=== PATIENT | male | born 1945 ===

== ENCOUNTER 2017-11-16 16:48 | Inpatient (IN) | payer OTHER, SELFPAY ==
[2017-11-16 16:49] VITALS: BMI 25.8
--- NOTE | 2017-11-16 18:16 | ED PDOC ---
HPI: General Adult Time Seen by Provider: 11/16/17 17:13 Chief Complaint (Nursing): Abnormal Labs Chief Complaint (Provider): abnormal labs History Per: Patient History/Exam Limitations: no limitations Onset/Duration Of Symptoms: Days Additional Complaint(s): René Jett is a 72 year old male, with a past medical history of diabetes and HTN, who was sent from podiatry clinic for elevated wbc of 15.1. Patient has been followed closely by podiatry clinic s/p right hallux osteo with debridement and bone biopsy one week ago. Pt. was discharged home from that procedure with PICC to [facility] and has been getting vanco infusion daily. Pt.'s most recent labs drawn 2d. ago, wbc 15.1, seen in clinic today, foot noted to be cellulitic and was sent to ED for repeat labs. Patient denies any fever, chills, cough, congestion or other medical complaints. PMD: Celia Chance Past Medical History Reviewed: Historical Data, Nursing Documentation, Vital Signs Vital Signs: Last Vital Signs Temp 99.2 F 11/16/17 23:43 Pulse 86 11/16/17 23:43 Resp 18 11/16/17 23:43 BP 144/79 11/16/17 23:43 Pulse Ox 96 11/17/17 00:23 - Medical History PMH: Diabetes, HTN Denies: Chronic Kidney Disease - Surgical History Surgical History: No Surg Hx - Family History Family History: States: Unknown Family Hx - Home Medications Home Medications: Ambulatory Orders Medication Instructions Recorded GlipiZIDE [Glucotrol] 10 mg PO DAILY 11/08/17 Lisinopril [Zestril] 40 mg PO DAILY 11/08/17 MetFORMIN [glucoPHAGE] 1,000 mg PO BID 11/08/17 Metoprolol Tartrate [Lopressor] 25 mg PO DAILY 11/08/17 Acetaminophen [Tylenol 325mg tab] 650 mg PO Q4 PRN tab 11/11/17 Ciprofloxacin HCl [Cipro] 500 mg PO BID #28 tablet 11/11/17 Mupirocin 2% Ointment [Bactroban 1 applic TOP BID #1 tube 11/11/17 Ointment] Vancomycin 1gm in NS 250ml 1 gm IVPB DAILY #14 bag 11/11/17 [Vancomycin 1gm] - Allergies Allergies/Adverse Reactions: Allergies Allergy/AdvReac Type Severity Reaction Status Date / Time No Known Allergies Allergy Verified 11/16/17 16:59 Review of Systems ROS Statement: Except As Marked, All Systems Reviewed And Found Negative Constitutional: Negative for: Fever, Chills ENT: Negative for: Nose Congestion Respiratory: Negative for: Cough Physical Exam - Reviewed Nursing Documentation Reviewed: Yes Vital Signs Reviewed: Yes - Physical Exam Appears: Positive for: No Acute Distress Head Exam: Positive for: ATRAUMATIC, NORMOCEPHALIC Skin: Positive for: Normal Color, Warm, Dry Eye Exam: Positive for: Normal appearance, EOMI, PERRL ENT: Positive for: Normal ENT Inspection, Pharynx Is (clear) Neck: Positive for: Painless ROM Respiratory: Negative for: Respiratory Distress Extremity: Positive for: Normal ROM (upper and lower extremities), Other (PICC line in place to right upper extremity. Right foot wrapped and dressing clean, dry, and intact) Neurologic/Psych: Positive for: Alert, Oriented - Laboratory Results Result Diagrams: 11/16/17 20:08 11/16/17 19:08 - ECG O2 Sat by Pulse Oximetry: 96 (RA) Pulse Ox Interpretation: Normal Medical Decision Making Medical Decision Making: Time: 17:13 Initial Impression: Abnormal labs Initial Plan: --CMP --CPK --CBC w/ differential --Erythrocyte sedimentation rate --Blood culture -Spoke with podiatry resident who has just seen patient in clinic. He was inspected and redressed by them with just some localized mild cellulitis but improvement on the overall picture. Scribe Attestation: Documented by Lucius Cartagena, acting as a scribe for Samai Low PA-C Provider Scribe Attestation: All medical record entries made by the Scribe were at my direction and personally dictated by me. I have reviewed the chart and agree that the record accurately reflects my personal performance of the history, physical exam, medical decision making, and the department course for this patient. I have also personally directed, reviewed, and agree with the discharge instructions and disposition. Disposition - Clinical Impression Clinical Impression: Cellulitis, Osteomyelitis of right foot - Patient ED Disposition Is Patient to be Admitted: Yes - Disposition Disposition Time: 23:50 Condition: FAIR
[2017-11-16 19:14] LABS: BASO # 0.1 K/uL (0.0-0.2); BASO % 0.4 % (0.0-2.0); EOS # 0.2 K/uL (0.0-0.7); EOS % 1.2 % (0.0-4.0); HEMOGLOBIN 12.4 g/dL (12.0-18.0); LYMPH # 1.5 K/uL (1.0-4.3); LYMPH % 9.6 % (20.0-40.0); MEAN CELL VOLUME 85.9 fl (80.0-94.0); MEAN CORPUSCULAR HGB CONC 33.7 g/dL (33.0-37.0); MEAN PLATELET VOLUME 7.4 fl (7.2-11.7); MONO # 1.1 K/uL (0.0-0.8); MONO % 7.5 % (0.0-10.0); NEUT # 12.3 K/uL (1.8-7.0); NEUT % 81.3 % (50.0-75.0); PLATELET COUNT 444 K/uL (130-400); RBC 4.28 Mil/uL (4.40-5.90); RED CELL DISTRIBUTION WIDTH 13.4 % (11.5-14.5); WHITE BLOOD COUNT 15.2 K/uL (4.8-10.8)
[2017-11-16 19:34] LABS: ALB/GLOB RATIO 0.9 (1.0-2.1); ALBUMIN 3.6 g/dL (3.5-5.0); CALCIUM 9.1 mg/dL (8.4-10.2)
[2017-11-16 21:20] LABS: ANISOCYTOSIS SLIGHT; BANDS 3 % (0-2); BASOPHIL 1 % (0-2); HYPOCHROMIC SLIGHT; LARGE PLATELETS PRESENT; LYMPHOCYTE 14 % (20-50); MICROCYTOSIS SLIGHT; MONOCYTE 10 % (0-10); NEUTROPHIL 72 % (42-75); PLATELET ESTIMATE NORMAL (NORMAL); TOTAL CELLS COUNTED 100
[2017-11-16 21:59] LABS: ERYTHROCYTE SEDIMENTATION RATE 75 mm/hr (0-20)
[2017-11-16] MEDS ORDERED: Glucagon Recombinant 1 mg Inj IM PRN (22:04)
[2017-11-16] MEDS ORDERED: Dextrose 50% SYRINGE Inj (50 ml) IV PRN (22:04)
--- NOTE | 2017-11-16 22:09 | CP.PCM.HP ---
History of Present Illness - History of Present Illness History of Present Illness: CC: sent from podiatry clinic due to abnormal labs HPI: 72 y/o man w/ pmh of HTN, DM2 presents to the ED sent from podiatry clinic due to abnormal labs. Patient undergoing outpatient treatment for osteomyelitis found 1 week ago via right hallux debridement/biopsy. Patient initially presented to the hospital 14 days ago for right foot/toe pain. Patient has right UE PICC and receiving daily infusion of vancomycin and taking PO ciprofloxacin. Patient had bloodwork done on 11/14/2017 which showed WBC of 15, which is an increase from discharge WC of 10.6. Patient denies fever, pain , nausea, vomiting, diarrhea. Patient also denies headaches, chest pain, SOB, dizziness. ED course: vitals: 99.4F, 96 beats/min, 136/80 mm Hg, resp 20, O2 96% room air CBC: 15.2>12.4/36.7<444 ESR: 75 CMP: 139/3.8, 105/24, 14/1.5, glucose 103, AST 42, ALT 51, alk phos 60 blood culture: pending PMD: Dr. Chyna Kim PMH: HTN, DM2 Meds: see medlist PSH: right hallux debridement/biopsy 11/09/2017 Fam: non-contributory SOC: quit smoking 20 years ago, denies alcohol and drugs ROS: 12 points assessed and negative unless otherwise reported in HPI Present on Admission - Present on Admission Any Indicators Present on Admission: Yes History of DVT/PE: No History of Uncontrolled Diabetes: Yes Urinary Catheter: No Decubitus Ulcer Present: No Review of Systems - Review of Systems All systems: reviewed and no additional remarkable complaints except - Constitutional Constitutional: absent: Chills, Fever, Headache - EENT Eyes: absent: Change in Vision - Cardiovascular Cardiovascular: absent: Chest Pain - Respiratory Respiratory: absent: Cough, Dyspnea - Gastrointestinal Gastrointestinal: absent: Abdominal Pain, Diarrhea, Nausea, Vomiting - Genitourinary Genitourinary: absent: Dysuria - Musculoskeletal Musculoskeletal: As Per HPI - Integumentary Integumentary: As Per HPI - Neurological Neurological: absent: Dizziness, Headaches Past Patient History - Infectious Disease Hx of Infectious Diseases: None - Past Medical History & Family History Past Medical History?: Yes - Past Social History Smoking Status: Never Smoked - CARDIAC Hx Hypertension: Yes - PULMONARY Hx Respiratory Disorders: No - NEUROLOGICAL Hx Neurological Disorder: No - HEENT Hx HEENT Problems: No - RENAL Hx Chronic Kidney Disease: No - ENDOCRINE/METABOLIC Hx Diabetes Mellitus Type 2: Yes - HEMATOLOGICAL/ONCOLOGICAL Hx Blood Disorders: No - INTEGUMENTARY Hx Dermatological Problems: No Hx Cellulitis: Yes - MUSCULOSKELETAL/RHEUMATOLOGICAL Hx Falls: Yes - GASTROINTESTINAL Hx Gastrointestinal Disorders: No - GENITOURINARY/GYNECOLOGICAL Hx Genitourinary Disorders: No - PSYCHIATRIC Hx Substance Use: No - SURGICAL HISTORY Hx Surgeries: No - ANESTHESIA Hx Anesthesia: No Meds Allergies/Adverse Reactions: Allergies Allergy/AdvReac Type Severity Reaction Status Date / Time No Known Allergies Allergy Verified 11/16/17 16:59 Physical Exam - Constitutional Appears: Non-toxic, No Acute Distress - Head Exam Head Exam: ATRAUMATIC, NORMAL INSPECTION, NORMOCEPHALIC - Eye Exam Eye Exam: Normal appearance - ENT Exam ENT Exam: Mucous Membranes Moist - Neck Exam Neck exam: Positive for: Full Rom. Negative for: Tenderness - Respiratory Exam Respiratory Exam: Clear to Auscultation Bilateral, NORMAL BREATHING PATTERN. absent: Accessory Muscle Use, Decreased Breath Sounds, Rales, Rhonchi, Wheezes, Respiratory Distress - Cardiovascular Exam Cardiovascular Exam: REGULAR RHYTHM, RRR, +S1, +S2. absent: Tachycardia - GI/Abdominal Exam GI & Abdominal Exam: Normal Bowel Sounds, Soft. absent: Distended, Tenderness - Extremities Exam Extremities exam: Negative for: calf tenderness, pedal edema, tenderness Additional comments: right foot in dressing (recently done in clinic), no signs of erythema or streaking along leg; left foot/leg non-tender, no erythema, no edema RUE PICC line - Neurological Exam Neurological exam: Alert, Oriented x3 - Skin Skin Exam: Dry, Normal Color, Warm Results - Vital Signs Recent Vital Signs: Last Vital Signs Temp 99.4 F 11/16/17 16:55 Pulse 96 H 11/16/17 16:55 Resp 20 11/16/17 16:55 BP 136/80 11/16/17 16:55 Pulse Ox 96 11/16/17 18:33 - Labs Result Diagrams: 11/16/17 20:08 11/16/17 19:08 Labs: Laboratory Results - last 24 hr 11/16/17 11/16/17 11/16/17 19:08 20:08 20:41 WBC 15.2 H RBC 4.28 L Hgb 12.4 Hct 36.7 MCV 85.9 MCH 29.0 MCHC 33.7 RDW 13.4 Plt Count 444 H MPV 7.4 Neut % (Auto) 81.3 H Lymph % (Auto) 9.6 L Crowley % (Auto) 7.5 Eos % (Auto) 1.2 Baso % (Auto) 0.4 Neut # (Auto) 12.3 H Lymph # (Auto) 1.5 Crowley # (Auto) 1.1 H Eos # (Auto) 0.2 Baso # (Auto) 0.1 Neutrophils % (Manual) 72 Band Neutrophils % 3 H Lymphocytes % (Manual) 14 L Monocytes % (Manual) 10 Basophils % (Manual) 1 Platelet Estimate Normal Large Platelets Present Hypochromasia (manual) Slight Anisocytosis (manual) Slight Microcytosis (manual) Slight ESR 75 H Sodium 139 Potassium 3.8 Chloride 105 Carbon Dioxide 24 Anion Gap 14 BUN 14 Creatinine 1.5 Est GFR ( Amer) 56 Est GFR (Non-Af Amer) 46 POC Glucose (mg/dL) 125 H Random Glucose 103 Calcium 9.1 Total Bilirubin 0.3 AST 42 ALT 51 Alkaline Phosphatase 60 Total Creatine Kinase 56 Total Protein 7.7 Albumin 3.6 Globulin 4.0 H Albumin/Globulin Ratio 0.9 L Assessment & Plan (1) Osteomyelitis of right foot Status: Acute (2) HTN (hypertension) Status: Chronic (3) DM2 (diabetes mellitus, type 2) Status: Chronic - Assessment and Plan (Free Text) Assessment: 72 y/o man w/ pmh of HTN, DM2 presents to the ED sent from podiatry clinic due to abnormal labs. Plan: Osteomyelitis - diagnosed via biopsy done 1 week ago - sent from podiatry clinic due to increase WBC on recent blood work - failed outpatient treatment of PO cipro and IV vanc via PICC line - vital signs stable, does not fulfill sepsis criteria - CBC: 15.2>12.4/36.7<444 - ESR: 75 - CMP: 139/3.8, 105/24, 14/1.5, glucose 103, AST 42, ALT 51, alk phos 60 - blood culture: pending - Vancomycin 1 gm IV Q12h - Zosyn 3.375 gm IV Q8h - Ciprofloxacin 400 mg IV Q12h - podiatry consult ordered - f/u CBC, CMP - monitor for acute changes - admit to MedSurg DM2 - last HbA1c 8.9% (11/09/2017) - c/w glipizide, hold metformin for now - insulin correction scale - hypoglycemic protocol HTN - stable BP - c/w lisinopril andmetoprolol Prophylactic measures - DVT: lovenox 40 mg SC daily
[2017-11-16] MEDS ORDERED: Ciprofloxacin 400mg/200ml D5W 400 MG/200 ML BAG IVPB SCH (22:15)
[2017-11-16] MEDS ORDERED: Piperacillin/Tazobact 3.375 gm Inj IVPB ONE (22:31)
[2017-11-17] MEDS: Piperacillin/Tazobact 3.375 GM in Sodium Chloride 0.9% 100 ML IVPB SCH ×3 (00:03→17:46)
[2017-11-17 05:50] LABS: BASO # 0.1 K/uL (0.0-0.2); BASO % 1.1 % (0.0-2.0); EOS # 0.2 K/uL (0.0-0.7); EOS % 2.2 % (0.0-4.0); HEMOGLOBIN 11.3 g/dL (12.0-18.0); LYMPH # 1.4 K/uL (1.0-4.3); LYMPH % 12.8 % (20.0-40.0); MEAN CELL VOLUME 85.2 fl (80.0-94.0); MEAN CORPUSCULAR HEMOGLOBIN 28.8 pg (27.0-31.0); MEAN CORPUSCULAR HGB CONC 33.8 g/dL (33.0-37.0); MEAN PLATELET VOLUME 7.3 fl (7.2-11.7); MONO # 0.9 K/uL (0.0-0.8); MONO % 8.3 % (0.0-10.0); NEUT # 8.1 K/uL (1.8-7.0); NEUT % 75.6 % (50.0-75.0); RBC 3.93 Mil/uL (4.40-5.90); WHITE BLOOD COUNT 10.8 K/uL (4.8-10.8)
[2017-11-17 06:12] LABS: ALB/GLOB RATIO 0.9 (1.0-2.1); ALBUMIN 3.3 g/dL (3.5-5.0); ALT/SGPT 36 U/L (21-72); AST/SGOT 29 U/L (17-59); BLOOD UREA NITROGEN 14 mg/dl (9-20); CALCIUM 8.7 mg/dL (8.4-10.2); GFR NON-AFRICAN AMERICAN 50
[2017-11-17] MEDS: Insulin Lispro (humaLOG) 100 Units/ml Inj SC SCH ×3 (06:30→17:43)
[2017-11-17] MEDS: Enoxaparin 40 mg Syringe SC SCH (09:04)
--- NOTE | 2017-11-17 09:48 | CP.PCM.PN ---
<Krysta Sharma - Last Filed: 11/17/17 12:16> Subjective - Date & Time of Evaluation Date of Evaluation: 11/17/17 Time of Evaluation: 09:48 - Subjective Subjective: Patient seen and examined at bedside with Dr. Spencer. He is sitting comfortably on his bed and is accompanied by his at bedside. He reports feeling well and states that he is not in any pain. Pt has no active complaints. He denies nausea , vomiting, chest pain, shortness of breath, calf tenderness, foot pain, leg pain, fevers, chills and diarrhea. Objective - Vital Signs/Intake and Output Vital Signs (last 24 hours): Temp Pulse Resp BP Pulse Ox 98.8 F 76 18 149/79 97 11/17/17 08:11 11/17/17 09:04 11/17/17 08:11 11/17/17 09:04 11/17/17 08:11 - Medications Medications: Current Medications Dextrose (Dextrose 50% Inj) 0 ml IV STAT PRN; Protocol PRN Reason: Hypoglycemia Protocol Dextrose (Glutose 15) 0 gm PO ONCE PRN; Protocol PRN Reason: Hypoglycemia Protocol Enoxaparin Sodium (Lovenox) 40 mg SC DAILY MARIVEL PRN Reason: Protocol Last Admin: 11/17/17 09:04 Dose: 40 mg Glipizide (Glucotrol) 10 mg PO DAILY COUNT INCLUDES THE [facility] Last Admin: 11/17/17 09:04 Dose: 10 mg Glucagon (Glucagen Diagnostic Kit) 0 mg IM STAT PRN; Protocol PRN Reason: Hypoglycemia Protocol Piperacillin Sod/Tazobactam (Sod 3.375 gm/ Sodium Chloride) 100 mls @ 100 mls/ hr IVPB Q8 MARIVEL PRN Reason: Protocol Last Admin: 11/17/17 09:05 Dose: 100 mls/hr Ciprofloxacin (Cipro 400mg/200ml Dsw) 400 mg in 200 mls @ 200 mls/hr IVPB Q12 MARIVEL PRN Reason: Protocol Vancomycin HCl 1 gm/ Sodium (Chloride) 250 mls @ 166.667 mls/hr IVPB Q12 MARIVEL PRN Reason: Protocol Last Admin: 11/17/17 09:06 Dose: 166.667 mls/hr Insulin Human Lispro (Humalog) 0 units SC ACHS MARIVEL PRN Reason: Protocol Last Admin: 11/17/17 06:30 Dose: 2 units Lisinopril (Zestril) 40 mg PO DAILY COUNT INCLUDES THE [facility] Last Admin: 11/17/17 09:04 Dose: 40 mg Metoprolol Tartrate (Lopressor) 25 mg PO DAILY COUNT INCLUDES THE [facility] Last Admin: 11/17/17 09:04 Dose: 25 mg Mupirocin (Bactroban Ointment) 1 applic TOP BID COUNT INCLUDES THE [facility] Last Admin: 11/17/17 09:07 Dose: 1 applic Saccharomyces Boulardii (Florastor) 250 mg PO BID COUNT INCLUDES THE [facility] - Labs Labs: 11/17/17 05:39 11/17/17 05:39 - Constitutional Appears: Well, Non-toxic, No Acute Distress - Head Exam Head Exam: NORMAL INSPECTION - ENT Exam ENT Exam: Mucous Membranes Moist - Respiratory Exam Respiratory Exam: Clear to Ausculation Bilateral, NORMAL BREATHING PATTERN. absent: Decreased Breath Sounds, Rales, Wheezes, Respiratory Distress, Stridor - Cardiovascular Exam Cardiovascular Exam: REGULAR RHYTHM, RRR, +S1, +S2. absent: Diastolic murmur, Gallop, JVD, Rubs, +S4, Murmur - GI/Abdominal Exam GI & Abdominal Exam: Soft, Normal Bowel Sounds. absent: Distended, Firm, Rigid , Tenderness, Mass, Pulsatile Mass, Rebound - Extremities Exam Extremities Exam: Normal Inspection. absent: Calf Tenderness, Joint Swelling, Pedal Edema, Tenderness Additional comments: Edema noted on the right lower leg (+1). +2 dorsalis pedis and +2 tibialis pulses noted with Doppler on both lower extremities. Multiple right foot toes erythematous. - Neurological Exam Neurological Exam: Alert, Awake - Psychiatric Exam Psychiatric exam: Normal Affect, Normal Mood - Skin Skin Exam: Dry, Intact, Normal Color, Warm Assessment and Plan - Assessment and Plan (Free Text) Assessment: 72 y/o man w/ pmh of HTN, DM2 presents to the ED sent from podiatry clinic due to abnormal labs. Patient WBC on admission was 15 but now reported to be 10.8. Patient noted to have multiple erythematous toes. Plan: 1. Osteomyelitis - diagnosed via biopsy done 1 week ago. Failed outpatient treatment of Cipro and Vancomycin via PICC line. - WBC trended down from 15 (11/16/17) to 10 (11/17/17). - Continue Vancomycin 1gm Q12h day 1 and Zosyn 3.375 Q8H day 1. Ciprofloxacin 400mg Q12H. - blood culture: pending. - podiatry consult appreciated. - monitor for acute changes. 2. DM2 - last HbA1c 8.9% (11/09/2017) - c/w glipizide, hold metformin for now - insulin correction scale - hypoglycemic protocol 3. HTN - stable BP - c/w lisinopril and metoprolol 4. Prophylactic measures - DVT: lovenox 40 mg SC daily <Chelle Spencer - Last Filed: 11/17/17 17:04> Objective - Vital Signs/Intake and Output Vital Signs (last 24 hours): Temp Pulse Resp BP Pulse Ox 98.9 F 96 H 20 151/78 H 100 11/17/17 15:45 11/17/17 15:45 11/17/17 15:45 11/17/17 15:45 11/17/17 15:45 - Medications Medications: Current Medications Dextrose (Dextrose 50% Inj) 0 ml IV STAT PRN; Protocol PRN Reason: Hypoglycemia Protocol Dextrose (Glutose 15) 0 gm PO ONCE PRN; Protocol PRN Reason: Hypoglycemia Protocol Enoxaparin Sodium (Lovenox) 40 mg SC DAILY MARIVEL PRN Reason: Protocol Last Admin: 11/17/17 09:04 Dose: 40 mg Glipizide (Glucotrol) 10 mg PO DAILY COUNT INCLUDES THE [facility] Last Admin: 11/17/17 09:04 Dose: 10 mg Glucagon (Glucagen Diagnostic Kit) 0 mg IM STAT PRN; Protocol PRN Reason: Hypoglycemia Protocol Piperacillin Sod/Tazobactam (Sod 3.375 gm/ Sodium Chloride) 100 mls @ 100 mls/ hr IVPB Q8 MARIVEL PRN Reason: Protocol Last Admin: 11/17/17 09:05 Dose: 100 mls/hr Ciprofloxacin (Cipro 400mg/200ml Dsw) 400 mg in 200 mls @ 200 mls/hr IVPB Q12 MARIVEL PRN Reason: Protocol Last Admin: 11/17/17 12:39 Dose: 200 mls/hr Vancomycin HCl 1 gm/ Sodium (Chloride) 250 mls @ 166.667 mls/hr IVPB Q12 MARIVEL PRN Reason: Protocol Last Admin: 11/17/17 09:06 Dose: 166.667 mls/hr Insulin Human Lispro (Humalog) 0 units SC ACHS COUNT INCLUDES THE [facility] PRN Reason: Protocol Last Admin: 11/17/17 12:41 Dose: 4 units Lisinopril (Zestril) 40 mg PO DAILY COUNT INCLUDES THE [facility] Last Admin: 11/17/17 09:04 Dose: 40 mg Metoprolol Tartrate (Lopressor) 25 mg PO DAILY COUNT INCLUDES THE [facility] Last Admin: 11/17/17 09:04 Dose: 25 mg Mupirocin (Bactroban Ointment) 1 applic TOP BID COUNT INCLUDES THE [facility] Last Admin: 11/17/17 09:07 Dose: 1 applic Saccharomyces Boulardii (Florastor) 250 mg PO BID COUNT INCLUDES THE [facility] Last Admin: 11/17/17 12:39 Dose: 250 mg - Labs Labs: 11/17/17 05:39 11/17/17 05:39 Attending/Attestation - Attestation I have personally seen and examined this patient.: Yes I have fully participated in the care of the patient.: Yes I have reviewed all pertinent clinical information, including history, physical exam and plan: Yes Notes (Text): Osteomyelitis, right hallux - plan for amputation as per Podiatry - cont Elisha Scott, Cipro - ID consulted
[2017-11-17] MEDS ORDERED: Povidone Iodine Topical 10% Sol ONE (12:23)
[2017-11-17] MEDS: Ciprofloxacin 400mg/200ml D5W 400 MG/200 ML BAG IVPB SCH ×2 (12:39→20:08)
[2017-11-17] MEDS: Saccharomyces Boulardi 250 mg Cap PO SCH ×2 (12:39→17:46)
--- NOTE | 2017-11-17 12:47 | CP.PCM.CON ---
History of Present Illness - History of Present Illness History of Present Illness: Podiatry consult note for attending Dr. Ang 72 y/o male with PMHx of HTN and Type II DM was seen and evaluated at bedside due to pain at the right hallux. Patient is currently undergoing outpatient treatment for osteomyelitis. Patient has a right hallux debridement and biopsy 1 weeks ago. Patient has right UE PICC and receiving daily infusion of vancomycin and taking PO ciprofloxacin. Patient had abnormal labs from 11/14/17 and was asked to return to the ED for admission. Patient denies fever, pain, nausea, vomiting, diarrhea. Patient also denies headaches, chest pain, SOB, dizziness. CBC: 15.2>12.4/36.7<444 ESR: 75 PMD: Dr. Chyna Kim PMH: HTN, DM2 Meds: see medlist PSH: right hallux debridement/biopsy 11/09/2017 Fam: non-contributory SOC: quit smoking 20 years ago, denies alcohol and drugs Review of Systems - Review of Systems All systems: reviewed and no additional remarkable complaints except Review of Systems: As per HPI Past Patient History - Infectious Disease Hx of Infectious Diseases: None - Past Medical History & Family History Past Medical History?: Yes - Past Social History Smoking Status: Former Smoker - CARDIAC Hx Hypertension: Yes - PULMONARY Hx Respiratory Disorders: No - NEUROLOGICAL Hx Neurological Disorder: No - HEENT Hx HEENT Problems: No - RENAL Hx Chronic Kidney Disease: No - ENDOCRINE/METABOLIC Hx Endocrine Disorders: Yes Hx Diabetes Mellitus Type 2: Yes - HEMATOLOGICAL/ONCOLOGICAL Hx Blood Disorders: No - INTEGUMENTARY Hx Dermatological Problems: No - MUSCULOSKELETAL/RHEUMATOLOGICAL Hx Musculoskeletal Disorders: No Hx Falls: No Hx Osteomyelitis: Yes (right foot) - GASTROINTESTINAL Hx Gastrointestinal Disorders: No - GENITOURINARY/GYNECOLOGICAL Hx Genitourinary Disorders: No - PSYCHIATRIC Hx Psychophysiologic Disorder: No Hx Substance Use: No - SURGICAL HISTORY Hx Surgeries: No - ANESTHESIA Hx Anesthesia: No Hx Anesthesia Reactions: No Hx Malignant Hyperthermia: No Has any member of the family had a problem w/ anesthesia?: No Meds Allergies/Adverse Reactions: Allergies Allergy/AdvReac Type Severity Reaction Status Date / Time No Known Allergies Allergy Verified 11/16/17 16:59 - Medications Medications: Current Medications Dextrose (Dextrose 50% Inj) 0 ml IV STAT PRN; Protocol PRN Reason: Hypoglycemia Protocol Dextrose (Glutose 15) 0 gm PO ONCE PRN; Protocol PRN Reason: Hypoglycemia Protocol Enoxaparin Sodium (Lovenox) 40 mg SC DAILY [facility] PRN Reason: Protocol Last Admin: 11/17/17 09:04 Dose: 40 mg Glipizide (Glucotrol) 10 mg PO DAILY [facility] Last Admin: 11/17/17 09:04 Dose: 10 mg Glucagon (Glucagen Diagnostic Kit) 0 mg IM STAT PRN; Protocol PRN Reason: Hypoglycemia Protocol Piperacillin Sod/Tazobactam (Sod 3.375 gm/ Sodium Chloride) 100 mls @ 100 mls/ hr IVPB Q8 [facility] PRN Reason: Protocol Last Admin: 11/17/17 09:05 Dose: 100 mls/hr Ciprofloxacin (Cipro 400mg/200ml Dsw) 400 mg in 200 mls @ 200 mls/hr IVPB Q12 [facility] PRN Reason: Protocol Last Admin: 11/17/17 12:39 Dose: 200 mls/hr Vancomycin HCl 1 gm/ Sodium (Chloride) 250 mls @ 166.667 mls/hr IVPB Q12 [facility] PRN Reason: Protocol Last Admin: 11/17/17 09:06 Dose: 166.667 mls/hr Insulin Human Lispro (Humalog) 0 units SC ACHS [facility] PRN Reason: Protocol Last Admin: 11/17/17 12:41 Dose: 4 units Lisinopril (Zestril) 40 mg PO DAILY [facility] Last Admin: 11/17/17 09:04 Dose: 40 mg Metoprolol Tartrate (Lopressor) 25 mg PO DAILY [facility] Last Admin: 11/17/17 09:04 Dose: 25 mg Mupirocin (Bactroban Ointment) 1 applic TOP BID [facility] Last Admin: 11/17/17 09:07 Dose: 1 applic Saccharomyces Boulardii (Florastor) 250 mg PO BID [facility] Last Admin: 11/17/17 12:39 Dose: 250 mg Physical Exam - Constitutional Appears: Well, Non-toxic, No Acute Distress - Head Exam Head Exam: ATRAUMATIC, NORMOCEPHALIC - Extremities Exam Additional comments: Right Lower Extremity Exam Vascular: DP/PT 2/4, CFT < 3 seconds to all digits, pedal hair absent, erythema and edema present about the hallux and extending to first MPJ and forefoot Ortho: mild pain on palpation of surgical debridement site, does not extend proximally up leg as seen prior to surgery Neuro: gross and protective sensation intact Derm: 4 cm X 3 cm circular wound at the plantar aspect of the right hallux, with 50% fibrotic base and 40% granular, positive malodor, brijesh-wound hyperkeratotic border with edema and erythema extending to the level of the metatarsal heads, positive probe to bone, no drainage, no tracking or tunneling noted, sutures noted within the wound - Neurological Exam Neurological exam: Alert, Oriented x3 - Psychiatric Exam Psychiatric exam: Normal Affect, Normal Mood Results - Vital Signs Recent Vital Signs: Last Vital Signs Temp 98.8 F 11/17/17 08:11 Pulse 76 11/17/17 09:04 Resp 18 11/17/17 08:11 BP 149/79 11/17/17 09:04 Pulse Ox 97 11/17/17 08:11 - Labs Result Diagrams: 11/17/17 05:39 11/17/17 05:39 Labs: Laboratory Results - last 24 hr 11/16/17 11/16/17 11/16/17 19:08 20:08 20:41 WBC 15.2 H RBC 4.28 L Hgb 12.4 Hct 36.7 MCV 85.9 MCH 29.0 MCHC 33.7 RDW 13.4 Plt Count 444 H MPV 7.4 Neut % (Auto) 81.3 H Lymph % (Auto) 9.6 L [place] % (Auto) 7.5 Eos % (Auto) 1.2 Baso % (Auto) 0.4 Neut # (Auto) 12.3 H Lymph # (Auto) 1.5 [place] # (Auto) 1.1 H Eos # (Auto) 0.2 Baso # (Auto) 0.1 Neutrophils % (Manual) 72 Band Neutrophils % 3 H Lymphocytes % (Manual) 14 L Monocytes % (Manual) 10 Basophils % (Manual) 1 Platelet Estimate Normal Large Platelets Present Hypochromasia (manual) Slight Anisocytosis (manual) Slight Microcytosis (manual) Slight ESR 75 H Sodium 139 Potassium 3.8 Chloride 105 Carbon Dioxide 24 Anion Gap 14 BUN 14 Creatinine 1.5 Est GFR ( Amer) 56 Est GFR (Non-Af Amer) 46 POC Glucose (mg/dL) 125 H Random Glucose 103 Calcium 9.1 Total Bilirubin 0.3 AST 42 ALT 51 Alkaline Phosphatase 60 Total Creatine Kinase 56 Total Protein 7.7 Albumin 3.6 Globulin 4.0 H Albumin/Globulin Ratio 0.9 L 11/17/17 11/17/17 11/17/17 04:40 05:39 05:39 WBC 10.8 RBC 3.93 L Hgb 11.3 L Hct 33.5 L MCV 85.2 MCH 28.8 MCHC 33.8 RDW 13.0 Plt Count 425 H MPV 7.3 Neut % (Auto) 75.6 H Lymph % (Auto) 12.8 L [place] % (Auto) 8.3 Eos % (Auto) 2.2 Baso % (Auto) 1.1 Neut # (Auto) 8.1 H Lymph # (Auto) 1.4 [place] # (Auto) 0.9 H Eos # (Auto) 0.2 Baso # (Auto) 0.1 Neutrophils % (Manual) Band Neutrophils % Lymphocytes % (Manual) Monocytes % (Manual) Basophils % (Manual) Platelet Estimate Large Platelets Hypochromasia (manual) Anisocytosis (manual) Microcytosis (manual) ESR Sodium 137 Potassium 3.8 Chloride 106 Carbon Dioxide 23 Anion Gap 12 BUN 14 Creatinine 1.4 Est GFR ( Amer) > 60 Est GFR (Non-Af Amer) 50 POC Glucose (mg/dL) 171 H Random Glucose 181 H Calcium 8.7 Total Bilirubin 0.3 AST 29 ALT 36 Alkaline Phosphatase 51 Total Creatine Kinase Total Protein 7.0 Albumin 3.3 L Globulin 3.7 Albumin/Globulin Ratio 0.9 L 11/17/17 11:07 WBC RBC Hgb Hct MCV MCH MCHC RDW Plt Count MPV Neut % (Auto) Lymph % (Auto) [place] % (Auto) Eos % (Auto) Baso % (Auto) Neut # (Auto) Lymph # (Auto) [place] # (Auto) Eos # (Auto) Baso # (Auto) Neutrophils % (Manual) Band Neutrophils % Lymphocytes % (Manual) Monocytes % (Manual) Basophils % (Manual) Platelet Estimate Large Platelets Hypochromasia (manual) Anisocytosis (manual) Microcytosis (manual) ESR Sodium Potassium Chloride Carbon Dioxide Anion Gap BUN Creatinine Est GFR ( Amer) Est GFR (Non-Af Amer) POC Glucose (mg/dL) 277 H Random Glucose Calcium Total Bilirubin AST ALT Alkaline Phosphatase Total Creatine Kinase Total Protein Albumin Globulin Albumin/Globulin Ratio Assessment & Plan - Assessment and Plan (Free Text) Assessment: 72 y/o male seen and evaluated at bedside for osteomyelitis to the right hallux , with possible further surgery Plan: Patient seen and evaluated at bedside Plan discussed with attending Dr. Ang Chart, labs and vitals reviewed- WBC 10.8 from 15.2 yesterday (11/16/17) Ordered MRI- to r/o osteomyelitis Infectious disease consulted- appreciate recommendations Patient wound dressed with betadine, and dry sterile dressing In length conversation with patient regarding surgical plan- patient likely to have amputation of the right hallux Patient agreeable to surgical treatment plan Podiatry will follow patient while in house - Date & Time Date: 11/17/17 Time: 12:57
[2017-11-18] MEDS: Piperacillin/Tazobact 3.375 GM in Sodium Chloride 0.9% 100 ML IVPB SCH ×3 (00:39→16:43)
[2017-11-18 05:46] LABS: HEMOGLOBIN 11.8 g/dL (12.0-18.0); MEAN CELL VOLUME 84.3 fl (80.0-94.0); MEAN CORPUSCULAR HEMOGLOBIN 28.6 pg (27.0-31.0); MEAN CORPUSCULAR HGB CONC 33.9 g/dL (33.0-37.0); RBC 4.13 Mil/uL (4.40-5.90); RED CELL DISTRIBUTION WIDTH 12.9 % (11.5-14.5)
[2017-11-18 06:01] LABS: CALCIUM 8.7 mg/dL (8.4-10.2)
--- NOTE | 2017-11-18 06:42 | CP.PCM.PN ---
Subjective - Date & Time of Evaluation Date of Evaluation: 11/18/17 Time of Evaluation: 06:40 - Subjective Subjective: Podiatry progress note for attending Dr. Ang, 72 y/o male was seen and evaluated at bedside with attending Dr. Ang due to pain and ulcer at the right hallux. Patient is currently undergoing outpatient treatment for osteomyelitis. Patient has a right hallux debridement and biopsy 1 weeks ago. Patient states he feels better after getting admitted. Patient denies any acute overnight events. Patient is AAox3 and in NAD. Patient denies f /n/v/sob/decrease in appetite Objective - Vital Signs/Intake and Output Vital Signs (last 24 hours): Temp Pulse Resp BP Pulse Ox 98.8 F 79 18 146/79 96 11/18/17 05:04 11/18/17 05:04 11/18/17 05:04 11/18/17 05:04 11/18/17 05:04 - Medications Medications: Current Medications Dextrose (Dextrose 50% Inj) 0 ml IV STAT PRN; Protocol PRN Reason: Hypoglycemia Protocol Dextrose (Glutose 15) 0 gm PO ONCE PRN; Protocol PRN Reason: Hypoglycemia Protocol Enoxaparin Sodium (Lovenox) 40 mg SC DAILY [facility] PRN Reason: Protocol Last Admin: 11/17/17 09:04 Dose: 40 mg Glipizide (Glucotrol) 10 mg PO DAILY [facility] Last Admin: 11/17/17 09:04 Dose: 10 mg Glucagon (Glucagen Diagnostic Kit) 0 mg IM STAT PRN; Protocol PRN Reason: Hypoglycemia Protocol Piperacillin Sod/Tazobactam (Sod 3.375 gm/ Sodium Chloride) 100 mls @ 100 mls/ hr IVPB Q8 [facility] PRN Reason: Protocol Last Admin: 11/18/17 00:39 Dose: 100 mls/hr Ciprofloxacin (Cipro 400mg/200ml Dsw) 400 mg in 200 mls @ 200 mls/hr IVPB Q12 [facility] PRN Reason: Protocol Last Admin: 11/17/17 20:08 Dose: 200 mls/hr Vancomycin HCl 1 gm/ Sodium (Chloride) 250 mls @ 166.667 mls/hr IVPB Q12 [facility] PRN Reason: Protocol Last Admin: 11/17/17 21:33 Dose: 166.667 mls/hr Insulin Human Lispro (Humalog) 0 units SC ACHS [facility] PRN Reason: Protocol Last Admin: 11/17/17 17:43 Dose: Not Given Lisinopril (Zestril) 40 mg PO DAILY [facility] Last Admin: 11/17/17 09:04 Dose: 40 mg Metoprolol Tartrate (Lopressor) 25 mg PO DAILY [facility] Last Admin: 11/17/17 09:04 Dose: 25 mg Mupirocin (Bactroban Ointment) 1 applic TOP BID [facility] Last Admin: 11/17/17 17:46 Dose: 1 applic Saccharomyces Boulardii (Florastor) 250 mg PO BID [facility] Last Admin: 11/17/17 17:46 Dose: 250 mg - Labs Labs: 11/18/17 04:20 11/18/17 04:20 - Constitutional Appears: Well, Non-toxic, No Acute Distress - Head Exam Head Exam: ATRAUMATIC, NORMOCEPHALIC - Extremities Exam Additional comments: Right Lower Extremity Exam Vascular: DP/PT 2/4, CFT < 3 seconds to all digits, pedal hair absent, erythema and edema present about the hallux and extending to first MPJ and forefoot Ortho: mild pain on palpation of surgical debridement site, does not extend proximally up leg as seen prior to surgery Neuro: gross and protective sensation intact Derm: 4 cm X 3 cm circular wound at the plantar aspect of the right hallux, with 50% fibrotic base and 40% granular, positive malodor, brijesh-wound hyperkeratotic border with edema and erythema extending to the level of the metatarsal heads, positive probe to bone, no drainage, no tracking or tunneling noted, sutures noted within the wound - Neurological Exam Neurological Exam: Alert, Awake, Oriented x3 - Psychiatric Exam Psychiatric exam: Normal Affect, Normal Mood - Skin Skin Exam: Normal Color Assessment and Plan - Assessment and Plan (Free Text) Assessment: 72 y/o male seen and evaluated at bedside for osteomyelitis to the right hallux , with possible further surgery Plan: Patient seen and evaluated at bedside with attending Dr. Ang Plan discussed with attending Dr. Ang Chart, labs and vitals reviewed- WBC 12.0 from 10.8 MRI read and reviewed: acute OM of the proximal phalanx of the hallux EMELYN/PVR- Ordered Vascular consult placed- appreciate recs Infectious disease consulted- appreciate recommendations Patient wound dressed with betadine, and dry sterile dressing In length discussion with patient regarding the surgical plan vs. outpatient Abx treatment- and risks and benefits of both discussed. Patient thoroughly explained what is the procedure will be and function of life after procedure All patient and family questions were answered to satisfaction Patient agreeable to amputation of the right hallux and surgery booked for Tuesday 7:45 AM Podiatry will follow patient while in house
[2017-11-18] MEDS: Saccharomyces Boulardi 250 mg Cap PO SCH ×2 (08:24→16:42)
[2017-11-18] MEDS: Insulin Lispro (humaLOG) 100 Units/ml Inj SC SCH ×4 (08:26→22:09)
[2017-11-18] MEDS: Ciprofloxacin 400mg/200ml D5W 400 MG/200 ML BAG IVPB SCH (08:31)
--- NOTE | 2017-11-18 09:48 | CP.PCM.PN ---
<Krysta Sharma - Last Filed: 11/18/17 09:48> Subjective - Date & Time of Evaluation Date of Evaluation: 11/18/17 Time of Evaluation: 09:48 - Subjective Subjective: Patient seen and examined at bedside with Dr. Spencer. He is stable and has been consistently afebrile. Pt accompanied by who is sitting in the room. He reports good appetite and states he has not had a bowel movement yet. He reports he wants to go through with the right big toe amputation. Denies chest pain, shortness of breath, abdominal diggs, nausea, vomiting, right leg pain and calf pain. Surrogate decision makr - spouse Kelle Objective - Vital Signs/Intake and Output Vital Signs (last 24 hours): Temp Pulse Resp BP Pulse Ox 98.5 F 78 20 139/77 97 11/18/17 08:23 11/18/17 08:24 11/18/17 08:23 11/18/17 08:24 11/18/17 08:23 - Medications Medications: Current Medications Dextrose (Dextrose 50% Inj) 0 ml IV STAT PRN; Protocol PRN Reason: Hypoglycemia Protocol Dextrose (Glutose 15) 0 gm PO ONCE PRN; Protocol PRN Reason: Hypoglycemia Protocol Enoxaparin Sodium (Lovenox) 40 mg SC DAILY [facility] PRN Reason: Protocol Last Admin: 11/17/17 09:04 Dose: 40 mg Glipizide (Glucotrol) 10 mg PO DAILY [facility] Last Admin: 11/18/17 08:25 Dose: 10 mg Glucagon (Glucagen Diagnostic Kit) 0 mg IM STAT PRN; Protocol PRN Reason: Hypoglycemia Protocol Piperacillin Sod/Tazobactam (Sod 3.375 gm/ Sodium Chloride) 100 mls @ 100 mls/ hr IVPB Q8 [facility] PRN Reason: Protocol Last Admin: 11/18/17 08:28 Dose: 100 mls/hr Ciprofloxacin (Cipro 400mg/200ml Dsw) 400 mg in 200 mls @ 200 mls/hr IVPB Q12 [facility] PRN Reason: Protocol Last Admin: 11/18/17 08:31 Dose: 200 mls/hr Vancomycin HCl 1 gm/ Sodium (Chloride) 250 mls @ 166.667 mls/hr IVPB Q12 [facility] PRN Reason: Protocol Last Admin: 11/18/17 08:30 Dose: 166.667 mls/hr Insulin Human Lispro (Humalog) 0 units SC ACHS [facility] PRN Reason: Protocol Last Admin: 11/18/17 08:26 Dose: 2 units Lisinopril (Zestril) 40 mg PO DAILY [facility] Last Admin: 11/18/17 08:24 Dose: 40 mg Metoprolol Tartrate (Lopressor) 25 mg PO DAILY [facility] Last Admin: 11/18/17 08:24 Dose: 25 mg Mupirocin (Bactroban Ointment) 1 applic TOP BID [facility] Last Admin: 11/18/17 08:23 Dose: 1 applic Saccharomyces Boulardii (Florastor) 250 mg PO BID [facility] Last Admin: 11/18/17 08:24 Dose: 250 mg - Labs Labs: 11/18/17 04:20 11/18/17 04:20 - Constitutional Appears: Well, Non-toxic, No Acute Distress - Eye Exam Eye Exam: Normal appearance - ENT Exam ENT Exam: Mucous Membranes Moist - Respiratory Exam Respiratory Exam: Clear to Ausculation Bilateral, NORMAL BREATHING PATTERN. absent: Chest Wall Tenderness, Decreased Breath Sounds, Rales, Rhonchi, Wheezes , Respiratory Distress - Cardiovascular Exam Cardiovascular Exam: REGULAR RHYTHM, RRR, +S1, +S2. absent: Diastolic murmur, Gallop, JVD, Rubs, +S4, Murmur - GI/Abdominal Exam GI & Abdominal Exam: Soft, Normal Bowel Sounds. absent: Distended, Firm, Guarding, Rigid, Tenderness, Organomegaly, Rebound - Extremities Exam Extremities Exam: Normal Inspection (Dressing on right big toe. Clean. Dry. ), Pedal Edema (Right lower leg pedal edema, +1. ). absent: Calf Tenderness, Joint Swelling, Tenderness - Neurological Exam Neurological Exam: Alert, Awake, Oriented x3 - Psychiatric Exam Psychiatric exam: Normal Affect - Skin Skin Exam: Dry, Intact, Normal Color, Warm Assessment and Plan - Assessment and Plan (Free Text) Assessment: 72 y/o man w/ pmh of HTN, DM2 presents to the ED sent from podiatry clinic due to abnormal labs. Patient WBC on admission was 15 but now reported to be 12. Patient has been consistently afebrile. Plan: 1. Osteomyelitis - diagnosed via biopsy done 1 week ago. Failed outpatient treatment of Cipro and Vancomycin via PICC line. - WBC trended down from 15 (9/19/18) to 12 (11/18/17). - Continue Vancomycin 1gm Q12h day 2 and Zosyn 3.375 Q8H day 2. Ciprofloxacin 400mg Q12H day 2. - blood culture: negative to date. - podiatry consult appreciated- Patient agreed to surgery, amputation of right hallux, Date of surgery to be determined. - F/U ECHOcardiogram. - F/U ID recommendations. 2. DM2 - last HbA1c 8.9% (11/09/2017) - c/w glipizide, hold metformin for now - insulin correction scale - hypoglycemic protocol 3. HTN - stable BP - c/w lisinopril and metoprolol 4. Prophylactic measures - DVT: lovenox 40 mg SC daily <Chelle Spencer - Last Filed: 11/18/17 16:40> Objective - Vital Signs/Intake and Output Vital Signs (last 24 hours): Temp Pulse Resp BP Pulse Ox 99.8 F H 76 18 149/78 96 11/18/17 16:23 11/18/17 16:23 11/18/17 16:23 11/18/17 16:23 11/18/17 16:23 - Medications Medications: Current Medications Dextrose (Dextrose 50% Inj) 0 ml IV STAT PRN; Protocol PRN Reason: Hypoglycemia Protocol Dextrose (Glutose 15) 0 gm PO ONCE PRN; Protocol PRN Reason: Hypoglycemia Protocol Enoxaparin Sodium (Lovenox) 40 mg SC DAILY [facility] PRN Reason: Protocol Last Admin: 11/17/17 09:04 Dose: 40 mg Glipizide (Glucotrol) 10 mg PO DAILY [facility] Last Admin: 11/18/17 08:25 Dose: 10 mg Glucagon (Glucagen Diagnostic Kit) 0 mg IM STAT PRN; Protocol PRN Reason: Hypoglycemia Protocol Piperacillin Sod/Tazobactam (Sod 3.375 gm/ Sodium Chloride) 100 mls @ 100 mls/ hr IVPB Q8 [facility] PRN Reason: Protocol Last Admin: 11/18/17 08:28 Dose: 100 mls/hr Ciprofloxacin (Cipro 400mg/200ml Dsw) 400 mg in 200 mls @ 200 mls/hr IVPB Q12 [facility] PRN Reason: Protocol Last Admin: 11/18/17 08:31 Dose: 200 mls/hr Vancomycin HCl 1 gm/ Sodium (Chloride) 250 mls @ 166.667 mls/hr IVPB Q12 [facility] PRN Reason: Protocol Last Admin: 11/18/17 08:30 Dose: 166.667 mls/hr Insulin Human Lispro (Humalog) 0 units SC ACHS [facility] PRN Reason: Protocol Last Admin: 11/18/17 11:41 Dose: 4 units Lisinopril (Zestril) 40 mg PO DAILY [facility] Last Admin: 11/18/17 08:24 Dose: 40 mg Metoprolol Tartrate (Lopressor) 25 mg PO DAILY [facility] Last Admin: 11/18/17 08:24 Dose: 25 mg Mupirocin (Bactroban Ointment) 1 applic TOP BID [facility] Last Admin: 11/18/17 08:23 Dose: 1 applic Saccharomyces Boulardii (Florastor) 250 mg PO BID [facility] Last Admin: 11/18/17 08:24 Dose: 250 mg - Labs Labs: 11/18/17 04:20 11/18/17 04:20 Attending/Attestation - Attestation I have personally seen and examined this patient.: Yes I have fully participated in the care of the patient.: Yes I have reviewed all pertinent clinical information, including history, physical exam and plan: Yes Notes (Text): Osteomyelitis of R Hallux - discussed case with Dr Ang ( Podiatry) - plan for surgery on Tuesday -ECHO for pre op eval - cont IV Zosyn and Vanco
--- NOTE | 2017-11-18 12:06 | MRI ---
MRI right forefoot HISTORY: Osteomyelitis. COMPARISON: None available. TECHNIQUE: Multi-echo multiplanar sequences were performed through left forefoot without the use of intravenous contrast. FINDINGS: Prominent soft tissue ulceration/defect seen at the level of the 1st distal phalanx. Prominent signal abnormality seen within the 1st distal and proximal phalanges with decreased T1 signal and increased STIR signal consistent with an acute osteomyelitis. Moderate hallux valgus deformity. Fraying with increased signal at the level of the Lisfranc ligament which may represent partial tearing and or low grade sprain. Signal abnormality with patchy decreased T1 signal and patchy increased STIR signal seen within the proximal portion of the lateral cuneiform bone as well as the lateral aspect of the cuboid bone which may represent some bone bruising and or osteochondral change versus sequelae of acute inflammatory and or infectious changes versus additional etiology. Clinical correlation. Reticulation and edema seen within the dorsal soft tissues. Degenerative changes noted at the dorsal aspect of the talonavicular joint space with some bony spurring. Thickening of the plantar fascia measuring up to 7 millimeters. Achilles tendon preserved. Sinus tarsi preserved. No significant ankle joint effusion. Fraying with increased signal at the level of the deltoid ligament suggestive for chronic partial tearing. Signal abnormality seen within the lateral aspect of the mid calcaneus as demonstrated on series 10, image 39 suggestive for mild bone bruising versus reactive edema versus sequelae of acute inflammatory and or infectious changes versus additional etiology. Clinical correlation. Impression: 1. Prominent soft tissue ulceration/defect seen at the level of the 1st distal phalanx. Prominent signal abnormality seen within the 1st distal and proximal phalanges with decreased T1 signal and increased STIR signal consistent with an acute osteomyelitis. 2. Moderate hallux valgus deformity. 3. Fraying with increased signal at the level of the Lisfranc ligament which may represent partial tearing and or low grade sprain. 4. Signal abnormality with patchy decreased T1 signal and patchy increased STIR signal seen within the proximal portion of the lateral cuneiform bone as well as the lateral aspect of the cuboid bone which may represent some bone bruising and or osteochondral change versus sequelae of acute inflammatory and or infectious changes versus additional etiology. Clinical correlation. 5. Reticulation and edema seen within the dorsal soft tissues. 6. Degenerative changes noted at the dorsal aspect of the talonavicular joint space with some bony spurring. 7. Thickening of the plantar fascia measuring up to 7 millimeters. 8. Fraying with increased signal at the level of the deltoid ligament suggestive for chronic partial tearing. 9. Signal abnormality seen within the lateral aspect of the mid calcaneus as demonstrated on series 10, image 39 suggestive for mild bone bruising versus reactive edema versus sequelae of acute inflammatory and or infectious changes versus additional etiology. Clinical correlation.
--- NOTE | 2017-11-18 12:56 | CP.PCM.CON ---
History of Present Illness - History of Present Illness History of Present Illness: Cardiology Consult note for Dr. Tabares 72 y/o male with a PMHx of HTN and NIDDM2 sent from podiatry clinic due to abnormal labs. Was undergoing outpatient treatment with Cipro/Vanc, but due to persistently elevated WBC/ESR values was sent to ER for evaluation. He reports pain has been improving and denies any fevers. No other complaints/concerns. IV Cardio consult was called for evaluation of peripheral circulation. ROS: 12 systems reviewed, found to be negative unless otherwise noted in HPI. PMD: Dr. Chyna Kim PMH: HTN, DM2 ALL: NKDA Meds: as per med rec PSH: right hallux debridement/biopsy 11/09/2017 SOC: quit smoking 20 years ago, denies alcohol and drugs Past Patient History - Infectious Disease Hx of Infectious Diseases: None - Past Medical History & Family History Past Medical History?: Yes - Past Social History Smoking Status: Former Smoker - CARDIAC Hx Hypertension: Yes - PULMONARY Hx Respiratory Disorders: No - NEUROLOGICAL Hx Neurological Disorder: No - HEENT Hx HEENT Problems: No - RENAL Hx Chronic Kidney Disease: No - ENDOCRINE/METABOLIC Hx Endocrine Disorders: Yes Hx Diabetes Mellitus Type 2: Yes - HEMATOLOGICAL/ONCOLOGICAL Hx Blood Disorders: No - INTEGUMENTARY Hx Dermatological Problems: No - MUSCULOSKELETAL/RHEUMATOLOGICAL Hx Musculoskeletal Disorders: No Hx Falls: No Hx Osteomyelitis: Yes (right foot) - GASTROINTESTINAL Hx Gastrointestinal Disorders: No - GENITOURINARY/GYNECOLOGICAL Hx Genitourinary Disorders: No - PSYCHIATRIC Hx Psychophysiologic Disorder: No Hx Substance Use: No - SURGICAL HISTORY Hx Surgeries: No - ANESTHESIA Hx Anesthesia: No Hx Anesthesia Reactions: No Hx Malignant Hyperthermia: No Has any member of the family had a problem w/ anesthesia?: No Meds Allergies/Adverse Reactions: Allergies Allergy/AdvReac Type Severity Reaction Status Date / Time No Known Allergies Allergy Verified 11/16/17 16:59 - Medications Medications: Current Medications Dextrose (Dextrose 50% Inj) 0 ml IV STAT PRN; Protocol PRN Reason: Hypoglycemia Protocol Dextrose (Glutose 15) 0 gm PO ONCE PRN; Protocol PRN Reason: Hypoglycemia Protocol Enoxaparin Sodium (Lovenox) 40 mg SC DAILY [facility] PRN Reason: Protocol Last Admin: 11/17/17 09:04 Dose: 40 mg Glipizide (Glucotrol) 10 mg PO DAILY [facility] Last Admin: 11/18/17 08:25 Dose: 10 mg Glucagon (Glucagen Diagnostic Kit) 0 mg IM STAT PRN; Protocol PRN Reason: Hypoglycemia Protocol Piperacillin Sod/Tazobactam (Sod 3.375 gm/ Sodium Chloride) 100 mls @ 100 mls/ hr IVPB Q8 [facility] PRN Reason: Protocol Last Admin: 11/18/17 08:28 Dose: 100 mls/hr Ciprofloxacin (Cipro 400mg/200ml Dsw) 400 mg in 200 mls @ 200 mls/hr IVPB Q12 [facility] PRN Reason: Protocol Last Admin: 11/18/17 08:31 Dose: 200 mls/hr Vancomycin HCl 1 gm/ Sodium (Chloride) 250 mls @ 166.667 mls/hr IVPB Q12 [facility] PRN Reason: Protocol Last Admin: 11/18/17 08:30 Dose: 166.667 mls/hr Insulin Human Lispro (Humalog) 0 units SC ACHS [facility] PRN Reason: Protocol Last Admin: 11/18/17 11:41 Dose: 4 units Lisinopril (Zestril) 40 mg PO DAILY [facility] Last Admin: 11/18/17 08:24 Dose: 40 mg Metoprolol Tartrate (Lopressor) 25 mg PO DAILY [facility] Last Admin: 11/18/17 08:24 Dose: 25 mg Mupirocin (Bactroban Ointment) 1 applic TOP BID [facility] Last Admin: 11/18/17 08:23 Dose: 1 applic Saccharomyces Boulardii (Florastor) 250 mg PO BID [facility] Last Admin: 11/18/17 08:24 Dose: 250 mg Physical Exam - Constitutional Appears: Well, Non-toxic, No Acute Distress - Head Exam Head Exam: ATRAUMATIC, NORMOCEPHALIC - Eye Exam Eye Exam: EOMI Pupil Exam: PERRL - ENT Exam ENT Exam: Mucous Membranes Moist - Respiratory Exam Respiratory Exam: Clear to Auscultation Bilateral, NORMAL BREATHING PATTERN. absent: Decreased Breath Sounds, Rales, Rhonchi, Wheezes - Cardiovascular Exam Cardiovascular Exam: REGULAR RHYTHM, RRR, +S1, +S2. absent: Tachycardia, JVD, Rubs, Systolic Murmur - GI/Abdominal Exam GI & Abdominal Exam: Normal Bowel Sounds, Soft. absent: Tenderness - Extremities Exam Extremities exam: Positive for: full ROM, pedal pulses present. Negative for: calf tenderness, pedal edema Additional comments: right foot bandaged. C/D/I. 2+ popliteal pulse, 2+ posterior tibial pulse. No signs of atrophy. Normal temperature to touch. - Expanded Lower Extremities Exam Right Neuro vacular tendon exam: absent: abnormal cap refill, extremity cold to touch , no vascular compromise, pulse deficit, sensory deficit - Neurological Exam Neurological exam: Alert, CN II-XII Intact, Oriented x3 Results - Vital Signs Recent Vital Signs: Last Vital Signs Temp 98.5 F 11/18/17 12:43 Pulse 69 11/18/17 12:43 Resp 20 11/18/17 12:43 BP 154/82 H 11/18/17 12:43 Pulse Ox 100 11/18/17 12:43 - Labs Result Diagrams: 11/18/17 04:20 11/18/17 04:20 Labs: Laboratory Results - last 24 hr 11/17/17 11/17/17 11/18/17 15:59 21:04 04:20 WBC 12.0 H RBC 4.13 L Hgb 11.8 L Hct 34.8 L MCV 84.3 MCH 28.6 MCHC 33.9 RDW 12.9 Plt Count 454 H Sodium Potassium Chloride Carbon Dioxide Anion Gap BUN Creatinine Est GFR ( Amer) Est GFR (Non-Af Amer) POC Glucose (mg/dL) 122 H 126 H Random Glucose Calcium 11/18/17 11/18/17 11/18/17 04:20 05:24 10:50 WBC RBC Hgb Hct MCV MCH MCHC RDW Plt Count Sodium 138 Potassium 3.8 Chloride 106 Carbon Dioxide 24 Anion Gap 12 BUN 12 Creatinine 1.5 Est GFR ( Amer) 56 Est GFR (Non-Af Amer) 46 POC Glucose (mg/dL) 157 H 252 H Random Glucose 161 H Calcium 8.7 Assessment & Plan (1) Osteomyelitis of right foot Status: Acute (2) DM2 (diabetes mellitus, type 2) Status: Chronic (3) HTN (hypertension) Status: Chronic
--- NOTE | 2017-11-18 17:45 | CP.PCM.PN ---
Subjective - Date & Time of Evaluation Date of Evaluation: 11/18/17 Time of Evaluation: 17:35 - Subjective Subjective: I D NOTE PATIENT KNOWN TO ME FROM PREVIOUS ADMISSION,WILL HAVE SURGERY (PODIATRY) NEXT WEEK CONTINUE SAME ANTIBIOTICS SOR PRESENT i Objective - Vital Signs/Intake and Output Vital Signs (last 24 hours): Temp Pulse Resp BP Pulse Ox 99.8 F H 76 18 149/78 96 11/18/17 16:23 11/18/17 16:23 11/18/17 16:23 11/18/17 16:23 11/18/17 16:23 - Medications Medications: Current Medications Dextrose (Dextrose 50% Inj) 0 ml IV STAT PRN; Protocol PRN Reason: Hypoglycemia Protocol Dextrose (Glutose 15) 0 gm PO ONCE PRN; Protocol PRN Reason: Hypoglycemia Protocol Enoxaparin Sodium (Lovenox) 40 mg SC DAILY [facility] PRN Reason: Protocol Last Admin: 11/17/17 09:04 Dose: 40 mg Glipizide (Glucotrol) 10 mg PO DAILY [facility] Last Admin: 11/18/17 08:25 Dose: 10 mg Glucagon (Glucagen Diagnostic Kit) 0 mg IM STAT PRN; Protocol PRN Reason: Hypoglycemia Protocol Piperacillin Sod/Tazobactam (Sod 3.375 gm/ Sodium Chloride) 100 mls @ 100 mls/ hr IVPB Q8 [facility] PRN Reason: Protocol Last Admin: 11/18/17 16:43 Dose: 100 mls/hr Vancomycin HCl 1 gm/ Sodium (Chloride) 250 mls @ 166.667 mls/hr IVPB Q12 [facility] PRN Reason: Protocol Last Admin: 11/18/17 08:30 Dose: 166.667 mls/hr Insulin Human Lispro (Humalog) 0 units SC ACHS [facility] PRN Reason: Protocol Last Admin: 11/18/17 16:43 Dose: Not Given Lisinopril (Zestril) 40 mg PO DAILY [facility] Last Admin: 11/18/17 08:24 Dose: 40 mg Metoprolol Tartrate (Lopressor) 25 mg PO DAILY [facility] Last Admin: 11/18/17 08:24 Dose: 25 mg Mupirocin (Bactroban Ointment) 1 applic TOP BID [facility] Last Admin: 11/18/17 16:42 Dose: 1 applic Saccharomyces Boulardii (Florastor) 250 mg PO BID [facility] Last Admin: 11/18/17 16:42 Dose: 250 mg - Labs Labs: 11/18/17 04:20 11/18/17 04:20
--- NOTE | 2017-11-18 18:11 | CARD ---
APPROVED REPORT Date of service: 11/18/2017 EXAM: Two-dimensional and M-mode echocardiogram with Doppler and color Doppler. Other Information Quality : GoodRhythm : NSR INDICATION Pre-Op 2D DIMENSIONS IVSd0.93 (0.7-1.1cm)LVDd5.12 (3.9-5.9cm) LVOT Diameter2.14 (1.8-2.4cm)PWd0.83 (0.7-1.1cm) IVSs1.09 (0.8-1.2cm)LVDs3.42 (2.5-4.0cm) FS (%) 33.2 %PWs1.20 (0.8-1.2cm) M-Mode DIMENSIONS Left Atrium (MM)3.76 (2.5-4.0cm)IVSd0.94 (0.7-1.1cm) Aortic Root4.03 (2.2-3.7cm)LVDd5.32 (4.0-5.6cm) Aortic Cusp Exc.2.00 (1.5-2.0cm)PWd0.97 (0.7-1.1cm) IVSs1.47 cmFS (%) 35 % LVDs3.44 (2.0-3.8cm)PWs1.41 cm Aortic Valve AoV Peak Rfplovir190.6cm/sAoV VTI23.8cmAO Peak GR.6mmHg LVOT Peak Yaqxjsht865.4cm/sLVOT VTI17.50cmAO Mean GR.4mmHg CESAR (VMAX)1.94au4CXY (VTI)1.33cm2 Mitral Valve MV E Zgwmtpjy65.2cm/sMV DECEL QOLO338arPG A Beihmdch81.9cm/s MV WUJ97miS/A ratio0.9MVA (PHT)3.90cm2 TDI Lateral E' Peak V6.68cm/sMedial E' Peak V7.17cm/sE/Lateral E'12.0 E/Medial E'11.2 Pulmonary Valve PV Peak Zmzcvzai76.7cm/s LEFT VENTRICLE The left ventricle is normal size. There is normal left ventricular wall thickness. The left ventricular systolic function is normal. The estimated ejection fraction is 55% No regional wall motion abnormalities noted.. The left ventricular diastolic function is normal. No left ventricle thrombus noted on this study. There is no ventricular septal defect visualized. There is no mass noted in the left ventricle. RIGHT VENTRICLE The right ventricle is normal size. There is normal right ventricular wall thickness. The right ventricular systolic function is normal. ATRIA The left atrium size is normal. The right atrium size is normal. The interatrial septum is intact with no evidence for an atrial septal defect. AORTIC VALVE The aortic valve is normal in structure. No aortic regurgitation is present. There is no aortic valvular stenosis. MITRAL VALVE The mitral valve is normal in structure. There is no mitral valve stenosis. There is mild mitral valve regurgitation noted. TRICUSPID VALVE The tricuspid valve is normal in structure. There is no tricuspid valve regurgitation noted. PULMONIC VALVE The pulmonary valve is normal in structure. There is no pulmonic valvular regurgitation. GREAT VESSELS The aortic root is mildly dilated The ascending aorta is normal in size. The pulmonary artery is normal. The IVC is normal in size and collapses >50% with inspiration. PERICARDIAL EFFUSION There is no pericardial effusion. <Conclusion> Dilated aortic root Mild mitral insufficiency Normal LV function The estimated ejection fraction is 55%
[2017-11-18] MEDS ORDERED: Iodixanol 320 MG/ML 100 ML BOTTLE IV ONE (20:58)
[2017-11-18] MEDS ORDERED: Sodium Chloride 0.9% 100 ML ONE (20:58)
[2017-11-19] MEDS: Piperacillin/Tazobact 3.375 GM in Sodium Chloride 0.9% 100 ML IVPB SCH ×3 (01:07→16:40)
[2017-11-19] MEDS: Insulin Lispro (humaLOG) 100 Units/ml Inj SC SCH ×4 (06:40→22:52)
[2017-11-19 06:57] LABS: HEMOGLOBIN 11.8 g/dL (12.0-18.0); MEAN CELL VOLUME 84.9 fl (80.0-94.0); MEAN CORPUSCULAR HGB CONC 32.9 g/dL (33.0-37.0); RBC 4.24 Mil/uL (4.40-5.90); RED CELL DISTRIBUTION WIDTH 13.1 % (11.5-14.5); WHITE BLOOD COUNT 11.1 K/uL (4.8-10.8)
[2017-11-19 07:09] LABS: CALCIUM 8.6 mg/dL (8.4-10.2)
--- NOTE | 2017-11-19 09:21 | CT ---
Date of service: 11/18/2017 PROCEDURE: CT Angiography Abdomen, Pelvis and Lower Extremity with Contrast HISTORY: gangrene COMPARISON: None. TECHNIQUE: Technique: CT angiography of the abdomen, pelvis and bilateral lower extremities performed in the arterial phase of enhancement. Coronal and sagittal reformats, and well as rotating MIP images of the vessels generated at the workstation. Intravenous contrast dose: Radiation dose: Total exam DLP = mGy-cm. This CT exam was performed using one or more of the following dose reduction techniques: Automated exposure control, adjustment of the mA and/or kV according to patient size, and/or use of iterative reconstruction technique. FINDINGS: CT ANGIOGRAPHY: Extensive atherosclerotic calcification of the arteries with moderate 60 percent stenosis in the distal right superficial femoral artery and moderate stenosis in the proximal right anterior tibial artery. Critical stenosis in the right anterior tibial artery in the midportion. Critical stenosis in the distal right anterior tibial artery. Right posterior tibial artery occlusion. The right peroneal artery to the ankle. Critical stenosis distal left superficial femoral artery. Decrease intraluminal enhancement of the left popliteal artery. Right lower calf, ankle and foot subcutaneous fat swelling and stranding consistent with cellulitis. Irregularity of the soft tissues of the right great toe compatible with soft tissue ulceration. Severe stenosis of the inferior mesenteric artery origin. NON-ANGIOGRAPHIC ASPECT OF THE EXAM: LOWER THORAX: Unremarkable. LIVER: Unremarkable. No gross lesion or ductal dilatation. GALLBLADDER AND BILE DUCTS: Unremarkable. PANCREAS: Unremarkable. No gross lesion or ductal dilatation. SPLEEN: Unremarkable. ADRENALS: Indeterminate nodules in the right adrenal gland. No mass. KIDNEYS AND URETERS: Probable right upper pole renal cyst measuring 3 x 2 centimeters. No hydronephrosis. No solid mass. STOMACH AND BOWEL: Unremarkable. No obstruction. No gross mural thickening. APPENDIX: Normal appendix. PERITONEUM: Unremarkable. No free fluid. No free air. LYMPH NODES: Unremarkable. No enlarged lymph nodes. BLADDER: Unremarkable. REPRODUCTIVE: Prostate enlargement BONES: No acute fracture. OTHER FINDINGS: None. IMPRESSION: Please see discussion above.
--- NOTE | 2017-11-19 09:36 | CP.PCM.PN ---
Subjective - Date & Time of Evaluation Date of Evaluation: 11/19/17 Time of Evaluation: 09:20 - Subjective Subjective: Patient seen at bedside in not acute distress and in good spirits this morning. Denies pain, changes in urination or stools, is tolerating PO. No acute events overnight. Aware of plan for toe amputation on Tuesday. Objective - Vital Signs/Intake and Output Vital Signs (last 24 hours): Temp Pulse Resp BP Pulse Ox 98.9 F 81 20 155/73 H 96 11/19/17 08:15 11/19/17 08:15 11/19/17 08:15 11/19/17 08:15 11/19/17 08:15 - Medications Medications: Current Medications Dextrose (Dextrose 50% Inj) 0 ml IV STAT PRN; Protocol PRN Reason: Hypoglycemia Protocol Dextrose (Glutose 15) 0 gm PO ONCE PRN; Protocol PRN Reason: Hypoglycemia Protocol Enoxaparin Sodium (Lovenox) 40 mg SC DAILY [facility] PRN Reason: Protocol Last Admin: 11/17/17 09:04 Dose: 40 mg Glipizide (Glucotrol) 10 mg PO DAILY [facility] Last Admin: 11/18/17 08:25 Dose: 10 mg Glucagon (Glucagen Diagnostic Kit) 0 mg IM STAT PRN; Protocol PRN Reason: Hypoglycemia Protocol Piperacillin Sod/Tazobactam (Sod 3.375 gm/ Sodium Chloride) 100 mls @ 100 mls/ hr IVPB Q8 [facility] PRN Reason: Protocol Last Admin: 11/19/17 01:07 Dose: 100 mls/hr Vancomycin HCl 1 gm/ Sodium (Chloride) 250 mls @ 166.667 mls/hr IVPB Q12 [facility] PRN Reason: Protocol Last Admin: 11/18/17 21:58 Dose: 166.667 mls/hr Insulin Human Lispro (Humalog) 0 units SC ACHS [facility] PRN Reason: Protocol Last Admin: 11/19/17 06:40 Dose: Not Given Lisinopril (Zestril) 40 mg PO DAILY [facility] Last Admin: 11/18/17 08:24 Dose: 40 mg Metoprolol Tartrate (Lopressor) 25 mg PO DAILY [facility] Last Admin: 11/18/17 08:24 Dose: 25 mg Mupirocin (Bactroban Ointment) 1 applic TOP BID [facility] Last Admin: 11/18/17 16:42 Dose: 1 applic Saccharomyces Boulardii (Florastor) 250 mg PO BID [facility] Last Admin: 11/18/17 16:42 Dose: 250 mg - Labs Labs: 11/19/17 05:20 11/19/17 05:20 - Constitutional Appears: Non-toxic, No Acute Distress - Eye Exam Eye Exam: PERRL - ENT Exam ENT Exam: Mucous Membranes Moist - Respiratory Exam Respiratory Exam: Clear to Ausculation Bilateral, NORMAL BREATHING PATTERN - Cardiovascular Exam Cardiovascular Exam: REGULAR RHYTHM, +S1, +S2 - GI/Abdominal Exam GI & Abdominal Exam: Soft, Normal Bowel Sounds. absent: Guarding, Tenderness, Rebound - Extremities Exam Extremities Exam: Normal Capillary Refill, Pedal Edema (r/foot). absent: Calf Tenderness, Tenderness - Neurological Exam Neurological Exam: Alert, Awake, Oriented x3 - Psychiatric Exam Psychiatric exam: Normal Affect, Normal Mood - Skin Skin Exam: Warm Assessment and Plan - Assessment and Plan (Free Text) Assessment: 72 y/o man w/ pmh of HTN, DM2 admitted for OM of right 1st toe Osteomyelitis - diagnosed via biopsy done 1 week ago. Failed outpatient treatment of Cipro and Vancomycin via PICC line. - WBC stable - Continue Vancomycin 1gm Q12h day 3 and Zosyn 3.375 Q8H day 3 - blood culture: negative to date. - podiatry consult appreciated- Patient agreed to surgery, amputation of right hallux, Date of surgery 11/21/17 - ECHO mild aortic root dilation EF 55% - F/U ID recommendations. CKD St3 Poss due to DM Stable Creat 1.5 today C/w holding Metformin for now Had Contrast Yesterday for angio Monitor DM2 - last HbA1c 8.9% (11/09/2017) - c/w glipizide, hold metformin for now - insulin correction scale - hypoglycemic protocol HTN - stable BP - c/w lisinopril and metoprolol Prophylactic measures - DVT: lovenox 40 mg SC daily
[2017-11-19] MEDS: Saccharomyces Boulardi 250 mg Cap PO SCH ×2 (09:56→17:30)
[2017-11-19 10:53] LABS: INR 1.3; PROTHROMBIN TIME 14.8 Seconds (9.8-13.1)
[2017-11-19 10:55] LABS: PARTIAL THROMBOPLASTIN TIME 29.7 Seconds (25.6-37.1)
--- NOTE | 2017-11-19 14:47 | CP.PCM.PN ---
Subjective - Date & Time of Evaluation Date of Evaluation: 11/19/17 Time of Evaluation: 11:00 - Subjective Subjective: Podiatry progress note for attending Dr. Ang, 72 y/o male was seen and evaluated at bedside right hallux ulceration with hallux ampuation scheduled Tuesday11/21/17. Patient is AAox3 and in NAD, seen resting comfortably in bed. Family member at bedside during visitation. Denies of pain at the time of visitation. Dressing clean, dry and intact. Patient is aware patient will be undergoing surgery Tuesday for right hallux amputation. Patient denies f/n/v/sob/cp/chills. Reports has been ambulating in surgical shoe without issues. Patient had no additional questions about treatment plans and surgery Tuesday. Objective - Vital Signs/Intake and Output Vital Signs (last 24 hours): Temp Pulse Resp BP Pulse Ox 98.9 F 81 20 155/73 H 96 11/19/17 08:15 11/19/17 09:57 11/19/17 08:15 11/19/17 09:57 11/19/17 08:15 - Medications Medications: Current Medications Amlodipine Besylate (Norvasc) 5 mg PO DAILY [facility] Dextrose (Dextrose 50% Inj) 0 ml IV STAT PRN; Protocol PRN Reason: Hypoglycemia Protocol Dextrose (Glutose 15) 0 gm PO ONCE PRN; Protocol PRN Reason: Hypoglycemia Protocol Enoxaparin Sodium (Lovenox) 40 mg SC DAILY [facility] PRN Reason: Protocol Last Admin: 11/17/17 09:04 Dose: 40 mg Glipizide (Glucotrol) 10 mg PO DAILY [facility] Last Admin: 11/19/17 09:56 Dose: 10 mg Glucagon (Glucagen Diagnostic Kit) 0 mg IM STAT PRN; Protocol PRN Reason: Hypoglycemia Protocol Piperacillin Sod/Tazobactam (Sod 3.375 gm/ Sodium Chloride) 100 mls @ 100 mls/ hr IVPB Q8 [facility] PRN Reason: Protocol Last Admin: 11/19/17 11:43 Dose: 100 mls/hr Vancomycin HCl 1 gm/ Sodium (Chloride) 250 mls @ 166.667 mls/hr IVPB Q12 [facility] PRN Reason: Protocol Last Admin: 11/19/17 09:57 Dose: 166.667 mls/hr Insulin Human Lispro (Humalog) 0 units SC ACHS [facility] PRN Reason: Protocol Last Admin: 11/19/17 11:50 Dose: 3 units Lisinopril (Zestril) 40 mg PO DAILY [facility] Last Admin: 11/19/17 09:57 Dose: 40 mg Metoprolol Tartrate (Lopressor) 25 mg PO DAILY [facility] Last Admin: 11/19/17 09:56 Dose: 25 mg Mupirocin (Bactroban Ointment) 1 applic TOP BID [facility] Last Admin: 11/19/17 09:56 Dose: 1 applic Saccharomyces Boulardii (Florastor) 250 mg PO BID [facility] Last Admin: 11/19/17 09:56 Dose: 250 mg - Labs Labs: 11/19/17 05:20 11/19/17 05:20 PT 14.8 Seconds (9.8-13.1) H 11/19/17 10:25 INR 1.3 11/19/17 10:25 APTT 29.7 Seconds (25.6-37.1) 11/19/17 10:25 - Constitutional Appears: Well, Non-toxic, No Acute Distress - Extremities Exam Extremities Exam: absent: Calf Tenderness Additional comments: Right Lower Extremity Exam Vascular: DP/PT 2/4, CFT < 3 seconds to all digits, pedal hair absent, erythema and edema present about the hallux and extending to first MPJ and forefoot Ortho: mild pain on palpation of surgical debridement site, does not extend proximally up leg as seen prior to surgery Neuro: gross and protective sensation intact Derm: 4 cm X 3 cm circular wound at the plantar aspect of the right hallux, with 50% fibrotic base and 40% granular, positive malodor, brijesh-wound hyperkeratotic border with edema and erythema extending to the level of the metatarsal heads, positive probe to bone, no drainage, no tracking or tunneling noted, sutures noted within the wound intact without unraveling - Neurological Exam Neurological Exam: Alert, Awake, Oriented x3 - Psychiatric Exam Psychiatric exam: Normal Affect, Normal Mood Assessment and Plan - Assessment and Plan (Free Text) Assessment: 72 y/o male seen and evaluated at bedside for osteomyelitis to the right hallux with scheduled surgery for Tuesday11/21/[address] Ang for right hallux amputation Plan: Patient seen and evaluated at bedside with attending Dr. Ang Plan discussed with attending Dr. Ang Chart, labs and vitals reviewed- WBC 11.1 Blood culture -preliminary negative MRI read and reviewed: acute OM of the distal and proximal phalanx of the hallux EMELYN/PVR- Ordered Vascular consult placed- appreciate recs CTA: Extensive artheroscleroric with moderate 60% stenosis in distal R SFA, R AT moderate stenosis, R PT occlusion Critical stenosis distal L SFA Infectious disease consulted- appreciated recommendations -C/w current IV abx per ID, Zosyn and Vanco Patient wound dressed with betadine, and dry sterile dressing In length discussion with patient regarding the surgical plan vs. outpatient Abx treatment- and risks and benefits of both discussed. Patient thoroughly explained what is the procedure will be and function of life after procedure All patient and family questions were answered to satisfaction Patient agreeable to amputation of the right hallux and surgery booked for Tuesday 7:45 AM Medical optimization requested- thank you Podiatry will follow patient while in house
[2017-11-20] MEDS: Piperacillin/Tazobact 3.375 GM in Sodium Chloride 0.9% 100 ML IVPB SCH ×3 (01:00→17:47)
--- NOTE | 2017-11-20 08:55 | CP.PCM.PN ---
Subjective - Date & Time of Evaluation Date of Evaluation: 11/20/17 Time of Evaluation: 08:55 - Subjective Subjective: Patient seen and examined at bedside, is in no acute distress and reports he is feeling well. Patient was accompanied by his who is sitting next to him. Reports good appetite. Denies chest pain, shortness of breath, changes in urination or stools, or toe pain. No acute events overnight. Patient is aware of plan for toe amputation on Tuesday, 11/21. Objective - Vital Signs/Intake and Output Vital Signs (last 24 hours): Temp Pulse Resp BP Pulse Ox 98.2 F 91 H 20 159/77 H 96 11/20/17 08:31 11/20/17 08:31 11/20/17 08:31 11/20/17 08:31 11/20/17 08:31 - Medications Medications: Current Medications Amlodipine Besylate (Norvasc) 10 mg PO DAILY [facility] Atorvastatin Calcium (Lipitor) 40 mg PO DAILY [facility] Dextrose (Dextrose 50% Inj) 0 ml IV STAT PRN; Protocol PRN Reason: Hypoglycemia Protocol Dextrose (Glutose 15) 0 gm PO ONCE PRN; Protocol PRN Reason: Hypoglycemia Protocol Enoxaparin Sodium (Lovenox) 40 mg SC DAILY [facility] PRN Reason: Protocol Last Admin: 11/17/17 09:04 Dose: 40 mg Glipizide (Glucotrol) 10 mg PO DAILY [facility] Last Admin: 11/19/17 09:56 Dose: 10 mg Glucagon (Glucagen Diagnostic Kit) 0 mg IM STAT PRN; Protocol PRN Reason: Hypoglycemia Protocol Piperacillin Sod/Tazobactam (Sod 3.375 gm/ Sodium Chloride) 100 mls @ 100 mls/ hr IVPB Q8 [facility] PRN Reason: Protocol Last Admin: 11/20/17 01:00 Dose: 100 mls/hr Vancomycin HCl 1 gm/ Sodium (Chloride) 250 mls @ 166.667 mls/hr IVPB Q12 [facility] PRN Reason: Protocol Last Admin: 11/19/17 20:33 Dose: 166.667 mls/hr Insulin Human Lispro (Humalog) 0 units SC ACHS [facility] PRN Reason: Protocol Last Admin: 11/19/17 22:52 Dose: Not Given Lisinopril (Zestril) 40 mg PO DAILY [facility] Last Admin: 11/19/17 09:57 Dose: 40 mg Metoprolol Tartrate (Lopressor) 25 mg PO DAILY [facility] Last Admin: 11/19/17 09:56 Dose: 25 mg Mupirocin (Bactroban Ointment) 1 applic TOP BID [facility] Last Admin: 11/19/17 16:49 Dose: Not Given Saccharomyces Boulardii (Florastor) 250 mg PO BID [facility] Last Admin: 11/19/17 09:56 Dose: 250 mg - Labs Labs: 11/19/17 05:20 11/19/17 05:20 PT 14.8 Seconds (9.8-13.1) H 11/19/17 10:25 INR 1.3 11/19/17 10:25 APTT 29.7 Seconds (25.6-37.1) 11/19/17 10:25 - Constitutional Appears: Well, Non-toxic, No Acute Distress - ENT Exam ENT Exam: Mucous Membranes Moist - Respiratory Exam Respiratory Exam: Clear to Ausculation Bilateral, NORMAL BREATHING PATTERN. absent: Decreased Breath Sounds, Rales, Rhonchi, Wheezes, Respiratory Distress, Stridor - Cardiovascular Exam Cardiovascular Exam: REGULAR RHYTHM, RRR, +S1, +S2. absent: Clicks, Diastolic murmur, Gallop, Rubs, +S4, Murmur - GI/Abdominal Exam GI & Abdominal Exam: Soft, Normal Bowel Sounds. absent: Distended, Firm, Guarding, Rigid, Tenderness, Hernia, Mass, Organomegaly, Rebound - Extremities Exam Extremities Exam: absent: Calf Tenderness, Joint Swelling, Tenderness Additional comments: Non-soaked bandage placed on right Foot. +1 edema on Right lower leg. Palpable +2 dorsalis pedis and Tibialis posterior bilaterally. - Neurological Exam Neurological Exam: Alert, Awake, Oriented x3 - Psychiatric Exam Psychiatric exam: Normal Affect - Skin Skin Exam: Dry, Intact, Normal Color, Warm Assessment and Plan - Assessment and Plan (Free Text) Assessment: 72 y/o man w/ pmh of HTN, DM2 admitted for OM of right 1st toe plan for right hallux amputation 11/21. Plan: 1. Osteomyelitis - diagnosed via biopsy done 1 week ago. Failed outpatient treatment of Cipro and Vancomycin via PICC line. - WBC stable - Continue Vancomycin 1gm Q12h day 3 and Zosyn 3.375 Q8H day 3 - blood culture: negative to date. - podiatry consult appreciated- Patient agreed to surgery, amputation of right hallux, Date of surgery 11/21/17- in the morning. - ECHO mild aortic root dilation EF 55% - F/U ID recommendations. -CTA: Extensive artheroscleroric with moderate 60% stenosis in distal R Superficial Femoral Artery, R Anterior Tibial artery moderate stenosis, R Posterior Tibial occlusion - Vascular recommendations appreciated. - Patient is at moderate to high risk for surgery, given he is stable he can proceed for surgery. No active cardiac issues at this time and patient denies chest pain, shortness of breath, and was able to ambulate prior to hospitalization. 2. CKD St3 Poss secondary due to DM Stable Creat 1.5 today C/w holding Metformin for now- had contrast 11/19 for angio. Restart metformin tomorrow, 11/21. Continue to Monitor 3. DM2 - last HbA1c 8.9% (11/09/2017) - c/w glipizide, hold metformin for now - insulin correction scale - hypoglycemic protocol - Atrovastatin 40mg po daily added to regimen 4. HTN - stable BP - c/w lisinopril and metoprolol - Increased Norvasc to 10mg daily. 5. Prophylactic measures - DVT: continue lovenox 40 mg SC daily
[2017-11-20] MEDS: Insulin Lispro (humaLOG) 100 Units/ml Inj SC SCH ×4 (09:36→22:00)
[2017-11-20] MEDS: Saccharomyces Boulardi 250 mg Cap PO SCH ×2 (09:38→17:47)
--- NOTE | 2017-11-20 14:51 | CP.PCM.PN ---
Subjective - Date & Time of Evaluation Date of Evaluation: 11/20/17 Time of Evaluation: 13:00 - Subjective Subjective: Podiatry progress note for attending Dr. Ang, 72 y/o male was seen and evaluated at bedside for right hallux ulceration with hallux ampuation scheduled Tuesday11/21/17. Patient is AAOx3 and in NAD, seen resting comfortably in bed. at bedside during visitation. Denies of pain at the time of visitation. Dressing clean, dry and intact. Patient is aware patient will be undergoing surgery Tuesday for right hallux amputation. Patient denies f/n/v/sob/cp/chills. Reports has been ambulating in surgical shoe without issues. Patient had no additional questions about treatment plans and surgery Tuesday. Objective - Vital Signs/Intake and Output Vital Signs (last 24 hours): Temp Pulse Resp BP Pulse Ox 98.2 F 91 H 20 159/77 H 96 11/20/17 08:31 11/20/17 09:42 11/20/17 08:31 11/20/17 09:42 11/20/17 08:31 - Medications Medications: Current Medications Amlodipine Besylate (Norvasc) 10 mg PO DAILY [facility] Last Admin: 11/20/17 09:42 Dose: 10 mg Atorvastatin Calcium (Lipitor) 40 mg PO DAILY [facility] Last Admin: 11/20/17 09:43 Dose: 40 mg Dextrose (Dextrose 50% Inj) 0 ml IV STAT PRN; Protocol PRN Reason: Hypoglycemia Protocol Dextrose (Glutose 15) 0 gm PO ONCE PRN; Protocol PRN Reason: Hypoglycemia Protocol Enoxaparin Sodium (Lovenox) 40 mg SC DAILY [facility] PRN Reason: Protocol Last Admin: 11/17/17 09:04 Dose: 40 mg Glipizide (Glucotrol) 10 mg PO DAILY [facility] Last Admin: 11/20/17 09:39 Dose: 10 mg Glucagon (Glucagen Diagnostic Kit) 0 mg IM STAT PRN; Protocol PRN Reason: Hypoglycemia Protocol Piperacillin Sod/Tazobactam (Sod 3.375 gm/ Sodium Chloride) 100 mls @ 100 mls/ hr IVPB Q8 [facility] PRN Reason: Protocol Last Admin: 11/20/17 09:36 Dose: 100 mls/hr Vancomycin HCl 1 gm/ Sodium (Chloride) 250 mls @ 166.667 mls/hr IVPB Q12 [facility] PRN Reason: Protocol Last Admin: 11/20/17 10:50 Dose: 166.667 mls/hr Insulin Human Lispro (Humalog) 0 units SC ACHS [facility] PRN Reason: Protocol Last Admin: 11/20/17 12:47 Dose: 3 units Lisinopril (Zestril) 40 mg PO DAILY [facility] Last Admin: 11/20/17 09:40 Dose: 40 mg Metoprolol Tartrate (Lopressor) 25 mg PO DAILY [facility] Last Admin: 11/20/17 09:39 Dose: 25 mg Mupirocin (Bactroban Ointment) 1 applic TOP BID [facility] Last Admin: 11/20/17 09:39 Dose: Not Given Saccharomyces Boulardii (Florastor) 250 mg PO BID [facility] Last Admin: 11/20/17 09:38 Dose: 250 mg - Labs Labs: 11/19/17 05:20 11/19/17 05:20 PT 14.8 Seconds (9.8-13.1) H 11/19/17 10:25 INR 1.3 11/19/17 10:25 APTT 29.7 Seconds (25.6-37.1) 11/19/17 10:25 - Constitutional Appears: Well, Non-toxic, No Acute Distress - Extremities Exam Extremities Exam: absent: Calf Tenderness Additional comments: Right Lower Extremity Exam Vascular: DP/PT 2/4, CFT < 3 seconds to all digits, pedal hair absent, erythema and edema present about the hallux and extending to first MPJ and forefoot Ortho: mild pain on palpation of surgical debridement site, does not extend proximally up leg as seen prior to surgery Neuro: gross and protective sensation intact Derm: 4 cm X 3 cm circular wound at the plantar aspect of the right hallux, with 50% fibrotic base and 40% granular, positive malodor, brijesh-wound hyperkeratotic border with edema and erythema extending to the level of the metatarsal heads, positive probe to bone, mild purulence drainage expressed approximately .5 cc from medial plantar aspect of hallux, no tracking or tunneling noted, sutures noted within the wound intact without unraveling - Neurological Exam Neurological Exam: Alert, Awake - Psychiatric Exam Psychiatric exam: Normal Affect, Normal Mood Assessment and Plan - Assessment and Plan (Free Text) Assessment: 72 y/o male seen and evaluated at bedside for osteomyelitis to the right hallux with scheduled surgery for Tuesday11/21/[address] Ang for right hallux amputation Plan: Patient seen and evaluated at bedside with attending Dr. Ang Plan discussed with attending Dr. Ang Chart, labs and vitals reviewed- WBC 11.1 Blood culture -preliminary negative MRI read and reviewed: acute OM of the distal and proximal phalanx of the hallux EMELYN/PVR- Ordered Vascular consult placed- appreciate recs CTA: Extensive artheroscleroric with moderate 60% stenosis in distal R SFA, R AT moderate stenosis, R PT occlusion Critical stenosis distal L SFA Infectious disease consulted- appreciated recommendations -C/w current IV abx per ID, Zosyn and Vanco Patient wound dressed with betadine, and dry sterile dressing In length discussion with patient regarding the surgical plan vs. outpatient Abx treatment- and risks and benefits of both discussed. Patient thoroughly explained what is the procedure will be and function of life after procedure All patient and family questions were answered to satisfaction Patient agreeable to amputation of the right hallux and surgery booked for Tuesday 7:45 AM Medical optimization requested- thank you NPO ordered Anticoagulation held Podiatry will follow patient while in house
[2017-11-21] MEDS: Piperacillin/Tazobact 3.375 GM in Sodium Chloride 0.9% 100 ML IVPB SCH ×3 (01:01→16:39)
[2017-11-21] MEDS ORDERED: Lidocaine 1% Inj (20ml) IJ ONE (06:17)
[2017-11-21] MEDS ORDERED: Bupivacaine 0.25% Inj(30mL) IJ ONE ×2 (06:17→08:05)
--- NOTE | 2017-11-21 06:21 | CP.PCM.PN ---
Subjective - Date & Time of Evaluation Date of Evaluation: 11/21/17 Time of Evaluation: 06:18 - Subjective Subjective: Podiatry progress note for Dr. Ang 72 y/o male seen and evaluated at bedside for right hallux osteomyelitis. Patient will be going to the OR today for right hallux amputation. NPO status was confirmed. Patient is medically cleared and note in chart. All allergies confirmed with patient Objective - Vital Signs/Intake and Output Vital Signs (last 24 hours): Temp Pulse Resp BP Pulse Ox 98.8 F 90 17 167/87 H 97 11/21/17 05:50 11/21/17 05:50 11/21/17 05:50 11/21/17 05:50 11/21/17 05:50 - Medications Medications: Current Medications Amlodipine Besylate (Norvasc) 10 mg PO DAILY [facility] Last Admin: 11/20/17 09:42 Dose: 10 mg Atorvastatin Calcium (Lipitor) 40 mg PO DAILY [facility] Last Admin: 11/20/17 09:43 Dose: 40 mg Dextrose (Dextrose 50% Inj) 0 ml IV STAT PRN; Protocol PRN Reason: Hypoglycemia Protocol Dextrose (Glutose 15) 0 gm PO ONCE PRN; Protocol PRN Reason: Hypoglycemia Protocol Enoxaparin Sodium (Lovenox) 40 mg SC DAILY [facility] PRN Reason: Protocol Last Admin: 11/17/17 09:04 Dose: 40 mg Glipizide (Glucotrol) 10 mg PO DAILY [facility] Last Admin: 11/20/17 09:39 Dose: 10 mg Glucagon (Glucagen Diagnostic Kit) 0 mg IM STAT PRN; Protocol PRN Reason: Hypoglycemia Protocol Piperacillin Sod/Tazobactam (Sod 3.375 gm/ Sodium Chloride) 100 mls @ 100 mls/ hr IVPB Q8 [facility] PRN Reason: Protocol Last Admin: 11/21/17 01:01 Dose: 100 mls/hr Vancomycin HCl 1 gm/ Sodium (Chloride) 250 mls @ 166.667 mls/hr IVPB Q12 [facility] PRN Reason: Protocol Last Admin: 11/20/17 20:21 Dose: 166.667 mls/hr Insulin Human Lispro (Humalog) 0 units SC ACHS [facility] PRN Reason: Protocol Last Admin: 11/20/17 22:00 Dose: Not Given Lisinopril (Zestril) 40 mg PO DAILY [facility] Last Admin: 11/20/17 09:40 Dose: 40 mg Metoprolol Tartrate (Lopressor) 25 mg PO DAILY [facility] Last Admin: 11/20/17 09:39 Dose: 25 mg Mupirocin (Bactroban Ointment) 1 applic TOP BID [facility] Last Admin: 11/20/17 16:52 Dose: Not Given Saccharomyces Boulardii (Florastor) 250 mg PO BID [facility] Last Admin: 11/20/17 17:47 Dose: 250 mg - Labs Labs: 11/19/17 05:20 11/19/17 05:20 PT 14.8 Seconds (9.8-13.1) H 11/19/17 10:25 INR 1.3 11/19/17 10:25 APTT 29.7 Seconds (25.6-37.1) 11/19/17 10:25 - Constitutional Appears: Well, Non-toxic, No Acute Distress - Head Exam Head Exam: ATRAUMATIC, NORMOCEPHALIC - Extremities Exam Additional comments: Dressing C/D/I - Neurological Exam Neurological Exam: Alert, Awake, Oriented x3 - Psychiatric Exam Psychiatric exam: Normal Affect, Normal Mood Assessment and Plan - Assessment and Plan (Free Text) Assessment: 72 y/o male seen and evaluated on floor prior to surgery to right foot Plan: Pt was seen and examined on floor Pt NPO status was confirmed All pre-op testing and clearance in chart Pt has exhausted all conservative treatment at this time and is opting for surgical intervention Pt was explained procedure and post-operative course All pt's questions were answered to satisfaction No guarantees were made Pt understands all risks, benefits and complications of procedure
[2017-11-21 06:22] LABS: HEMOGLOBIN 13.1 g/dL (12.0-18.0); MEAN CELL VOLUME 84.8 fl (80.0-94.0); MEAN CORPUSCULAR HEMOGLOBIN 29.4 pg (27.0-31.0); MEAN CORPUSCULAR HGB CONC 34.7 g/dL (33.0-37.0); RBC 4.44 Mil/uL (4.40-5.90); RED CELL DISTRIBUTION WIDTH 13.3 % (11.5-14.5); WHITE BLOOD COUNT 9.8 K/uL (4.8-10.8)
[2017-11-21] MEDS ORDERED: Sodium Chloride 0.9% 1,000 ML IV SCH (06:30)
[2017-11-21 06:34] LABS: CALCIUM 8.9 mg/dL (8.4-10.2)
[2017-11-21] MEDS ORDERED: Propofol 10 mg/ml Inj (20 ML) ONE (07:07)
[2017-11-21] MEDS ORDERED: Lidocaine 2% MPF (5 ml) Inj ONE (07:16)
[2017-11-21] MEDS ORDERED: Lactated Ringer's 1,000 ML IV ONE (07:50)
--- NOTE | 2017-11-21 07:59 | RAD ---
Date of service: 11/21/2017 HISTORY: pre OP COMPARISON: Chest radiographs 11/08/2017. FINDINGS: LUNGS: No active pulmonary disease. Improved inspiratory volume. PLEURA: No significant pleural effusion identified, no pneumothorax apparent. CARDIOVASCULAR: Stable cardiomediastinal silhouette including pulmonary vascular pattern. No pulmonary venous congestion appreciated. Right abstract PICC inserted terminating at the distal superior vena cava. OSSEOUS STRUCTURES: No significant abnormalities. VISUALIZED UPPER ABDOMEN: Normal. OTHER FINDINGS: None. IMPRESSION: Interval right PICC insertion as discussed above. No pneumothorax bilaterally. Examination otherwise remarkable for improved inspiratory volume.
[2017-11-21] MEDS ORDERED: Lidocaine 2% MPF (5 ml) Inj INJ ONE (08:05)
[2017-11-21] MEDS ORDERED: Bupivacaine HCl 0.25% PF (30 ml) Inj IJ ONE ×2 (08:48→09:05)
[2017-11-21] MEDS ORDERED: HYDROmorphone 0.5 mg/0.5 ml ISec IVP PRN (09:21)
[2017-11-21] MEDS ORDERED: Oxycodone/Acetaminophen 5/325 mg Tab PO PRN ×2 (09:26)
--- NOTE | 2017-11-21 09:32 | PCM.SURG1 ---
Surgeon's Initial Post Op Note - Surgeon's Notes Surgeon: Dr. Saenz DPM Calender Runner: Dr. Landry PGY 1 Type of Anesthesia: IV Sedation, Local Anesthesia Administered By: Jasmin Pre-Operative Diagnosis: Right hallux osteomyelitis and cellulitis Operative Findings: see dictation. M: 2-0 vicryl, 3-0 prolene. I: 10cc 0.25% marcaine plain intraop, 20cc 1:1 mix of 2% lidocaine plain and 0.25% marcaine plain preop Post-Operative Diagnosis: same Operation Performed: Right partial first ray amputation Specimen/Specimens Removed: right hallux, right tibial sesamoid, right fibular sesamoid, right clean margin, dirty wound culture, clean wound culture Estimated Blood Loss: EBL {In ML}: 20 Blood Products Given: N/A Drains Used: No Drains Post-Op Condition: Good Date of Surgery/Procedure: 11/21/17 Time of Surgery/Procedure: 09:32
[2017-11-21] MEDS: Saccharomyces Boulardi 250 mg Cap PO SCH ×2 (10:15→16:38)
[2017-11-21] MEDS: Insulin Lispro (humaLOG) 100 Units/ml Inj SC SCH ×4 (10:15→22:22)
--- NOTE | 2017-11-21 10:53 | RAD ---
Date of service: 11/21/2017 PROCEDURE: Right Foot Radiographs. HISTORY: s/p right partial first ray amputation COMPARISON: Right foot radiographs dated 11/08/2017 FINDINGS: BONES: Interval 1st digit transmetatarsal amputation at the level of the metatarsal head. JOINTS: Joint space narrowing SOFT TISSUES: Postsurgical changes OTHER FINDINGS: None. IMPRESSION: Interval 1st digit transmetatarsal amputation as described above with adjacent postsurgical changes.
[2017-11-21] MEDS ORDERED: Bupivacaine HCl 0.25% PF (30 ml) Inj ONE (11:16)
--- NOTE | 2017-11-21 12:27 | CP.PCM.PN ---
Subjective - Date & Time of Evaluation Date of Evaluation: 11/21/17 Time of Evaluation: 12:25 - Subjective Subjective: Patient was seen and examined at bedside after right Hallux amputation this morning, 11/21/17. He reports good appetite and feeling the need to have a BM. Denies any pain, chest pain, shortness of breath, right foot pain, abdominal pain, nausea and vomiting. Objective - Vital Signs/Intake and Output Vital Signs (last 24 hours): Temp Pulse Resp BP Pulse Ox 98.2 F 69 18 149/78 97 11/21/17 11:30 11/21/17 11:30 11/21/17 11:30 11/21/17 11:30 11/21/17 11:30 Intake and Output: 11/21/17 11/21/17 06:59 18:59 Intake Total 300 Balance 300 - Medications Medications: Current Medications Acetaminophen (Tylenol 325mg Tab) 650 mg PO Q4 PRN PRN Reason: Pain, Mild (1-3) Amlodipine Besylate (Norvasc) 10 mg PO DAILY [facility] Last Admin: 11/21/17 10:34 Dose: 10 mg Atorvastatin Calcium (Lipitor) 40 mg PO DAILY [facility] Last Admin: 11/21/17 10:34 Dose: 40 mg Dextrose (Dextrose 50% Inj) 0 ml IV STAT PRN; Protocol PRN Reason: Hypoglycemia Protocol Dextrose (Glutose 15) 0 gm PO ONCE PRN; Protocol PRN Reason: Hypoglycemia Protocol Enoxaparin Sodium (Lovenox) 40 mg SC DAILY [facility] PRN Reason: Protocol Last Admin: 11/17/17 09:04 Dose: 40 mg Glipizide (Glucotrol) 10 mg PO DAILY [facility] Last Admin: 11/21/17 10:33 Dose: 10 mg Glucagon (Glucagen Diagnostic Kit) 0 mg IM STAT PRN; Protocol PRN Reason: Hypoglycemia Protocol Piperacillin Sod/Tazobactam (Sod 3.375 gm/ Sodium Chloride) 100 mls @ 100 mls/ hr IVPB Q8 [facility] PRN Reason: Protocol Last Admin: 11/21/17 10:36 Dose: 100 mls/hr Vancomycin HCl 1 gm/ Sodium (Chloride) 250 mls @ 166.667 mls/hr IVPB Q12 [facility] PRN Reason: Protocol Last Admin: 11/21/17 10:35 Dose: 166.667 mls/hr Sodium Chloride (Sodium Chloride 0.9%) 1,000 mls @ 0 mls/hr IV .Q0M [facility] PRN Reason: As Directed Stop: 11/22/17 06:17 Insulin Human Lispro (Humalog) 0 units SC ACHS [facility] PRN Reason: Protocol Last Admin: 11/21/17 12:22 Dose: 4 units Lisinopril (Zestril) 40 mg PO DAILY [facility] Last Admin: 11/21/17 10:16 Dose: Not Given Metoprolol Tartrate (Lopressor) 25 mg PO DAILY [facility] Last Admin: 11/21/17 10:16 Dose: Not Given Mupirocin (Bactroban Ointment) 1 applic TOP BID [facility] Last Admin: 11/21/17 10:14 Dose: Not Given Oxycodone/Acetaminophen (Percocet 5/325 Mg Tab) 1 tab PO Q4 PRN PRN Reason: Pain, moderate (4-7) Stop: 11/24/17 09:27 Oxycodone/Acetaminophen (Percocet 5/325 Mg Tab) 2 tab PO Q4 PRN PRN Reason: Pain, severe (8-10) Stop: 11/24/17 09:27 Saccharomyces Boulardii (Florastor) 250 mg PO BID [facility] Last Admin: 11/21/17 10:15 Dose: Not Given - Labs Labs: 11/21/17 06:00 11/21/17 06:00 PT 14.8 Seconds (9.8-13.1) H 11/19/17 10:25 INR 1.3 11/19/17 10:25 APTT 29.7 Seconds (25.6-37.1) 11/19/17 10:25 - Constitutional Appears: Well, Non-toxic, No Acute Distress - ENT Exam ENT Exam: Mucous Membranes Moist - Respiratory Exam Respiratory Exam: Clear to Ausculation Bilateral, NORMAL BREATHING PATTERN. absent: Decreased Breath Sounds, Wheezes, Stridor - Cardiovascular Exam Cardiovascular Exam: REGULAR RHYTHM, RRR, +S1, +S2. absent: Diastolic murmur, Gallop, JVD, Rubs, +S4, Murmur - GI/Abdominal Exam GI & Abdominal Exam: Soft, Normal Bowel Sounds. absent: Distended, Firm, Guarding, Rigid, Tenderness, Organomegaly, Rebound - Extremities Exam Extremities Exam: absent: Calf Tenderness, Pedal Edema, Tenderness Additional comments: Right Great toe bandaged- clean. - Neurological Exam Neurological Exam: Alert, Awake, Oriented x3 - Psychiatric Exam Psychiatric exam: Normal Affect - Skin Skin Exam: Dry, Intact, Normal Color, Warm Assessment and Plan - Assessment and Plan (Free Text) Assessment: 72 y/o man w/ pmh of HTN, DM2 admitted for OM of right hallux is s/p right hallux amputation 11/21. Plan: 1. Osteomyelitis s/p Right hallux amputation 11/21 - feels well s/p procedure - diagnosed via biopsy done 1 week ago. Failed outpatient treatment of Cipro and Vancomycin via PICC line. - Continue Vancomycin 1gm Q12h day 5 and Zosyn 3.375 Q8H day 5 - Podiatry- Patient tolerated procedure. Patient needs vascular consult. - Vascular consult appreciated. - blood culture: negative to date. - ECHO mild aortic root dilation EF 55% 2. CKD St3 Poss secondary due to DM Stable Creat 1.5 today Restarted on Metformin 1000 BID (home medication) Continue to Monitor 3. DM2 - last HbA1c 8.9% (11/09/2017) - c/w glipizide, metformin - insulin correction scale - hypoglycemic protocol - Continute Atrovastatin 40mg po daily 4. HTN - stable BP - c/w lisinopril and metoprolol - Continue Norvasc to 10mg daily. 5. Prophylactic measures - DVT: continue lovenox 40 mg SC daily
--- NOTE | 2017-11-21 17:26 | CP.PCM.PN ---
Subjective - Date & Time of Evaluation Date of Evaluation: 11/21/17 Time of Evaluation: 17:25 - Subjective Subjective: s/p amputation in dsg severe bilateral PVOD on CT angio Objective - Vital Signs/Intake and Output Vital Signs (last 24 hours): Temp Pulse Resp BP Pulse Ox 98 F 86 18 121/68 98 11/21/17 16:01 11/21/17 16:01 11/21/17 16:01 11/21/17 16:01 11/21/17 16:01 Intake and Output: 11/21/17 11/21/17 06:59 18:59 Intake Total 300 Balance 300 - Medications Medications: Current Medications Acetaminophen (Tylenol 325mg Tab) 650 mg PO Q4 PRN PRN Reason: Pain, Mild (1-3) Amlodipine Besylate (Norvasc) 10 mg PO DAILY [facility] Last Admin: 11/21/17 10:34 Dose: 10 mg Atorvastatin Calcium (Lipitor) 40 mg PO DAILY [facility] Last Admin: 11/21/17 10:34 Dose: 40 mg Dextrose (Dextrose 50% Inj) 0 ml IV STAT PRN; Protocol PRN Reason: Hypoglycemia Protocol Dextrose (Glutose 15) 0 gm PO ONCE PRN; Protocol PRN Reason: Hypoglycemia Protocol Enoxaparin Sodium (Lovenox) 40 mg SC DAILY [facility] PRN Reason: Protocol Last Admin: 11/17/17 09:04 Dose: 40 mg Glipizide (Glucotrol) 10 mg PO DAILY [facility] Last Admin: 11/21/17 10:33 Dose: 10 mg Glucagon (Glucagen Diagnostic Kit) 0 mg IM STAT PRN; Protocol PRN Reason: Hypoglycemia Protocol Piperacillin Sod/Tazobactam (Sod 3.375 gm/ Sodium Chloride) 100 mls @ 100 mls/ hr IVPB Q8 [facility] PRN Reason: Protocol Last Admin: 11/21/17 16:39 Dose: 100 mls/hr Vancomycin HCl 1 gm/ Sodium (Chloride) 250 mls @ 166.667 mls/hr IVPB Q12 [facility] PRN Reason: Protocol Last Admin: 11/21/17 10:35 Dose: 166.667 mls/hr Sodium Chloride (Sodium Chloride 0.9%) 1,000 mls @ 0 mls/hr IV .Q0M [facility] PRN Reason: As Directed Stop: 11/22/17 06:17 Insulin Human Lispro (Humalog) 0 units SC ACHS [facility] PRN Reason: Protocol Last Admin: 11/21/17 16:39 Dose: Not Given Lisinopril (Zestril) 40 mg PO DAILY [facility] Last Admin: 11/21/17 10:16 Dose: Not Given Metformin HCl (Glucophage) 1,000 mg PO BID [facility] Last Admin: 11/21/17 16:38 Dose: 1,000 mg Metoprolol Tartrate (Lopressor) 25 mg PO DAILY [facility] Last Admin: 11/21/17 10:16 Dose: Not Given Mupirocin (Bactroban Ointment) 1 applic TOP BID [facility] Last Admin: 11/21/17 16:37 Dose: Not Given Oxycodone/Acetaminophen (Percocet 5/325 Mg Tab) 1 tab PO Q4 PRN PRN Reason: Pain, moderate (4-7) Stop: 11/24/17 09:27 Oxycodone/Acetaminophen (Percocet 5/325 Mg Tab) 2 tab PO Q4 PRN PRN Reason: Pain, severe (8-10) Stop: 11/24/17 09:27 Saccharomyces Boulardii (Florastor) 250 mg PO BID [facility] Last Admin: 11/21/17 16:38 Dose: 250 mg - Labs Labs: 11/21/17 06:00 11/21/17 06:00 PT 14.8 Seconds (9.8-13.1) H 11/19/17 10:25 INR 1.3 11/19/17 10:25 APTT 29.7 Seconds (25.6-37.1) 11/19/17 10:25 - Constitutional Appears: Well - Head Exam Head Exam: ATRAUMATIC, NORMAL INSPECTION, NORMOCEPHALIC - Eye Exam Eye Exam: EOMI, Normal appearance, PERRL Pupil Exam: NORMAL ACCOMODATION, PERRL - ENT Exam ENT Exam: Mucous Membranes Moist, Normal Exam - Neck Exam Neck Exam: Full ROM, Normal Inspection. absent: Lymphadenopathy - Respiratory Exam Respiratory Exam: Clear to Ausculation Bilateral, NORMAL BREATHING PATTERN - Cardiovascular Exam Cardiovascular Exam: REGULAR RHYTHM, +S1, +S2. absent: Murmur - GI/Abdominal Exam GI & Abdominal Exam: Soft, Normal Bowel Sounds. absent: Tenderness - Extremities Exam Extremities Exam: Full ROM, Normal Capillary Refill, Normal Inspection. absent : Joint Swelling, Pedal Edema - Back Exam Back Exam: NORMAL INSPECTION - Neurological Exam Neurological Exam: Alert, Awake, CN II-XII Intact, Normal Gait, Oriented x3 - Psychiatric Exam Psychiatric exam: Normal Affect, Normal Mood - Skin Skin Exam: Dry, Intact, Normal Color, Warm Assessment and Plan (1) PVD (peripheral vascular disease) Status: Acute (2) Osteomyelitis of right foot Status: Acute (3) DM2 (diabetes mellitus, type 2) Status: Chronic (4) HTN (hypertension) Status: Chronic
[2017-11-22] MEDS: Piperacillin/Tazobact 3.375 GM in Sodium Chloride 0.9% 100 ML IVPB SCH ×3 (01:26→17:14)
[2017-11-22 06:30] LABS: HEMOGLOBIN 11.9 g/dL (12.0-18.0); MEAN CELL VOLUME 84.4 fl (80.0-94.0); MEAN CORPUSCULAR HEMOGLOBIN 29.1 pg (27.0-31.0); MEAN CORPUSCULAR HGB CONC 34.4 g/dL (33.0-37.0); RBC 4.08 Mil/uL (4.40-5.90); RED CELL DISTRIBUTION WIDTH 13.1 % (11.5-14.5); WHITE BLOOD COUNT 10.4 K/uL (4.8-10.8)
[2017-11-22 06:33] LABS: CALCIUM 8.2 mg/dL (8.4-10.2)
[2017-11-22] MEDS: Insulin Lispro (humaLOG) 100 Units/ml Inj SC SCH ×4 (06:50→23:00)
[2017-11-22] MEDS ORDERED: Povidone Iodine Topical 10% Sol ONE (07:51)
--- NOTE | 2017-11-22 09:03 | CP.PCM.PN ---
Subjective - Date & Time of Evaluation Date of Evaluation: 11/22/17 Time of Evaluation: 08:59 - Subjective Subjective: Podiatry progress note for Dr. Ang 72 y/o male seen and evaluated at bedside 1 day s/p right hallux amputation. Patient resting comfortably in bed with at bedside. Patient states he is feeling much better today and denies any other pedal complaints. Patient denies any F/N/V/SOB/CP. Patient states he is aware he will need further vascular surgery. Objective - Vital Signs/Intake and Output Vital Signs (last 24 hours): Temp Pulse Resp BP Pulse Ox 98.5 F 92 H 19 144/83 97 11/22/17 08:43 11/22/17 08:43 11/22/17 08:43 11/22/17 08:43 11/22/17 08:43 - Medications Medications: Current Medications Acetaminophen (Tylenol 325mg Tab) 650 mg PO Q4 PRN PRN Reason: Pain, Mild (1-3) Amlodipine Besylate (Norvasc) 10 mg PO DAILY [facility] Last Admin: 11/21/17 10:34 Dose: 10 mg Atorvastatin Calcium (Lipitor) 40 mg PO DAILY [facility] Last Admin: 11/21/17 10:34 Dose: 40 mg Dextrose (Dextrose 50% Inj) 0 ml IV STAT PRN; Protocol PRN Reason: Hypoglycemia Protocol Dextrose (Glutose 15) 0 gm PO ONCE PRN; Protocol PRN Reason: Hypoglycemia Protocol Enoxaparin Sodium (Lovenox) 40 mg SC DAILY [facility]; Protocol Last Admin: 11/17/17 09:04 Dose: 40 mg Glipizide (Glucotrol) 10 mg PO DAILY [facility] Last Admin: 11/21/17 10:33 Dose: 10 mg Glucagon (Glucagen Diagnostic Kit) 0 mg IM STAT PRN; Protocol PRN Reason: Hypoglycemia Protocol Piperacillin Sod/Tazobactam (Sod 3.375 gm/ Sodium Chloride) 100 mls @ 100 m ls/hr IVPB Q8 [facility]; Protocol Last Admin: 11/22/17 01:26 Dose: 100 mls/hr Vancomycin HCl 1 gm/ Sodium (Chloride) 250 mls @ 166.667 mls/hr IVPB Q12 [facility]; Protocol Last Admin: 11/21/17 22:23 Dose: 166.667 mls/hr Insulin Human Lispro (Humalog) 0 units SC ACHS [facility]; Protocol Last Admin: 11/22/17 06:50 Dose: Not Given Lisinopril (Zestril) 40 mg PO DAILY [facility] Last Admin: 11/21/17 10:16 Dose: Not Given Metformin HCl (Glucophage) 1,000 mg PO BID [facility] Last Admin: 11/21/17 16:38 Dose: 1,000 mg Metoprolol Tartrate (Lopressor) 25 mg PO DAILY [facility] Last Admin: 11/21/17 10:16 Dose: Not Given Mupirocin (Bactroban Ointment) 1 applic TOP BID [facility] Last Admin: 11/21/17 16:37 Dose: Not Given Oxycodone/Acetaminophen (Percocet 5/325 Mg Tab) 1 tab PO Q4 PRN PRN Reason: Pain, moderate (4-7) Stop: 11/24/17 09:27 Oxycodone/Acetaminophen (Percocet 5/325 Mg Tab) 2 tab PO Q4 PRN PRN Reason: Pain, severe (8-10) Stop: 11/24/17 09:27 Saccharomyces Boulardii (Florastor) 250 mg PO BID [facility] Last Admin: 11/21/17 16:38 Dose: 250 mg - Labs Labs: 11/22/17 04:30 11/22/17 04:30 PT 14.8 Seconds (9.8-13.1) H 11/19/17 10:25 INR 1.3 11/19/17 10:25 APTT 29.7 Seconds (25.6-37.1) 11/19/17 10:25 - Constitutional Appears: Well, Non-toxic, No Acute Distress - Head Exam Head Exam: ATRAUMATIC, NORMOCEPHALIC - Extremities Exam Additional comments: Right lower extremity exam VASC: DP and PT 1/4, CFT less than 3 seconds X 10, TG warm to warm, minimal edema noted surrounding the incision site NEURO: diminished sensation DERM: incision noted to the right foot, sutures intact, no dehiscence noted, minimal sanguineous drainage, minimal erythema brijesh-incision ORTHO: minimal pain on palpation surrounding the incision - Neurological Exam Neurological Exam: Alert, Awake, Oriented x3 - Psychiatric Exam Psychiatric exam: Normal Affect, Normal Mood Assessment and Plan - Assessment and Plan (Free Text) Assessment: 72 y/o male seen and evaluated at bedside s/p 1 day right hallux amputation Plan: Patient seen and evaluated at bedside Plan discussed with attending Dr. Ang Chart, labs and vitals reviewed- afebrile, absent leukocytosis CTA: Extensive artheroscleroric with moderate 60% stenosis in distal R SFA, R AT moderate stenosis, R PT occlusion, Critical stenosis distal L SFA OR Wound Culture and Pathology- Pending Continue IV antibiotics as per ID recommendation Patient surgical site cleased with saline and dressed with a betadine soaked adaptic, ABD, DSD and CHERI Patient tolerated the dressing change well As per Dr. Tabares, patient will require vascular intervention due to severe PVD- patient will get revascularization tomorrow 11/23/17 Podiatry will continue to follow patient while in house
--- NOTE | 2017-11-22 09:16 | CP.PCM.DIS ---
Provider - Provider Date of Admission: 11/16/17 21:39 Attending physician: Kayleen Hernandez MD Hospital Course - Lab Results Lab Results: Micro Results 11/16/17 18:40 Blood Blood Culture - Final NO GROWTH AFTER 5 DAYS 11/16/17 18:40 Blood Gram Stain - Final TEST NOT PERFORMED 11/19/17 08:00 Foot - Right Gram Stain - Final 11/19/17 08:00 Foot - Right Wound Culture - Preliminary NO GROWTH AFTER 24 HOURS Most Recent Lab Values WBC 10.4 K/uL (4.8-10.8) 11/22/17 04:30 RBC 4.08 Mil/uL (4.40-5.90) L 11/22/17 04:30 Hgb 11.9 g/dL (12.0-18.0) L 11/22/17 04:30 Hct 34.5 % (35.0-51.0) L 11/22/17 04:30 MCV 84.4 fl (80.0-94.0) 11/22/17 04:30 MCH 29.1 pg (27.0-31.0) 11/22/17 04:30 MCHC 34.4 g/dL (33.0-37.0) 11/22/17 04:30 RDW 13.1 % (11.5-14.5) 11/22/17 04:30 Plt Count 455 K/uL (130-400) H 11/22/17 04:30 MPV 7.3 fl (7.2-11.7) 11/17/17 05:39 Neut % (Auto) 75.6 % (50.0-75.0) H 11/17/17 05:39 Lymph % (Auto) 12.8 % (20.0-40.0) L 11/17/17 05:39 [place] % (Auto) 8.3 % (0.0-10.0) 11/17/17 05:39 Eos % (Auto) 2.2 % (0.0-4.0) 11/17/17 05:39 Baso % (Auto) 1.1 % (0.0-2.0) 11/17/17 05:39 Neut # (Auto) 8.1 K/uL (1.8-7.0) H 11/17/17 05:39 Lymph # (Auto) 1.4 K/uL (1.0-4.3) 11/17/17 05:39 [place] # (Auto) 0.9 K/uL (0.0-0.8) H 11/17/17 05:39 Eos # (Auto) 0.2 K/uL (0.0-0.7) 11/17/17 05:39 Baso # (Auto) 0.1 K/uL (0.0-0.2) 11/17/17 05:39 Neutrophils % (Manual) 72 % (42-75) 11/16/17 20:08 Band Neutrophils % 3 % (0-2) H 11/16/17 20:08 Lymphocytes % (Manual) 14 % (20-50) L 11/16/17 20:08 Monocytes % (Manual) 10 % (0-10) 11/16/17 20:08 Basophils % (Manual) 1 % (0-2) 11/16/17 20:08 Platelet Estimate Normal (NORMAL) 11/16/17 20:08 Large Platelets Present 11/16/17 20:08 Hypochromasia (manual) Slight 11/16/17 20:08 Anisocytosis (manual) Slight 11/16/17 20:08 Microcytosis (manual) Slight 11/16/17 20:08 ESR 75 mm/hr (0-20) H 11/16/17 20:08 PT 14.8 Seconds (9.8-13.1) H 11/19/17 10:25 INR 1.3 11/19/17 10:25 APTT 29.7 Seconds (25.6-37.1) 11/19/17 10:25 Sodium 139 mmol/l (132-148) 11/22/17 04:30 Potassium 3.6 MMOL/L (3.6-5.0) 11/22/17 04:30 Chloride 107 mmol/L (98-107) 11/22/17 04:30 Carbon Dioxide 27 mmol/L (22-30) 11/22/17 04:30 Anion Gap 9 (10-20) L 11/22/17 04:30 BUN 8 mg/dl (9-20) L 11/22/17 04:30 Creatinine 1.5 mg/dl (0.8-1.5) 11/22/17 04:30 Est GFR ( Amer) 56 11/22/17 04:30 Est GFR (Non-Af Amer) 46 11/22/17 04:30 POC Glucose (mg/dL) 130 mg/dL (65-110) H 11/22/17 05:29 Random Glucose 146 mg/dL (75-110) H 11/22/17 04:30 Calcium 8.2 mg/dL (8.4-10.2) L 11/22/17 04:30 Total Bilirubin 0.3 mg/dl (0.2-1.3) 11/17/17 05:39 AST 29 U/L (17-59) 11/17/17 05:39 ALT 36 U/L (21-72) 11/17/17 05:39 Alkaline Phosphatase 51 U/L (38-126) 11/17/17 05:39 Total Creatine Kinase 56 U/L (55-170) 11/16/17 19:08 Total Protein 7.0 G/DL (6.3-8.2) 11/17/17 05:39 Albumin 3.3 g/dL (3.5-5.0) L 11/17/17 05:39 Globulin 3.7 gm/dL (2.2-3.9) 11/17/17 05:39 Albumin/Globulin Ratio 0.9 (1.0-2.1) L 11/17/17 05:39 Discharge Exam - Head Exam Head Exam: ATRAUMATIC, NORMOCEPHALIC Discharge Plan - Follow Up Plan Condition: FAIR Disposition: HOME/ ROUTINE
--- NOTE | 2017-11-22 09:25 | CP.PCM.PN ---
<Krysta Sharma - Last Filed: 11/22/17 09:27> Subjective - Date & Time of Evaluation Date of Evaluation: 11/22/17 Time of Evaluation: 09:23 - Subjective Subjective: Patient seen and examined at bedside with Dr. Spencer. He reports feeling well and denies chest pain, shortness of breath, surgical site pain, nausea, vomiting, a nd abdominal pain. Patient has good appetite and reports he had a bowel movement this morning. Objective - Vital Signs/Intake and Output Vital Signs (last 24 hours): Temp Pulse Resp BP Pulse Ox 98.5 F 92 H 19 144/83 97 11/22/17 08:43 11/22/17 08:43 11/22/17 08:43 11/22/17 08:43 11/22/17 08:43 - Medications Medications: Current Medications Acetaminophen (Tylenol 325mg Tab) 650 mg PO Q4 PRN PRN Reason: Pain, Mild (1-3) Amlodipine Besylate (Norvasc) 10 mg PO DAILY [facility] Last Admin: 11/21/17 10:34 Dose: 10 mg Atorvastatin Calcium (Lipitor) 40 mg PO DAILY [facility] Last Admin: 11/21/17 10:34 Dose: 40 mg Dextrose (Dextrose 50% Inj) 0 ml IV STAT PRN; Protocol PRN Reason: Hypoglycemia Protocol Dextrose (Glutose 15) 0 gm PO ONCE PRN; Protocol PRN Reason: Hypoglycemia Protocol Enoxaparin Sodium (Lovenox) 40 mg SC DAILY [facility]; Protocol Last Admin: 11/17/17 09:04 Dose: 40 mg Glipizide (Glucotrol) 10 mg PO DAILY [facility] Last Admin: 11/21/17 10:33 Dose: 10 mg Glucagon (Glucagen Diagnostic Kit) 0 mg IM STAT PRN; Protocol PRN Reason: Hypoglycemia Protocol Piperacillin Sod/Tazobactam (Sod 3.375 gm/ Sodium Chloride) 100 mls @ 100 mls/hr IVPB Q8 [facility]; Protocol Last Admin: 11/22/17 01:26 Dose: 100 mls/hr Vancomycin HCl 1 gm/ Sodium (Chloride) 250 mls @ 166.667 mls/hr IVPB Q12 [facility]; Protocol Last Admin: 11/21/17 22:23 Dose: 166.667 mls/hr Insulin Human Lispro (Humalog) 0 units SC ACHS [facility]; Protocol Last Admin: 11/22/17 06:50 Dose: Not Given Lisinopril (Zestril) 40 mg PO DAILY [facility] Last Admin: 11/21/17 10:16 Dose: Not Given Metformin HCl (Glucophage) 1,000 mg PO BID [facility] Last Admin: 11/21/17 16:38 Dose: 1,000 mg Metoprolol Tartrate (Lopressor) 25 mg PO DAILY [facility] Last Admin: 11/21/17 10:16 Dose: Not Given Mupirocin (Bactroban Ointment) 1 applic TOP BID [facility] Last Admin: 11/21/17 16:37 Dose: Not Given Oxycodone/Acetaminophen (Percocet 5/325 Mg Tab) 1 tab PO Q4 PRN PRN Reason: Pain, moderate (4-7) Stop: 11/24/17 09:27 Oxycodone/Acetaminophen (Percocet 5/325 Mg Tab) 2 tab PO Q4 PRN PRN Reason: Pain, severe (8-10) Stop: 11/24/17 09:27 Saccharomyces Boulardii (Florastor) 250 mg PO BID [facility] Last Admin: 11/21/17 16:38 Dose: 250 mg - Labs Labs: 11/22/17 04:30 11/22/17 04:30 PT 14.8 Seconds (9.8-13.1) H 11/19/17 10:25 INR 1.3 11/19/17 10:25 APTT 29.7 Seconds (25.6-37.1) 11/19/17 10:25 - Constitutional Appears: Well, Non-toxic, No Acute Distress - Eye Exam Eye Exam: Normal appearance - ENT Exam ENT Exam: Mucous Membranes Moist - Respiratory Exam Respiratory Exam: Clear to Ausculation Bilateral, NORMAL BREATHING PATTERN. abs ent: Chest Wall Tenderness, Rales, Rhonchi, Wheezes, Respiratory Distress, Stridor - GI/Abdominal Exam GI & Abdominal Exam: Soft, Normal Bowel Sounds. absent: Distended, Firm, Guarding, Rigid, Tenderness, Mass, Organomegaly, Rebound - Extremities Exam Extremities Exam: Normal Inspection. absent: Calf Tenderness, Pedal Edema, Tenderness Additional comments: Right foot bandaged. Clean and bandage is not soaked through. +2 dorsalis pedis pulses. - Neurological Exam Neurological Exam: Alert, Awake, Oriented x3 - Psychiatric Exam Psychiatric exam: Normal Affect - Skin Skin Exam: Dry, Intact, Normal Color, Warm Assessment and Plan - Assessment and Plan (Free Text) Assessment: 72 y/o man w/ pmh of HTN, DM2 admitted for OM of right hallux is s/p right hallux amputation 11/21. Plan: 1. Osteomyelitis s/p Right hallux amputation 11/21 - feels well s/p procedure - diagnosed via biopsy done 1 week ago. Failed outpatient treatment of Cipro and Vancomycin via PICC line. - Continue Vancomycin 1gm Q12h day 5 and Zosyn 3.375 Q8H day 5 - Podiatry- Patient tolerated procedure. Patient needs vascular consult. - Vascular consult appreciated- possible revascularization tomorrow, 11/22 - blood culture: negative to date. - ECHO mild aortic root dilation EF 55% 2. CKD St3 Poss secondary due to DM Stable Restarted on Metformin 1000 BID (home medication) Continue to Monitor 3. DM2 - last HbA1c 8.9% (11/09/2017) - c/w glipizide, metformin - insulin correction scale - hypoglycemic protocol - Continute Atorvastatin 40mg po daily 4. HTN - stable BP - c/w lisinopril and metoprolol - Continue Norvasc to 10mg daily. 5. Prophylactic measures - DVT: continue lovenox 40 mg SC daily <Chelle Spencer - Last Filed: 11/22/17 16:20> Objective - Vital Signs/Intake and Output Vital Signs (last 24 hours): Temp Pulse Resp BP Pulse Ox 98.5 F 92 H 19 144/83 97 11/22/17 08:43 11/22/17 08:43 11/22/17 08:43 11/22/17 08:43 11/22/17 08:43 - Medications Medications: Current Medications Acetaminophen (Tylenol 325mg Tab) 650 mg PO Q4 PRN PRN Reason: Pain, Mild (1-3) Amlodipine Besylate (Norvasc) 10 mg PO DAILY [facility] Last Admin: 11/22/17 09:57 Dose: 10 mg Atorvastatin Calcium (Lipitor) 40 mg PO DAILY [facility] Last Admin: 11/22/17 09:57 Dose: 40 mg Dextrose (Dextrose 50% Inj) 0 ml IV STAT PRN; Protocol PRN Reason: Hypoglycemia Protocol Dextrose (Glutose 15) 0 gm PO ONCE PRN; Protocol PRN Reason: Hypoglycemia Protocol Enoxaparin Sodium (Lovenox) 40 mg SC DAILY [facility]; Protocol Last Admin: 11/22/17 09:59 Dose: 40 mg Glipizide (Glucotrol) 10 mg PO DAILY [facility] Last Admin: 11/22/17 09:57 Dose: 10 mg Glucagon (Glucagen Diagnostic Kit) 0 mg IM STAT PRN; Protocol PRN Reason: Hypoglycemia Protocol Piperacillin Sod/Tazobactam (Sod 3.375 gm/ Sodium Chloride) 100 mls @ 100 mls/hr IVPB Q8 [facility]; Protocol Last Admin: 11/22/17 09:57 Dose: 100 mls/hr Vancomycin HCl 1 gm/ Sodium (Chloride) 250 mls @ 166.667 mls/hr IVPB Q12 [facility]; Protocol Last Admin: 11/22/17 09:58 Dose: 166.667 mls/hr Insulin Human Lispro (Humalog) 0 units SC ACHS [facility]; Protocol Last Admin: 11/22/17 06:50 Dose: Not Given Lisinopril (Zestril) 40 mg PO DAILY [facility] Last Admin: 11/22/17 09:57 Dose: 40 mg Metoprolol Tartrate (Lopressor) 25 mg PO DAILY [facility] Last Admin: 11/22/17 09:57 Dose: 25 mg Mupirocin (Bactroban Ointment) 1 applic TOP BID [facility] Last Admin: 11/21/17 16:37 Dose: Not Given Oxycodone/Acetaminophen (Percocet 5/325 Mg Tab) 1 tab PO Q4 PRN PRN Reason: Pain, moderate (4-7) Stop: 11/24/17 09:27 Oxycodone/Acetaminophen (Percocet 5/325 Mg Tab) 2 tab PO Q4 PRN PRN Reason: Pain, severe (8-10) Stop: 11/24/17 09:27 Saccharomyces Boulardii (Florastor) 250 mg PO BID [facility] Last Admin: 11/22/17 09:57 Dose: 250 mg - Labs Labs: 11/22/17 04:30 11/22/17 04:30 PT 14.8 Seconds (9.8-13.1) H 11/19/17 10:25 INR 1.3 11/19/17 10:25 APTT 29.7 Seconds (25.6-37.1) 11/19/17 10:25 Attending/Attestation - Attestation I have personally seen and examined this patient.: Yes I have fully participated in the care of the patient.: Yes I have reviewed all pertinent clinical information, including history, physical exam and plan: Yes Notes (Text): Additional Note : 1. PVD CT Angio -Extensive atherosclerotic calcification of the arteries with moderate 60 percent stenosis in the distal right superficial femoral artery and moderate stenosis in the proximal right anterior tibial artery. Critical stenosis in the right anterior tibial artery in the midportion. Critical stenosis in the distal right anterior tibial artery. Right posterior tibial artery occlusion. The right peroneal artery to the ankle. Critical stenosis distal left superficial femoral artery. Decrease intraluminal enhancement of the left popliteal artery. Right lower calf, ankle and foot subcutaneous fat swelling and stranding consistent with cellulitis. Irregularity of the soft tissues of the right great toe compatible with soft tissue ulceration. - plan for Angiogram with poss stenting by Dr Tabares in am at [facility] from [place] - Hold Metformin as pt is going for Angio in am
[2017-11-22] MEDS: Saccharomyces Boulardi 250 mg Cap PO SCH ×2 (09:57→17:15)
[2017-11-22] MEDS: Enoxaparin 40 mg Syringe SC SCH (09:59)
[2017-11-23] MEDS: Piperacillin/Tazobact 3.375 GM in Sodium Chloride 0.9% 100 ML IVPB SCH ×4 (00:10→18:38)
[2017-11-23 06:27] LABS: HEMOGLOBIN 12.7 g/dL (12.0-18.0); MEAN CELL VOLUME 84.9 fl (80.0-94.0); MEAN CORPUSCULAR HEMOGLOBIN 29.3 pg (27.0-31.0); MEAN CORPUSCULAR HGB CONC 34.5 g/dL (33.0-37.0); RBC 4.35 Mil/uL (4.40-5.90); RED CELL DISTRIBUTION WIDTH 13.2 % (11.5-14.5); WHITE BLOOD COUNT 10.8 K/uL (4.8-10.8)
--- NOTE | 2017-11-23 07:01 | CP.PCM.PN ---
Subjective - Date & Time of Evaluation Date of Evaluation: 11/23/17 Time of Evaluation: 06:59 - Subjective Subjective: Podiatry progress note for Dr. Ang 72 y/o male seen and evaluated at bedside 2 day s/p right hallux amputation. Patient resting comfortably in bed with at bedside. Patient states he is feeling much better today and denies any other pedal complaints. Patient denies any F/N/V/SOB/CP. Patient states he has been NPO since midnight, and will be going to [facility] for revascularization today. Objective - Vital Signs/Intake and Output Vital Signs (last 24 hours): Temp Pulse Resp BP Pulse Ox 97.7 F 92 H 19 129/73 99 11/23/17 00:00 11/23/17 00:00 11/23/17 00:00 11/23/17 00:00 11/23/17 00:00 - Medications Medications: Current Medications Acetaminophen (Tylenol 325mg Tab) 650 mg PO Q4 PRN PRN Reason: Pain, Mild (1-3) Amlodipine Besylate (Norvasc) 10 mg PO DAILY [facility] Last Admin: 11/22/17 09:57 Dose: 10 mg Atorvastatin Calcium (Lipitor) 40 mg PO DAILY [facility] Last Admin: 11/22/17 09:57 Dose: 40 mg Dextrose (Dextrose 50% Inj) 0 ml IV STAT PRN; Protocol PRN Reason: Hypoglycemia Protocol Dextrose (Glutose 15) 0 gm PO ONCE PRN; Protocol PRN Reason: Hypoglycemia Protocol Enoxaparin Sodium (Lovenox) 40 mg SC DAILY [facility]; Protocol Last Admin: 11/22/17 09:59 Dose: 40 mg Glipizide (Glucotrol) 10 mg PO DAILY [facility] Last Admin: 11/22/17 09:57 Dose: 10 mg Glucagon (Glucagen Diagnostic Kit) 0 mg IM STAT PRN; Protocol PRN Reason: Hypoglycemia Protocol Piperacillin Sod/Tazobactam (Sod 3.375 gm/ Sodium Chloride) 100 mls @ 100 mls/hr IVPB Q8 [facility]; Protocol Last Admin: 11/23/17 00:10 Dose: 100 mls/hr Vancomycin HCl 1 gm/ Sodium (Chloride) 250 mls @ 166.667 mls/hr IVPB Q12 [facility]; Protocol Last Admin: 11/22/17 21:36 Dose: 166.667 mls/hr Insulin Human Lispro (Humalog) 0 units SC ACHS [facility]; Protocol Last Admin: 11/22/17 23:00 Dose: Not Given Lisinopril (Zestril) 40 mg PO DAILY [facility] Last Admin: 11/22/17 09:57 Dose: 40 mg Metoprolol Tartrate (Lopressor) 25 mg PO DAILY [facility] Last Admin: 11/22/17 09:57 Dose: 25 mg Mupirocin (Bactroban Ointment) 1 applic TOP BID [facility] Last Admin: 11/22/17 16:23 Dose: 1 applic Oxycodone/Acetaminophen (Percocet 5/325 Mg Tab) 1 tab PO Q4 PRN PRN Reason: Pain, moderate (4-7) Stop: 11/24/17 09:27 Oxycodone/Acetaminophen (Percocet 5/325 Mg Tab) 2 tab PO Q4 PRN PRN Reason: Pain, severe (8-10) Stop: 11/24/17 09:27 Saccharomyces Boulardii (Florastor) 250 mg PO BID [facility] Last Admin: 11/22/17 17:15 Dose: 250 mg - Labs Labs: 11/23/17 06:00 11/22/17 04:30 PT 14.8 Seconds (9.8-13.1) H 11/19/17 10:25 INR 1.3 11/19/17 10:25 APTT 29.7 Seconds (25.6-37.1) 11/19/17 10:25 - Constitutional Appears: Well, Non-toxic, No Acute Distress - Head Exam Head Exam: ATRAUMATIC, NORMOCEPHALIC - Extremities Exam Additional comments: Right lower extremity exam VASC: DP and PT 1/4, CFT less than 3 seconds X 10, TG warm to warm, minimal edema noted surrounding the incision site. NEURO: diminished sensation DERM: incision noted to the right foot hallux amputation site, sutures intact, n o dehiscence noted, minimal sanguineous drainage, minimal erythema brijesh- incision, no clinical signs of infection, no malodor ORTHO: minimal pain on palpation surrounding the incision - Neurological Exam Neurological Exam: Alert, Awake, Oriented x3 - Psychiatric Exam Psychiatric exam: Normal Affect, Normal Mood - Skin Skin Exam: Normal Color Assessment and Plan - Assessment and Plan (Free Text) Assessment: 72 y/o male seen and evaluated at bedside s/p 2 day right hallux amputation Plan: Patient seen and evaluated at bedside Plan discussed with attending Dr. Ang Chart, labs and vitals reviewed- afebrile, absent leukocytosis CTA: Extensive artheroscleroric with moderate 60% stenosis in distal R SFA, R AT moderate stenosis, R PT occlusion, Critical stenosis distal L SFA OR Wound Culture- Pending Bone Pathology- Pending Continue IV antibiotics as per ID recommendation Patient surgical site cleansed with saline and dressed with a betadine soaked a daptic, ABD, DSD and CHERI Patient tolerated the dressing change well Patient to go to [facility] today for a revascularization Podiatry will continue to follow patient while in house
[2017-11-23 07:05] LABS: CALCIUM 8.7 mg/dL (8.4-10.2)
--- NOTE | 2017-11-23 08:25 | OP ---
PROCEDURE DATE: 11/21/2017 SURGEON: Dr. Saenz. SIFTER AND MILLER: Dr. Shailesh Landry, PGY-1. SUPERVISOR POLISHING: Suleman Castellanos MD TYPE OF ANESTHESIA: IV sedation with local. PREOPERATIVE DIAGNOSIS: Right hallux osteomyelitis and cellulitis. POSTOPERATIVE DIAGNOSIS: Right hallux osteomyelitis and cellulitis. PROCEDURE: Right partial first ray amputation. INDICATIONS: The patient is a 72-year-old male with the above diagnosis. The patient has exhausted all conservative treatment at this time and now requires surgical intervention. The patient signed consent after careful explanation of risks, benefits, complications, and alternatives for surgical procedure. No guarantees were given nor implied. PREPARATION: The patient was brought into the operating room and placed on the operating room table in a supine position. Time-out was performed for identification of the correct patient and procedure. After induction of IV sedation, the patient received a total of 20 mL of a 1:1 mixture of 2% lidocaine plain and 0.25% Marcaine plain in a Steele block fashion. Once local anesthesia was achieved, the right foot was then prepped and draped in normal sterile manner and the procedure began. Betadine prep was used in this procedure. DESCRIPTION OF PROCEDURE: Attention was then directed to the right first metatarsal where a racquet-type incision was made circumferentially at the level of the first metatarsophalangeal joint using a #15 blade. The incision was then extended down to the subcutaneous layers down to the level of bone. Using a bone clamp to stabilize the toe, the first digit was then dissected and disarticulated from the level of the first metatarsophalangeal joint. This specimen was then passed from the operative field and sent to Pathology. A 10 mL of 0.25% Marcaine plain was then injected intraoperatively. Using a fresh 15 blade, all necrotic and nonviable tissue was then excisionally debrided from the surgical site. Next, utilizing a #15 blade, all periosteal tissue was carefully resected off the metatarsal. Using a sagittal saw, the first metatarsal head was then resected and passed from the operative field. All rough edges were then smoothened using a rasp and sagittal saw. The sesamoid bones were then removed using sharp dissection. The sesamoid bone of the metatarsal head were sent for Pathology. Dirty and clean wound cultures were also taken from the site prior to amputation and post-amputation respectively. The surgical site was then irrigated with copious amount of normal sterile saline using a pulse lavage. The subcutaneous tissue was reapproximated with 2-0 Vicryl and skin layers were then reapproximated using 3-0 Prolene in a combination of simple and horizontal mattress suture technique. The right foot was then dressed with Betadine-soaked Adaptic, 4 x 4 gauze, Kateryna, and Chris. POSTOPERATIVE CONDITION: The patient tolerated the anesthesia and procedure well and was escorted to the floor with vital signs stable and neurovascular status intact to the right foot. The patient is to nonweightbear to the right lower extremity and Podiatry will continue to follow while in-house, and the patient will follow up with Dr. Ang upon discharge. Shailesh Hymowitz Art Myers DPM JANN
[2017-11-23] MEDS ORDERED: Potassium Chloride 20 mEq ER Tab PO ONE (08:52)
[2017-11-23] MEDS: Saccharomyces Boulardi 250 mg Cap PO SCH ×3 (08:59→18:38)
--- NOTE | 2017-11-23 09:33 | CP.PCM.PN ---
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 He reports that he feels well and has no complaints. He is in no acute distress. Patient reports soft and formed bowel movement this morning. Denies chest pain, calf pain, shortness of breath, abdominal pain, nausea and vomiting. Objective - Vital Signs/Intake and Output Vital Signs (last 24 hours): Temp Pulse Resp BP Pulse Ox 98.4 F 91 H 19 157/75 H 96 11/23/17 08:32 11/23/17 08:32 11/23/17 08:32 11/23/17 08:32 11/23/17 08:32 - Medications Medications: Current Medications Acetaminophen (Tylenol 325mg Tab) 650 mg PO Q4 PRN PRN Reason: Pain, Mild (1-3) Amlodipine Besylate (Norvasc) 10 mg PO DAILY [facility] Last Admin: 11/23/17 09:00 Dose: 10 mg Atorvastatin Calcium (Lipitor) 40 mg PO DAILY [facility] Last Admin: 11/23/17 09:02 Dose: 40 mg Dextrose (Dextrose 50% Inj) 0 ml IV STAT PRN; Protocol PRN Reason: Hypoglycemia Protocol Dextrose (Glutose 15) 0 gm PO ONCE PRN; Protocol PRN Reason: Hypoglycemia Protocol Enoxaparin Sodium (Lovenox) 40 mg SC DAILY [facility]; Protocol Last Admin: 11/22/17 09:59 Dose: 40 mg Glipizide (Glucotrol) 10 mg PO DAILY [facility] Last Admin: 11/22/17 09:57 Dose: 10 mg Glucagon (Glucagen Diagnostic Kit) 0 mg IM STAT PRN; Protocol PRN Reason: Hypoglycemia Protocol Piperacillin Sod/Tazobactam (Sod 3.375 gm/ Sodium Chloride) 100 mls @ 100 mls/hr IVPB Q8 [facility]; Protocol Last Admin: 11/23/17 09:02 Dose: 100 mls/hr Vancomycin HCl 1 gm/ Sodium (Chloride) 250 mls @ 166.667 mls/hr IVPB Q12 [facility]; Protocol Last Admin: 11/23/17 08:58 Dose: 166.667 mls/hr Insulin Human Lispro (Humalog) 0 units SC ACHS [facility]; Protocol Last Admin: 11/22/17 23:00 Dose: Not Given Lisinopril (Zestril) 40 mg PO DAILY [facility] Last Admin: 11/23/17 08:59 Dose: 40 mg Metoprolol Tartrate (Lopressor) 25 mg PO DAILY [facility] Last Admin: 11/23/17 09:03 Dose: 25 mg Mupirocin (Bactroban Ointment) 1 applic TOP BID [facility] Last Admin: 11/23/17 08:58 Dose: 1 applic Oxycodone/Acetaminophen (Percocet 5/325 Mg Tab) 1 tab PO Q4 PRN PRN Reason: Pain, moderate (4-7) Stop: 11/24/17 09:27 Oxycodone/Acetaminophen (Percocet 5/325 Mg Tab) 2 tab PO Q4 PRN PRN Reason: Pain, severe (8-10) Stop: 11/24/17 09:27 Saccharomyces Boulardii (Florastor) 250 mg PO BID [facility] Last Admin: 11/23/17 08:59 Dose: 250 mg - Labs Labs: 11/23/17 06:00 11/23/17 06:00 PT 14.8 Seconds (9.8-13.1) H 11/19/17 10:25 INR 1.3 11/19/17 10:25 APTT 29.7 Seconds (25.6-37.1) 11/19/17 10:25 - Constitutional Appears: Well, Non-toxic, No Acute Distress - ENT Exam ENT Exam: Mucous Membranes Moist, Normal Oropharynx - Respiratory Exam Respiratory Exam: Clear to Ausculation Bilateral, NORMAL BREATHING PATTERN. absent: Decreased Breath Sounds, Rales, Rhonchi, Wheezes, Stridor - Cardiovascular Exam Cardiovascular Exam: Tachycardia, REGULAR RHYTHM, +S1, +S2. absent: Diastolic murmur, Gallop, Rubs, +S4, Murmur - GI/Abdominal Exam GI & Abdominal Exam: Soft, Normal Bowel Sounds. absent: Firm, Guarding, Rigid, Tenderness, Organomegaly - Extremities Exam Extremities Exam: Normal Inspection. absent: Calf Tenderness, Tenderness Additional comments: +2 Dorsalis pedis and tibialis bilaterally. Right foot dressed. Dressing clean and non-soaked. - Neurological Exam Neurological Exam: Alert, Awake, Oriented x3 - Psychiatric Exam Psychiatric exam: Normal Affect - Skin Skin Exam: Dry, Intact, Normal Color, Warm Assessment and Plan - Assessment and Plan (Free Text) Assessment: 72 y/o man w/ pmh of HTN, DM2 admitted for OM of right hallux is s/p right hallux amputation 11/21 found to have Plan: 1. Osteomyelitis s/p Right hallux amputation 11/21 - feels well s/p procedure - Continue Vancomycin 1gm Q12h day 6 and Zosyn 3.375 Q8H day 6 - blood culture: negative to date. - OR wound culture- pending - Bone pathology- pending - ECHO mild aortic root dilation EF 55% 2. Severe bilateral arterial and venous occlusion seen on CT angio - Vascular consult appreciated, Dr. Tabares - patient for revascularization today at [facility]. 3. CKD St3 Poss secondary due to DM Stable Continue Metformin 1000 BID (home medication) Continue to Monitor 4. DM2 - last HbA1c 8.9% (11/09/2017) - c/w glipizide, metformin - insulin correction scale - hypoglycemic protocol - Continue Atorvastatin 40mg po daily 5. HTN - stable BP - c/w lisinopril, metoprolol, Norvasc to 10mg daily. 6. DVT Prophylaxis - DVT: continue lovenox 40 mg SC daily <Chelle Spencer - Last Filed: 11/23/17 18:53> Objective - Vital Signs/Intake and Output Vital Signs (last 24 hours): Temp Pulse Resp BP Pulse Ox 99.3 F 94 H 18 178/84 H 96 11/23/17 18:05 11/23/17 18:05 11/23/17 18:05 11/23/17 18:05 11/23/17 18:05 - Medications Medications: Current Medications Acetaminophen (Tylenol 325mg Tab) 650 mg PO Q4 PRN PRN Reason: Pain, Mild (1-3) Amlodipine Besylate (Norvasc) 10 mg PO DAILY [facility] Last Admin: 11/23/17 09:00 Dose: 10 mg Atorvastatin Calcium (Lipitor) 40 mg PO DAILY [facility] Last Admin: 11/23/17 09:02 Dose: 40 mg Dextrose (Dextrose 50% Inj) 0 ml IV STAT PRN; Protocol PRN Reason: Hypoglycemia Protocol Dextrose (Glutose 15) 0 gm PO ONCE PRN; Protocol PRN Reason: Hypoglycemia Protocol Enoxaparin Sodium (Lovenox) 40 mg SC DAILY [facility]; Protocol Last Admin: 11/22/17 09:59 Dose: 40 mg Glipizide (Glucotrol) 10 mg PO DAILY [facility] Last Admin: 11/23/17 09:00 Dose: Not Given Glucagon (Glucagen Diagnostic Kit) 0 mg IM STAT PRN; Protocol PRN Reason: Hypoglycemia Protocol Piperacillin Sod/Tazobactam (Sod 3.375 gm/ Sodium Chloride) 100 mls @ 100 mls/hr IVPB Q8 [facility]; Protocol Last Admin: 11/23/17 17:22 Dose: Not Given Vancomycin HCl 1 gm/ Sodium (Chloride) 250 mls @ 166.667 mls/hr IVPB Q12 [facility]; Protocol Last Admin: 11/23/17 08:58 Dose: 166.667 mls/hr Insulin Human Lispro (Humalog) 0 units SC ACHS [facility]; Protocol Last Admin: 11/23/17 17:22 Dose: Not Given Lisinopril (Zestril) 40 mg PO DAILY [facility] Last Admin: 11/23/17 08:59 Dose: 40 mg Metoprolol Tartrate (Lopressor) 25 mg PO BID [facility] Mupirocin (Bactroban Ointment) 1 applic TOP BID [facility] Last Admin: 11/23/17 17:21 Dose: Not Given Oxycodone/Acetaminophen (Percocet 5/325 Mg Tab) 1 tab PO Q4 PRN PRN Reason: Pain, moderate (4-7) Stop: 11/24/17 09:27 Oxycodone/Acetaminophen (Percocet 5/325 Mg Tab) 2 tab PO Q4 PRN PRN Reason: Pain, severe (8-10) Stop: 11/24/17 09:27 Saccharomyces Boulardii (Florastor) 250 mg PO BID [facility] Last Admin: 11/23/17 17:22 Dose: Not Given - Labs Labs: 11/23/17 06:00 11/23/17 06:00 PT 14.8 Seconds (9.8-13.1) H 11/19/17 10:25 INR 1.3 09/22/18 10:25 APTT 29.7 Seconds (25.6-37.1) 11/19/17 10:25 Attending/Attestation - Attestation I have personally seen and examined this patient.: Yes I have fully participated in the care of the patient.: Yes I have reviewed all pertinent clinical information, including history, physical exam and plan: Yes Notes (Text): PVD: Patient went for Angiogram at [facility] - Metformin held - will discuss result with Dr Tabares Right Hallux Osteomyelitis s/p Amputation - pt doing well post op - discussed case with Dr Hernandez- rec to d/c pt home on PO Augmentin x 1 wk - will d/c PICCline prior to discharge
[2017-11-23] MEDS: Insulin Lispro (humaLOG) 100 Units/ml Inj SC SCH ×3 (09:36→17:22)
--- NOTE | 2017-11-23 16:30 | CP.PCM.PN ---
Subjective - Date & Time of Evaluation Date of Evaluation: 11/22/17 Time of Evaluation: 16:12 - Subjective Subjective: i d note had surgical excision of toes having vascular procedure done discussed c Objective - Vital Signs/Intake and Output Vital Signs (last 24 hours): Temp Pulse Resp BP Pulse Ox 98.4 F 91 H 19 157/75 H 96 11/23/17 08:32 11/23/17 08:32 11/23/17 08:32 11/23/17 08:32 11/23/17 08:32 - Medications Medications: Current Medications Acetaminophen (Tylenol 325mg Tab) 650 mg PO Q4 PRN PRN Reason: Pain, Mild (1-3) Amlodipine Besylate (Norvasc) 10 mg PO DAILY [facility] Last Admin: 11/23/17 09:00 Dose: 10 mg Atorvastatin Calcium (Lipitor) 40 mg PO DAILY [facility] Last Admin: 11/23/17 09:02 Dose: 40 mg Dextrose (Dextrose 50% Inj) 0 ml IV STAT PRN; Protocol PRN Reason: Hypoglycemia Protocol Dextrose (Glutose 15) 0 gm PO ONCE PRN; Protocol PRN Reason: Hypoglycemia Protocol Enoxaparin Sodium (Lovenox) 40 mg SC DAILY [facility]; Protocol Last Admin: 11/22/17 09:59 Dose: 40 mg Glipizide (Glucotrol) 10 mg PO DAILY [facility] Last Admin: 11/23/17 09:00 Dose: Not Given Glucagon (Glucagen Diagnostic Kit) 0 mg IM STAT PRN; Protocol PRN Reason: Hypoglycemia Protocol Piperacillin Sod/Tazobactam (Sod 3.375 gm/ Sodium Chloride) 100 mls @ 100 mls/hr IVPB Q8 [facility]; Protocol Last Admin: 11/23/17 09:02 Dose: 100 mls/hr Vancomycin HCl 1 gm/ Sodium (Chloride) 250 mls @ 166.667 mls/hr IVPB Q12 [facility]; Protocol Last Admin: 11/23/17 08:58 Dose: 166.667 mls/hr Insulin Human Lispro (Humalog) 0 units SC ACHS [facility]; Protocol Last Admin: 11/23/17 11:37 Dose: Not Given Lisinopril (Zestril) 40 mg PO DAILY [facility] Last Admin: 11/23/17 08:59 Dose: 40 mg Metoprolol Tartrate (Lopressor) 25 mg PO DAILY [facility] Last Admin: 11/23/17 09:03 Dose: 25 mg Mupirocin (Bactroban Ointment) 1 applic TOP BID [facility] Last Admin: 11/23/17 08:58 Dose: 1 applic Oxycodone/Acetaminophen (Percocet 5/325 Mg Tab) 1 tab PO Q4 PRN PRN Reason: Pain, moderate (4-7) Stop: 11/24/17 09:27 Oxycodone/Acetaminophen (Percocet 5/325 Mg Tab) 2 tab PO Q4 PRN PRN Reason: Pain, severe (8-10) Stop: 11/24/17 09:27 Saccharomyces Boulardii (Florastor) 250 mg PO BID [facility] Last Admin: 11/23/17 08:59 Dose: 250 mg - Labs Labs: 11/23/17 06:00 11/23/17 06:00 PT 14.8 Seconds (9.8-13.1) H 11/19/17 10:25 INR 1.3 11/19/17 10:25 APTT 29.7 Seconds (25.6-37.1) 11/19/17 10:25
[2017-11-24] MEDS: Piperacillin/Tazobact 3.375 GM in Sodium Chloride 0.9% 100 ML IVPB SCH ×2 (00:18→08:50)
[2017-11-24 07:09] LABS: HEMOGLOBIN 11.1 g/dL (12.0-18.0); MEAN CORPUSCULAR HGB CONC 34.5 g/dL (33.0-37.0); RBC 3.85 Mil/uL (4.40-5.90); WHITE BLOOD COUNT 9.1 K/uL (4.8-10.8)
[2017-11-24 07:21] LABS: CALCIUM 8.2 mg/dL (8.4-10.2)
[2017-11-24] MEDS: Saccharomyces Boulardi 250 mg Cap PO SCH (08:48)
--- NOTE | 2017-11-24 08:48 | CP.PCM.PN ---
Subjective - Date & Time of Evaluation Date of Evaluation: 11/24/17 Time of Evaluation: 08:46 - Subjective Subjective: Podiatry progress note for Dr. Ang 72 y/o male seen and evaluated at bedside 3 days s/p right hallux amputation. Patient resting comfortably in bed with at bedside. Patient states he is feeling much better today and denies any other pedal complaints. Patient and report the revascularization procedure at [facility] went very well. Patient denies any F/N/V/SOB/CP. Objective - Vital Signs/Intake and Output Vital Signs (last 24 hours): Temp Pulse Resp BP Pulse Ox 99.5 F 92 H 20 156/76 H 96 11/24/17 00:00 11/24/17 00:00 11/24/17 00:00 11/24/17 00:00 11/24/17 00:00 - Medications Medications: Current Medications Acetaminophen (Tylenol 325mg Tab) 650 mg PO Q4 PRN PRN Reason: Pain, Mild (1-3) Amlodipine Besylate (Norvasc) 10 mg PO DAILY [facility] Last Admin: 11/23/17 09:00 Dose: 10 mg Aspirin (Ecotrin) 81 mg PO DAILY [facility] Atorvastatin Calcium (Lipitor) 40 mg PO DAILY [facility] Last Admin: 11/23/17 09:02 Dose: 40 mg Clopidogrel Bisulfate (Plavix) 75 mg PO DAILY [facility] Dextrose (Dextrose 50% Inj) 0 ml IV STAT PRN; Protocol PRN Reason: Hypoglycemia Protocol Dextrose (Glutose 15) 0 gm PO ONCE PRN; Protocol PRN Reason: Hypoglycemia Protocol Enoxaparin Sodium (Lovenox) 40 mg SC DAILY [facility]; Protocol Last Admin: 11/22/17 09:59 Dose: 40 mg Glipizide (Glucotrol) 10 mg PO DAILY [facility] Last Admin: 11/23/17 09:00 Dose: Not Given Glucagon (Glucagen Diagnostic Kit) 0 mg IM STAT PRN; Protocol PRN Reason: Hypoglycemia Protocol Piperacillin Sod/Tazobactam (Sod 3.375 gm/ Sodium Chloride) 100 mls @ 100 mls/hr IVPB Q8 [facility]; Protocol Last Admin: 11/24/17 00:18 Dose: 100 mls/hr Vancomycin HCl 1 gm/ Sodium (Chloride) 250 mls @ 166.667 mls/hr IVPB Q12 [facility]; Protocol Last Admin: 11/23/17 20:16 Dose: 166.667 mls/hr Insulin Human Lispro (Humalog) 0 units SC ACHS [facility]; Protocol Last Admin: 11/23/17 17:22 Dose: Not Given Lisinopril (Zestril) 40 mg PO DAILY [facility] Last Admin: 11/23/17 08:59 Dose: 40 mg Metoprolol Tartrate (Lopressor) 25 mg PO BID [facility] Last Admin: 11/23/17 18:45 Dose: 25 mg Mupirocin (Bactroban Ointment) 1 applic TOP BID [facility] Last Admin: 11/23/17 17:21 Dose: Not Given Oxycodone/Acetaminophen (Percocet 5/325 Mg Tab) 1 tab PO Q4 PRN PRN Reason: Pain, moderate (4-7) Stop: 11/24/17 09:27 Oxycodone/Acetaminophen (Percocet 5/325 Mg Tab) 2 tab PO Q4 PRN PRN Reason: Pain, severe (8-10) Stop: 11/24/17 09:27 Saccharomyces Boulardii (Florastor) 250 mg PO BID [facility] Last Admin: 11/23/17 18:38 Dose: 250 mg - Labs Labs: 11/24/17 06:51 11/24/17 06:51 PT 14.8 Seconds (9.8-13.1) H 11/19/17 10:25 INR 1.3 11/19/17 10:25 APTT 29.7 Seconds (25.6-37.1) 11/19/17 10:25 - Constitutional Appears: Well, Non-toxic, No Acute Distress - Head Exam Head Exam: ATRAUMATIC, NORMOCEPHALIC - Extremities Exam Additional comments: Minimal sanguineous drainage noted to the previous dressing Right lower extremity exam VASC: DP and PT 2/4, CFT less than 3 seconds X 10, TG warm to warm, minimal edema noted surrounding the incision site. NEURO: diminished sensation DERM: incision noted to the right foot hallux amputation site, sutures intact, no dehiscence noted, minimal sanguineous drainage, minimal erythema brijesh- incision, no clinical signs of infection, no malodor ORTHO: minimal pain on palpation surrounding the incision - Neurological Exam Neurological Exam: Alert, Awake, Oriented x3 - Psychiatric Exam Psychiatric exam: Normal Affect, Normal Mood Assessment and Plan - Assessment and Plan (Free Text) Assessment: 72 y/o male seen and evaluated at bedside s/p 3 days right hallux amputation Plan: Patient seen and evaluated at bedside Plan discussed with attending Dr. Ang Chart, labs and vitals reviewed- afebrile, absent leukocytosis CTA: Extensive artheroscleroric with moderate 60% stenosis in distal R SFA, R AT moderate stenosis, R PT occlusion, Critical stenosis distal L SFA OR Wound Culture- no growth after 24 hours Bone Pathology- Pending Continue IV antibiotics as per ID recommendation Patient surgical site cleansed with saline and dressed with a betadine soaked adaptic, ABD, DSD and CHERI Patient tolerated the dressing change well Patient went to [facility] for a revascularization procedure- and had a drug Eluting Stent Placed Podiatry will continue to follow patient while in house
[2017-11-24] MEDS: Insulin Lispro (humaLOG) 100 Units/ml Inj SC SCH ×2 (08:51→12:43)
[2017-11-24] MEDS: Enoxaparin 40 mg Syringe SC SCH (08:51)
[2017-11-24 08:58] VITALS: BP 148/71; PULSE 95; RESP 18; TEMP 99.3; O2SAT 95
--- NOTE | 2017-11-24 10:31 | CP.PCM.DIS ---
<Krysta Sharma - Last Filed: 11/24/17 11:14> Provider - Provider Date of Admission: 11/16/17 21:39 Attending physician: Kayleen Hernandez MD Time Spent in preparation of Discharge (in minutes): 30 Diagnosis - Discharge Diagnosis (1) Osteomyelitis of right foot Status: Acute (2) PVD (peripheral vascular disease) Status: Acute (3) DM2 (diabetes mellitus, type 2) Status: Chronic (4) HTN (hypertension) Status: Chronic Hospital Course - Lab Results Lab Results: Micro Results 11/22/17 Unknown Blood Blood Culture - Preliminary NO GROWTH AFTER 24 HOURS 11/22/17 Unknown Blood Blood Culture - Preliminary NO GROWTH AFTER 24 HOURS 11/19/17 08:00 Foot - Right Gram Stain - Final 11/19/17 08:00 Foot - Right Wound Culture - Final Mony Parapsilosis 11/21/17 22:12 Other: Please Indicate Gram Stain - Final 11/21/17 22:12 Other: Please Indicate Wound Culture - Preliminary NO GROWTH AFTER 24 HOURS 11/21/17 22:12 Other: Please Indicate Gram Stain - Final 11/21/17 22:12 Other: Please Indicate Wound Culture - Preliminary NO GROWTH AFTER 24 HOURS 11/16/17 18:40 Blood Blood Culture - Final NO GROWTH AFTER 5 DAYS 11/16/17 18:40 Blood Gram Stain - Final TEST NOT PERFORMED Most Recent Lab Values WBC 9.1 K/uL (4.8-10.8) 11/24/17 06:51 RBC 3.85 Mil/uL (4.40-5.90) L 11/24/17 06:51 Hgb 11.1 g/dL (12.0-18.0) L 11/24/17 06:51 Hct 32.3 % (35.0-51.0) L 11/24/17 06:51 MCV 84.0 fl (80.0-94.0) 11/24/17 06:51 MCH 29.0 pg (27.0-31.0) 11/24/17 06:51 MCHC 34.5 g/dL (33.0-37.0) 11/24/17 06:51 RDW 13.0 % (11.5-14.5) 11/24/17 06:51 Plt Count 413 K/uL (130-400) H 11/24/17 06:51 MPV 7.3 fl (7.2-11.7) 11/17/17 05:39 Neut % (Auto) 75.6 % (50.0-75.0) H 11/17/17 05:39 Lymph % (Auto) 12.8 % (20.0-40.0) L 11/17/17 05:39 [place] % (Auto) 8.3 % (0.0-10.0) 11/17/17 05:39 Eos % (Auto) 2.2 % (0.0-4.0) 11/17/17 05:39 Baso % (Auto) 1.1 % (0.0-2.0) 11/17/17 05:39 Neut # (Auto) 8.1 K/uL (1.8-7.0) H 11/17/17 05:39 Lymph # (Auto) 1.4 K/uL (1.0-4.3) 11/17/17 05:39 [place] # (Auto) 0.9 K/uL (0.0-0.8) H 11/17/17 05:39 Eos # (Auto) 0.2 K/uL (0.0-0.7) 11/17/17 05:39 Baso # (Auto) 0.1 K/uL (0.0-0.2) 11/17/17 05:39 Neutrophils % (Manual) 72 % (42-75) 11/16/17 20:08 Band Neutrophils % 3 % (0-2) H 11/16/17 20:08 Lymphocytes % (Manual) 14 % (20-50) L 11/16/17 20:08 Monocytes % (Manual) 10 % (0-10) 11/16/17 20:08 Basophils % (Manual) 1 % (0-2) 11/16/17 20:08 Platelet Estimate Normal (NORMAL) 11/16/17 20:08 Large Platelets Present 11/16/17 20:08 Hypochromasia (manual) Slight 11/16/17 20:08 Anisocytosis (manual) Slight 11/16/17 20:08 Microcytosis (manual) Slight 11/16/17 20:08 ESR 75 mm/hr (0-20) H 11/16/17 20:08 PT 14.8 Seconds (9.8-13.1) H 11/19/17 10:25 INR 1.3 11/19/17 10:25 APTT 29.7 Seconds (25.6-37.1) 11/19/17 10:25 Sodium 139 mmol/l (132-148) 11/24/17 06:51 Potassium 3.5 MMOL/L (3.6-5.0) L 11/24/17 06:51 Chloride 105 mmol/L (98-107) 11/24/17 06:51 Carbon Dioxide 24 mmol/L (22-30) 11/24/17 06:51 Anion Gap 14 (10-20) 11/24/17 06:51 BUN 9 mg/dl (9-20) 11/24/17 06:51 Creatinine 1.5 mg/dl (0.8-1.5) 11/24/17 06:51 Est GFR ( Amer) 56 11/24/17 06:51 Est GFR (Non-Af Amer) 46 11/24/17 06:51 POC Glucose (mg/dL) 149 mg/dL (65-110) H 11/24/17 05:51 Random Glucose 146 mg/dL (75-110) H 11/24/17 06:51 Calcium 8.2 mg/dL (8.4-10.2) L 11/24/17 06:51 Total Bilirubin 0.3 mg/dl (0.2-1.3) 11/17/17 05:39 AST 29 U/L (17-59) 11/17/17 05:39 ALT 36 U/L (21-72) 11/17/17 05:39 Alkaline Phosphatase 51 U/L (38-126) 11/17/17 05:39 Total Creatine Kinase 56 U/L (55-170) 11/16/17 19:08 Total Protein 7.0 G/DL (6.3-8.2) 11/17/17 05:39 Albumin 3.3 g/dL (3.5-5.0) L 11/17/17 05:39 Globulin 3.7 gm/dL (2.2-3.9) 11/17/17 05:39 Albumin/Globulin Ratio 0.9 (1.0-2.1) L 11/17/17 05:39 - Hospital Course Hospital Course: 72 y/o man w/ pmh of HTN, DM2 presents to the ED sent from podiatry clinic due to abnormal labs. Patient undergoing outpatient treatment for osteomyelitis found 1 week ago via right hallux debridement/biopsy. Patient initially presented to the hospital 14 days ago for right foot/toe pain. Patient has right UE PICC and receiving daily infusion of vancomycin and taking PO ciprofloxacin. Patient had bloodwork done on 11/14/2017 which showed WBC of 15, which is an increase from discharge WC of 10.6. Patient denies fever, pain, nausea, vomiting, diarrhea. Patient also denies headaches, chest pain, SOB, dizziness. ED course: V/S: 99.4F, 96 beats/min, 136/80 mm Hg, resp 20, O2 96% room air CBC: 15.2>12.4/36.7<444 ; ESR: 75 CMP: 139/3.8, 105/24, 14/1.5, glucose 103, AST 42, ALT 51, alk phos 60 PMD: Dr. Chyna Kim PMH: HTN, DM2 Floor course: Patient was transferred to Med/ Surg. Patient had Right hallux amputation 11/21 and tolerated the procedure well. He was on Vancomycin 1g Q12H for a total of 6 days and Zosyn 3.375 Q8H for 6 days. Patient was found to have severe bilateral arterial and venous occlusion seen on CT angio and so he underwent revascularization at [facility] 11/[address] Tabares. 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 Patient to continue Aspirin and plavix. PICC line removed prior to discharge. Patient will be discharged with PO Augmentin 875mg BID x 1week. Discharge Exam - Head Exam Head Exam: ATRAUMATIC, NORMOCEPHALIC - ENT Exam ENT Exam: Mucous Membranes Moist - Respiratory Exam Respiratory Exam: Clear to PA & Lateral, NORMAL BREATHING PATTERN. absent: Chest Wall Tenderness, Decreased Breath Sounds, Rales, Wheezes, Stridor - Cardiovascular Exam Cardiovascular Exam: REGULAR RHYTHM, +S1, +S2. absent: Diastolic murmur, RRR, Rubs, +S4 - GI/Abdominal Exam GI & Abdominal Exam: Normal Bowel Sounds, Soft, Unremarkable. absent: Distended, Firm, Rigid, Tenderness - Extremities Exam Extremities exam: pedal pulses present Additional comments: +2 dorsalis pedis pulses bilaterally. Right foot wrapped with clean dressing. Left groin dressing clean. - Neurological Exam Neurological exam: Alert, Oriented x3 - Psychiatric Exam Psychiatric exam: Normal Affect, Normal Mood - Skin Skin Exam: Dry, Intact, Normal Color, Warm Discharge Plan - Discharge Medications Prescriptions: amLODIPine [Norvasc] 10 mg PO DAILY #30 tab Amoxicillin/Clavulanate [Augmentin 875 MG-125 MG] 1 tab PO BID 7 Days #14 tab Aspirin [Ecotrin] 81 mg PO DAILY #30 tabec Atorvastatin [Lipitor] 40 mg PO DAILY #30 tab Clopidogrel [Plavix] 75 mg PO DAILY #30 tab GlipiZIDE [Glucotrol] 10 mg PO DAILY #30 tab Lisinopril [Zestril] 40 mg PO DAILY #30 tab Metoprolol Tartrate [Lopressor] 25 mg PO DAILY #30 tab Mupirocin 2% Ointment [Bactroban Ointment] 1 applic TOP BID #1 tube - Follow Up Plan Condition: FAIR Disposition: HOME/ ROUTINE Instructions: Osteomyelitis, Type 2 Diabetes, Cellulitis (DC) Additional Instructions: Follow up with Dr. Ang- Procurement Accountant within 1 week. Follow up with PMD in 1-2 weeks Follow up with Dr. Tabares within 1 week. Prescriptions sent to pharmacy. Important to take medications consistently. Referrals: Podiatry Clinic [Outside] Rai Tabares MD [Staff Provider] - Hillary Ang DPM [Medical Doctor] - <Chelle Spencer - Last Filed: 11/24/17 13:40> Provider - Provider Date of Admission: 11/16/17 21:39 Attending physician: Kayleen Hernandez MD Hospital Course - Lab Results Lab Results: Micro Results 11/21/17 22:12 Other: Please Indicate Gram Stain - Final 11/21/17 22:12 Other: Please Indicate Wound Culture - Preliminary No growth. 11/21/17 22:12 Other: Please Indicate Gram Stain - Final 11/21/17 22:12 Other: Please Indicate Wound Culture - Preliminary No growth. 11/22/17 Unknown Blood Blood Culture - Preliminary NO GROWTH AFTER 24 HOURS 11/22/17 Unknown Blood Blood Culture - Preliminary NO GROWTH AFTER 24 HOURS 11/19/17 08:00 Foot - Right Gram Stain - Final 11/19/17 08:00 Foot - Right Wound Culture - Final Mony Parapsilosis 11/16/17 18:40 Blood Blood Culture - Final NO GROWTH AFTER 5 DAYS 11/16/17 18:40 Blood Gram Stain - Final TEST NOT PERFORMED Most Recent Lab Values WBC 9.1 K/uL (4.8-10.8) 11/24/17 06:51 RBC 3.85 Mil/uL (4.40-5.90) L 11/24/17 06:51 Hgb 11.1 g/dL (12.0-18.0) L 11/24/17 06:51 Hct 32.3 % (35.0-51.0) L 11/24/17 06:51 MCV 84.0 fl (80.0-94.0) 11/24/17 06:51 MCH 29.0 pg (27.0-31.0) 11/24/17 06:51 MCHC 34.5 g/dL (33.0-37.0) 11/24/17 06:51 RDW 13.0 % (11.5-14.5) 11/24/17 06:51 Plt Count 413 K/uL (130-400) H 11/24/17 06:51 MPV 7.3 fl (7.2-11.7) 11/17/17 05:39 Neut % (Auto) 75.6 % (50.0-75.0) H 11/17/17 05:39 Lymph % (Auto) 12.8 % (20.0-40.0) L 11/17/17 05:39 [place] % (Auto) 8.3 % (0.0-10.0) 11/17/17 05:39 Eos % (Auto) 2.2 % (0.0-4.0) 11/17/17 05:39 Baso % (Auto) 1.1 % (0.0-2.0) 11/17/17 05:39 Neut # (Auto) 8.1 K/uL (1.8-7.0) H 11/17/17 05:39 Lymph # (Auto) 1.4 K/uL (1.0-4.3) 11/17/17 05:39 [place] # (Auto) 0.9 K/uL (0.0-0.8) H 11/17/17 05:39 Eos # (Auto) 0.2 K/uL (0.0-0.7) 11/17/17 05:39 Baso # (Auto) 0.1 K/uL (0.0-0.2) 11/17/17 05:39 Neutrophils % (Manual) 72 % (42-75) 11/16/17 20:08 Band Neutrophils % 3 % (0-2) H 11/16/17 20:08 Lymphocytes % (Manual) 14 % (20-50) L 11/16/17 20:08 Monocytes % (Manual) 10 % (0-10) 11/16/17 20:08 Basophils % (Manual) 1 % (0-2) 11/16/17 20:08 Platelet Estimate Normal (NORMAL) 11/16/17 20:08 Large Platelets Present 11/16/17 20:08 Hypochromasia (manual) Slight 11/16/17 20:08 Anisocytosis (manual) Slight 11/16/17 20:08 Microcytosis (manual) Slight 11/16/17 20:08 ESR 75 mm/hr (0-20) H 11/16/17 20:08 PT 14.8 Seconds (9.8-13.1) H 11/19/17 10:25 INR 1.3 11/19/17 10:25 APTT 29.7 Seconds (25.6-37.1) 11/19/17 10:25 Sodium 139 mmol/l (132-148) 11/24/17 06:51 Potassium 3.5 MMOL/L (3.6-5.0) L 11/24/17 06:51 Chloride 105 mmol/L (98-107) 11/24/17 06:51 Carbon Dioxide 24 mmol/L (22-30) 11/24/17 06:51 Anion Gap 14 (10-20) 11/24/17 06:51 BUN 9 mg/dl (9-20) 11/24/17 06:51 Creatinine 1.5 mg/dl (0.8-1.5) 11/24/17 06:51 Est GFR ( Amer) 56 11/24/17 06:51 Est GFR (Non-Af Amer) 46 11/24/17 06:51 POC Glucose (mg/dL) 247 mg/dL (65-110) H 11/24/17 11:12 Random Glucose 146 mg/dL (75-110) H 11/24/17 06:51 Calcium 8.2 mg/dL (8.4-10.2) L 11/24/17 06:51 Total Bilirubin 0.3 mg/dl (0.2-1.3) 11/17/17 05:39 AST 29 U/L (17-59) 11/17/17 05:39 ALT 36 U/L (21-72) 11/17/17 05:39 Alkaline Phosphatase 51 U/L (38-126) 11/17/17 05:39 Total Creatine Kinase 56 U/L (55-170) 11/16/17 19:08 Total Protein 7.0 G/DL (6.3-8.2) 11/17/17 05:39 Albumin 3.3 g/dL (3.5-5.0) L 11/17/17 05:39 Globulin 3.7 gm/dL (2.2-3.9) 11/17/17 05:39 Albumin/Globulin Ratio 0.9 (1.0-2.1) L 11/17/17 05:39 Attending/Attestation - Attestation I have personally seen and examined this patient.: Yes I have fully participated in the care of the patient.: Yes I have reviewed all pertinent clinical information, including history, physical exam and plan: Yes Notes (Text): Drug Eluting stent placed - pt needs to be on Plavix x 1 year
[2017-11-24] MEDS ORDERED: Influenza Vaccine (5 YR UP)/PF 60 MCG/0.5 ML SYR IM ONE (12:18)
--- NOTE | 2017-11-24 21:17 | CARD ---
APPROVED REPORT Date of service: 11/23/2017 EKG Measurement Heart [id number] <Conclusion> Normal sinus rhythm Possible septal infarct, age undetermined Abnormal ECG
== END 2017-11-24 13:09 | disposition home or self-care (01) ==
LOC: H.ER 16:48 → H.ERHOLD 21:39 → H.TEL 22:41 → H.MEDSURG1 11-18 21:31
PROVIDERS: ADMIT Internal Medicine; ATTEND Internal Medicine
PROC: 0Y6P0Z0 Detachment at Right 1st Toe, Complete, Open Approach (ICD-10-PCS; principal; 2017-11-21 07:45)
PROC: 047K34Z Dilation of Right Femoral Artery with Drug-eluting Intraluminal Device, Percutaneous Approach (ICD-10-PCS; 2017-11-23)
PROC: B40DYZZ Plain Radiography of Aorta and Bilateral Lower Extremity Arteries using Other Contrast (ICD-10-PCS; 2017-11-23)
DX: E11.69 Type 2 diabetes mellitus with other specified complication (principal); M86.171 Other acute osteomyelitis, right ankle and foot; L03.115 Cellulitis of right lower limb; E11.51 Type 2 diabetes mellitus with diabetic peripheral angiopathy without gangrene; N18.3 Chronic kidney disease, stage 3 (moderate); E11.22 Type 2 diabetes mellitus with diabetic chronic kidney disease; I70.291 Other atherosclerosis of native arteries of extremities, right leg; I12.9 Hypertensive chronic kidney disease with stage 1 through stage 4 chronic kidney disease, or unspecified chronic kidney disease; Z87.891 Personal history of nicotine dependence; Z79.84 Long term (current) use of oral hypoglycemic drugs

== ENCOUNTER 2018-03-14 17:01 | Emergency (ER) | payer SELFPAY ==
[2018-03-14 17:34] VITALS: O2SAT 99
--- NOTE | 2018-03-14 18:15 | ED PDOC ---
Lower Extremity Pain/Injury Time Seen by Provider: 03/14/18 18:01 Chief Complaint (Nursing): Lower Extremity Problem/Injury Chief Complaint (Provider): Toe swelling History Per: Patient History/Exam Limitations: no limitations Onset/Duration Of Symptoms: Days (today) Additional Complaint(s): Pt. with swelling of distal part of 2nd toe on right foot. Denies any injury, weakness, numbness, tingles, nausea, vomit, pain. Past Medical History Reviewed: Nursing Documentation, Vital Signs Vital Signs: Last Vital Signs Temp 98.7 F 03/14/18 17:30 Pulse 77 03/14/18 17:30 Resp 16 03/14/18 17:30 BP 180/82 H 03/14/18 17:30 Pulse Ox 99 03/14/18 17:30 - Medical History PMH: Diabetes, HTN Denies: Chronic Kidney Disease - Surgical History Other surgeries: big toe amputation - Family History Family History: States: Unknown Family Hx - Home Medications Home Medications: Ambulatory Orders Medication Instructions Recorded MetFORMIN [glucoPHAGE] 1,000 mg PO BID 11/08/17 Acetaminophen [Tylenol 325mg tab] 650 mg PO Q4 PRN tab 11/11/17 Acetaminophen [Tylenol 325mg tab] 650 mg PO Q4 PRN tab 11/24/17 Amoxicillin/Clavulanate [Augmentin 1 tab PO BID 7 Days #14 tab 11/24/17 875 MG-125 MG] Aspirin [Ecotrin] 81 mg PO DAILY #30 tabec 11/24/17 Atorvastatin [Lipitor] 40 mg PO DAILY #30 tab 11/24/17 Clopidogrel [Plavix] 75 mg PO DAILY #30 tab 11/24/17 GlipiZIDE [Glucotrol] 10 mg PO DAILY #30 tab 11/24/17 Lisinopril [Zestril] 40 mg PO DAILY #30 tab 11/24/17 Metoprolol Tartrate [Lopressor] 25 mg PO DAILY #30 tab 11/24/17 Mupirocin 2% Ointment [Bactroban 1 applic TOP BID #1 tube 11/24/17 Ointment] amLODIPine [Norvasc] 10 mg PO DAILY #30 tab 11/24/17 - Allergies Allergies/Adverse Reactions: Allergies Allergy/AdvReac Type Severity Reaction Status Date / Time No Known Allergies Allergy Verified 01/15/19 17:30 Review of Systems ROS Statement: Except As Marked, All Systems Reviewed And Found Negative Musculoskeletal: Positive for: Other (toe swelling) Physical Exam - Reviewed Nursing Documentation Reviewed: Yes Vital Signs Reviewed: Yes - Physical Exam Appears: Positive for: Non-toxic, No Acute Distress Head Exam: Positive for: ATRAUMATIC, NORMAL INSPECTION, NORMOCEPHALIC Skin: Positive for: Normal Color, Warm, DRY Eye Exam: Positive for: EOMI, Normal appearance, PERRL ENT: Positive for: Normal ENT Inspection Neck: Positive for: Normal, Painless ROM Cardiovascular/Chest: Positive for: Regular Rate, Rhythm Respiratory: Positive for: CNT, Normal Breath Sounds Pulses-Dorsalis Pedis (R): 2+ Gastrointestinal/Abdominal: Positive for: Normal Exam, Soft. Negative for: Tenderness Back: Positive for: Normal Inspection. Negative for: L CVA Tenderness, R CVA Tenderness Extremity: Positive for: Normal ROM, Other (R big toe amputation; R 2nd toe distal half with hematoma and swelling nontender). Negative for: Tenderness Neurologic/Psych: Positive for: Alert, Oriented - ECG O2 Sat by Pulse Oximetry: 99 - Progress ED Course And Treament: 1817: Spoke with for podiatry. Will see pt. in the ER. 1830: Dr. Ca to fu with podiatry, labs, imaging. Disposition - Clinical Impression Clinical Impression: Toe hematoma - Patient ED Disposition Is Patient to be Admitted: Transfer of Care - Disposition Disposition Time: 18:31 Condition: STABLE Patient Signed Over To: Ericka Ca
--- NOTE | 2018-03-14 18:36 | CP.PCM.CON ---
History of Present Illness - History of Present Illness History of Present Illness: Podiatry consult note for attending Dr. Ang 72 y/o male with PMHx of HTN and Type II DM was seen and evaluated at bedside due to blister formation to the right 2nd digit. Patient's present at bedside and states she noticed it developing yesterday. Patient denies any pain. Patient also denies any trauma or hitting anything. Patient denies new shoe- gear. Patient denies fever, pain, nausea, vomiting, diarrhea. Patient also de nies headaches, chest pain, SOB, dizziness. PMD: Dr. Chyna Kim PMH: HTN, DM2 Meds: see medlist PSH: right hallux amputation (october 2017)- patient doing very well Fam: non-contributory SOC: quit smoking 20 years ago, denies alcohol and drugs Review of Systems - Review of Systems All systems: reviewed and no additional remarkable complaints except Review of Systems: As per HPI Past Patient History - Infectious Disease Hx of Infectious Diseases: None - Past Medical History & Family History Past Medical History?: Yes - Past Social History Smoking Status: Former Smoker - CARDIAC Hx Hypertension: Yes - PULMONARY Hx Respiratory Disorders: No - NEUROLOGICAL Hx Neurological Disorder: No - HEENT Hx HEENT Problems: No - RENAL Hx Chronic Kidney Disease: No - ENDOCRINE/METABOLIC Hx Endocrine Disorders: Yes Hx Diabetes Mellitus Type 2: Yes - HEMATOLOGICAL/ONCOLOGICAL Hx Blood Disorders: No - INTEGUMENTARY Hx Dermatological Problems: No - MUSCULOSKELETAL/RHEUMATOLOGICAL Hx Musculoskeletal Disorders: No Hx Falls: No Hx Osteomyelitis: Yes (right foot) - GASTROINTESTINAL Hx Gastrointestinal Disorders: No - GENITOURINARY/GYNECOLOGICAL Hx Genitourinary Disorders: No - PSYCHIATRIC Hx Psychophysiologic Disorder: No Hx Substance Use: No - SURGICAL HISTORY Hx Surgeries: No - ANESTHESIA Hx Anesthesia: No Hx Anesthesia Reactions: No Hx Malignant Hyperthermia: No Meds Allergies/Adverse Reactions: Allergies Allergy/AdvReac Type Severity Reaction Status Date / Time No Known Allergies Allergy Verified 03/14/18 17:30 Physical Exam - Constitutional Appears: Well, Non-toxic, No Acute Distress - Head Exam Head Exam: ATRAUMATIC, NORMOCEPHALIC - Extremities Exam Additional comments: Right Lower Extremity Exam VASC: DP and PT 2/4, CFT less than 3 seconds X 10, TG within normal limits NEURO: diminished sensation DERM: blister formation due to friction noted medially to the tip of the right 2nd digit, no open wounds, no erythema, no ecchymosis noted, no clinical signs of infection post-debridement: drained 2-3 cc of serous fluid, no probe to bone, raw skin noted under ORTHO: no pain on palpation, MSK 5/5 - Neurological Exam Neurological exam: Alert, Oriented x3 - Psychiatric Exam Psychiatric exam: Normal Affect, Normal Mood Results - Vital Signs Recent Vital Signs: Last Vital Signs Temp 98.7 F 03/14/18 17:30 Pulse 77 03/14/18 17:30 Resp 16 03/14/18 17:30 BP 180/82 H 03/14/18 17:30 Pulse Ox 99 03/14/18 18:32 - Labs Result Diagrams: 03/14/18 19:09 03/14/18 19:09 Labs: Laboratory Results - last 24 hr 03/14/18 17:35 POC Glucose (mg/dL) 85 Assessment & Plan - Assessment and Plan (Free Text) Assessment: 72 y/o male patient was seen and evaluated in the ED for friction blister to the right 2nd digit Plan: Patient seen and evaluated for Dr. Ang Plan discussed Ordered right foot x-ray: no fracture, no dislocation, no soft tissue emphysema noted CBC/BMP- WBC 10.6, patient stable for discharge Blister debrided with a sterile #11 blade Post-debridement: drained 2-3 cc of serous fluid, no probe to bone, raw skin noted under Blister site cleansed with saline, dressed with betadine and dry sterile dressing, provided with surgical shoe Patient educated on all clinical signs of infection and to return to ED if present Patient and demonstrated verbal understanding Rx Augmentin 875 mg BID for 7 days Patient already scheduled for Podiatry appointment for Tuesday03/16/18. Thank you for the podiatry consult - Date & Time Date: 03/14/18 Time: 19:45
--- NOTE | 2018-03-14 19:21 | ED PDOC ---
- Laboratory Results Result Diagrams: 03/14/18 19:09 03/14/18 19:09 - ECG O2 Sat by Pulse Oximetry: 99 Medical Decision Making Medical Decision Making: Time: 1899 Patient was endorsed to provider from Joshua Cameron MD. Pending podiatry and workup. Time: 2099 pt was cleared by podiatry for dc home. Reviewing labs and pt has acute renal failure. Potassium and creatinine elevated. Informed patient, however, he wants to go home. He states he will followup with his PMD tomorrow. Time: 2104 According to podiatry patient can go home but must followup by Tuesday. Scribe Attestation: Documented by Johnie Pizarro, acting as a scribe for provider Ericka Ca MD. All medical record entries made by the Scribe were at my direction and pe rsonally dictated by me. I have reviewed the chart and agree that the record accurately reflects my personal performance of the history, physical exam, medical decision making, and the department course for this patient. I have also personally directed, reviewed, and agree with the discharge instructions and disposition. Disposition Counseled Patient/Family Regarding: Studies Performed, Diagnosis, Need For Followup - Clinical Impression Clinical Impression: Toe hematoma, Acute renal insufficiency, Left against medical advice - POA Present On Arrival: None - Disposition Disposition: AGAINST MEDICAL ADVICE Disposition Time: 21:05 Condition: STABLE Additional Instructions: Garfield un seguimiento con mcleod mdico de cabecera lo antes posible. ya que est firmando contra consejos mdicos. Tambin seguimiento con moises de podologa en [facility]. volver al servicio de urgencias con cualquier empeoramiento o sntomas relacionados de inmediato Prescriptions: Amoxicillin/Clavulanate [Augmentin 875 MG-125 MG] 1 tab PO BID #14 tab Instructions: Kidney Failure (DC), Toe Injury (DC) Forms: YEVVO (Malian) Print Language: MAURITANIAN Against Medical Advice - AMA Patient Left Against Medical Advice: The patient declines admission to the hospital and wishes to leave the Emergency Department. This action is against my medical advice. This decision was made with informed refusal. The patient was told that admission to the hospital is necessary. Explanation of the reasons why were discussed. The risks of leaving were explained to the patient and include, but are not limited to, worsening of known or currently unknown conditions, permanent disability and from undiagnosed or untreated conditions. The patient has the capacity to make this informed decision and understands my e xplanation of the current medical problem and risks of leaving. The patient voluntarily accepts these risks and signed an AMA form documenting our conversation. The patient was given the opportunity to ask questions and reconsider. The patient was encouraged to return to the Emergency Department at any time for further care.
[2018-03-14 19:22] LABS: HEMOGLOBIN 11.5 g/dL (12.0-18.0); MEAN CELL VOLUME 87.1 fl (80.0-94.0); MEAN CORPUSCULAR HEMOGLOBIN 30.1 pg (27.0-31.0); MEAN CORPUSCULAR HGB CONC 34.5 g/dL (33.0-37.0); MEAN PLATELET VOLUME 7.2 fl (7.2-11.7); RBC 3.83 Mil/uL (4.40-5.90); RED CELL DISTRIBUTION WIDTH 15.7 % (11.5-14.5); WHITE BLOOD COUNT 10.6 K/uL (4.8-10.8)
[2018-03-14 19:31] LABS: CALCIUM 9.2 mg/dL (8.4-10.2)
[2018-03-14 21:28] VITALS: BP 161/93; PULSE 73; RESP 18; TEMP 98.1
--- NOTE | 2018-03-15 12:42 | RAD ---
Date of service: 03/14/2018 PROCEDURE: Right Foot Radiographs. HISTORY: right foot cellulitis COMPARISON: 11/21/2017 FINDINGS: BONES: Stable findings related to 1st ray. Plantar and Achilles Tendon insertion calcaneal spurs. No fractures identified. JOINTS: No significant interval change compared to the prior examination(s). SOFT TISSUES: Air within soft tissues at the site of the 1st metatarsal remnant. This likely represents either iatrogenic findings perhaps related to debridement or air from gas-forming organism. OTHER FINDINGS: None. IMPRESSION: Soft tissue swelling at the operative site medial aspect of the right foot. Air within the soft tissues identified either representing findings related to instrumentation or gas-forming organism.
== END 2018-03-14 21:33 | disposition left against medical advice (07) ==
LOC: H.ER 17:01
DX: S90.121A Contusion of right lesser toe(s) without damage to nail, initial encounter (principal); Y92.89 Other specified places as the place of occurrence of the external cause; L03.115 Cellulitis of right lower limb; N17.9 Acute kidney failure, unspecified; E11.9 Type 2 diabetes mellitus without complications; I10 Essential (primary) hypertension

== ENCOUNTER 2018-05-13 11:12 | Inpatient (IN) | payer SELFPAY ==
[2018-05-13] MEDS ORDERED: Piperacillin/Tazobact 3.375 GM in Sodium Chloride 0.9% 100 ML IVPB STA (11:55)
--- NOTE | 2018-05-13 11:59 | ED PDOC ---
Lower Extremity Pain/Injury Time Seen by Provider: 05/13/18 11:40 Chief Complaint (Nursing): Lower Extremity Problem/Injury History Per: Patient Onset/Duration Of Symptoms: Days (2) Current Symptoms Are (Timing): Still Present Severity: Moderate Additional Complaint(s): Erythema, swelling, discharge and pain 2nd toe right foot x 2 days. Denies fever.. s/p amputation great toe right foot for diabetic complications. Past Medical History Vital Signs: Last Vital Signs Temp 97.3 F L 05/13/18 11:37 Pulse 87 05/13/18 11:37 Resp 18 05/13/18 11:37 BP 206/90 H 05/13/18 11:37 Pulse Ox 99 05/13/18 11:37 - Medical History PMH: Diabetes, HTN Denies: Chronic Kidney Disease - Family History Family History: States: Unknown Family Hx - Home Medications Home Medications: Ambulatory Orders Medication Instructions Recorded MetFORMIN [glucoPHAGE] 1,000 mg PO BID 11/08/17 Acetaminophen [Tylenol 325mg tab] 650 mg PO Q4 PRN tab 11/11/17 Acetaminophen [Tylenol 325mg tab] 650 mg PO Q4 PRN tab 11/24/17 Amoxicillin/Clavulanate [Augmentin 1 tab PO BID 7 Days #14 tab 11/24/17 875 MG-125 MG] Aspirin [Ecotrin] 81 mg PO DAILY #30 tabec 11/24/17 Atorvastatin [Lipitor] 40 mg PO DAILY #30 tab 11/24/17 Clopidogrel [Plavix] 75 mg PO DAILY #30 tab 11/24/17 GlipiZIDE [Glucotrol] 10 mg PO DAILY #30 tab 11/24/17 Lisinopril [Zestril] 40 mg PO DAILY #30 tab 11/24/17 Metoprolol Tartrate [Lopressor] 25 mg PO DAILY #30 tab 11/24/17 Mupirocin 2% Ointment [Bactroban 1 applic TOP BID #1 tube 11/24/17 Ointment] amLODIPine [Norvasc] 10 mg PO DAILY #30 tab 11/24/17 Amoxicillin/Clavulanate [Augmentin 1 tab PO BID #14 tab 03/14/18 875 MG-125 MG] - Allergies Allergies/Adverse Reactions: Allergies Allergy/AdvReac Type Severity Reaction Status Date / Time No Known Allergies Allergy Verified 03/14/18 17:30 Review of Systems ROS Statement: Except As Marked, All Systems Reviewed And Found Negative Musculoskeletal: Positive for: Foot Pain Physical Exam - Reviewed Nursing Documentation Reviewed: Yes Vital Signs Reviewed: Yes - Physical Exam Appears: Positive for: Non-toxic, No Acute Distress Head Exam: Positive for: ATRAUMATIC, NORMAL INSPECTION, NORMOCEPHALIC Skin: Positive for: Normal Color, Warm, DRY Eye Exam: Positive for: EOMI, Normal appearance, PERRL ENT: Positive for: Normal ENT Inspection Neck: Positive for: Normal, Painless ROM Cardiovascular/Chest: Positive for: Regular Rate, Rhythm Respiratory: Positive for: CNT, Normal Breath Sounds Gastrointestinal/Abdominal: Positive for: Normal Exam, Soft Back: Positive for: Normal Inspection Extremity: Positive for: Other (Right foot 2 nd toe necrotic with surrounding erythema and drainage. Erythema and tenderness extend to ball of foot.) Neurological/Psych: Positive for: Awake, Alert, Normal Tone - ECG O2 Sat by Pulse Oximetry: 99 Disposition - Clinical Impression Clinical Impression: Cellulitis, DM2 (diabetes mellitus, type 2) - Patient ED Disposition Is Patient to be Admitted: Yes - Disposition Disposition Time: 12:02 Condition: FAIR - Pt Status Changed To: Hospital Disposition Of: Inpatient - Admit Certification Admit to Inpatient:: After my assessment, the patient will require hospitalization for at least two midnights. This is because of the severity of symptoms shown, intensity of services needed, and/or the medical risk in this patient being treated as an outpatient. - POA Present On Arrival: None
--- NOTE | 2018-05-13 12:00 | CP.PCM.CON ---
History of Present Illness - History of Present Illness History of Present Illness: Podiatry consult note for attending Dr. Ang 72 y/o male with PMHx of HTN and Type II DM was seen and evaluated at bedside in the Emergency Department for right 2nd digit necrosis. Patient's is present at bedside, who states the digit started becoming necrotic over the course of the last week, and they decided to come to the ED today. Patient's states she has been dressing the wound with betadine/DSD daily. Patient denies any purulent drainage, fever, chills, nausea, vomiting prior to ED arrival. Patient also denies headaches, chest pain, SOB, dizziness. PMD: Dr. Chyna Kim PMH: HTN, DM2 Meds: see medlist PSH: right hallux amputation Fam: non-contributory SOC: quit smoking 20 years ago, denies alcohol and drugs Review of Systems - Review of Systems All systems: reviewed and no additional remarkable complaints except Review of Systems: As per HPI Past Patient History - Infectious Disease Hx of Infectious Diseases: None - Past Medical History & Family History Past Medical History?: Yes - Past Social History Smoking Status: Former Smoker - CARDIAC Hx Hypertension: Yes - PULMONARY Hx Respiratory Disorders: No - NEUROLOGICAL Hx Neurological Disorder: No - HEENT Hx HEENT Problems: No - RENAL Hx Chronic Kidney Disease: No - ENDOCRINE/METABOLIC Hx Endocrine Disorders: Yes Hx Diabetes Mellitus Type 2: Yes - HEMATOLOGICAL/ONCOLOGICAL Hx Blood Disorders: No - INTEGUMENTARY Hx Dermatological Problems: No - MUSCULOSKELETAL/RHEUMATOLOGICAL Hx Musculoskeletal Disorders: No Hx Falls: No Hx Osteomyelitis: Yes (right foot) - GASTROINTESTINAL Hx Gastrointestinal Disorders: No - GENITOURINARY/GYNECOLOGICAL Hx Genitourinary Disorders: No - PSYCHIATRIC Hx Psychophysiologic Disorder: No Hx Substance Use: No - SURGICAL HISTORY Hx Surgeries: No - ANESTHESIA Hx Anesthesia: No Hx Anesthesia Reactions: No Hx Malignant Hyperthermia: No Meds Allergies/Adverse Reactions: Allergies Allergy/AdvReac Type Severity Reaction Status Date / Time No Known Allergies Allergy Verified 03/14/18 17:30 - Medications Medications: Current Medications Vancomycin HCl 1 gm/ Sodium (Chloride) 250 mls @ 166.667 mls/hr IVPB STAT STA; Protocol Stop: 05/13/18 13:24 Piperacillin Sod/Tazobactam (Sod 3.375 gm/ Sodium Chloride) 100 mls @ 100 mls/hr IVPB STAT STA; Protocol Stop: 05/13/18 12:54 Ketorolac Tromethamine (Toradol) 30 mg IVP ONCE ONE Stop: 05/13/18 11:56 Physical Exam - Constitutional Appears: Well, Non-toxic, No Acute Distress - Head Exam Head Exam: ATRAUMATIC, NORMOCEPHALIC - Extremities Exam Extremities exam: Positive for: pedal edema. Negative for: pedal pulses present Additional comments: Right Lower Extremity Exam VASC: DP and PT 1/4 faintly palpable, CFT less than 3 seconds X 3, CFT absent at the tip of the right 2nd digit, significant edema noted at the right 2nd digit, and the distal aspect of the foot, increased warmth to the dorsum of the foot and the 2nd digit DERM: 2nd digit gangrenous changes noted at the distal tip extending proximally to the level of the PIPJ, with brijesh-wound erythema, and edema, fluctuance noted to the plantar-medial aspect of the 2nd MPJ, negative probe to bone, no active drainage, no malodor, no tunneling or tracking NEURO: diminished sensation ORTHO: right hallux amputation, no pain noted, ankle joint range of motion within normal limits - Neurological Exam Neurological exam: Alert, Oriented x3 - Psychiatric Exam Psychiatric exam: Normal Affect, Normal Mood Results - Vital Signs Recent Vital Signs: Last Vital Signs Temp 97.3 F L 05/13/18 11:37 Pulse 87 05/13/18 11:37 Resp 18 05/13/18 11:37 BP 206/90 H 05/13/18 11:37 Pulse Ox 99 05/13/18 11:59 - Labs Result Diagrams: 05/13/18 12:30 05/13/18 12:30 Assessment & Plan - Assessment and Plan (Free Text) Assessment: 72 y/o male patient seen and evaluated for right 2nd digit wound with necrotic changes Plan: Patient seen and evaluated at bedside Plan discussed with Dr. Ang Chart, labs and vitals reviewed- afebrile at this time, WBC 17.3 ESR- 94, CRP pending Right Foot X-ray- diffuse increased soft tissue swelling when compared to prior, infectious or other inflammatory process, soft tissue emphysema not appreciated Patient and spouse explained that bedside Incision and drainage to be performed to release any underlying purulence Patient and spouse agreeable to bedside procedure Aseptic #15 blade utilized to make a plantar medial incision, 5 cc of purulence drained Wound copiously flushed with betadine and saline Wound dressed with betadine soaked DSD Deeper Wound Culture was obtained during incision and drainage procedure Ordered vascular consult- recommendations appreciated Ordered infectious disease consult- recommendations appreciated Plan for Surgical intervention pending at this time Podiatry will continue to follow patient while in house
[2018-05-13] MEDS ORDERED: Piperacillin/Tazobact 3.375 gm Inj IVPB ONE (12:06)
[2018-05-13 12:36] LABS: VENOUS BLOOD GAS BASE EXCESS -5.2 mmol/L (0.0-2.0); VENOUS BLOOD GAS PCO2 53 mmHg (40-60); VENOUS BLOOD GAS PO2 12 mm/Hg (30-55); VENOUS BLOOD PH 7.24 (7.32-7.43)
[2018-05-13 12:39] LABS: BASO # 0.1 K/uL (0.0-0.2); BASO % 0.3 % (0.0-2.0); EOS # 0.1 K/uL (0.0-0.7); EOS % 0.4 % (0.0-4.0); HEMOGLOBIN 12.1 g/dL (12.0-18.0); LYMPH # 0.8 K/uL (1.0-4.3); LYMPH % 4.7 % (20.0-40.0); MEAN CELL VOLUME 86.1 fl (80.0-94.0); MEAN CORPUSCULAR HEMOGLOBIN 28.9 pg (27.0-31.0); MEAN CORPUSCULAR HGB CONC 33.5 g/dL (33.0-37.0); MONO # 1.1 K/uL (0.0-0.8); MONO % 6.6 % (0.0-10.0); NEUT # 15.2 K/uL (1.8-7.0); NRBC % 0.2 % (0.0-0.0); PLATELET COUNT 390 K/uL (130-400); RED CELL DISTRIBUTION WIDTH 13.1 % (11.5-14.5); WHITE BLOOD COUNT 17.3 K/uL (4.8-10.8)
--- NOTE | 2018-05-13 12:49 | RAD ---
Date of service: 05/13/2018 PROCEDURE: Right Foot Radiographs. HISTORY: cellulitis, r/o osteomyelitis COMPARISON: None. FINDINGS: BONES: Three views of the right foot were performed for foot pain and swelling and osteomyelitis and compared to prior study dated 03/14/2018. There is evidence of prior distal right 1st metatarsal resection. There is mild diffuse soft tissue swelling, increased from the prior study. No new areas seen in the soft tissues. No new bone destruction or periosteal reaction is seen. JOINTS: Stable SOFT TISSUES: Increased soft tissue swelling OTHER FINDINGS: None. IMPRESSION: Diffuse increased soft tissue swelling when compared to the prior study. This may be related to an infectious or other inflammatory process. No interval change in the appearance of the bony structures.
--- NOTE | 2018-05-13 12:50 | RAD ---
Date of service: 05/13/2018 PROCEDURE: CHEST RADIOGRAPH, 1 VIEW HISTORY: cellulitis COMPARISON: None available. FINDINGS: LUNGS: There appears to be the possible suggestion of some mild increased bibasilar volume loss and/or subsegmental atelectasis although this is slightly greater on the right. A portion of this may be related to obliquity of the patient. A small underlying infiltrate in the right lower lobe is not excluded but felt to be less likely. Right PICC line is been removed since prior study. PLEURA: No pneumothorax or pleural fluid seen. CARDIOVASCULAR: Stable aortic atherosclerotic calcification present. Normal. OSSEOUS STRUCTURES: No significant abnormalities. VISUALIZED UPPER ABDOMEN: Normal. OTHER FINDINGS: None. IMPRESSION: Mild increase in bibasilar volume loss. Exam is limited by obliquity. Small subtle right lower lobe infiltrate is not excluded.
[2018-05-13 13:02] LABS: ALB/GLOB RATIO 0.9 (1.0-2.1); ALBUMIN 4.1 g/dL (3.5-5.0); CALCIUM 9.3 mg/dL (8.4-10.2)
[2018-05-13] MEDS ORDERED: Insulin Regular 100 units/ml SC STA (13:09)
[2018-05-13] MEDS ORDERED: Sodium Chloride 0.9% 1,000 ML IV STA (13:10)
[2018-05-13] MEDS ORDERED: Vancomycin 1 g Inj ONE (14:05)
[2018-05-13 14:36] LABS: BASOPHIL 1 % (0-2); EOSINOPHIL 1 % (0-7); GIANT PLATELETS PRESENT; LYMPHOCYTE 6 % (20-50); MONOCYTE 1 % (0-10); NEUTROPHIL 91 % (42-75); PLATELET ESTIMATE NORMAL (NORMAL); TOTAL CELLS COUNTED 100
[2018-05-13] MEDS ORDERED: Povidone Iodine Topical 10% Sol TOP ONE (15:36)
[2018-05-13 17:40] VITALS: BMI 34.2
[2018-05-13] MEDS: Insulin Lispro (humaLOG) 100 Units/ml Inj SC SCH (22:00)
--- NOTE | 2018-05-14 08:44 | CP.PCM.PN ---
Subjective - Date & Time of Evaluation Date of Evaluation: 05/14/18 Time of Evaluation: 08:41 - Subjective Subjective: Podiatry progress note for attending Dr. Ang 72 y/o male with PMHx of HTN and Type II DM was seen and evaluated at bedside for right 2nd digit necrosis. Patient's is present at bedside. Patient denies any overnight events. Patient states he feels much better today. Patient denies any complaints of fever, nausea, vomiting, shortness of breath, chest pain at this time. Objective - Vital Signs/Intake and Output Vital Signs (last 24 hours): Temp Pulse Resp BP Pulse Ox 99.0 F 86 18 116/67 97 05/14/18 07:50 05/14/18 07:50 05/14/18 07:50 05/14/18 07:50 05/14/18 07:50 - Medications Medications: Current Medications Acetaminophen (Tylenol 325mg Tab) 650 mg PO PRN PRN PRN Reason: Fever >100.4 F Last Admin: 05/13/18 19:34 Dose: 650 mg Aspirin (Ecotrin) 81 mg PO DAILY [facility] Enoxaparin Sodium (Lovenox) 30 mg SC DAILY [facility]; Protocol Glipizide (Glucotrol) 10 mg PO BIDAC [facility] Vancomycin HCl 1 gm/ Sodium (Chloride) 250 mls @ 166.667 mls/hr IVPB DAILY [facility]; Protocol Piperacillin Sod/Tazobactam (Sod 2.25 gm/ Sodium Chloride) 100 mls @ 100 mls/hr IVPB Q6 [facility]; Protocol Last Admin: 05/14/18 03:03 Dose: 100 mls/hr Insulin Human Lispro (Humalog) 0 units SC ACCU-CHECK [facility]; Protocol Last Admin: 05/13/18 22:00 Dose: Not Given Lisinopril (Zestril) 40 mg PO DAILY [facility] Metoprolol Tartrate (Lopressor) 25 mg PO DAILY [facility] Last Admin: 05/13/18 17:40 Dose: 25 mg - Labs Labs: 05/13/18 12:30 05/13/18 12:30 - Constitutional Appears: Well, Non-toxic, No Acute Distress - Head Exam Head Exam: ATRAUMATIC, NORMOCEPHALIC - Extremities Exam Additional comments: Right Lower Extremity Exam VASC: DP and PT 1/4 faintly palpable, CFT less than 3 seconds X 3, CFT absent at the tip of the right 2nd digit, significant edema noted at the right 2nd digit, and the distal aspect of the foot, increased warmth to the dorsum of the foot and the 2nd digit DERM: 2nd digit gangrenous changes noted at the distal tip now extending proximally to the level of the MPJ, with brijesh-wound erythema and edema, no fluctuance noted at this time, negative probe to bone, no active drainage, no malodor, no tunneling or tracking, blueish discoloration noted to the third digit dorsally. NEURO: diminished sensation ORTHO: right hallux amputation, no pain noted, ankle joint range of motion within normal limits - Neurological Exam Neurological Exam: Alert, Awake, Oriented x3 - Psychiatric Exam Psychiatric exam: Normal Affect, Normal Mood Assessment and Plan - Assessment and Plan (Free Text) Assessment: 72 y/o male patient seen and evaluated for right 2nd digit wound with necrotic changes Plan: Patient seen and evaluated at bedside Plan discussed with Dr. Ang Chart, labs and vitals reviewed- afebrile at this time ESR- 94, CRP pending 219.10 Right Foot X-ray- diffuse increased soft tissue swelling when compared to prior, infectious or other inflammatory process, soft tissue emphysema not appreciated Wound Cultures- pending NEW X-RAYS ORDERED Wound copiously flushed with betadine and saline Wound dressed with betadine soaked DSD Ordered vascular consult- recommendations appreciated Ordered infectious disease consult- recommendations appreciated Plan for TMA pending vascular recommendations Podiatry will continue to follow patient while in house
[2018-05-14] MEDS: Insulin Lispro (humaLOG) 100 Units/ml Inj SC SCH ×4 (09:01→23:13)
[2018-05-14] MEDS: Enoxaparin 30 mg Syringe SC SCH (09:01)
--- NOTE | 2018-05-14 09:50 | CP.PCM.CON ---
History of Present Illness - History of Present Illness History of Present Illness: Infectious disease consultation note Asked to see this patient at the request of Dr. pettit for right second digit necrosis. HPI Patient is a 72-year-old male with past medical history of diabetes type 2, hypertension, who came to the hospital to be evaluated for right second toe necrosis. Patient explains that the toe has become black and necrotic looking only in the past 2 weeks. He denies any injury to the area. He also says that he had his right great toe amputation 10/2017 for osteomyelitis . and was on IV antibiotics for a long time. as per the chart notes pt. had revascularization of LE done by in 10/2017. As per chart notes patient had come into the hospital in February for blister on the same toe which was debrided by podiatry and only some serous fluid was discharged and hence he was discharged home on oral Augmentin. Patient denies any fever or chills and denies any discharge from the right second toe necrotic region. As per the who is at bedside she has been cleaning the wound with Betadine at home but the wound did not improve. Patient was seen by podiatry already and as per the they did bedside debridement of the region. Patient denies any cough or shortness of breath, denies any chest pain, denies any nausea vomiting, denies any abdominal pain, denies any dysuria, denies any d iarrhea. I am asked to see the patient to help with antibiotic management. Allergy- NKDA PMD: Dr. Chyna Kim PMH: HTN, DM2 Meds: see medlist PSH: right hallux amputation Fam: non-contributory SOC: quit smoking 20 years ago, denies alcohol and drugs Review of Systems - Review of Systems Review of Systems: Review of systems Patient denies any headaches, denies any cough, denies any shortness of breath, denies any chest pain, denies any nausea vomiting, denies any abdominal pain, denies any diarrhea, denies any dysuria c/o right second toe region necrosis for past 2 weeks,, denies any fever or chills. Denies any recent travel Denies any sick contacts Denies any animal contact Past Patient History - Infectious Disease Hx of Infectious Diseases: None - Past Medical History & Family History Past Medical History?: Yes - Past Social History Smoking Status: Former Smoker Home Situation {Lives}: With Family - CARDIAC Hx Hypertension: Yes - PULMONARY Hx Respiratory Disorders: No - NEUROLOGICAL Hx Neurological Disorder: No - HEENT Hx HEENT Problems: No - RENAL Hx Chronic Kidney Disease: No - ENDOCRINE/METABOLIC Hx Endocrine Disorders: Yes Hx Diabetes Mellitus Type 2: Yes - HEMATOLOGICAL/ONCOLOGICAL Hx Blood Disorders: No - INTEGUMENTARY Hx Dermatological Problems: No - MUSCULOSKELETAL/RHEUMATOLOGICAL Hx Musculoskeletal Disorders: No Hx Falls: No Hx Osteomyelitis: Yes (right foot) - GASTROINTESTINAL Hx Gastrointestinal Disorders: No - GENITOURINARY/GYNECOLOGICAL Hx Genitourinary Disorders: No - PSYCHIATRIC Hx Psychophysiologic Disorder: No Hx Substance Use: No - SURGICAL HISTORY Hx Surgeries: No - ANESTHESIA Hx Anesthesia: No Hx Anesthesia Reactions: No Hx Malignant Hyperthermia: No Meds Allergies/Adverse Reactions: Allergies Allergy/AdvReac Type Severity Reaction Status Date / Time No Known Allergies Allergy Verified 03/14/18 17:30 - Medications Medications: Current Medications Acetaminophen (Tylenol 325mg Tab) 650 mg PO PRN PRN PRN Reason: Fever >100.4 F Last Admin: 05/13/18 19:34 Dose: 650 mg Aspirin (Ecotrin) 81 mg PO DAILY [facility] Last Admin: 05/14/18 09:05 Dose: 81 mg Enoxaparin Sodium (Lovenox) 30 mg SC DAILY [facility]; Protocol Last Admin: 05/14/18 09:01 Dose: 30 mg Glipizide (Glucotrol) 10 mg PO BIDAC [facility] Last Admin: 05/14/18 09:01 Dose: 10 mg Vancomycin HCl 1 gm/ Sodium (Chloride) 250 mls @ 166.667 mls/hr IVPB DAILY [facility]; Protocol Last Admin: 05/14/18 09:06 Dose: 166.667 mls/hr Piperacillin Sod/Tazobactam (Sod 2.25 gm/ Sodium Chloride) 100 mls @ 100 mls/hr IVPB Q6 [facility]; Protocol Last Admin: 05/14/18 03:03 Dose: 100 mls/hr Insulin Human Lispro (Humalog) 0 units SC ACCU-CHECK [facility]; Protocol Last Admin: 05/14/18 09:01 Dose: 2 units Lisinopril (Zestril) 40 mg PO DAILY [facility] Last Admin: 05/14/18 09:09 Dose: 40 mg Metoprolol Tartrate (Lopressor) 25 mg PO DAILY [facility] Last Admin: 05/14/18 09:03 Dose: 25 mg Physical Exam - Constitutional Appears: No Acute Distress - Head Exam Head Exam: ATRAUMATIC - Eye Exam Eye Exam: EOMI, PERRL - Neck Exam Neck exam: Positive for: Full Rom - Respiratory Exam Respiratory Exam: Clear to Auscultation Bilateral, NORMAL BREATHING PATTERN - Cardiovascular Exam Cardiovascular Exam: RRR, +S1, +S2 - GI/Abdominal Exam GI & Abdominal Exam: Normal Bowel Sounds, Soft Additional comments: NT, ND - Extremities Exam Additional comments: right second halux distal tip with necrosis and on the medial side small opening , no dishcarge, right gret toe s/p amputation . surrounding region of the second toe with edema and erythema no malodor - Neurological Exam Neurological exam: Alert, Oriented x3 Results - Vital Signs Recent Vital Signs: Last Vital Signs Temp 99.0 F 05/14/18 07:50 Pulse 86 05/14/18 09:09 Resp 18 05/14/18 07:50 BP 116/67 05/14/18 09:09 Pulse Ox 97 05/14/18 07:50 - Labs Result Diagrams: 05/13/18 12:30 05/13/18 12:30 Labs: Laboratory Results - last 24 hr 05/13/18 05/13/18 05/13/18 11:53 12:30 12:30 WBC 17.3 H D RBC 4.20 L Hgb 12.1 Hct 36.1 MCV 86.1 MCH 28.9 MCHC 33.5 RDW 13.1 Plt Count 390 MPV 8.0 Neut % (Auto) 88.0 H Lymph % (Auto) 4.7 L [place] % (Auto) 6.6 Eos % (Auto) 0.4 Baso % (Auto) 0.3 Neut # (Auto) 15.2 H Lymph # (Auto) 0.8 L [place] # (Auto) 1.1 H Eos # (Auto) 0.1 Baso # (Auto) 0.1 Neutrophils % (Manual) 91 H Lymphocytes % (Manual) 6 L Monocytes % (Manual) 1 Eosinophils % (Manual) 1 Basophils % (Manual) 1 Platelet Estimate Normal Giant Platelets Present RBC Morphology Normal ESR pO2 12 L VBG pH 7.24 L VBG pCO2 53 VBG HCO3 18.6 VBG Total CO2 24.3 VBG O2 Sat (Calc) 15.4 L VBG Base Excess -5.2 L VBG Potassium 4.7 Sodium 131.0 L 136 Chloride 102.0 98 Glucose 352 H Lactate 2.0 FiO2 21.0 Potassium 4.9 Carbon Dioxide 19 L Anion Gap 24 H BUN 46 H Creatinine 2.8 H Est GFR ( Amer) 27 Est GFR (Non-Af Amer) 22 POC Glucose (mg/dL) Random Glucose 503 H* D Calcium 9.3 Total Bilirubin 0.6 AST 26 ALT 19 L D Alkaline Phosphatase 93 C-Reactive Protein Total Protein 8.6 H Albumin 4.1 Globulin 4.5 H Albumin/Globulin Ratio 0.9 L Venous Blood Potassium 4.7 05/13/18 05/13/18 05/13/18 14:27 14:30 14:30 WBC RBC Hgb Hct MCV MCH MCHC RDW Plt Count MPV Neut % (Auto) Lymph % (Auto) [place] % (Auto) Eos % (Auto) Baso % (Auto) Neut # (Auto) Lymph # (Auto) [place] # (Auto) Eos # (Auto) Baso # (Auto) Neutrophils % (Manual) Lymphocytes % (Manual) Monocytes % (Manual) Eosinophils % (Manual) Basophils % (Manual) Platelet Estimate Giant Platelets RBC Morphology ESR 94 H pO2 VBG pH VBG pCO2 VBG HCO3 VBG Total CO2 VBG O2 Sat (Calc) VBG Base Excess VBG Potassium Sodium Chloride Glucose Lactate FiO2 Potassium Carbon Dioxide Anion Gap BUN Creatinine Est GFR ( Amer) Est GFR (Non-Af Amer) POC Glucose (mg/dL) 430 H* Random Glucose Calcium Total Bilirubin AST ALT Alkaline Phosphatase C-Reactive Protein 219.10 H Total Protein Albumin Globulin Albumin/Globulin Ratio Venous Blood Potassium 05/13/18 05/13/18 05/14/18 17:30 21:18 05:14 WBC RBC Hgb Hct MCV MCH MCHC RDW Plt Count MPV Neut % (Auto) Lymph % (Auto) [place] % (Auto) Eos % (Auto) Baso % (Auto) Neut # (Auto) Lymph # (Auto) [place] # (Auto) Eos # (Auto) Baso # (Auto) Neutrophils % (Manual) Lymphocytes % (Manual) Monocytes % (Manual) Eosinophils % (Manual) Basophils % (Manual) Platelet Estimate Giant Platelets RBC Morphology ESR pO2 VBG pH VBG pCO2 VBG HCO3 VBG Total CO2 VBG O2 Sat (Calc) VBG Base Excess VBG Potassium Sodium Chloride Glucose Lactate FiO2 Potassium Carbon Dioxide Anion Gap BUN Creatinine Est GFR ( Amer) Est GFR (Non-Af Amer) POC Glucose (mg/dL) 209 H 172 H 171 H Random Glucose Calcium Total Bilirubin AST ALT Alkaline Phosphatase C-Reactive Protein Total Protein Albumin Globulin Albumin/Globulin Ratio Venous Blood Potassium Laboratory Results - last 72 hr 05/13/18 05/13/18 05/13/18 11:53 12:30 12:30 WBC 17.3 H D RBC 4.20 L Hgb 12.1 Hct 36.1 MCV 86.1 MCH 28.9 MCHC 33.5 RDW 13.1 Plt Count 390 MPV 8.0 Neut % (Auto) 88.0 H Lymph % (Auto) 4.7 L [place] % (Auto) 6.6 Eos % (Auto) 0.4 Baso % (Auto) 0.3 Neut # (Auto) 15.2 H Lymph # (Auto) 0.8 L [place] # (Auto) 1.1 H Eos # (Auto) 0.1 Baso # (Auto) 0.1 Neutrophils % (Manual) 91 H Lymphocytes % (Manual) 6 L Monocytes % (Manual) 1 Eosinophils % (Manual) 1 Basophils % (Manual) 1 Platelet Estimate Normal Giant Platelets Present RBC Morphology Normal ESR pO2 12 L VBG pH 7.24 L VBG pCO2 53 VBG HCO3 18.6 VBG Total CO2 24.3 VBG O2 Sat (Calc) 15.4 L VBG Base Excess -5.2 L VBG Potassium 4.7 Sodium 131.0 L 136 Chloride 102.0 98 Glucose 352 H Lactate 2.0 FiO2 21.0 Potassium 4.9 Carbon Dioxide 19 L Anion Gap 24 H BUN 46 H Creatinine 2.8 H Est GFR ( Amer) 27 Est GFR (Non-Af Amer) 22 POC Glucose (mg/dL) Random Glucose 503 H* D Calcium 9.3 Total Bilirubin 0.6 AST 26 ALT 19 L D Alkaline Phosphatase 93 C-Reactive Protein Total Protein 8.6 H Albumin 4.1 Globulin 4.5 H Albumin/Globulin Ratio 0.9 L Venous Blood Potassium 4.7 05/13/18 05/13/18 05/13/18 14:27 14:30 14:30 WBC RBC Hgb Hct MCV MCH MCHC RDW Plt Count MPV Neut % (Auto) Lymph % (Auto) [place] % (Auto) Eos % (Auto) Baso % (Auto) Neut # (Auto) Lymph # (Auto) [place] # (Auto) Eos # (Auto) Baso # (Auto) Neutrophils % (Manual) Lymphocytes % (Manual) Monocytes % (Manual) Eosinophils % (Manual) Basophils % (Manual) Platelet Estimate Giant Platelets RBC Morphology ESR 94 H pO2 VBG pH VBG pCO2 VBG HCO3 VBG Total CO2 VBG O2 Sat (Calc) VBG Base Excess VBG Potassium Sodium Chloride Glucose Lactate FiO2 Potassium Carbon Dioxide Anion Gap BUN Creatinine Est GFR ( Amer) Est GFR (Non-Af Amer) POC Glucose (mg/dL) 430 H* Random Glucose Calcium Total Bilirubin AST ALT Alkaline Phosphatase C-Reactive Protein 219.10 H Total Protein Albumin Globulin Albumin/Globulin Ratio Venous Blood Potassium 05/13/18 05/13/18 05/14/18 17:30 21:18 05:14 WBC RBC Hgb Hct MCV MCH MCHC RDW Plt Count MPV Neut % (Auto) Lymph % (Auto) [place] % (Auto) Eos % (Auto) Baso % (Auto) Neut # (Auto) Lymph # (Auto) [place] # (Auto) Eos # (Auto) Baso # (Auto) Neutrophils % (Manual) Lymphocytes % (Manual) Monocytes % (Manual) Eosinophils % (Manual) Basophils % (Manual) Platelet Estimate Giant Platelets RBC Morphology ESR pO2 VBG pH VBG pCO2 VBG HCO3 VBG Total CO2 VBG O2 Sat (Calc) VBG Base Excess VBG Potassium Sodium Chloride Glucose Lactate FiO2 Potassium Carbon Dioxide Anion Gap BUN Creatinine Est GFR ( Amer) Est GFR (Non-Af Amer) POC Glucose (mg/dL) 209 H 172 H 171 H Random Glucose Calcium Total Bilirubin AST ALT Alkaline Phosphatase C-Reactive Protein Total Protein Albumin Globulin Albumin/Globulin Ratio Venous Blood Potassium 05/14/18 10:34 WBC RBC Hgb Hct MCV MCH MCHC RDW Plt Count MPV Neut % (Auto) Lymph % (Auto) [place] % (Auto) Eos % (Auto) Baso % (Auto) Neut # (Auto) Lymph # (Auto) [place] # (Auto) Eos # (Auto) Baso # (Auto) Neutrophils % (Manual) Lymphocytes % (Manual) Monocytes % (Manual) Eosinophils % (Manual) Basophils % (Manual) Platelet Estimate Giant Platelets RBC Morphology ESR pO2 VBG pH VBG pCO2 VBG HCO3 VBG Total CO2 VBG O2 Sat (Calc) VBG Base Excess VBG Potassium Sodium Chloride Glucose Lactate FiO2 Potassium Carbon Dioxide Anion Gap BUN Creatinine Est GFR ( Amer) Est GFR (Non-Af Amer) POC Glucose (mg/dL) 305 H Random Glucose Calcium Total Bilirubin AST ALT Alkaline Phosphatase C-Reactive Protein Total Protein Albumin Globulin Albumin/Globulin Ratio Venous Blood Potassium Microbiology 05/13/18 12:30 Blood-Venous Blood Culture - Preliminary NO GROWTH AFTER 24 HOURS 05/13/18 17:00 Foot - Right Gram Stain - Final 05/13/18 17:00 Foot - Right Wound Culture - Preliminary Gram Negative Emigdio Gram Positive Cocci 05/13/18 15:00 Foot - Right Gram Stain - Final 05/13/18 15:00 Foot - Right Wound Culture - Preliminary Gram Positive Cocci Accession No. : [id number] Patient Name / ID : ION RIVERA / [id number] Exam Date : 05/14/2018 09:22:52 ( Approved ) Study Comment : Sex / Age : M / 72Y Creator : summer cast Dictator : Jonnathan Laura MD Bioinformatics Scientist : Garnett Mechanic : Jonnathan Laura MD Approver2 : Report Date : 05/14/2018 09:31:02 My Comment : Date of service: 05/14/2018 PROCEDURE: Right Foot Radiographs. HISTORY: Rule our soft tissue emphysema COMPARISON: None. FINDINGS: BONES: Three views of the right foot were performed for right foot swelling, infection, and possible emphysema in the soft tissues and compared to the prior examination performed yesterday. No new air within the soft tissues is noted to suggest soft tissue emphysema. There may be some decrease soft tissue swelling overlyin g the entire right foot region. Bony structures are unchanged. There is a bandage overlying the foot limiting evaluation. JOINTS: Stable. SOFT TISSUES: See above. OTHER FINDINGS: None. IMPRESSION: Mild decrease in soft tissue swelling. No new soft tissue emphysema identified. Assessment & Plan (1) DM2 (diabetes mellitus, type 2) Status: Chronic (2) Cellulitis Status: Acute (3) Acute renal insufficiency Status: Acute (4) PVD (peripheral vascular disease) Status: Acute (5) Osteomyelitis of right foot Status: Acute (6) Necrosis of toe Status: Acute - Assessment and Plan (Free Text) Assessment: Assessment and plan Patient is a 72-year-old male with multiple medical conditions including diabetes type 2, hypertension, peripheral vascular disease status post rev ascularization, osteomyelitis of the right hallux status post amputation October 2017, who now presents with necrosis of the right distal toe. Afebrile Minimal leukocytosis High ESR Wound culture preliminarygram-positive cocci and gram-negative rods Plan Await ID and sensitivity of the wound culture results. Advised to continue with IV vancomycin and Zosyn pending ID and sensitivity of the wound culture results. (Dose based on renal function) Keep Vanco trough less than 15. Patient would most likely need to have the necrotic bone excised by podiatry. All labs and imaging and pertinent chart notes were reviewed. All above was discussed with patient and his and they verbalized full understanding of all above and agree with plan of care. Thank you for allowing me to take part in the care of this patient.
--- NOTE | 2018-05-14 09:59 | RAD ---
Date of service: 05/14/2018 PROCEDURE: Right Foot Radiographs. HISTORY: Rule our soft tissue emphysema COMPARISON: None. FINDINGS: BONES: Three views of the right foot were performed for right foot swelling, infection, and possible emphysema in the soft tissues and compared to the prior examination performed yesterday. No new air within the soft tissues is noted to suggest soft tissue emphysema. There may be some decrease soft tissue swelling overlying the entire right foot region. Bony structures are unchanged. There is a bandage overlying the foot limiting evaluation. JOINTS: Stable. SOFT TISSUES: See above. OTHER FINDINGS: None. IMPRESSION: Mild decrease in soft tissue swelling. No new soft tissue emphysema identified.
--- NOTE | 2018-05-14 16:16 | HP ---
CHIEF COMPLAINT: Discoloration of foot. HISTORY OF PRESENT ILLNESS: This is a 72-year-old male, known case of diabetes, hypertension, peripheral vascular disease, status post excision of left great toe who was found to have increasing discoloration of left foot by , so the patient was brought to the emergency room and was admitted for further management. REVIEW OF SYSTEMS: Positive for discoloration of toe. Review of systems was otherwise is negative for headache, dizziness, syncope, loss of consciousness, chest pain, shortness of breath, nausea, vomiting, diarrhea, constipation and any joint or extremity pain. Review of systems of all other organ systems is unremarkable. PAST MEDICAL HISTORY: Significant for hypertension, diabetes, peripheral vascular disease. PAST SURGICAL HISTORY: Remarkable for amputation. PERSONAL HISTORY: The patient is currently a nonsmoker, nondrinker, no substance abuse. MEDICATIONS: The patient is on multiple medications which is as per reconciliation sheet which were reviewed in order. ALLERGIES: THE PATIENT IS NOT ALLERGIC TO ANY MEDICATIONS. FAMILY HISTORY: Noncontributory. PHYSICAL EXAMINATION: GENERAL: A well-built, well-nourished, overweight male, in no acute distress. VITAL SIGNS: Temperature afebrile, pulse 56, respirations 16, blood pressure 136/86. HEENT: Pupils reactive to light. Head shows normocephalic, atraumatic skull. NECK: No JVD. No thyromegaly. No lymphadenopathy. HEART: S1 and S2 normal. No significant murmur, gallop, or rub. LUNGS: Shows good bilateral air extension. No rales or rhonchi. ABDOMEN: Soft, nontender. No organomegaly. No fluid. Bowel sounds are grossly normal. EXTREMITIES: The patient has gangrene of right toe and edema, dependent source of venous. No calf swelling, no tenderness, no acute ischemia. CENTRAL NERVOUS EXAMINATION: The patient is alert, wake, and oriented x3. There is no sign of any acute gross focal motor or sensory neurological deficits. DIAGNOSTIC DATA: Available diagnostic data reviewed. Telemetry monitoring does not show any significant arrhythmia. ADMITTING IMPRESSION: Gangrene of toe, type 2 diabetes, hyperglycemia, hypertension. PLAN: As ordered. Case and plan discussed with the patient and the patient's at bedside at length. Silverio Calabrese MD [facility] # [id number]
--- NOTE | 2018-05-14 18:44 | CARD ---
APPROVED REPORT Date of service: 05/13/2018 EKG Measurement Heart [id number] <Conclusion> Normal sinus rhythm Normal ECG
[2018-05-15 06:29] LABS: BASO # 0.1 K/uL (0.0-0.2); BASO % 0.3 % (0.0-2.0); EOS # 0.5 K/uL (0.0-0.7); EOS % 2.7 % (0.0-4.0); HEMOGLOBIN 10.2 g/dL (12.0-18.0); LYMPH # 0.7 K/uL (1.0-4.3); LYMPH % 3.8 % (20.0-40.0); MEAN CELL VOLUME 85.5 fl (80.0-94.0); MEAN CORPUSCULAR HEMOGLOBIN 28.8 pg (27.0-31.0); MEAN CORPUSCULAR HGB CONC 33.7 g/dL (33.0-37.0); MEAN PLATELET VOLUME 7.5 fl (7.2-11.7); MONO # 1.2 K/uL (0.0-0.8); MONO % 6.4 % (0.0-10.0); NEUT # 15.8 K/uL (1.8-7.0); NEUT % 86.8 % (50.0-75.0); RBC 3.53 Mil/uL (4.40-5.90); RED CELL DISTRIBUTION WIDTH 13.2 % (11.5-14.5); WHITE BLOOD COUNT 18.2 K/uL (4.8-10.8)
[2018-05-15] MEDS: Insulin Lispro (humaLOG) 100 Units/ml Inj SC SCH ×4 (06:39→22:35)
[2018-05-15 06:44] LABS: ALB/GLOB RATIO 0.8 (1.0-2.1); CALCIUM 8.4 mg/dL (8.4-10.2)
--- NOTE | 2018-05-15 07:03 | CP.PCM.PN ---
Subjective - Date & Time of Evaluation Date of Evaluation: 05/15/18 Time of Evaluation: 07:02 - Subjective Subjective: Podiatry Progress Note: Dr. Ang Patient seen and evaluated this AM, with attending, Dr. Ang for R 2nd digit necrosis. Patient resting comfortably and in NAD. He denies any pain to his right foot this morning. Patients present at bedside. Denies nausea/vomiting/shortness of breath/chest pain. Objective - Vital Signs/Intake and Output Vital Signs (last 24 hours): Temp Pulse Resp BP Pulse Ox 98 F 99 H 18 144/68 98 05/15/18 05:39 05/15/18 05:39 05/15/18 05:39 05/15/18 05:39 05/15/18 05:39 - Medications Medications: Current Medications Acetaminophen (Tylenol 325mg Tab) 650 mg PO PRN PRN PRN Reason: Fever >100.4 F Last Admin: 05/14/18 20:14 Dose: 650 mg Aspirin (Ecotrin) 81 mg PO DAILY [facility] Last Admin: 05/14/18 09:05 Dose: 81 mg Enoxaparin Sodium (Lovenox) 30 mg SC DAILY [facility]; Protocol Last Admin: 05/14/18 09:01 Dose: 30 mg Glipizide (Glucotrol) 10 mg PO BIDAC [facility] Last Admin: 05/14/18 17:35 Dose: 10 mg Vancomycin HCl 1 gm/ Sodium (Chloride) 250 mls @ 166.667 mls/hr IVPB DAILY [facility]; Protocol Last Admin: 05/14/18 09:06 Dose: 166.667 mls/hr Piperacillin Sod/Tazobactam (Sod 2.25 gm/ Sodium Chloride) 100 mls @ 100 mls/hr IVPB Q6 [facility]; Protocol Last Admin: 05/15/18 03:08 Dose: 100 mls/hr Insulin Human Lispro (Humalog) 0 units SC ACCU-CHECK [facility]; Protocol Last Admin: 05/15/18 06:39 Dose: Not Given Lisinopril (Zestril) 40 mg PO DAILY [facility] Last Admin: 05/14/18 09:09 Dose: 40 mg Metoprolol Tartrate (Lopressor) 25 mg PO DAILY [facility] Last Admin: 05/14/18 09:03 Dose: 25 mg - Labs Labs: 05/15/18 05:20 05/15/18 05:20 - Constitutional Appears: Non-toxic, No Acute Distress - Head Exam Head Exam: ATRAUMATIC, NORMOCEPHALIC - Extremities Exam Additional comments: RLE Exam: Vasc: DP and PT 1/4 faintly palpable, CFT less than 3 seconds X 3, CFT absent at the tip of the right 2nd digit, significant edema noted at the right 2nd digit, and the distal aspect of the foot, increased warmth to the dorsum of the foot and the 2nd digit Ortho: right hallux amputation, no pain appreciated at this time, ankle joint range of motion within normal limits Neuro: Gross and protective sensation diminished Derm: 2nd digit gangrenous changes noted at the distal tip now extending proximally to the level of the MPJ, with brijesh-wound erythema and edema, no fluctuance noted at this time, negative probe to bone, no active drainage, no malodor, no tunneling or tracking, blueish discoloration noted to the third digit dorsally. - Neurological Exam Neurological Exam: Alert, Awake, Oriented x3 - Psychiatric Exam Psychiatric exam: Normal Affect, Normal Mood Assessment and Plan - Assessment and Plan (Free Text) Assessment: 72M patient with dry gangrene to R 2nd digit with increasing color changes extending to 3-5th digits Plan: Patient seen and evaluated at bedside with Dr. Ang Afebrile, WBC 18.2, ESR 94, CRP 219.10 Right Foot X-ray- diffuse increased soft tissue swelling when compared to prior, infectious or other inflammatory process, soft tissue emphysema not appreciated New R foot x-ray (05/14): mild decrease in soft tissue swelling. No new soft tissue emphysema identified Wound Cultures- Gram - cristino, beta hemolytic strep B Wound dressed with betadine soaked DSD Ordered vascular consult- recommendations appreciated Ordered infectious disease consult- recommendations appreciated Plan for TMA pending vascular recommendations Podiatry will continue to follow patient while in house
--- NOTE | 2018-05-15 09:12 | PN ---
DATE: 05/15/2018 SUBJECTIVE: The patient is seen and examined. Interim events noted. Consults noted and appreciated. Infectious disease followup and intervention noted and appreciated. The patient remains in progressive care unit, on telemetry monitoring. The patient feels okay. Denies any specific complaint of chest pain or shortness of breath. PHYSICAL EXAMINATION: GENERAL: The patient is in no acute distress. VITAL SIGNS: Stable. HEART: S1, S2, normal and regular. LUNGS: Good bilateral air exchange. ABDOMEN: Soft, nontender. EXTREMITIES: No edema. No calf swelling. No tenderness. The patient has chronic peripheral vascular disease. Podiatry followup and intervention noted and appreciated. CENTRAL NERVOUS SYSTEM: Exam is essentially unchanged. DIAGNOSTIC DATA: Available diagnostic data reviewed. Telemetry monitoring does not show significant arrhythmias. ASSESSMENT AND PLAN: Overall, the patient's general medical condition is stable. Plan as ordered. Silverio Calabrese MD
--- NOTE | 2018-05-15 10:04 | CP.PCM.PN ---
Subjective - Date & Time of Evaluation Date of Evaluation: 05/15/18 Time of Evaluation: 10:03 Objective - Vital Signs/Intake and Output Vital Signs (last 24 hours): Temp Pulse Resp BP Pulse Ox 98 F 99 H 18 144/68 98 05/15/18 05:39 05/15/18 09:59 05/15/18 05:39 05/15/18 09:59 05/15/18 05:39 - Medications Medications: Current Medications Acetaminophen (Tylenol 325mg Tab) 650 mg PO PRN PRN PRN Reason: Fever >100.4 F Last Admin: 05/14/18 20:14 Dose: 650 mg Aspirin (Ecotrin) 81 mg PO DAILY [facility] Last Admin: 05/15/18 09:58 Dose: Not Given Enoxaparin Sodium (Lovenox) 30 mg SC DAILY [facility]; Protocol Last Admin: 05/14/18 09:01 Dose: 30 mg Glipizide (Glucotrol) 5 mg PO BIDAC [facility] Last Admin: 05/15/18 10:00 Dose: 5 mg Piperacillin Sod/Tazobactam (Sod 2.25 gm/ Sodium Chloride) 100 mls @ 100 mls/hr IVPB Q6 [facility]; Protocol Last Admin: 05/15/18 03:08 Dose: 100 mls/hr Insulin Human Lispro (Humalog) 0 units SC ACCU-CHECK [facility]; Protocol Last Admin: 05/15/18 06:39 Dose: Not Given Lisinopril (Zestril) 40 mg PO DAILY [facility] Last Admin: 05/15/18 09:59 Dose: Not Given Metoprolol Tartrate (Lopressor) 25 mg PO DAILY [facility] Last Admin: 05/15/18 09:55 Dose: 25 mg - Labs Labs: 05/15/18 05:20 05/15/18 05:20 Assessment and Plan (1) DM2 (diabetes mellitus, type 2) Status: Chronic (2) Cellulitis Status: Acute (3) Acute renal insufficiency Status: Acute (4) PVD (peripheral vascular disease) Status: Acute (5) Osteomyelitis of right foot Status: Acute (6) Necrosis of toe Status: Acute
[2018-05-15] MEDS: Cefepime 1 GM in Sodium Chloride 0.9% 100 ML IVPB SCH ×3 (11:27→20:41)
--- NOTE | 2018-05-15 12:33 | CP.PCM.CON ---
History of Present Illness - History of Present Illness History of Present Illness: 72 y/o male with Hx/o HTN,DM & PVD was admitted on 05/13 18 for cellulitis of Rt leg & necrotic Rt second toe. Had Rt big toe amputation & revascularization procedure for Rt leg last yr. Pts creat was normal last yr but in December 2017 had increased to 2.2. Pt denies any Hx/o kidney stones or prostate problem. there is no family Hx/o kidney dis. He reports passing tea colored urine. Review of Systems - Review of Systems Review of Systems: Appears comfortable in bed Past Patient History - Infectious Disease Hx of Infectious Diseases: None - Past Medical History & Family History Past Medical History?: Yes - Past Social History Smoking Status: Former Smoker Home Situation {Lives}: With Family - CARDIAC Hx Hypertension: Yes - PULMONARY Hx Respiratory Disorders: No - NEUROLOGICAL Hx Neurological Disorder: No - HEENT Hx HEENT Problems: No - RENAL Hx Chronic Kidney Disease: No - ENDOCRINE/METABOLIC Hx Endocrine Disorders: Yes Hx Diabetes Mellitus Type 2: Yes - HEMATOLOGICAL/ONCOLOGICAL Hx AIDS: No Hx Human Immunodeficiency Virus (HIV): No - INTEGUMENTARY Hx Dermatological Problems: No - MUSCULOSKELETAL/RHEUMATOLOGICAL Hx Musculoskeletal Disorders: No Hx Falls: No Hx Osteomyelitis: Yes (right foot) - GASTROINTESTINAL Hx Gastrointestinal Disorders: No - GENITOURINARY/GYNECOLOGICAL Hx Genitourinary Disorders: No - PSYCHIATRIC Hx Psychophysiologic Disorder: No Hx Substance Use: No - SURGICAL HISTORY Hx Surgeries: No - ANESTHESIA Hx Anesthesia: No Hx Anesthesia Reactions: No Hx Malignant Hyperthermia: No Meds Allergies/Adverse Reactions: Allergies Allergy/AdvReac Type Severity Reaction Status Date / Time No Known Allergies Allergy Verified 03/14/18 17:30 - Medications Medications: Current Medications Acetaminophen (Tylenol 325mg Tab) 650 mg PO PRN PRN PRN Reason: Fever >100.4 F Last Admin: 05/14/18 20:14 Dose: 650 mg Aspirin (Ecotrin) 81 mg PO DAILY [facility] Last Admin: 05/15/18 09:58 Dose: Not Given Clopidogrel Bisulfate (Plavix) 75 mg PO DAILY [facility] Enoxaparin Sodium (Lovenox) 30 mg SC DAILY [facility]; Protocol Last Admin: 05/14/18 09:01 Dose: 30 mg Glipizide (Glucotrol) 5 mg PO BIDAC [facility] Last Admin: 05/15/18 10:00 Dose: 5 mg Cefepime HCl 1 gm/ Sodium (Chloride) 100 mls @ 100 mls/hr IVPB Q12 [facility]; Protocol Last Admin: 05/15/18 11:27 Dose: 100 mls/hr Insulin Human Lispro (Humalog) 0 units SC ACCU-CHECK [facility]; Protocol Last Admin: 05/15/18 06:39 Dose: Not Given Lisinopril (Zestril) 40 mg PO DAILY [facility] Last Admin: 05/15/18 09:59 Dose: Not Given Metoprolol Tartrate (Lopressor) 25 mg PO DAILY [facility] Last Admin: 05/15/18 09:55 Dose: 25 mg Physical Exam - Constitutional Appears: No Acute Distress - Head Exam Head Exam: ATRAUMATIC, NORMOCEPHALIC - Eye Exam Additional comments: Conjunctiva pink sclera anicteric - ENT Exam ENT Exam: Mucous Membranes Moist - Neck Exam Additional comments: No tenderness over c spine. JVD negative - Respiratory Exam Respiratory Exam: NORMAL BREATHING PATTERN Additional comments: Lungs clear. No wheezes - Cardiovascular Exam Cardiovascular Exam: REGULAR RHYTHM Additional comments: No gallop or rub - GI/Abdominal Exam Additional comments: Softly distended No tenderness. No CVA tenderness. - Extremities Exam Additional comments: No edema. Rt foot is dressed. Pedal pulses not palp. Lt foot is warn No cyanosis. Results - Vital Signs Recent Vital Signs: Last Vital Signs Temp 98.7 F 05/15/18 12:10 Pulse 86 05/15/18 12:10 Resp 18 05/15/18 12:10 BP 158/78 H 05/15/18 12:10 Pulse Ox 96 05/15/18 12:10 - Labs Result Diagrams: 05/15/18 05:20 05/15/18 05:20 Labs: Laboratory Results - last 24 hr 05/14/18 05/14/18 05/15/18 16:26 22:10 05:20 WBC 18.2 H RBC 3.53 L Hgb 10.2 L Hct 30.2 L MCV 85.5 MCH 28.8 MCHC 33.7 RDW 13.2 Plt Count 380 MPV 7.5 Neut % (Auto) 86.8 H Lymph % (Auto) 3.8 L [place] % (Auto) 6.4 Eos % (Auto) 2.7 Baso % (Auto) 0.3 Neut # (Auto) 15.8 H Lymph # (Auto) 0.7 L [place] # (Auto) 1.2 H Eos # (Auto) 0.5 Baso # (Auto) 0.1 Sodium Potassium Chloride Carbon Dioxide Anion Gap BUN Creatinine Est GFR ( Amer) Est GFR (Non-Af Amer) POC Glucose (mg/dL) 257 H 208 H Random Glucose Calcium Total Bilirubin AST ALT Alkaline Phosphatase Total Protein Albumin Globulin Albumin/Globulin Ratio Vancomycin Trough 05/15/18 05/15/18 05/15/18 05:20 05:45 08:15 WBC RBC Hgb Hct MCV MCH MCHC RDW Plt Count MPV Neut % (Auto) Lymph % (Auto) [place] % (Auto) Eos % (Auto) Baso % (Auto) Neut # (Auto) Lymph # (Auto) [place] # (Auto) Eos # (Auto) Baso # (Auto) Sodium 137 Potassium 4.8 Chloride 102 Carbon Dioxide 20 L Anion Gap 20 BUN 58 H Creatinine 6.0 H Est GFR ( Amer) 11 Est GFR (Non-Af Amer) 9 POC Glucose (mg/dL) 171 H Random Glucose 180 H Calcium 8.4 Total Bilirubin 0.4 AST 36 ALT 38 Alkaline Phosphatase 95 Total Protein 6.8 Albumin 3.0 L D Globulin 3.7 Albumin/Globulin Ratio 0.8 L Vancomycin Trough 15.3 H 05/15/18 11:49 WBC RBC Hgb Hct MCV MCH MCHC RDW Plt Count MPV Neut % (Auto) Lymph % (Auto) [place] % (Auto) Eos % (Auto) Baso % (Auto) Neut # (Auto) Lymph # (Auto) [place] # (Auto) Eos # (Auto) Baso # (Auto) Sodium Potassium Chloride Carbon Dioxide Anion Gap BUN Creatinine Est GFR ( Amer) Est GFR (Non-Af Amer) POC Glucose (mg/dL) 277 H Random Glucose Calcium Total Bilirubin AST ALT Alkaline Phosphatase Total Protein Albumin Globulin Albumin/Globulin Ratio Vancomycin Trough Assessment & Plan - Assessment and Plan (Free Text) Assessment: Acute on chronic renal failure. Creat has rapidly progressed to 6.0 from 2.3. Etiology is multifactorial. May be toxic since Vanco trough level is high Wound cultures are growing beta hemolytic Strep & E.coli Glomerulonephritis is another possibility Infected Rt 2 toe, PVD DM Plan: Urinalysis Urine spot lytes Complement levels ASLO titer, Anti DNAse antibody Renal US
--- NOTE | 2018-05-15 14:35 | CP.PCM.PN ---
Subjective - Date & Time of Evaluation Date of Evaluation: 05/15/18 Time of Evaluation: 14:35 - Subjective Subjective: ID Note- Pt. seen and examined today. pt. states he feels more pain and swelling in his foot. he had fever of 102 today. Objective - Vital Signs/Intake and Output Vital Signs (last 24 hours): Temp Pulse Resp BP Pulse Ox 98.7 F 86 18 158/78 H 96 05/15/18 12:10 05/15/18 12:10 05/15/18 12:10 05/15/18 12:10 05/15/18 12:10 - Medications Medications: Current Medications Acetaminophen (Tylenol 325mg Tab) 650 mg PO PRN PRN PRN Reason: Fever >100.4 F Last Admin: 05/14/18 20:14 Dose: 650 mg Aspirin (Ecotrin) 81 mg PO DAILY [facility] Last Admin: 05/15/18 09:58 Dose: Not Given Clopidogrel Bisulfate (Plavix) 75 mg PO DAILY [facility] Last Admin: 05/15/18 12:44 Dose: 75 mg Enoxaparin Sodium (Lovenox) 30 mg SC DAILY [facility]; Protocol Last Admin: 05/14/18 09:01 Dose: 30 mg Glipizide (Glucotrol) 5 mg PO BIDAC [facility] Last Admin: 05/15/18 10:00 Dose: 5 mg Cefepime HCl 1 gm/ Sodium (Chloride) 100 mls @ 100 mls/hr IVPB Q12 [facility]; Protocol Last Admin: 05/15/18 11:27 Dose: 100 mls/hr Insulin Human Lispro (Humalog) 0 units SC ACCU-CHECK [facility]; Protocol Last Admin: 05/15/18 12:43 Dose: 4 units Lisinopril (Zestril) 40 mg PO DAILY [facility] Last Admin: 05/15/18 09:59 Dose: Not Given Metoprolol Tartrate (Lopressor) 25 mg PO DAILY [facility] Last Admin: 05/15/18 09:55 Dose: 25 mg - Labs Labs: - Additional Findings Additional findings: - Constitutional Appears: No Acute Distress - Head Exam Head Exam: ATRAUMATIC - Eye Exam Eye Exam: EOMI, PERRL - Neck Exam Neck exam: Positive for: Full Rom - Respiratory Exam Respiratory Exam: Clear to Auscultation Bilateral, NORMAL BREATHING PATTERN - Cardiovascular Exam Cardiovascular Exam: RRR, +S1, +S2 - GI/Abdominal Exam GI & Abdominal Exam: Normal Bowel Sounds, Soft Additional comments: NT, ND - Extremities Exam Additional comments: right second halux entire toe in now necrotic and also has new necrotic region on the right plantar foot region and surrounding region edema and erythema has increased. no malodor - Neurological Exam Neurological exam: Alert, Oriented x 3 Laboratory Results - last 72 hr 05/13/18 05/13/18 05/13/18 11:53 12:30 12:30 WBC 17.3 H D RBC 4.20 L Hgb 12.1 Hct 36.1 MCV 86.1 MCH 28.9 MCHC 33.5 RDW 13.1 Plt Count 390 MPV 8.0 Neut % (Auto) 88.0 H Lymph % (Auto) 4.7 L [place] % (Auto) 6.6 Eos % (Auto) 0.4 Baso % (Auto) 0.3 Neut # (Auto) 15.2 H Lymph # (Auto) 0.8 L [place] # (Auto) 1.1 H Eos # (Auto) 0.1 Baso # (Auto) 0.1 Neutrophils % (Manual) 91 H Lymphocytes % (Manual) 6 L Monocytes % (Manual) 1 Eosinophils % (Manual) 1 Basophils % (Manual) 1 Platelet Estimate Normal Giant Platelets Present RBC Morphology Normal ESR pO2 12 L VBG pH 7.24 L VBG pCO2 53 VBG HCO3 18.6 VBG Total CO2 24.3 VBG O2 Sat (Calc) 15.4 L VBG Base Excess -5.2 L VBG Potassium 4.7 Sodium 131.0 L 136 Chloride 102.0 98 Glucose 352 H Lactate 2.0 FiO2 21.0 Potassium 4.9 Carbon Dioxide 19 L Anion Gap 24 H BUN 46 H Creatinine 2.8 H Est GFR ( Amer) 27 Est GFR (Non-Af Amer) 22 POC Glucose (mg/dL) Random Glucose 503 H* D Hemoglobin A1c Calcium 9.3 Total Bilirubin 0.6 AST 26 ALT 19 L D Alkaline Phosphatase 93 C-Reactive Protein Total Protein 8.6 H Albumin 4.1 Globulin 4.5 H Albumin/Globulin Ratio 0.9 L Venous Blood Potassium 4.7 Vancomycin Trough 05/13/18 05/13/18 05/13/18 14:27 14:30 14:30 WBC RBC Hgb Hct MCV MCH MCHC RDW Plt Count MPV Neut % (Auto) Lymph % (Auto) [place] % (Auto) Eos % (Auto) Baso % (Auto) Neut # (Auto) Lymph # (Auto) [place] # (Auto) Eos # (Auto) Baso # (Auto) Neutrophils % (Manual) Lymphocytes % (Manual) Monocytes % (Manual) Eosinophils % (Manual) Basophils % (Manual) Platelet Estimate Giant Platelets RBC Morphology ESR 94 H pO2 VBG pH VBG pCO2 VBG HCO3 VBG Total CO2 VBG O2 Sat (Calc) VBG Base Excess VBG Potassium Sodium Chloride Glucose Lactate FiO2 Potassium Carbon Dioxide Anion Gap BUN Creatinine Est GFR ( Amer) Est GFR (Non-Af Amer) POC Glucose (mg/dL) 430 H* Random Glucose Hemoglobin A1c Calcium Total Bilirubin AST ALT Alkaline Phosphatase C-Reactive Protein 219.10 H Total Protein Albumin Globulin Albumin/Globulin Ratio Venous Blood Potassium Vancomycin Trough 05/13/18 05/13/18 05/13/18 16:44 17:30 21:18 WBC RBC Hgb Hct MCV MCH MCHC RDW Plt Count MPV Neut % (Auto) Lymph % (Auto) [place] % (Auto) Eos % (Auto) Baso % (Auto) Neut # (Auto) Lymph # (Auto) [place] # (Auto) Eos # (Auto) Baso # (Auto) Neutrophils % (Manual) Lymphocytes % (Manual) Monocytes % (Manual) Eosinophils % (Manual) Basophils % (Manual) Platelet Estimate Giant Platelets RBC Morphology ESR pO2 VBG pH VBG pCO2 VBG HCO3 VBG Total CO2 VBG O2 Sat (Calc) VBG Base Excess VBG Potassium Sodium Chloride Glucose Lactate FiO2 Potassium Carbon Dioxide Anion Gap BUN Creatinine Est GFR ( Amer) Est GFR (Non-Af Amer) POC Glucose (mg/dL) 209 H 172 H Random Glucose Hemoglobin A1c 8.4 H Calcium Total Bilirubin AST ALT Alkaline Phosphatase C-Reactive Protein Total Protein Albumin Globulin Albumin/Globulin Ratio Venous Blood Potassium Vancomycin Trough 05/14/18 05/14/18 05/14/18 05:14 10:34 16:26 WBC RBC Hgb Hct MCV MCH MCHC RDW Plt Count MPV Neut % (Auto) Lymph % (Auto) [place] % (Auto) Eos % (Auto) Baso % (Auto) Neut # (Auto) Lymph # (Auto) [place] # (Auto) Eos # (Auto) Baso # (Auto) Neutrophils % (Manual) Lymphocytes % (Manual) Monocytes % (Manual) Eosinophils % (Manual) Basophils % (Manual) Platelet Estimate Giant Platelets RBC Morphology ESR pO2 VBG pH VBG pCO2 VBG HCO3 VBG Total CO2 VBG O2 Sat (Calc) VBG Base Excess VBG Potassium Sodium Chloride Glucose Lactate FiO2 Potassium Carbon Dioxide Anion Gap BUN Creatinine Est GFR ( Amer) Est GFR (Non-Af Amer) POC Glucose (mg/dL) 171 H 305 H 257 H Random Glucose Hemoglobin A1c Calcium Total Bilirubin AST ALT Alkaline Phosphatase C-Reactive Protein Total Protein Albumin Globulin Albumin/Globulin Ratio Venous Blood Potassium Vancomycin Trough 05/14/18 05/15/18 05/15/18 22:10 05:20 05:20 WBC 18.2 H RBC 3.53 L Hgb 10.2 L Hct 30.2 L MCV 85.5 MCH 28.8 MCHC 33.7 RDW 13.2 Plt Count 380 MPV 7.5 Neut % (Auto) 86.8 H Lymph % (Auto) 3.8 L [place] % (Auto) 6.4 Eos % (Auto) 2.7 Baso % (Auto) 0.3 Neut # (Auto) 15.8 H Lymph # (Auto) 0.7 L [place] # (Auto) 1.2 H Eos # (Auto) 0.5 Baso # (Auto) 0.1 Neutrophils % (Manual) Lymphocytes % (Manual) Monocytes % (Manual) Eosinophils % (Manual) Basophils % (Manual) Platelet Estimate Giant Platelets RBC Morphology ESR pO2 VBG pH VBG pCO2 VBG HCO3 VBG Total CO2 VBG O2 Sat (Calc) VBG Base Excess VBG Potassium Sodium 137 Chloride 102 Glucose Lactate FiO2 Potassium 4.8 Carbon Dioxide 20 L Anion Gap 20 BUN 58 H Creatinine 6.0 H Est GFR ( Amer) 11 Est GFR (Non-Af Amer) 9 POC Glucose (mg/dL) 208 H Random Glucose 180 H Hemoglobin A1c Calcium 8.4 Total Bilirubin 0.4 AST 36 ALT 38 Alkaline Phosphatase 95 C-Reactive Protein Total Protein 6.8 Albumin 3.0 L D Globulin 3.7 Albumin/Globulin Ratio 0.8 L Venous Blood Potassium Vancomycin Trough 05/15/18 05/15/18 05/15/18 05:45 08:15 11:49 WBC RBC Hgb Hct MCV MCH MCHC RDW Plt Count MPV Neut % (Auto) Lymph % (Auto) [place] % (Auto) Eos % (Auto) Baso % (Auto) Neut # (Auto) Lymph # (Auto) [place] # (Auto) Eos # (Auto) Baso # (Auto) Neutrophils % (Manual) Lymphocytes % (Manual) Monocytes % (Manual) Eosinophils % (Manual) Basophils % (Manual) Platelet Estimate Giant Platelets RBC Morphology ESR pO2 VBG pH VBG pCO2 VBG HCO3 VBG Total CO2 VBG O2 Sat (Calc) VBG Base Excess VBG Potassium Sodium Chloride Glucose Lactate FiO2 Potassium Carbon Dioxide Anion Gap BUN Creatinine Est GFR ( Amer) Est GFR (Non-Af Amer) POC Glucose (mg/dL) 171 H 277 H Random Glucose Hemoglobin A1c Calcium Total Bilirubin AST ALT Alkaline Phosphatase C-Reactive Protein Total Protein Albumin Globulin Albumin/Globulin Ratio Venous Blood Potassium Vancomycin Trough 15.3 H Microbiology 05/13/18 15:00 Foot - Right Gram Stain - Final 05/13/18 15:00 Foot - Right Wound Culture - Final Escherichia Coli Beta Hemolytic Strep Group B 05/13/18 12:30 Blood-Venous Blood Culture - Preliminary NO GROWTH AFTER 48 HOURS 05/13/18 17:00 Foot - Right Gram Stain - Final 05/13/18 17:00 Foot - Right Wound Culture - Final Escherichia Coli Beta Hemolytic Strep Group B Accession No. : [id number] Patient Name / ID : ION RIVERA / [id number] Exam Date : 05/15/2018 13:21:49 ( Approved ) Study Comment : Sex / Age : M / [id number] Creator : Maxi Ford MD Dictator : Maxi Ford MD Heel Washer Stringing Machine Operator : Financial Reserve Clerk : Maxi Ford MD Approver2 : Report Date : 05/15/2018 16:01:06 My Comment : Date of service: 05/15/2018 PROCEDURE: Ultrasound of the Kidneys HISTORY: arf COMPARISON: None available. TECHNIQUE: Sonogram of the kidneys. FINDINGS: RIGHT KIDNEY: Measures: 5.8 x 11.7 cm. Normal in size, contour and echogenicity. No stone, solid mass lesion or hydronephrosis visualized. Several at least 3 simple cysts upper pole the confluence measures 3.8 x 2.6 x 3.3 cm. LEFT KIDNEY: Measures: 5.7 x 12.0 cm. Normal in size, contour and echogenicity. No stone, solid mass lesion or hydronephrosis visualized. OTHER FINDINGS: None. IMPRESSION: No significant or acute findings to account for/ related to the clinical presentation. Additional benign and/or incidental findings described above. Assessment and Plan (1) DM2 (diabetes mellitus, type 2) Status: Chronic (2) Cellulitis Status: Acute (3) Acute renal insufficiency Status: Acute (4) PVD (peripheral vascular disease) Status: Acute (5) Osteomyelitis of right foot Status: Acute (6) Necrosis of toe Status: Acute - Assessment and Plan (Free Text) Assessment: Assessment and plan Patient is a 72-year-old male with multiple medical conditions including diabetes type 2, hypertension, peripheral vascular disease status post revascularization, osteomyelitis of the right hallux status post amputation October 2017, who now presents with necrosis of the right distal toe. high fever today rise in leukocytosis right second halux now entirely necrotic and right heel has necrotic region and increase in edema and erythema in the region. High ESR Wound culture preliminaryE.coli and Beta hemolytic group strep B x 2 blood cx- neg x 1 acute renal insufficinecy today creatinine of 6 Plan d/c vanco and zosyn. start pt. on cefepime today. will start daptomycin as well. Pt. need I and D of the right foot as I suspect he has underlying abscess and he also need amputation of the entire right second toe . pt. seen with podiatry resident today and as per podiatry they are planning on TMA of the right foot. check 2 more blood cx. All above was discussed with patient and his and they verbalized full understanding of all above and agree with plan of care.
--- NOTE | 2018-05-15 16:06 | US ---
Date of service: 05/15/2018 PROCEDURE: Ultrasound of the Kidneys HISTORY: arf COMPARISON: None available. TECHNIQUE: Sonogram of the kidneys. FINDINGS: RIGHT KIDNEY: Measures: 5.8 x 11.7 cm. Normal in size, contour and echogenicity. No stone, solid mass lesion or hydronephrosis visualized. Several at least 3 simple cysts upper pole the confluence measures 3.8 x 2.6 x 3.3 cm. LEFT KIDNEY: Measures: 5.7 x 12.0 cm. Normal in size, contour and echogenicity. No stone, solid mass lesion or hydronephrosis visualized. OTHER FINDINGS: None. IMPRESSION: No significant or acute findings to account for/ related to the clinical presentation. Additional benign and/or incidental findings described above.
[2018-05-15] MEDS ORDERED: Enoxaparin 100 mg Syringe IV SCH (17:00)
[2018-05-15 17:03] LABS: SQUAMOUS EPITHIAL 2 /hpf (0-5); URINE BACTERIA RARE (<OCC); URINE BILIRUBIN NEGATIVE (NEGATIVE); URINE BLOOD SMALL (NEGATIVE); URINE CLARITY SLIGHTY-CLOUDY (Clear); URINE COLOR YELLOW (YELLOW); URINE GLUCOSE (UA) 50 mg/dL (NEGATIVE); URINE LEUKOCYTE ESTERASE MOD Leu/uL (Negative); URINE PROTEIN 100 mg/dL (NEGATIVE); URINE UROBILINOGEN 0.2-1.0 mg/dL (0.2-1.0)
--- NOTE | 2018-05-15 18:19 | CP.PCM.CON ---
History of Present Illness - History of Present Illness History of Present Illness: Yuniel Fuentes, PGY-1, Cardiology Consult Note for Dr. Tabares 72 year old male with past medical history of hypertension and diabetes mellitus type II presents with 1 to 1.5 weeks of worsening of discoloration of 2nd toe on right foot. Patient had angioplasty of anterior tibial artery with stents in 2018 but due to ischemic of right 1st toe, had that toe amputated. Patient recently started to have darkening of the 2nd toe on the right foot which has progressively worsened over the past 1 to 1.5 weeks. Patient also complains of right foot pain but denies numbness. Patient has no other complaints including chest pain, shortness of breath, nausea, vomiting, diaphoresis, dizziness, left arm pain, jaw pain. PMH: as stated above PSH: amputation of right 1st toe Stress test: denies Prior cardiac catheterization: denies Allergies: NKDA SHx: denies alcohol, tobacco, and recreational drug use PMD: Dr. Hyman Review of Systems - Review of Systems Review of Systems: except as mentioned in HPI Past Patient History - Infectious Disease Hx of Infectious Diseases: None - Past Medical History & Family History Past Medical History?: Yes - Past Social History Smoking Status: Former Smoker Home Situation {Lives}: With Family - CARDIAC Hx Hypertension: Yes - PULMONARY Hx Respiratory Disorders: No - NEUROLOGICAL Hx Neurological Disorder: No - HEENT Hx HEENT Problems: No - RENAL Hx Chronic Kidney Disease: No - ENDOCRINE/METABOLIC Hx Endocrine Disorders: Yes Hx Diabetes Mellitus Type 2: Yes - HEMATOLOGICAL/ONCOLOGICAL Hx AIDS: No Hx Human Immunodeficiency Virus (HIV): No - INTEGUMENTARY Hx Dermatological Problems: No - MUSCULOSKELETAL/RHEUMATOLOGICAL Hx Musculoskeletal Disorders: No Hx Falls: No Hx Osteomyelitis: Yes (right foot) - GASTROINTESTINAL Hx Gastrointestinal Disorders: No - GENITOURINARY/GYNECOLOGICAL Hx Genitourinary Disorders: No - PSYCHIATRIC Hx Psychophysiologic Disorder: No Hx Substance Use: No - SURGICAL HISTORY Hx Surgeries: No - ANESTHESIA Hx Anesthesia: No Hx Anesthesia Reactions: No Hx Malignant Hyperthermia: No Meds Allergies/Adverse Reactions: Allergies Allergy/AdvReac Type Severity Reaction Status Date / Time No Known Allergies Allergy Verified 03/14/18 17:30 - Medications Medications: Current Medications Acetaminophen (Tylenol 325mg Tab) 650 mg PO PRN PRN PRN Reason: Fever >100.4 F Last Admin: 05/14/18 20:14 Dose: 650 mg Aspirin (Ecotrin) 81 mg PO DAILY [facility] Last Admin: 05/15/18 09:58 Dose: Not Given Clopidogrel Bisulfate (Plavix) 75 mg PO DAILY [facility] Last Admin: 05/15/18 12:44 Dose: 75 mg Enoxaparin Sodium (Lovenox) 30 mg SC DAILY [facility]; Protocol Last Admin: 05/14/18 09:01 Dose: 30 mg Glipizide (Glucotrol) 5 mg PO BIDAC [facility] Last Admin: 05/15/18 16:09 Dose: 5 mg Cefepime HCl 1 gm/ Sodium (Chloride) 100 mls @ 100 mls/hr IVPB Q12 [facility]; Protocol Last Admin: 05/15/18 11:27 Dose: 100 mls/hr Daptomycin 350 mg/ Sodium (Chloride) 100 mls @ 100 mls/hr IV Q48H [facility]; Protocol Stop: 05/20/18 18:01 Insulin Human Lispro (Humalog) 0 units SC ACCU-CHECK [facility]; Protocol Last Admin: 05/15/18 16:09 Dose: 3 units Lisinopril (Zestril) 40 mg PO DAILY [facility] Last Admin: 05/15/18 09:59 Dose: Not Given Metoprolol Tartrate (Lopressor) 25 mg PO DAILY [facility] Last Admin: 05/15/18 09:55 Dose: 25 mg Physical Exam - Constitutional Appears: Well, Non-toxic, No Acute Distress - Head Exam Head Exam: ATRAUMATIC, NORMAL INSPECTION, NORMOCEPHALIC - Eye Exam Eye Exam: EOMI, PERRL - ENT Exam ENT Exam: Mucous Membranes Moist - Neck Exam Neck exam: Positive for: Full Rom - Respiratory Exam Respiratory Exam: Clear to Auscultation Bilateral, NORMAL BREATHING PATTERN - Cardiovascular Exam Cardiovascular Exam: REGULAR RHYTHM, RRR, +S1, +S2 - GI/Abdominal Exam GI & Abdominal Exam: Normal Bowel Sounds, Soft. absent: Tenderness - Extremities Exam Extremities exam: Positive for: full ROM Additional comments: amputated right 1st toe, darkening of right 2nd toe - Neurological Exam Neurological exam: Alert, CN II-XII Intact, Oriented x3 - Skin Skin Exam: Dry, Intact Results - Vital Signs Recent Vital Signs: Last Vital Signs Temp 99.4 F 05/15/18 16:41 Pulse 98 H 05/15/18 16:41 Resp 18 05/15/18 16:41 BP 164/76 H 05/15/18 16:41 Pulse Ox 97 05/15/18 16:41 - Labs Result Diagrams: 05/15/18 05:20 05/15/18 05:20 Labs: Laboratory Results - last 24 hr 05/13/18 05/14/18 05/15/18 16:44 22:10 05:20 WBC 18.2 H RBC 3.53 L Hgb 10.2 L Hct 30.2 L MCV 85.5 MCH 28.8 MCHC 33.7 RDW 13.2 Plt Count 380 MPV 7.5 Neut % (Auto) 86.8 H Lymph % (Auto) 3.8 L [place] % (Auto) 6.4 Eos % (Auto) 2.7 Baso % (Auto) 0.3 Neut # (Auto) 15.8 H Lymph # (Auto) 0.7 L [place] # (Auto) 1.2 H Eos # (Auto) 0.5 Baso # (Auto) 0.1 Sodium Potassium Chloride Carbon Dioxide Anion Gap BUN Creatinine Est GFR ( Amer) Est GFR (Non-Af Amer) POC Glucose (mg/dL) 208 H Random Glucose Hemoglobin A1c 8.4 H Calcium Total Bilirubin AST ALT Alkaline Phosphatase Total Protein Albumin Globulin Albumin/Globulin Ratio Urine Color Urine Clarity Urine pH Ur Specific [place] Urine Protein Urine Glucose (UA) Urine Ketones Urine Blood Urine Nitrate Urine Bilirubin Urine Urobilinogen Ur Leukocyte Esterase Urine RBC (Auto) Urine Microscopic WBC Ur Squamous Epith Cells Urine Bacteria U Random Total Protein Ur Random Sodium Ur Random Potassium Vancomycin Trough 05/15/18 05/15/18 05/15/18 05:20 05:45 08:15 WBC RBC Hgb Hct MCV MCH MCHC RDW Plt Count MPV Neut % (Auto) Lymph % (Auto) [place] % (Auto) Eos % (Auto) Baso % (Auto) Neut # (Auto) Lymph # (Auto) [place] # (Auto) Eos # (Auto) Baso # (Auto) Sodium 137 Potassium 4.8 Chloride 102 Carbon Dioxide 20 L Anion Gap 20 BUN 58 H Creatinine 6.0 H Est GFR ( Amer) 11 Est GFR (Non-Af Amer) 9 POC Glucose (mg/dL) 171 H Random Glucose 180 H Hemoglobin A1c Calcium 8.4 Total Bilirubin 0.4 AST 36 ALT 38 Alkaline Phosphatase 95 Total Protein 6.8 Albumin 3.0 L D Globulin 3.7 Albumin/Globulin Ratio 0.8 L Urine Color Urine Clarity Urine pH Ur Specific [place] Urine Protein Urine Glucose (UA) Urine Ketones Urine Blood Urine Nitrate Urine Bilirubin Urine Urobilinogen Ur Leukocyte Esterase Urine RBC (Auto) Urine Microscopic WBC Ur Squamous Epith Cells Urine Bacteria U Random Total Protein Ur Random Sodium Ur Random Potassium Vancomycin Trough 15.3 H 05/15/18 05/15/18 05/15/18 11:49 16:37 16:37 WBC RBC Hgb Hct MCV MCH MCHC RDW Plt Count MPV Neut % (Auto) Lymph % (Auto) [place] % (Auto) Eos % (Auto) Baso % (Auto) Neut # (Auto) Lymph # (Auto) [place] # (Auto) Eos # (Auto) Baso # (Auto) Sodium Potassium Chloride Carbon Dioxide Anion Gap BUN Creatinine Est GFR ( Amer) Est GFR (Non-Af Amer) POC Glucose (mg/dL) 277 H Random Glucose Hemoglobin A1c Calcium Total Bilirubin AST ALT Alkaline Phosphatase Total Protein Albumin Globulin Albumin/Globulin Ratio Urine Color Urine Clarity Urine pH Ur Specific [place] Urine Protein Urine Glucose (UA) Urine Ketones Urine Blood Urine Nitrate Urine Bilirubin Urine Urobilinogen Ur Leukocyte Esterase Urine RBC (Auto) Urine Microscopic WBC Ur Squamous Epith Cells Urine Bacteria U Random Total Protein 85 Ur Random Sodium 80 Ur Random Potassium 27.9 Vancomycin Trough 05/15/18 16:37 WBC RBC Hgb Hct MCV MCH MCHC RDW Plt Count MPV Neut % (Auto) Lymph % (Auto) [place] % (Auto) Eos % (Auto) Baso % (Auto) Neut # (Auto) Lymph # (Auto) [place] # (Auto) Eos # (Auto) Baso # (Auto) Sodium Potassium Chloride Carbon Dioxide Anion Gap BUN Creatinine Est GFR ( Amer) Est GFR (Non-Af Amer) POC Glucose (mg/dL) Random Glucose Hemoglobin A1c Calcium Total Bilirubin AST ALT Alkaline Phosphatase Total Protein Albumin Globulin Albumin/Globulin Ratio Urine Color Yellow Urine Clarity Slighty-cloudy Urine pH 6.0 Ur Specific [place] 1.012 Urine Protein 100 Urine Glucose (UA) 50 Urine Ketones Negative Urine Blood Small Urine Nitrate Negative Urine Bilirubin Negative Urine Urobilinogen 0.2-1.0 Ur Leukocyte Esterase Mod Urine RBC (Auto) 6 H Urine Microscopic WBC 21 H Ur Squamous Epith Cells 2 Urine Bacteria Rare U Random Total Protein Ur Random Sodium Ur Random Potassium Vancomycin Trough Assessment & Plan - Assessment and Plan (Free Text) Assessment: Peripheral vascular disease likely causing ischemia of right 2nd toe Hypertension Diabetes Mellitus type II Plan: Peripheral vascular disease likely causing ischemia of right 2nd toe Hypertension Diabetes Mellitus type II EKG: NS with HR: 80 BUN/Cr: 58/6 (baseline creatinine is 1.5) HgbA1c: 8.4 Will likely need CTA of bilateral lower extremities after CHARIS improves. Will add plavix and nephrology consult at this time. Medications: aspirin 81 mg daily held plavix 75 mg daily daptomycin 350 mg Q48 cefepime 1 gm Q12 glipizide 5 mg BIDAC zestril 40 mg daily held due to renal function lopressor 25 mg daily - Date & Time Date: 05/15/18 Time: 18:20
[2018-05-16 05:57] LABS: HEMOGLOBIN 10.7 g/dL (12.0-18.0); MEAN CELL VOLUME 85.3 fl (80.0-94.0); MEAN CORPUSCULAR HEMOGLOBIN 28.4 pg (27.0-31.0); MEAN CORPUSCULAR HGB CONC 33.4 g/dL (33.0-37.0); RBC 3.75 Mil/uL (4.40-5.90); RED CELL DISTRIBUTION WIDTH 13.3 % (11.5-14.5); WHITE BLOOD COUNT 18.9 K/uL (4.8-10.8)
[2018-05-16 06:50] LABS: ALB/GLOB RATIO 0.7 (1.0-2.1); ALBUMIN 2.9 g/dL (3.5-5.0); CALCIUM 8.7 mg/dL (8.4-10.2)
[2018-05-16] MEDS: Insulin Lispro (humaLOG) 100 Units/ml Inj SC SCH ×4 (08:21→23:00)
[2018-05-16] MEDS: Enoxaparin 30 mg Syringe SC SCH (08:22)
--- NOTE | 2018-05-16 08:22 | RAD ---
Date of service: 05/15/2018 PROCEDURE: Right Foot Radiographs. HISTORY: r/o gas COMPARISON: None. FINDINGS: BONES: There is persistent edema at the forefoot particularly the prior amputation site status post prior great toe amputation as well IS osteotomy of the distal segment 1st metatarsal bone. Emphysematous soft tissue changes persist here. No definite interval acute fracture, dislocation or subluxation appreciable. Degenerative changes seen throughout the interphalangeal joints as well as midfoot and hindfoot joints mildly as well. JOINTS: As above. SOFT TISSUES: As above. OTHER FINDINGS: None. IMPRESSION: Emphysematous changes are again noted at the medial forefoot soft tissues with local soft tissue edema present. No acute fracture, subluxation or dislocation.
[2018-05-16] MEDS: Cefepime 1 GM in Sodium Chloride 0.9% 100 ML IVPB SCH (08:23)
[2018-05-16] MEDS ORDERED: SODIUM CHLORIDE 0.9% IVPB SCH (08:30)
[2018-05-16] MEDS ORDERED: CEFEPIME IVPB SCH (08:30)
--- NOTE | 2018-05-16 08:52 | CP.PCM.PN ---
<Chito,Kp - Last Filed: 05/16/18 10:21> Subjective - Date & Time of Evaluation Date of Evaluation: 05/16/18 Time of Evaluation: 07:00 - Subjective Subjective: Overnight, pt spiked fever of 102.1F. Pt seen and examined with Dr. Calabrese this am at the bedside. Reports persistent R. foot pain. Labs significant for worsening Crea, 7.1 and leukocytosis. Discussed with audience coordinator, Dr. Monroe. Will continue patient on fluids and assess renal function tomorrow, considering urgent HD if fails to improve. Discussed with podiatry team, suspicion for necrotizing facsciitis so they would like to take pt to OR for possible amputation pending medical clearance. Currently waiting for risk stratification from Cardiac. Objective - Vital Signs/Intake and Output Vital Signs (last 24 hours): Temp Pulse Resp BP Pulse Ox 99.0 F 97 H 18 165/79 H 93 L 05/16/18 08:00 05/16/18 08:21 05/16/18 08:00 05/16/18 08:21 05/16/18 08:00 - Medications Medications: Current Medications Acetaminophen (Tylenol 325mg Tab) 650 mg PO PRN PRN PRN Reason: Fever >100.4 F Last Admin: 05/15/18 20:41 Dose: 650 mg Aspirin (Ecotrin) 81 mg PO DAILY [facility] Last Admin: 05/15/18 09:58 Dose: Not Given Clopidogrel Bisulfate (Plavix) 75 mg PO DAILY [facility] Last Admin: 05/16/18 08:17 Dose: 75 mg Glipizide (Glucotrol) 5 mg PO BIDAC [facility] Last Admin: 05/16/18 08:17 Dose: 5 mg Heparin Sodium (Porcine) (Heparin) 5,000 units SC Q12 [facility]; Protocol Daptomycin 350 mg/ Sodium (Chloride) 100 mls @ 100 mls/hr IV Q48H [facility]; Protocol Stop: 05/20/18 18:01 Last Admin: 05/15/18 18:58 Dose: 100 mls/hr Cefepime HCl 250 gm/ Sodium (Chloride) 100 mls @ 100 mls/hr IVPB Q12 [facility]; Protocol Sodium Chloride (Sodium Chloride 0.45%) 1,000 mls @ 60 mls/hr IV .[id number] [facility] Stop: 03/20/19 08:36 Insulin Human Lispro (Humalog) 0 units SC ACCU-CHECK [facility]; Protocol Last Admin: 05/16/18 08:21 Dose: Not Given Metoprolol Tartrate (Lopressor) 25 mg PO DAILY [facility] Last Admin: 05/16/18 08:21 Dose: 25 mg - Labs Labs: 05/16/18 04:50 05/16/18 04:50 - Constitutional Appears: Non-toxic - Head Exam Head Exam: ATRAUMATIC - Eye Exam Eye Exam: Normal appearance - ENT Exam ENT Exam: Mucous Membranes Moist - Respiratory Exam Respiratory Exam: Clear to Ausculation Bilateral. absent: Rales, Wheezes - Cardiovascular Exam Cardiovascular Exam: REGULAR RHYTHM, +S1, +S2 - GI/Abdominal Exam GI & Abdominal Exam: Soft. absent: Tenderness - Extremities Exam Additional comments: Right foot- amputated first digit, second digit necrosis, surrounding erythema, warmth and edema appears to be worse than yesterday. Poor pulses, DP +1 , d iminished sensation, no active drainage Assessment and Plan - Assessment and Plan (Free Text) Assessment: 72 y/o male with PMHx of HTN and Type II DM was seen and evaluated at bedside for right 2nd digit necrosis and acute renal failure that developed during admission. #Sepsis #2nd Digit Necrosis of R. Foot #Acute Renal Failure #PAD Consultations on board: Nephrology, Podiatry, Vascular, ID - Podiatry team raising suspicion for Nec Fasc; Plan for OR today for possible Amputation pending cardiac risk stratification - Wcx E.Coli and GBS, pansensitive. Bcx no growth in 48 (prelim) - S/P Vanco and Zosyn. Discontinued and started on Daptomycin and Cefepime - Acute renal failure, unclear etiology, possible 2/2 to Sepsis, Renal US negative for post renal obstruction. Workup sent by nephrology. Possible HD if no improvement tomorrow as per Nephro - C/W Maintenance fluids NS at 60cc/hr - Monitor I/O, electrolytes, acid-base, and fluid status daily - Management of chronic medical conditions as ordered - Heparin for DVT ppx - F/u Echo, CBC, BMP, Bcx Discussed case with Dr. Guanakito Dale, PGY2 <Silverio Calabrese - Last Filed: 05/26/18 23:35> Objective - Vital Signs/Intake and Output Vital Signs (last 24 hours): Temp Pulse Resp BP Pulse Ox 98.3 F 81 18 163/75 H 99 05/26/18 20:05 05/26/18 20:05 05/26/18 20:05 05/26/18 20:05 05/26/18 20:05 Intake and Output: 05/26/18 05/26/18 11:59 23:59 Intake Total 980 Balance 980 - Medications Medications: Current Medications Acetaminophen (Tylenol 325mg Tab) 650 mg PO PRN PRN PRN Reason: Fever >100.4 F Last Admin: 05/15/18 20:41 Dose: 650 mg Acetaminophen (Tylenol 325mg Tab) 650 mg PO Q4 PRN PRN Reason: Pain, Mild (1-3) Last Admin: 05/23/18 04:12 Dose: 650 mg Aspirin (Ecotrin) 81 mg PO DAILY [facility] Last Admin: 05/26/18 08:31 Dose: 81 mg Clopidogrel Bisulfate (Plavix) 75 mg PO DAILY [facility] Last Admin: 05/26/18 08:31 Dose: 75 mg Glipizide (Glucotrol) 5 mg PO BIDAC [facility] Last Admin: 05/26/18 15:47 Dose: 5 mg Heparin Sodium (Porcine) (Heparin) 5,000 units SC Q12 [facility]; Protocol Last Admin: 05/26/18 22:16 Dose: 5,000 units Ceftriaxone Sodium 2 gm/ (Sodium Chloride) 100 mls @ 100 mls/hr IVPB DAILY [facility]; Protocol Last Admin: 05/26/18 14:47 Dose: 100 mls/hr Insulin Human Lispro (Humalog) 0 units SC ACCU-CHECK [facility]; Protocol Last Admin: 05/26/18 22:18 Dose: Not Given Metoprolol Tartrate (Lopressor) 25 mg PO DAILY [facility] Last Admin: 05/26/18 08:31 Dose: 25 mg Sevelamer Carbonate (Renvela) 800 mg PO TIDWM [facility] Last Admin: 05/26/18 16:27 Dose: 800 mg - Labs Labs: 05/26/18 05:33 05/26/18 05:33 PT 13.5 Seconds (9.8-13.1) H 05/17/18 05:05 INR 1.2 05/17/18 05:05 APTT 30.8 Seconds (25.6-37.1) 05/17/18 05:05 Assessment and Plan - Assessment and Plan (Free Text) Assessment: Patient was personally seen and examined by me in rounds with residents. Available labs and diagnostic data reviewed. Case, Patient's condition and management plan discussed with residents in rounds. Agree with resident's progress note. Plan: As ordered.
[2018-05-16 09:20] LABS: URIC ACID 7.6 mg/Dl (3.5-8.5)
--- NOTE | 2018-05-16 11:06 | CP.PCM.PN ---
Subjective - Date & Time of Evaluation Date of Evaluation: 05/16/18 Time of Evaluation: 10:59 - Subjective Subjective: Podiatry Progress Note: Dr. Ang Patient seen and evaluated this AM for R 2nd digit necrosis. Patient resting comfortably and in NAD. Patient denies any pain to his right foot at this time. Patient aware for plan for surgical intervention at this time. Denies nausea/vomiting/fever/shortness of breath. Objective - Vital Signs/Intake and Output Vital Signs (last 24 hours): Temp Pulse Resp BP Pulse Ox 99.0 F 97 H 18 165/79 H 93 L 05/16/18 08:00 05/16/18 08:21 05/16/18 08:00 05/16/18 08:21 05/16/18 08:00 - Medications Medications: Current Medications Acetaminophen (Tylenol 325mg Tab) 650 mg PO PRN PRN PRN Reason: Fever >100.4 F Last Admin: 05/15/18 20:41 Dose: 650 mg Aspirin (Ecotrin) 81 mg PO DAILY [facility] Last Admin: 05/15/18 09:58 Dose: Not Given Clopidogrel Bisulfate (Plavix) 75 mg PO DAILY [facility] Last Admin: 05/16/18 08:17 Dose: 75 mg Glipizide (Glucotrol) 5 mg PO BIDAC [facility] Last Admin: 05/16/18 08:17 Dose: 5 mg Heparin Sodium (Porcine) (Heparin) 5,000 units SC Q12 [facility]; Protocol Daptomycin 350 mg/ Sodium (Chloride) 100 mls @ 100 mls/hr IV Q48H [facility]; Protocol Stop: 05/20/18 18:01 Last Admin: 05/15/18 18:58 Dose: 100 mls/hr Sodium Chloride (Sodium Chloride 0.45%) 1,000 mls @ 60 mls/hr IV .[id number] [facility] Stop: 05/17/18 08:36 Cefepime HCl 0.25 gm/ Sodium (Chloride) 50 mls @ 50 mls/hr IVPB Q12 [facility]; Protocol Clindamycin Phosphate (Cleocin 600mg/50ml D5w) 600 mg in 50 mls @ 50 mls/hr IVPB Q12 [facility]; Protocol Insulin Human Lispro (Humalog) 0 units SC ACCU-CHECK [facility]; Protocol Last Admin: 05/16/18 08:21 Dose: Not Given Metoprolol Tartrate (Lopressor) 25 mg PO DAILY [facility] Last Admin: 05/16/18 08:21 Dose: 25 mg - Labs Labs: 05/16/18 04:50 05/16/18 04:50 - Constitutional Appears: Non-toxic, No Acute Distress - Head Exam Head Exam: ATRAUMATIC, NORMOCEPHALIC - Extremities Exam Additional comments: RLE Exam: Vasc: DP and PT 1/4 faintly palpable, CFT less than 3 seconds X 3, CFT absent at the tip of the right 2nd digit, significant edema noted at the right 2nd digit, and the distal aspect of the foot, increased warmth to the dorsum of the foot and the 2nd digit Ortho: right hallux amputation, no pain appreciated at this time, ankle joint range of motion within normal limits Neuro: Gross and protective sensation diminished Derm: 2nd digit gangrenous changes noted at the distal tip now extending proximally to the level of the MPJ, with brijesh-wound erythema and edema, no fluctuance noted at this time, negative probe to bone, no active drainage, no malodor, blueish discoloration noted to the third digit dorsally. Bullae formation plantar 3rd interspace as well as plantar midfoot - Neurological Exam Neurological Exam: Alert, Awake - Psychiatric Exam Psychiatric exam: Normal Affect, Normal Mood - Skin Skin Exam: Warm Assessment and Plan - Assessment and Plan (Free Text) Assessment: 72M patient with dry gangrene to R 2nd digit with increasing color changes extending to 3-5th digits Plan: Patient seen and evaluated at bedside Discussed with Dr. Ang Afebrile, WBC 18.9, ESR 94, CRP 219.10 Right Foot X-ray- diffuse increased soft tissue swelling when compared to prior, infectious or other inflammatory process, soft tissue emphysema not appreciated New R foot x-ray (05/14): mild decrease in soft tissue swelling. No new soft tissue emphysema identified Wound Cultures- Ecoli, beta hemolytic strep B Wound dressed with betadine soaked DSD Ordered vascular consult- recommendations appreciated Ordered infectious disease consult- recommendations appreciated Plan for TMA pending vascular recommendations Plan for OR today pending cardiac risk assessment for debridement Podiatry will continue to follow patient while in house
[2018-05-16] MEDS: Cefepime 0.25 GM in Sodium Chloride 0.9% 50 ML IVPB SCH ×2 (11:27→20:32)
[2018-05-16] MEDS: Sodium Chloride 0.45% 1,000 ML IV SCH (11:30)
[2018-05-16 12:32] LABS: COMPLEMENT C4 28.5 mg/dL (14.0-44.0)
--- NOTE | 2018-05-16 12:36 | CP.PCM.CON ---
History of Present Illness - History of Present Illness History of Present Illness: Pt states thar he feels OK. Denied nausea or vomiting. Eating OK per . Past Patient History - Infectious Disease Hx of Infectious Diseases: None - Past Medical History & Family History Past Medical History?: Yes - Past Social History Smoking Status: Former Smoker Home Situation {Lives}: With Family - CARDIAC Hx Hypertension: Yes - PULMONARY Hx Respiratory Disorders: No - NEUROLOGICAL Hx Neurological Disorder: No - HEENT Hx HEENT Problems: No - RENAL Hx Chronic Kidney Disease: No - ENDOCRINE/METABOLIC Hx Endocrine Disorders: Yes Hx Diabetes Mellitus Type 2: Yes - HEMATOLOGICAL/ONCOLOGICAL Hx AIDS: No Hx Human Immunodeficiency Virus (HIV): No - INTEGUMENTARY Hx Dermatological Problems: No - MUSCULOSKELETAL/RHEUMATOLOGICAL Hx Musculoskeletal Disorders: No Hx Falls: No Hx Osteomyelitis: Yes (right foot) - GASTROINTESTINAL Hx Gastrointestinal Disorders: No - GENITOURINARY/GYNECOLOGICAL Hx Genitourinary Disorders: No - PSYCHIATRIC Hx Psychophysiologic Disorder: No Hx Substance Use: No - SURGICAL HISTORY Hx Surgeries: No - ANESTHESIA Hx Anesthesia: No Hx Anesthesia Reactions: No Hx Malignant Hyperthermia: No Meds Allergies/Adverse Reactions: Allergies Allergy/AdvReac Type Severity Reaction Status Date / Time No Known Allergies Allergy Verified 03/14/18 17:30 - Medications Medications: Current Medications Acetaminophen (Tylenol 325mg Tab) 650 mg PO PRN PRN PRN Reason: Fever >100.4 F Last Admin: 05/15/18 20:41 Dose: 650 mg Aspirin (Ecotrin) 81 mg PO DAILY [facility] Last Admin: 05/15/18 09:58 Dose: Not Given Clopidogrel Bisulfate (Plavix) 75 mg PO DAILY [facility] Last Admin: 05/16/18 08:17 Dose: 75 mg Glipizide (Glucotrol) 5 mg PO BIDAC [facility] Last Admin: 05/16/18 08:17 Dose: 5 mg Heparin Sodium (Porcine) (Heparin) 5,000 units SC Q12 [facility]; Protocol Last Admin: 05/16/18 11:28 Dose: Not Given Daptomycin 350 mg/ Sodium (Chloride) 100 mls @ 100 mls/hr IV Q48H [facility]; Protocol Stop: 05/20/18 18:01 Last Admin: 05/15/18 18:58 Dose: 100 mls/hr Sodium Chloride (Sodium Chloride 0.45%) 1,000 mls @ 60 mls/hr IV .[id number] [facility] Stop: 05/17/18 08:36 Last Admin: 05/16/18 11:30 Dose: 60 mls/hr Cefepime HCl 0.25 gm/ Sodium (Chloride) 50 mls @ 50 mls/hr IVPB Q12 [facility]; Protocol Last Admin: 05/16/18 11:27 Dose: Not Given Clindamycin Phosphate (Cleocin 600mg/50ml D5w) 600 mg in 50 mls @ 50 mls/hr IVPB Q12 [facility]; Protocol Insulin Human Lispro (Humalog) 0 units SC ACCU-CHECK [facility]; Protocol Last Admin: 05/16/18 08:21 Dose: Not Given Metoprolol Tartrate (Lopressor) 25 mg PO DAILY [facility] Last Admin: 05/16/18 08:21 Dose: 25 mg Physical Exam - Constitutional Appears: Non-toxic - Head Exam Head Exam: ATRAUMATIC, NORMOCEPHALIC - Eye Exam Additional comments: No icterus - ENT Exam ENT Exam: Mucous Membranes Moist - Neck Exam Additional comments: No jugular venous distension while supine - Respiratory Exam Respiratory Exam: NORMAL BREATHING PATTERN Additional comments: Lungs are clear. Good air entry B/L - Cardiovascular Exam Cardiovascular Exam: REGULAR RHYTHM Additional comments: Comfortable supine No S3 . No rub - GI/Abdominal Exam Additional comments: Softly distended. Nonteder - Extremities Exam Additional comments: No edema. Rt foot dressed Results - Vital Signs Recent Vital Signs: Last Vital Signs Temp 99.4 F 05/16/18 12:00 Pulse 84 05/16/18 12:00 Resp 18 05/16/18 12:00 BP 166/94 H 05/16/18 12:00 Pulse Ox 94 L 05/16/18 12:00 - Labs Result Diagrams: 05/16/18 04:50 05/16/18 04:50 Labs: Laboratory Results - last 24 hr 05/13/18 05/15/18 05/15/18 16:44 15:09 16:08 WBC RBC Hgb Hct MCV MCH MCHC RDW Plt Count Sodium Potassium Chloride Carbon Dioxide Anion Gap BUN Creatinine Est GFR ( Amer) Est GFR (Non-Af Amer) POC Glucose (mg/dL) 249 H Random Glucose Hemoglobin A1c 8.4 H Lactic Acid Uric Acid Calcium Phosphorus Magnesium Total Bilirubin AST ALT Alkaline Phosphatase Lactate Dehydrogenase Total Creatine Kinase Total Protein Albumin Globulin Albumin/Globulin Ratio Urine Color Urine Clarity Urine pH Ur Specific [place] Urine Protein Urine Glucose (UA) Urine Ketones Urine Blood Urine Nitrate Urine Bilirubin Urine Urobilinogen Ur Leukocyte Esterase Urine RBC (Auto) Urine Microscopic WBC Ur Squamous Epith Cells Urine Bacteria Urine Eosinophils U Random Total Protein Ur Random Sodium Ur Random Potassium Urine Chloride Complement C3 108.0 Complement C4 28.5 05/15/18 05/15/18 05/15/18 16:37 16:37 16:37 WBC RBC Hgb Hct MCV MCH MCHC RDW Plt Count Sodium Potassium Chloride Carbon Dioxide Anion Gap BUN Creatinine Est GFR ( Amer) Est GFR (Non-Af Amer) POC Glucose (mg/dL) Random Glucose Hemoglobin A1c Lactic Acid Uric Acid Calcium Phosphorus Magnesium Total Bilirubin AST ALT Alkaline Phosphatase Lactate Dehydrogenase Total Creatine Kinase Total Protein Albumin Globulin Albumin/Globulin Ratio Urine Color Yellow Urine Clarity Slighty-cloudy Urine pH 6.0 Ur Specific [place] 1.012 Urine Protein 100 Urine Glucose (UA) 50 Urine Ketones Negative Urine Blood Small Urine Nitrate Negative Urine Bilirubin Negative Urine Urobilinogen 0.2-1.0 Ur Leukocyte Esterase Mod Urine RBC (Auto) 6 H Urine Microscopic WBC 21 H Ur Squamous Epith Cells 2 Urine Bacteria Rare Urine Eosinophils U Random Total Protein 85 Ur Random Sodium 80 Ur Random Potassium 27.9 Urine Chloride Complement C3 Complement C4 05/15/18 05/15/18 05/15/18 16:37 17:58 21:10 WBC RBC Hgb Hct MCV MCH MCHC RDW Plt Count Sodium Potassium Chloride Carbon Dioxide Anion Gap BUN Creatinine Est GFR ( Amer) Est GFR (Non-Af Amer) POC Glucose (mg/dL) 156 H Random Glucose Hemoglobin A1c Lactic Acid Uric Acid Calcium Phosphorus Magnesium Total Bilirubin AST ALT Alkaline Phosphatase Lactate Dehydrogenase Total Creatine Kinase Total Protein Albumin Globulin Albumin/Globulin Ratio Urine Color Urine Clarity Urine pH Ur Specific [place] Urine Protein Urine Glucose (UA) Urine Ketones Urine Blood Urine Nitrate Urine Bilirubin Urine Urobilinogen Ur Leukocyte Esterase Urine RBC (Auto) Urine Microscopic WBC Ur Squamous Epith Cells Urine Bacteria Urine Eosinophils Negative U Random Total Protein Ur Random Sodium Ur Random Potassium Urine Chloride 80 Complement C3 Complement C4 05/16/18 05/16/18 05/16/18 04:50 04:50 05:23 WBC 18.9 H RBC 3.75 L Hgb 10.7 L Hct 32.0 L MCV 85.3 MCH 28.4 MCHC 33.4 RDW 13.3 Plt Count 400 Sodium 140 Potassium 4.8 Chloride 109 H Carbon Dioxide 18 L Anion Gap 18 BUN 64 H Creatinine 7.1 H Est GFR ( Amer) 9 Est GFR (Non-Af Amer) 8 POC Glucose (mg/dL) 132 H Random Glucose 129 H Hemoglobin A1c Lactic Acid Uric Acid Calcium 8.7 Phosphorus 4.5 Magnesium 1.8 Total Bilirubin 0.4 AST 33 ALT 25 Alkaline Phosphatase 107 Lactate Dehydrogenase Total Creatine Kinase Total Protein 6.9 Albumin 2.9 L Globulin 4.0 H Albumin/Globulin Ratio 0.7 L Urine Color Urine Clarity Urine pH Ur Specific [place] Urine Protein Urine Glucose (UA) Urine Ketones Urine Blood Urine Nitrate Urine Bilirubin Urine Urobilinogen Ur Leukocyte Esterase Urine RBC (Auto) Urine Microscopic WBC Ur Squamous Epith Cells Urine Bacteria Urine Eosinophils U Random Total Protein Ur Random Sodium Ur Random Potassium Urine Chloride Complement C3 Complement C4 05/16/18 05/16/18 05/16/18 08:50 08:50 10:41 WBC RBC Hgb Hct MCV MCH MCHC RDW Plt Count Sodium Potassium Chloride Carbon Dioxide Anion Gap BUN Creatinine Est GFR ( Amer) Est GFR (Non-Af Amer) POC Glucose (mg/dL) 221 H Random Glucose Hemoglobin A1c Lactic Acid 0.7 Uric Acid 7.6 Calcium Phosphorus Magnesium Total Bilirubin AST ALT Alkaline Phosphatase Lactate Dehydrogenase 365 Total Creatine Kinase 26 L Total Protein Albumin Globulin Albumin/Globulin Ratio Urine Color Urine Clarity Urine pH Ur Specific [place] Urine Protein Urine Glucose (UA) Urine Ketones Urine Blood Urine Nitrate Urine Bilirubin Urine Urobilinogen Ur Leukocyte Esterase Urine RBC (Auto) Urine Microscopic WBC Ur Squamous Epith Cells Urine Bacteria Urine Eosinophils U Random Total Protein Ur Random Sodium Ur Random Potassium Urine Chloride Complement C3 Complement C4 Assessment & Plan - Assessment and Plan (Free Text) Assessment: CHARIS Most likely toxic /or multifactorial There is further rise in serum creatinine. At this point Pt does not appear toxic K= is normal Infected Rt second toe with gangrene. From renal point of view Pt is not stable for OR. However in an emergency situation such as this Pt can be taken for wound debridement. Will monitor Pt closely Pt also has UTI on Abx. Blood cultyre one set is negative so far, Plan: Repeat BMP in PM Repeat Vanco trough level Daily I & Os Avoid ACEI or ARBS If kidney function worsens will arrange for dialysis.
[2018-05-16] MEDS ORDERED: Oxycodone/Acetaminophen 5/325 mg Tab PO ONE (13:40)
[2018-05-16] MEDS: Clindamycin 600mg/50ml D5W 600 MG/50 ML VIAL IVPB SCH ×2 (14:31→20:23)
[2018-05-16 14:37] LABS: CALCIUM 8.4 mg/dL (8.4-10.2)
[2018-05-16] MEDS ORDERED: Lidocaine 2% Inj (20ml) IJ ONE (17:11)
--- NOTE | 2018-05-16 17:13 | CP.PCM.PN ---
Subjective - Date & Time of Evaluation Date of Evaluation: 05/16/18 Time of Evaluation: 17:10 - Subjective Subjective: Yuniel Fuentes, PGY-1, Cardiology Progress Note for Dr. Tabares Patient was seen and evaluated at bedside. Patient had no acute overnight events. Patient continues to have right 2nd toe darkening and pain. Sensation is intact throughout leg except for right 2nd toe. Objective - Vital Signs/Intake and Output Vital Signs (last 24 hours): Temp Pulse Resp BP Pulse Ox 99.5 F 94 H 16 164/79 H 95 05/16/18 16:17 05/16/18 16:17 05/16/18 16:17 05/16/18 16:17 05/16/18 16:17 - Medications Medications: Current Medications Acetaminophen (Tylenol 325mg Tab) 650 mg PO PRN PRN PRN Reason: Fever >100.4 F Last Admin: 05/15/18 20:41 Dose: 650 mg Aspirin (Ecotrin) 81 mg PO DAILY [facility] Last Admin: 05/15/18 09:58 Dose: Not Given Clopidogrel Bisulfate (Plavix) 75 mg PO DAILY [facility] Last Admin: 05/16/18 08:17 Dose: 75 mg Glipizide (Glucotrol) 5 mg PO BIDAC [facility] Last Admin: 05/16/18 08:17 Dose: 5 mg Heparin Sodium (Porcine) (Heparin) 5,000 units SC Q12 [facility]; Protocol Last Admin: 05/16/18 11:28 Dose: Not Given Daptomycin 350 mg/ Sodium (Chloride) 100 mls @ 100 mls/hr IV Q48H [facility]; Protocol Stop: 05/20/18 18:01 Last Admin: 05/15/18 18:58 Dose: 100 mls/hr Sodium Chloride (Sodium Chloride 0.45%) 1,000 mls @ 60 mls/hr IV .[id number] [facility] Stop: 05/17/18 08:36 Last Admin: 05/16/18 11:30 Dose: 60 mls/hr Cefepime HCl 0.25 gm/ Sodium (Chloride) 50 mls @ 50 mls/hr IVPB Q12 [facility]; Protocol Last Admin: 05/16/18 11:27 Dose: Not Given Clindamycin Phosphate (Cleocin 600mg/50ml D5w) 600 mg in 50 mls @ 50 mls/hr IVPB Q12 [facility]; Protocol Last Admin: 05/16/18 14:31 Dose: 50 mls/hr Insulin Human Lispro (Humalog) 0 units SC ACCU-CHECK [facility]; Protocol Last Admin: 05/16/18 12:25 Dose: 3 units Metoprolol Tartrate (Lopressor) 25 mg PO DAILY [facility] Last Admin: 05/16/18 08:21 Dose: 25 mg - Labs Labs: 05/16/18 04:50 05/16/18 14:00 - Constitutional Appears: Well, Non-toxic, No Acute Distress - Head Exam Head Exam: ATRAUMATIC, NORMAL INSPECTION, NORMOCEPHALIC - Eye Exam Eye Exam: EOMI, PERRL - ENT Exam ENT Exam: Mucous Membranes Moist - Neck Exam Neck Exam: Full ROM - Respiratory Exam Respiratory Exam: Clear to Ausculation Bilateral, NORMAL BREATHING PATTERN - Cardiovascular Exam Cardiovascular Exam: REGULAR RHYTHM, RRR, +S1, +S2 - GI/Abdominal Exam GI & Abdominal Exam: Soft, Normal Bowel Sounds. absent: Tenderness - Extremities Exam Extremities Exam: Full ROM, Normal Capillary Refill - Neurological Exam Neurological Exam: Alert, Awake, CN II-XII Intact, Oriented x3 Additional comments: numbness of right 2nd toe - Psychiatric Exam Psychiatric exam: Normal Affect, Normal Mood - Skin Skin Exam: Dry, Intact Additional comments: darkening of right 2nd toe Assessment and Plan - Assessment and Plan (Free Text) Assessment: Peripheral vascular disease likely causing ischemia of right 2nd toe Hypertension Diabetes Mellitus type II Plan: Peripheral vascular disease likely causing ischemia of right 2nd toe Hypertension Diabetes Mellitus type II EKG: NS with HR: 80 BUN/Cr: worsened to 67/7.3 today from creatinine of 6 yesterday. HgbA1c: 8.4 Will follow up echocardiogram Due to patient's renal function, CTA of bilateral lower extremities is unable to be performed and patient cannot be cleared from a cardiac standpoint for surgical debridement at this time. Medications: aspirin 81 mg daily held plavix 75 mg daily daptomycin 350 mg Q48 cefepime 1 gm Q12 gl[facility] 5 mg BIDAC held due to renal function lopressor 25 mg daily
[2018-05-16] MEDS ORDERED: Oxycodone/Acetaminophen 5/325 mg Tab PO PRN (18:40)
--- NOTE | 2018-05-16 20:38 | CARD ---
APPROVED REPORT Date of service: 05/16/2018 EXAM: Two-dimensional and M-mode echocardiogram with Doppler and color Doppler. Other Information Quality : GoodRhythm : NSR INDICATION Infection: Fever 2D DIMENSIONS IVSd1.18 (0.7-1.1cm)LVDd4.88 (3.9-5.9cm) LVOT Diameter2.13 (1.8-2.4cm)PWd1.12 (0.7-1.1cm) IVSs1.06 (0.8-1.2cm)LVDs4.09 (2.5-4.0cm) FS (%) 16.1 %PWs1.13 (0.8-1.2cm) M-Mode DIMENSIONS Left Atrium (MM)4.00 (2.5-4.0cm)IVSd0.71 (0.7-1.1cm) Aortic Root3.74 (2.2-3.7cm)LVDd5.97 (4.0-5.6cm) Aortic Cusp Exc.2.44 (1.5-2.0cm)PWd0.97 (0.7-1.1cm) IVSs1.21 cmFS (%) 33 % LVDs3.97 (2.0-3.8cm)PWs1.68 cm Aortic Valve AoV Peak Jxasqldl170.9cm/sAoV VTI25.8cmAO Peak GR.7mmHg LVOT Peak Zvovawqk00.2cm/sLVOT VTI17.02cmAO Mean GR.4mmHg CESAR (VMAX)1.36qp5VWE (VTI)1.23cm2 Mitral Valve MV E Wazrbacl62.1cm/sMV DECEL [id number] A Nrfdywtf152.0cm/s MV PKR05skG/A ratio0.8MVA (PHT)3.85cm2 TDI E/Lateral E'0.0E/Medial E'0.0 LEFT VENTRICLE The left ventricle is normal size. There is normal left ventricular wall thickness. The left ventricular systolic function is normal. The estimated ejection fraction is 55-60% No regional wall motion abnormalities noted.. Transmitral Doppler flow pattern is Grade I-abnormal relaxation pattern. No left ventricle thrombus noted on this study. There is no ventricular septal defect visualized. There is no left ventricular aneurysm. There is no mass noted in the left ventricle. RIGHT VENTRICLE The right ventricle is normal size. There is normal right ventricular wall thickness. The right ventricular systolic function is normal. ATRIA The left atrium is borderline dilated. The right atrium size is normal. The interatrial septum is intact with no evidence for an atrial septal defect. AORTIC VALVE The aortic valve is normal in structure. No aortic regurgitation is present. There is no aortic valvular stenosis. There is no aortic valvular vegetation. MITRAL VALVE The mitral valve is normal in structure. There is no evidence of mitral valve prolapse. There is no mitral valve stenosis. There is mild mitral valve regurgitation noted. TRICUSPID VALVE The tricuspid valve is normal in structure. There is no tricuspid valve regurgitation noted. There is no tricuspid valve prolapse or vegetation. There is no tricuspid valve stenosis. PULMONIC VALVE The pulmonary valve is normal in structure. There is no pulmonic valvular regurgitation. There is no pulmonic valvular stenosis. GREAT VESSELS The aortic root is normal in size. The ascending aorta is normal in size. The pulmonary artery is normal. The IVC is normal in size and collapses >50% with inspiration. PERICARDIAL EFFUSION There is no pericardial effusion. There is no pleural effusion. <Conclusion> The estimated ejection fraction is 55-60% Transmitral Doppler flow pattern is Grade I-abnormal relaxation pattern. The left atrium is borderline dilated. There is mild mitral valve regurgitation noted. There is no tricuspid valve regurgitation noted.
[2018-05-16 21:36] LABS: HEMOGLOBIN 10.5 g/dL (12.0-18.0); MEAN CELL VOLUME 85.1 fl (80.0-94.0); MEAN CORPUSCULAR HEMOGLOBIN 28.6 pg (27.0-31.0); MEAN CORPUSCULAR HGB CONC 33.6 g/dL (33.0-37.0); RBC 3.69 Mil/uL (4.40-5.90); RED CELL DISTRIBUTION WIDTH 13.3 % (11.5-14.5); WHITE BLOOD COUNT 15.5 K/uL (4.8-10.8)
[2018-05-17 05:47] LABS: HEMOGLOBIN 10.1 g/dL (12.0-18.0); MEAN CELL VOLUME 85.9 fl (80.0-94.0); MEAN CORPUSCULAR HEMOGLOBIN 28.8 pg (27.0-31.0); MEAN CORPUSCULAR HGB CONC 33.6 g/dL (33.0-37.0); RBC 3.5 Mil/uL (4.40-5.90); RED CELL DISTRIBUTION WIDTH 13.1 % (11.5-14.5)
[2018-05-17 05:52] LABS: PARTIAL THROMBOPLASTIN TIME 30.8 Seconds (25.6-37.1)
[2018-05-17 06:01] LABS: CALCIUM 8.7 mg/dL (8.4-10.2)
[2018-05-17] MEDS: Insulin Lispro (humaLOG) 100 Units/ml Inj SC SCH ×4 (06:21→23:00)
--- NOTE | 2018-05-17 07:15 | CP.PCM.PN ---
Subjective - Date & Time of Evaluation Date of Evaluation: 05/17/18 Time of Evaluation: 07:15 - Subjective Subjective: Podiatry Progress Note: Dr. Ang Patient seen and evaluated this AM R foot infection, POD#1 R 2nd digit amputation. Patient resting comfortably and in NAD. He denies any pain to his R lower extremity. Patient is aware that he still needs further procedure for R foot infection once he is medically stable. Denies any other pedal complaints at this time. Denies nausea/vomiting/fever. Objective - Vital Signs/Intake and Output Vital Signs (last 24 hours): Temp Pulse Resp BP Pulse Ox 98.2 F 91 H 22 165/80 H 96 05/17/18 04:00 05/17/18 06:00 05/17/18 06:00 05/17/18 06:00 05/17/18 06:00 Intake and Output: 05/17/18 05/17/18 06:59 18:59 Intake Total 1830 Output Total 950 Balance 880 - Medications Medications: Current Medications Acetaminophen (Tylenol 325mg Tab) 650 mg PO PRN PRN PRN Reason: Fever >100.4 F Last Admin: 05/15/18 20:41 Dose: 650 mg Aspirin (Ecotrin) 81 mg PO DAILY [facility] Last Admin: 05/15/18 09:58 Dose: Not Given Clopidogrel Bisulfate (Plavix) 75 mg PO DAILY [facility] Last Admin: 05/16/18 08:17 Dose: 75 mg Glipizide (Glucotrol) 5 mg PO BIDAC [facility] Last Admin: 05/16/18 08:17 Dose: 5 mg Heparin Sodium (Porcine) (Heparin) 5,000 units SC Q12 [facility]; Protocol Last Admin: 05/16/18 20:23 Dose: 5,000 units Daptomycin 350 mg/ Sodium (Chloride) 100 mls @ 100 mls/hr IV Q48H [facility]; Protocol Stop: 05/20/18 18:01 Last Admin: 05/15/18 18:58 Dose: 100 mls/hr Sodium Chloride (Sodium Chloride 0.45%) 1,000 mls @ 60 mls/hr IV .[id number] [facility] Stop: 05/17/18 08:36 Last Admin: 05/16/18 11:30 Dose: 60 mls/hr Cefepime HCl 0.25 gm/ Sodium (Chloride) 50 mls @ 50 mls/hr IVPB Q12 [facility]; Protocol Last Admin: 05/16/18 20:32 Dose: 50 mls/hr Clindamycin Phosphate (Cleocin 600mg/50ml D5w) 600 mg in 50 mls @ 50 mls/hr IVPB Q12 [facility]; Protocol Last Admin: 05/16/18 20:23 Dose: 50 mls/hr Insulin Human Lispro (Humalog) 0 units SC ACCU-CHECK [facility]; Protocol Last Admin: 05/17/18 06:21 Dose: Not Given Metoprolol Tartrate (Lopressor) 25 mg PO DAILY [facility] Last Admin: 05/16/18 08:21 Dose: 25 mg Oxycodone/Acetaminophen (Percocet 5/325 Mg Tab) 1 tab PO Q4 PRN PRN Reason: Pain, moderate (4-7) Stop: 05/19/18 18:41 Last Admin: 05/16/18 20:22 Dose: 1 tab - Labs Labs: 05/17/18 05:05 05/17/18 05:05 APTT 30.8 Seconds (25.6-37.1) 05/17/18 05:05 - Constitutional Appears: Non-toxic, No Acute Distress - Head Exam Head Exam: ATRAUMATIC, NORMOCEPHALIC - Extremities Exam Additional comments: RLE Exam: Vasc: DP and PT 1/4 faintly palpable, CFT less than 3 seconds X 3, CFT absent at the tip of the right 2nd digit, significant edema noted at the right 2nd digit, and the distal aspect of the foot, increased warmth to the dorsum of the foot and the 2nd digit Ortho: right hallux amputation, no pain appreciated at this time, ankle joint range of motion within normal limits Neuro: Gross and protective sensation diminished Derm: Ulceration secondary to 2nd digit amputation with fibrotic base. Plantar ulceration appreciated with exposed plantar fascia. No purulence appreciated today, mild sangionous drainage appreciated. - Neurological Exam Neurological Exam: Alert, Awake, Oriented x3 - Psychiatric Exam Psychiatric exam: Normal Affect, Normal Mood Assessment and Plan - Assessment and Plan (Free Text) Assessment: 72M patient with R foot infection, POD#1 R 2nd digit amputation. Plan: Patient seen and evaluated at bedside Discussed with Dr. Ang Afebrile, WBC 12.0, ESR 94, CRP 219.10 Right Foot X-ray- diffuse increased soft tissue swelling when compared to prior, infectious or other inflammatory process, soft tissue emphysema not appreciated New R foot x-ray (05/14): mild decrease in soft tissue swelling. No new soft tissue emphysema identified Wound Cultures- Ecoli, beta hemolytic strep B New wound cultures; pending Wound packed with 1/4 iodoform packing, betadine soaked DSD Ordered vascular consult- recommendations appreciated Ordered infectious disease consult- recommendations appreciated Plan for TMA pending vascular recommendations Plan for OR for TMA once medically optimized and medial/cardiac clearance obtained Podiatry will continue to follow patient while in house
[2018-05-17 08:25] LABS: INR 1.2; PROTHROMBIN TIME 13.5 Seconds (9.8-13.1)
--- NOTE | 2018-05-17 08:51 | CP.PCM.PN ---
Subjective - Date & Time of Evaluation Date of Evaluation: 05/17/18 Time of Evaluation: 08:40 - Subjective Subjective: Pt is alert .Appears weak but NAD No asterexis Objective - Vital Signs/Intake and Output Vital Signs (last 24 hours): Temp Pulse Resp BP Pulse Ox 98.4 F 88 20 150/69 96 05/17/18 08:00 05/17/18 08:00 05/17/18 08:00 05/17/18 08:00 05/17/18 08:00 Intake and Output: 05/17/18 05/17/18 06:59 18:59 Intake Total 1830 120 Output Total 950 Balance 880 120 - Medications Medications: Current Medications Acetaminophen (Tylenol 325mg Tab) 650 mg PO PRN PRN PRN Reason: Fever >100.4 F Last Admin: 05/15/18 20:41 Dose: 650 mg Aspirin (Ecotrin) 81 mg PO DAILY [facility] Last Admin: 05/15/18 09:58 Dose: Not Given Clopidogrel Bisulfate (Plavix) 75 mg PO DAILY [facility] Last Admin: 05/16/18 08:17 Dose: 75 mg Glipizide (Glucotrol) 5 mg PO BIDAC [facility] Last Admin: 05/16/18 08:17 Dose: 5 mg Heparin Sodium (Porcine) (Heparin) 5,000 units SC Q12 [facility]; Protocol Last Admin: 05/16/18 20:23 Dose: 5,000 units Daptomycin 350 mg/ Sodium (Chloride) 100 mls @ 100 mls/hr IV Q48H [facility]; Protocol Stop: 05/20/18 18:01 Last Admin: 05/15/18 18:58 Dose: 100 mls/hr Cefepime HCl 0.25 gm/ Sodium (Chloride) 50 mls @ 50 mls/hr IVPB Q12 [facility]; Protocol Last Admin: 05/16/18 20:32 Dose: 50 mls/hr Clindamycin Phosphate (Cleocin 600mg/50ml D5w) 600 mg in 50 mls @ 50 mls/hr IVPB Q12 [facility]; Protocol Last Admin: 05/16/18 20:23 Dose: 50 mls/hr Insulin Human Lispro (Humalog) 0 units SC ACCU-CHECK [facility]; Protocol Last Admin: 05/17/18 06:21 Dose: Not Given Metoprolol Tartrate (Lopressor) 25 mg PO DAILY [facility] Last Admin: 05/16/18 08:21 Dose: 25 mg Oxycodone/Acetaminophen (Percocet 5/325 Mg Tab) 1 tab PO Q4 PRN PRN Reason: Pain, moderate (4-7) Stop: 05/19/18 18:41 Last Admin: 05/16/18 20:22 Dose: 1 tab - Labs Labs: 05/17/18 05:05 05/17/18 05:05 PT 13.5 Seconds (9.8-13.1) H 05/17/18 05:05 INR 1.2 05/17/18 05:05 APTT 30.8 Seconds (25.6-37.1) 05/17/18 05:05 - Constitutional Appears: No Acute Distress - Head Exam Head Exam: ATRAUMATIC, NORMOCEPHALIC - Eye Exam Additional comments: Conjunctiva pink. No icterus - Neck Exam Additional comments: No jugular venous distension - Respiratory Exam Respiratory Exam: NORMAL BREATHING PATTERN Additional comments: Lungs clear - Cardiovascular Exam Cardiovascular Exam: REGULAR RHYTHM Additional comments: No rub - Extremities Exam Additional comments: No edema Rt foot dressed Assessment and Plan - Assessment and Plan (Free Text) Assessment: Acute renal failure, ATN secondary to infectious process/sepsis/toxic Creat. continues to rise & now has significant acidosis. Needs dialysis. S/P debridement of Rt 2nd tos infected toe with gangrene. Tolerated well. PVD HTN now controlled DM Plan: Will proceed with dialysis as soon as dialysis catheter is placed. Dialysis procedure its benefits & risks were explained in detail to Pts & the Pt Dialysis orders are written Consent obtained from Pt. For permanent dialysis catheter placement by [email or web address]
[2018-05-17] MEDS: Clindamycin 600mg/50ml D5W 600 MG/50 ML VIAL IVPB SCH ×2 (09:25→20:23)
[2018-05-17] MEDS: Cefepime 0.25 GM in Sodium Chloride 0.9% 50 ML IVPB SCH ×2 (09:29→20:22)
[2018-05-17] MEDS: Sodium Chloride 0.45% 1,000 ML IV SCH (09:45)
--- NOTE | 2018-05-17 10:15 | CP.PCM.PN ---
<Kp Dale - Last Filed: 05/17/18 09:55> Subjective - Date & Time of Evaluation Date of Evaluation: 05/17/18 Time of Evaluation: 07:00 - Subjective Subjective: Pt seen and examined this am with Dr. Calabrese. at bedside. Pt reports pain and swelling in RLE is slightly improved. Crea 8.3 today (from 7.3) Discussed plan for HD today with [facility]mer, Dr. Monroe. Objective - Vital Signs/Intake and Output Vital Signs (last 24 hours): Temp Pulse Resp BP Pulse Ox 98.4 F 88 20 150/69 96 05/17/18 08:00 05/17/18 08:00 05/17/18 08:00 05/17/18 08:00 05/17/18 08:00 Intake and Output: 05/17/18 05/17/18 06:59 18:59 Intake Total 1830 120 Output Total 950 Balance 880 120 - Medications Medications: Current Medications Acetaminophen (Tylenol 325mg Tab) 650 mg PO PRN PRN PRN Reason: Fever >100.4 F Last Admin: 05/15/18 20:41 Dose: 650 mg Aspirin (Ecotrin) 81 mg PO DAILY [facility] Last Admin: 05/15/18 09:58 Dose: Not Given Clopidogrel Bisulfate (Plavix) 75 mg PO DAILY [facility] Last Admin: 05/16/18 08:17 Dose: 75 mg Glipizide (Glucotrol) 5 mg PO BIDAC [facility] Last Admin: 05/16/18 08:17 Dose: 5 mg Heparin Sodium (Porcine) (Heparin) 5,000 units SC Q12 [facility]; Protocol Last Admin: 05/16/18 20:23 Dose: 5,000 units Daptomycin 350 mg/ Sodium (Chloride) 100 mls @ 100 mls/hr IV Q48H [facility]; Protocol Stop: 05/20/18 18:01 Last Admin: 05/15/18 18:58 Dose: 100 mls/hr Sodium Chloride (Sodium Chloride 0.45%) 1,000 mls @ 60 mls/hr IV .[id number] [facility] Stop: 05/17/18 08:36 Last Admin: 05/16/18 11:30 Dose: 60 mls/hr Cefepime HCl 0.25 gm/ Sodium (Chloride) 50 mls @ 50 mls/hr IVPB Q12 [facility]; Protocol Last Admin: 05/16/18 20:32 Dose: 50 mls/hr Clindamycin Phosphate (Cleocin 600mg/50ml D5w) 600 mg in 50 mls @ 50 mls/hr IVPB Q12 [facility]; Protocol Last Admin: 05/16/18 20:23 Dose: 50 mls/hr Insulin Human Lispro (Humalog) 0 units SC ACCU-CHECK [facility]; Protocol Last Admin: 05/17/18 06:21 Dose: Not Given Metoprolol Tartrate (Lopressor) 25 mg PO DAILY [facility] Last Admin: 05/16/18 08:21 Dose: 25 mg Oxycodone/Acetaminophen (Percocet 5/325 Mg Tab) 1 tab PO Q4 PRN PRN Reason: Pain, moderate (4-7) Stop: 05/19/18 18:41 Last Admin: 05/16/18 20:22 Dose: 1 tab - Labs Labs: 05/17/18 05:05 05/17/18 05:05 PT 13.5 Seconds (9.8-13.1) H 05/17/18 05:05 INR 1.2 05/17/18 05:05 APTT 30.8 Seconds (25.6-37.1) 05/17/18 05:05 - Constitutional Appears: No Acute Distress - Head Exam Head Exam: NORMAL INSPECTION - Eye Exam Eye Exam: Normal appearance - ENT Exam ENT Exam: Mucous Membranes Moist - Respiratory Exam Respiratory Exam: Clear to Ausculation Bilateral. absent: Rales, Wheezes - Cardiovascular Exam Cardiovascular Exam: REGULAR RHYTHM, +S1, +S2. absent: Murmur - GI/Abdominal Exam GI & Abdominal Exam: Soft, Normal Bowel Sounds. absent: Tenderness - Extremities Exam Extremities Exam: Pedal Edema Additional comments: R. LE wrapped in gauze per podiatry, mild swelling of LE noted, same as yesterday Assessment and Plan - Assessment and Plan (Free Text) Assessment: 72 y/o male with PMHx of HTN and Type II DM was seen and evaluated at bedside for right 2nd digit necrosis and acute renal failure that developed during admission. #Sepsis, resolved #2nd Digit Necrosis of R. Foot #Acute Renal Failure #PAD Consultations on board: Nephrology, Podiatry, Vascular, ID - Pt had 2nd digit amputation, I&D and debridement in OR yesterday by Podiatry team. WBC trending down. Plan for R. TMA of foot once medically stabilized - Wcx E.Coli and GBS, pansensitive. Bcx no growth in 48 - C/W Daptomycin and Cefepime - Acute renal failure, unclear etiology. Plan for Urgent HD today as per nephro logy. - Monitor I/O, electrolytes, acid-base (+) Acidosis- Bicarb 14 today, and fluid status daily - Myocardial Stress today as per cardio. Echo EF 55-60% - Management of chronic medical conditions as ordered - Heparin for DVT ppx - F/u CBC, BMP, Bcx Discussed case with Dr. Guanakito Dale, PGY2 <Silverio Calabrese - Last Filed: 05/26/18 23:41> Objective - Vital Signs/Intake and Output Vital Signs (last 24 hours): Temp Pulse Resp BP Pulse Ox 98.3 F 81 18 163/75 H 99 05/26/18 20:05 05/26/18 20:05 05/26/18 20:05 05/26/18 20:05 05/26/18 20:05 Intake and Output: 05/26/18 05/26/18 11:59 23:59 Intake Total 980 Balance 980 - Medications Medications: Current Medications Acetaminophen (Tylenol 325mg Tab) 650 mg PO PRN PRN PRN Reason: Fever >100.4 F Last Admin: 05/15/18 20:41 Dose: 650 mg Acetaminophen (Tylenol 325mg Tab) 650 mg PO Q4 PRN PRN Reason: Pain, Mild (1-3) Last Admin: 05/23/18 04:12 Dose: 650 mg Aspirin (Ecotrin) 81 mg PO DAILY [facility] Last Admin: 05/26/18 08:31 Dose: 81 mg Clopidogrel Bisulfate (Plavix) 75 mg PO DAILY [facility] Last Admin: 05/26/18 08:31 Dose: 75 mg Glipizide (Glucotrol) 5 mg PO BIDAC [facility] Last Admin: 05/26/18 15:47 Dose: 5 mg Heparin Sodium (Porcine) (Heparin) 5,000 units SC Q12 [facility]; Protocol Last Admin: 05/26/18 22:16 Dose: 5,000 units Ceftriaxone Sodium 2 gm/ (Sodium Chloride) 100 mls @ 100 mls/hr IVPB DAILY [facility]; Protocol Last Admin: 05/26/18 14:47 Dose: 100 mls/hr Insulin Human Lispro (Humalog) 0 units SC ACCU-CHECK [facility]; Protocol Last Admin: 05/26/18 22:18 Dose: Not Given Metoprolol Tartrate (Lopressor) 25 mg PO DAILY [facility] Last Admin: 05/26/18 08:31 Dose: 25 mg Sevelamer Carbonate (Renvela) 800 mg PO TIDWM [facility] Last Admin: 05/26/18 16:27 Dose: 800 mg - Labs Labs: 05/26/18 05:33 05/26/18 05:33 PT 13.5 Seconds (9.8-13.1) H 05/17/18 05:05 INR 1.2 05/17/18 05:05 APTT 30.8 Seconds (25.6-37.1) 05/17/18 05:05 Assessment and Plan - Assessment and Plan (Free Text) Assessment: Patient was personally seen and examined by me in rounds with residents. Available labs and diagnostic data reviewed. Case, Patient's condition and management plan discussed with residents in rounds. Agree with resident's progress note. Plan: As ordered.
--- NOTE | 2018-05-17 11:24 | CP.PCM.PN ---
Subjective - Date & Time of Evaluation Date of Evaluation: 05/17/18 Time of Evaluation: 11:20 - Subjective Subjective: Yuniel Fuentes, PGY-1, Cardiology Progress Note for Dr. Tabares Patient was seen and evaluated at bedside. Patient had no acute overnight events. Patient continues to have right 2nd toe darkening and pain. Sensation is intact throughout leg except for right 2nd toe. Objective - Vital Signs/Intake and Output Vital Signs (last 24 hours): Temp Pulse Resp BP Pulse Ox 98.4 F 85 18 157/77 H 99 05/17/18 08:00 05/17/18 09:29 05/17/18 09:00 05/17/18 09:29 05/17/18 09:00 Intake and Output: 05/17/18 05/17/18 06:59 18:59 Intake Total 1830 290 Output Total 950 Balance 880 290 - Medications Medications: Current Medications Acetaminophen (Tylenol 325mg Tab) 650 mg PO PRN PRN PRN Reason: Fever >100.4 F Last Admin: 05/15/18 20:41 Dose: 650 mg Aspirin (Ecotrin) 81 mg PO DAILY [facility] Last Admin: 05/15/18 09:58 Dose: Not Given Clopidogrel Bisulfate (Plavix) 75 mg PO DAILY [facility] Last Admin: 05/16/18 08:17 Dose: 75 mg Glipizide (Glucotrol) 5 mg PO BIDAC [facility] Last Admin: 05/16/18 08:17 Dose: 5 mg Heparin Sodium (Porcine) (Heparin) 5,000 units SC Q12 [facility]; Protocol Last Admin: 05/16/18 20:23 Dose: 5,000 units Daptomycin 350 mg/ Sodium (Chloride) 100 mls @ 100 mls/hr IV Q48H [facility]; Protocol Stop: 05/20/18 18:01 Last Admin: 05/15/18 18:58 Dose: 100 mls/hr Cefepime HCl 0.25 gm/ Sodium (Chloride) 50 mls @ 50 mls/hr IVPB Q12 [facility]; Protocol Last Admin: 05/17/18 09:29 Dose: 50 mls/hr Clindamycin Phosphate (Cleocin 600mg/50ml D5w) 600 mg in 50 mls @ 50 mls/hr IVPB Q12 [facility]; Protocol Last Admin: 05/17/18 09:25 Dose: 50 mls/hr Insulin Human Lispro (Humalog) 0 units SC ACCU-CHECK [facility]; Protocol Last Admin: 05/17/18 06:21 Dose: Not Given Metoprolol Tartrate (Lopressor) 25 mg PO DAILY [facility] Last Admin: 05/17/18 09:29 Dose: 25 mg Oxycodone/Acetaminophen (Percocet 5/325 Mg Tab) 1 tab PO Q4 PRN PRN Reason: Pain, moderate (4-7) Stop: 05/19/18 18:41 Last Admin: 05/16/18 20:22 Dose: 1 tab Regadenoson (Lexiscan) 0.4 mg IVP ONCE ONE Stop: 05/17/18 11:21 - Labs Labs: 05/17/18 05:05 05/17/18 05:05 PT 13.5 Seconds (9.8-13.1) H 05/17/18 05:05 INR 1.2 05/17/18 05:05 APTT 30.8 Seconds (25.6-37.1) 05/17/18 05:05 - Constitutional Appears: Well, Non-toxic, No Acute Distress - Head Exam Head Exam: ATRAUMATIC, NORMAL INSPECTION, NORMOCEPHALIC - Eye Exam Eye Exam: EOMI, PERRL - ENT Exam ENT Exam: Mucous Membranes Moist - Respiratory Exam Respiratory Exam: Clear to Ausculation Bilateral, NORMAL BREATHING PATTERN - Cardiovascular Exam Cardiovascular Exam: REGULAR RHYTHM, RRR, +S1, +S2 - GI/Abdominal Exam GI & Abdominal Exam: Soft, Normal Bowel Sounds. absent: Tenderness - Extremities Exam Extremities Exam: Full ROM - Neurological Exam Neurological Exam: Alert, Awake, CN II-XII Intact, Oriented x3 - Psychiatric Exam Psychiatric exam: Normal Affect, Normal Mood - Skin Skin Exam: Dry, Intact, Normal Color Assessment and Plan - Assessment and Plan (Free Text) Assessment: Peripheral vascular disease likely causing ischemia of right 2nd toe Hypertension Diabetes Mellitus type II Plan: Peripheral vascular disease likely causing ischemia of right 2nd toe complicated with infection Hypertension Diabetes Mellitus type II EKG: NS with HR: 80 Echo 05/16: LVEF of 55-60%, left atrium borderline dilated, mild MR BUN/Cr: worsened to 67/8.3 today from creatinine of 7.3 yesterday. HgbA1c: 8.4 Due to patient's renal function, CTA of bilateral lower extremities is unable to be performed at this time. Will follow up stress test results Patient had debridement of right 2nd toe Medications: aspirin 81 mg daily held plavix 75 mg daily daptomycin 350 mg Q48 cefepime 1 gm Q12 clindamycin 600 mg Q12 glipizide 5 mg BIDAC held due to renal function lopressor 25 mg daily
[2018-05-17] MEDS ORDERED: Lidocaine Hydrochloride 1% 10 ML ONE (12:17)
--- NOTE | 2018-05-17 12:28 | PCM.SURG1 ---
Surgeon's Initial Post Op Note - Surgeon's Notes Surgeon: Brayden Rangel MD [employer] Head: NONE Type of Anesthesia: Local Pre-Operative Diagnosis: Acute renal failure Operative Findings: US showed a patent right IJV Post-Operative Diagnosis: Acute renal failure Operation Performed: Non tunneled HD catheter placement via the right IJV Specimen/Specimens Removed: NONE Estimated Blood Loss: EBL {In ML}: 2 Blood Products Given: N/A Drains Used: No Drains Post-Op Condition: Fair Date of Surgery/Procedure: 05/17/18 Time of Surgery/Procedure: 12:20
--- NOTE | 2018-05-17 12:36 | VASCULAR ---
PROCEDURE: Date of procedure: 05/17/2018 Procedure: Placement of a non tunneled hemodialysis catheter, CPT 15698 Medications: 6cc 1 percent lidocaine Radiation:0.32 MGy Fluoro time: 2 Seconds Images saved: 2 HISTORY: Acute Renal failure TECHNIQUE: Following informed consent, the patient's right neck was prepped and draped in the usual sterile fashion. Ultrasound showed a patent and compressible right internal jugular vein. After the skin was anesthetized with 1% lidocaine, the internal jugular vein was accessed under direct ultrasound guidance with micropuncture technique and a guidewire was advanced under fluoroscopic guidance into the SVC. The venotomy was then dilated to accommodate a non tunneled 15 hemodialysis catheter. An image documenting ultrasound guidance for vascular access was permanently saved. The catheter was tested and has adequate blood return for hemodialysis. The catheter was flushed and loaded with heparin per specified amounts. The catheter was secured to patient's skin. A dressing was applied. Post procedure chest x-ray showed a hemodialysis catheter at the caval atrial junction. IMPRESSION: Placement of a non tunneled 15 centimeter hemodialysis catheter via the right internal jugular vein. The tip of the catheter was confirmed with a postoperative chest x-ray and is at the cavoatrial junction. The catheter is functional ready for use.
--- NOTE | 2018-05-17 15:39 | CP.PCM.PN ---
Subjective - Date & Time of Evaluation Date of Evaluation: 05/17/18 Time of Evaluation: 15:39 Objective - Vital Signs/Intake and Output Vital Signs (last 24 hours): Temp Pulse Resp BP Pulse Ox 98.3 F 85 22 143/67 97 05/17/18 15:10 05/17/18 15:10 05/17/18 15:10 05/17/18 15:10 05/17/18 15:10 Intake and Output: 05/17/18 05/17/18 06:59 18:59 Intake Total 1830 1060 Output Total 950 Balance 880 1060 - Medications Medications: Current Medications Acetaminophen (Tylenol 325mg Tab) 650 mg PO PRN PRN PRN Reason: Fever >100.4 F Last Admin: 05/15/18 20:41 Dose: 650 mg Aspirin (Ecotrin) 81 mg PO DAILY [facility] Last Admin: 05/15/18 09:58 Dose: Not Given Clopidogrel Bisulfate (Plavix) 75 mg PO DAILY [facility] Last Admin: 05/16/18 08:17 Dose: 75 mg Glipizide (Glucotrol) 5 mg PO BIDAC [facility] Last Admin: 05/16/18 08:17 Dose: 5 mg Heparin Sodium (Porcine) (Heparin) 5,000 units SC Q12 [facility]; Protocol Last Admin: 05/16/18 20:23 Dose: 5,000 units Daptomycin 350 mg/ Sodium (Chloride) 100 mls @ 100 mls/hr IV Q48H [facility]; Protocol Stop: 05/20/18 18:01 Last Admin: 05/15/18 18:58 Dose: 100 mls/hr Cefepime HCl 0.25 gm/ Sodium (Chloride) 50 mls @ 50 mls/hr IVPB Q12 [facility]; Protocol Last Admin: 05/17/18 09:29 Dose: 50 mls/hr Clindamycin Phosphate (Cleocin 600mg/50ml D5w) 600 mg in 50 mls @ 50 mls/hr IVPB Q12 [facility]; Protocol Last Admin: 05/17/18 09:25 Dose: 50 mls/hr Insulin Human Lispro (Humalog) 0 units SC ACCU-CHECK [facility]; Protocol Last Admin: 05/17/18 06:21 Dose: Not Given Metoprolol Tartrate (Lopressor) 25 mg PO DAILY [facility] Last Admin: 05/17/18 09:29 Dose: 25 mg Oxycodone/Acetaminophen (Percocet 5/325 Mg Tab) 1 tab PO Q4 PRN PRN Reason: Pain, moderate (4-7) Stop: 05/19/18 18:41 Last Admin: 05/16/18 20:22 Dose: 1 tab - Labs Labs: 05/17/18 05:05 05/17/18 05:05 PT 13.5 Seconds (9.8-13.1) H 05/17/18 05:05 INR 1.2 05/17/18 05:05 APTT 30.8 Seconds (25.6-37.1) 05/17/18 05:05
--- NOTE | 2018-05-17 16:07 | CARD ---
APPROVED REPORT Date of service: 05/16/2018 Protocol: LEXISCAN Test Type: Stress Nuclear Medications: ASA 81mg, Plavix 75mg, Daptomiycin 350mg, Cefepime 1gm, Glipizide 5mg, Lopressor 25mg. Medical History: PVD, Ischemia of right 2nd toe, Hypertenison, DM. Target HR: 147 bpm Resting ECG: normal Resting Heart Rate: 82 bpm Resting Blood Pressure: 143/93mmHg submaximum (85%): 125 bpm TEST SUMMARY PREINJECTPRE-INJEC23:[id number]/78.0. [id number]/93.0. INJECTIONNS FLUSH00:[id number]/93.0. INJECTIONNUC MED00:[id number]/93.0. [id number]/[id number]. PROCEDURE Pharmacologic stress testing was performed using 0.4mg per 5ml of regadenoson given intravenously over 7-10 seconds. POST EXERCISE Reason for Termination: Target heart rate achieved Target HR: No Max HR: 86 bpm 69% of Maximum Predicted HR: 147 bpm Exercise duration: 00:22 min:sec, 0 Stage Exercise capacity: 1.0METs Max Blood Pressure: 156/68mmHg Blood Pressure response to exercise: normal resting BP - appropriate response Heart Rate response to exercise: appropriate Chest Pain: No, none Angina index: 0 Arrhythmia: No, none ST Change: No, none Deviation: 0 mm Clinical Indications Under Appropriate Use Criteria History of diabetes mellitus hypertension for stress test Stress EKG Interpretation No significant st or t waves changes noticed. No chest pain reported during exercises RESTING ECG Rhythm: Sinus Conduction: Normal Arrhythmias: None Repolarization: Normal STRESS ECG Rhythm: Sinus Conduction: Normal Arrhythmias: None Repolarization: Normal none ST-Segment changes. EXAM: Myocardial Perfusion REST/STRESS Image QualityGood Imaging Protocol The imaging protocol used to acquire images was Rest Tc-99m/stress Tc-99m 1 day Rest Spect myocardial perfusion imaging was performed in supine position 98 minutes following the injection of mCi of Tc-99 Myoview. Time of rest injection: 8:25 Time of rest imagin:03 At peak stress, the patient was injected intravenously with 30mCi of Tc-99 tetrofosmin after an infusion time of minutes and seconds. Time of stress injection: 11:25 Time of stress imagin:14 Gated Stress Spect was performed 169 minutes after intravenous Tc-99 Myoview injection. The images were gated to evaluate regional wall motion and calculate ventricular ejection fraction. NUCLEAR IMAGE INTERPRETATION Study quality was excellent. Left Ventricular size was Normal at Rest and Stress. Lung uptake was Normal. Left Ventricular ejection fraction is 60%. The rest and stress images show normal perfusion, normal contraction and thickening. LV Perfusion Normal perfusion scan LV Perfusion 1 The rest and stress images show normal perfusion. Wall Motion Normal wall motion CONCLUSION 1. Normal nuclear stress test Recommendation Medical therapy
[2018-05-17 18:39] LABS: CALCIUM 8.6 mg/dL (8.4-10.2)
[2018-05-17 21:47] LABS: HEPATITIS B SURFACE AG Negative (NEGATIVE)
[2018-05-17 21:49] LABS: HEPATITIS B SURFACE AG Negative (NEGATIVE)
[2018-05-17 21:52] LABS: HEPATITIS B CORE AB NEGATIVE (NEGATIVE)
[2018-05-17 21:54] LABS: HEPATITIS B CORE AB NEGATIVE (NEGATIVE)
[2018-05-17 22:04] LABS: HEPATITIS C ANTIBODY NEGATIVE (NEGATIVE)
[2018-05-17 22:07] LABS: HEPATITIS C ANTIBODY NEGATIVE (NEGATIVE)
[2018-05-18 05:10] LABS: BASO # 0.1 K/uL (0.0-0.2); BASO % 0.9 % (0.0-2.0); EOS # 0.4 K/uL (0.0-0.7); EOS % 3.6 % (0.0-4.0); HEMOGLOBIN 10.1 g/dL (12.0-18.0); LYMPH # 0.9 K/uL (1.0-4.3); LYMPH % 8.4 % (20.0-40.0); MEAN CELL VOLUME 85.4 fl (80.0-94.0); MEAN CORPUSCULAR HEMOGLOBIN 28.5 pg (27.0-31.0); MEAN CORPUSCULAR HGB CONC 33.4 g/dL (33.0-37.0); MEAN PLATELET VOLUME 7.1 fl (7.2-11.7); NEUT # 7.9 K/uL (1.8-7.0); NEUT % 77.1 % (50.0-75.0); PLATELET COUNT 376 K/uL (130-400); RBC 3.54 Mil/uL (4.40-5.90); RED CELL DISTRIBUTION WIDTH 12.9 % (11.5-14.5); WHITE BLOOD COUNT 10.2 K/uL (4.8-10.8)
[2018-05-18 05:17] LABS: CALCIUM 7.8 mg/dL (8.4-10.2)
[2018-05-18] MEDS: Insulin Lispro (humaLOG) 100 Units/ml Inj SC SCH ×4 (06:13→23:00)
--- NOTE | 2018-05-18 08:06 | CP.PCM.PN ---
Subjective - Date & Time of Evaluation Date of Evaluation: 05/18/18 Time of Evaluation: 08:01 - Subjective Subjective: Yuniel Fuentes, PGY-1, Cardiology Progress Note for Dr. Tabares Patient was seen and evaluated at bedside. Patient had no acute overnight events. Patient continues to have right 2nd toe darkening but much improved pain. Sensation is intact. Objective - Vital Signs/Intake and Output Vital Signs (last 24 hours): Temp Pulse Resp BP Pulse Ox 98.6 F 94 H 15 156/77 H 97 05/18/18 04:00 05/18/18 06:00 05/18/18 06:00 05/18/18 06:00 05/18/18 06:00 Intake and Output: 05/18/18 05/18/18 06:59 18:59 Intake Total 820 Balance 820 - Medications Medications: Current Medications Acetaminophen (Tylenol 325mg Tab) 650 mg PO PRN PRN PRN Reason: Fever >100.4 F Last Admin: 05/15/18 20:41 Dose: 650 mg Aspirin (Ecotrin) 81 mg PO DAILY [facility] Last Admin: 05/15/18 09:58 Dose: Not Given Clopidogrel Bisulfate (Plavix) 75 mg PO DAILY [facility] Last Admin: 05/17/18 17:37 Dose: 75 mg Glipizide (Glucotrol) 5 mg PO BIDAC [facility] Last Admin: 05/16/18 08:17 Dose: 5 mg Heparin Sodium (Porcine) (Heparin) 5,000 units SC Q12 [facility]; Protocol Last Admin: 05/17/18 21:00 Dose: Not Given Daptomycin 350 mg/ Sodium (Chloride) 100 mls @ 100 mls/hr IV Q48H [facility]; Protocol Stop: 05/20/18 18:01 Last Admin: 05/17/18 17:35 Dose: 100 mls/hr Cefepime HCl 0.25 gm/ Sodium (Chloride) 50 mls @ 50 mls/hr IVPB Q12 [facility]; Protocol Last Admin: 05/17/18 20:22 Dose: 50 mls/hr Clindamycin Phosphate (Cleocin 600mg/50ml D5w) 600 mg in 50 mls @ 50 mls/hr IVPB Q12 [facility]; Protocol Last Admin: 05/17/18 20:23 Dose: 50 mls/hr Insulin Human Lispro (Humalog) 0 units SC ACCU-CHECK [facility]; Protocol Last Admin: 05/18/18 06:13 Dose: 2 units Metoprolol Tartrate (Lopressor) 25 mg PO DAILY [facility] Last Admin: 05/17/18 09:29 Dose: 25 mg Oxycodone/Acetaminophen (Percocet 5/325 Mg Tab) 1 tab PO Q4 PRN PRN Reason: Pain, moderate (4-7) Stop: 05/19/18 18:41 Last Admin: 05/16/18 20:22 Dose: 1 tab - Labs Labs: 05/18/18 05:00 05/18/18 05:00 PT 13.5 Seconds (9.8-13.1) H 05/17/18 05:05 INR 1.2 05/17/18 05:05 APTT 30.8 Seconds (25.6-37.1) 05/17/18 05:05 - Constitutional Appears: Well, Non-toxic, No Acute Distress - Head Exam Head Exam: ATRAUMATIC, NORMAL INSPECTION, NORMOCEPHALIC - Eye Exam Eye Exam: EOMI, PERRL - ENT Exam ENT Exam: Mucous Membranes Moist - Respiratory Exam Respiratory Exam: Clear to Ausculation Bilateral, NORMAL BREATHING PATTERN - Cardiovascular Exam Cardiovascular Exam: REGULAR RHYTHM, RRR, +S1, +S2 - GI/Abdominal Exam GI & Abdominal Exam: Soft, Normal Bowel Sounds. absent: Tenderness - Extremities Exam Extremities Exam: Full ROM - Neurological Exam Neurological Exam: Alert, Awake, CN II-XII Intact, Oriented x3 - Skin Skin Exam: Dry, Intact Additional comments: darkened 2nd right toe, now debrided Assessment and Plan - Assessment and Plan (Free Text) Assessment: Peripheral vascular disease likely causing ischemia of right 2nd toe Hypertension Diabetes Mellitus type II Plan: Peripheral vascular disease likely causing ischemia of right 2nd toe complicated with infection Hypertension Diabetes Mellitus type II EKG: NS with HR: 80 Echo 05/16: LVEF of 55-60%, left atrium borderline dilated, mild MR Nuclear stress test 05/17: normal stress test BUN/Cr: improved to 54/6.0 today from creatinine of 8.3 yesterday. HgbA1c: 8.4 Plan for angiogram in the future when renal function improves Medications: aspirin 81 mg daily held plavix 75 mg daily daptomycin 350 mg Q48 cefepime 1 gm Q12 clindamycin 600 mg Q12 glipizide 5 mg BIDAC held due to renal function lopressor 25 mg daily
--- NOTE | 2018-05-18 08:16 | CP.PCM.PN ---
Subjective - Date & Time of Evaluation Date of Evaluation: 05/18/18 Time of Evaluation: 08:13 - Subjective Subjective: Podiatry Progress Note: Dr. Ang Patient seen and evaluated this morning for R foot infection, POD#2 R 2nd digit amputation. Patient resting comfortably and in NAD. He denies any pain to his R lower extremity. States that he went for HD treatment yesterday and has another today. Denies nausea/vomiting/fever. Objective - Vital Signs/Intake and Output Vital Signs (last 24 hours): Temp Pulse Resp BP Pulse Ox 98.7 F 89 19 161/75 H 95 05/18/18 08:00 05/18/18 08:00 05/18/18 08:00 05/18/18 08:00 05/18/18 08:00 Intake and Output: 05/18/18 05/18/18 06:59 18:59 Intake Total 820 Balance 820 - Medications Medications: Current Medications Acetaminophen (Tylenol 325mg Tab) 650 mg PO PRN PRN PRN Reason: Fever >100.4 F Last Admin: 05/15/18 20:41 Dose: 650 mg Aspirin (Ecotrin) 81 mg PO DAILY [facility] Last Admin: 05/15/18 09:58 Dose: Not Given Clopidogrel Bisulfate (Plavix) 75 mg PO DAILY [facility] Last Admin: 05/17/18 17:37 Dose: 75 mg Glipizide (Glucotrol) 5 mg PO BIDAC [facility] Last Admin: 05/16/18 08:17 Dose: 5 mg Heparin Sodium (Porcine) (Heparin) 5,000 units SC Q12 [facility]; Protocol Last Admin: 05/17/18 21:00 Dose: Not Given Daptomycin 350 mg/ Sodium (Chloride) 100 mls @ 100 mls/hr IV Q48H [facility]; Protocol Stop: 05/20/18 18:01 Last Admin: 05/17/18 17:35 Dose: 100 mls/hr Cefepime HCl 0.25 gm/ Sodium (Chloride) 50 mls @ 50 mls/hr IVPB Q12 [facility]; Lucio col Last Admin: 05/17/18 20:22 Dose: 50 mls/hr Clindamycin Phosphate (Cleocin 600mg/50ml D5w) 600 mg in 50 mls @ 50 mls/hr IVPB Q12 [facility]; Protocol Last Admin: 05/17/18 20:23 Dose: 50 mls/hr Insulin Human Lispro (Humalog) 0 units SC ACCU-CHECK [facility]; Protocol Last Admin: 05/18/18 06:13 Dose: 2 units Metoprolol Tartrate (Lopressor) 25 mg PO DAILY [facility] Last Admin: 05/17/18 09:29 Dose: 25 mg Oxycodone/Acetaminophen (Percocet 5/325 Mg Tab) 1 tab PO Q4 PRN PRN Reason: Pain, moderate (4-7) Stop: 05/19/18 18:41 Last Admin: 05/16/18 20:22 Dose: 1 tab - Labs Labs: 05/18/18 05:00 05/18/18 05:00 PT 13.5 Seconds (9.8-13.1) H 05/17/18 05:05 INR 1.2 05/17/18 05:05 APTT 30.8 Seconds (25.6-37.1) 05/17/18 05:05 - Constitutional Appears: Non-toxic, No Acute Distress - Head Exam Head Exam: ATRAUMATIC, NORMOCEPHALIC - Extremities Exam Additional comments: RLE Exam: Vasc: DP and PT 1/4 faintly palpable, CFT less than 3 seconds X 3, CFT absent at the tip of the right 2nd digit, significant edema noted at the right 2nd digit, and the distal aspect of the foot, increased warmth to the dorsum of the foot and the 2nd digit Ortho: right hallux amputation, no pain appreciated at this time, ankle joint range of motion within normal limits Neuro: Gross and protective sensation diminished Derm: Ulceration secondary to 2nd digit amputation with fibrotic base, <1 cc of purulence expressed today, + probe to bone, + tunneling, + tracking, mild malodor. Plantar ulceration, secondary to I&D, appreciated with exposed plantar fascia, no purulence expressed today, no tunneling, no tracking. Erythema with areas of ecchymosis appreciated to the forefoot. Two linear incisions over 2nd and 3rd interspace appreciated secondary to I&D - Neurological Exam Neurological Exam: Alert, Awake, Oriented x3 - Psychiatric Exam Psychiatric exam: Normal Affect, Normal Mood Assessment and Plan - Assessment and Plan (Free Text) Assessment: 72M patient with R foot infection, POD#2 R 2nd digit amputation. Plan: Patient seen and evaluated at bedside Discussed with Dr. Ang Afebrile, WBC 10.2, ESR 94, CRP 219.10 Right Foot X-ray- diffuse increased soft tissue swelling when compared to prior, infectious or other inflammatory process, soft tissue emphysema not appreciated New R foot x-ray (05/14): mild decrease in soft tissue swelling. No new soft tissue emphysema identified Wound Cultures- Ecoli, beta hemolytic strep B New wound cultures; pending Wound packed with 1/4 iodoform packing, betadine soaked DSD Ordered vascular consult- recommendations appreciated Ordered infectious disease consult- recommendations appreciated Plan for TMA pending vascular recommendations Plan for OR for TMA once medically optimized and medial/cardiac clearance obtained Podiatry will continue to follow patient while in house
[2018-05-18 08:46] LABS: EOSINOPHIL 2 % (0-7); LYMPHOCYTE 9 % (20-50); MONOCYTE 10 % (0-10); NEUTROPHIL 79 % (42-75); TOTAL CELLS COUNTED 100
[2018-05-18 08:54] LABS: HYPOCHROMIC SLIGHT; PLATELET ESTIMATE NORMAL (NORMAL)
[2018-05-18] MEDS: Cefepime 0.25 GM in Sodium Chloride 0.9% 50 ML IVPB SCH ×2 (09:13→20:15)
[2018-05-18] MEDS: Clindamycin 600mg/50ml D5W 600 MG/50 ML VIAL IVPB SCH ×2 (09:30→20:17)
--- NOTE | 2018-05-18 10:38 | CP.PCM.PN ---
<Kp Dale - Last Filed: 05/18/18 10:24> Subjective - Date & Time of Evaluation Date of Evaluation: 05/18/18 Time of Evaluation: 08:00 - Subjective Subjective: Pt seen and examined. Denies pain from RLE. Appears comfortable. BUN 54, Crea 6.0 today post HD yesterday. 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 Plan for HD treatment today. Objective - Vital Signs/Intake and Output Vital Signs (last 24 hours): Temp Pulse Resp BP Pulse Ox 98.7 F 92 H 19 160/70 H 95 05/18/18 08:00 05/18/18 09:15 05/18/18 08:00 05/18/18 09:15 05/18/18 08:00 Intake and Output: 05/18/18 05/18/18 06:59 18:59 Intake Total 820 290 Balance 820 290 - Medications Medications: Current Medications Acetaminophen (Tylenol 325mg Tab) 650 mg PO PRN PRN PRN Reason: Fever >100.4 F Last Admin: 05/15/18 20:41 Dose: 650 mg Aspirin (Ecotrin) 81 mg PO DAILY [facility] Last Admin: 05/15/18 09:58 Dose: Not Given Clopidogrel Bisulfate (Plavix) 75 mg PO DAILY [facility] Last Admin: 05/18/18 09:15 Dose: 75 mg Glipizide (Glucotrol) 5 mg PO BIDAC [facility] Last Admin: 05/16/18 08:17 Dose: 5 mg Heparin Sodium (Porcine) (Heparin) 5,000 units SC Q12 [facility]; Protocol Last Admin: 05/18/18 09:14 Dose: 5,000 units Daptomycin 350 mg/ Sodium (Chloride) 100 mls @ 100 mls/hr IV Q48H [facility]; Protocol Stop: 05/20/18 18:01 Last Admin: 05/17/18 17:35 Dose: 100 mls/hr Cefepime HCl 0.25 gm/ Sodium (Chloride) 50 mls @ 50 mls/hr IVPB Q12 [facility]; Protocol Last Admin: 05/18/18 09:13 Dose: 50 mls/hr Clindamycin Phosphate (Cleocin 600mg/50ml D5w) 600 mg in 50 mls @ 50 mls/hr IVPB Q12 [facility]; Protocol Last Admin: 05/18/18 09:30 Dose: 50 mls/hr Insulin Human Lispro (Humalog) 0 units SC ACCU-CHECK [facility]; Protocol Last Admin: 05/18/18 06:13 Dose: 2 units Metoprolol Tartrate (Lopressor) 25 mg PO DAILY [facility] Last Admin: 05/18/18 09:15 Dose: 25 mg Oxycodone/Acetaminophen (Percocet 5/325 Mg Tab) 1 tab PO Q4 PRN PRN Reason: Pain, moderate (4-7) Stop: 05/19/18 18:41 Last Admin: 05/16/18 20:22 Dose: 1 tab - Labs Labs: 05/18/18 05:00 05/18/18 05:00 PT 13.5 Seconds (9.8-13.1) H 05/17/18 05:05 INR 1.2 05/17/18 05:05 APTT 30.8 Seconds (25.6-37.1) 05/17/18 05:05 - Constitutional Appears: No Acute Distress - Head Exam Head Exam: NORMAL INSPECTION - Eye Exam Eye Exam: Normal appearance - ENT Exam ENT Exam: Mucous Membranes Moist - Respiratory Exam Respiratory Exam: Clear to Ausculation Bilateral. absent: Rales, Wheezes - Cardiovascular Exam Cardiovascular Exam: REGULAR RHYTHM - Extremities Exam Additional comments: R. LE wrapped in gauze per podiatry, mild swelling of LE noted, same as yesterday Assessment and Plan - Assessment and Plan (Free Text) Assessment: 72 y/o male with PMHx of HTN and Type II DM was seen and evaluated at bedside for right 2nd digit necrosis and acute renal failure that developed during admission. Transfer to telemetry. #Sepsis, resolved #2nd Digit Necrosis of R. Foot #Acute Renal Failure #PAD Consultations on board: Nephrology, Podiatry, Vascular, ID - Acute Renal Failure, receiving HD as per Nephrology - Monitor I/O, electrolytes, acid-base (+) Acidosis- Bicarb 17 today, and fluid status daily. Renal Diet - Pt had 2nd digit amputation, I&D and debridement in OR yesterdayon 05/16 by Podiatry team. Leukocytosis resolved. Plan for R. TMA of foot once medically stabilized - Wcx E.Coli and GBS, pansensitive. Bcx no growth in 48 - C/W Daptomycin, Cefepime, and Clindamycin - Myocardial Stress today as per cardio. Echo EF 55-60% - Management of chronic medical conditions as ordered - Heparin for DVT ppx - F/u CBC, BMP, Bcx Discussed case with Dr. Guanakito Dale, PGY2 <Silverio Calabrese - Last Filed: 05/26/18 23:38> Objective - Vital Signs/Intake and Output Vital Signs (last 24 hours): Temp Pulse Resp BP Pulse Ox 98.3 F 81 18 163/75 H 99 05/26/18 20:05 05/26/18 20:05 05/26/18 20:05 05/26/18 20:05 05/26/18 20:05 Intake and Output: 05/26/18 05/26/18 11:59 23:59 Intake Total 980 Balance 980 - Medications Medications: Current Medications Acetaminophen (Tylenol 325mg Tab) 650 mg PO PRN PRN PRN Reason: Fever >100.4 F Last Admin: 05/15/18 20:41 Dose: 650 mg Acetaminophen (Tylenol 325mg Tab) 650 mg PO Q4 PRN PRN Reason: Pain, Mild (1-3) Last Admin: 05/23/18 04:12 Dose: 650 mg Aspirin (Ecotrin) 81 mg PO DAILY [facility] Last Admin: 05/26/18 08:31 Dose: 81 mg Clopidogrel Bisulfate (Plavix) 75 mg PO DAILY [facility] Last Admin: 05/26/18 08:31 Dose: 75 mg Glipizide (Glucotrol) 5 mg PO BIDAC [facility] Last Admin: 05/26/18 15:47 Dose: 5 mg Heparin Sodium (Porcine) (Heparin) 5,000 units SC Q12 [facility]; Protocol Last Admin: 05/26/18 22:16 Dose: 5,000 units Ceftriaxone Sodium 2 gm/ (Sodium Chloride) 100 mls @ 100 mls/hr IVPB DAILY [facility]; Protocol Last Admin: 05/26/18 14:47 Dose: 100 mls/hr Insulin Human Lispro (Humalog) 0 units SC ACCU-CHECK [facility]; Protocol Last Admin: 05/26/18 22:18 Dose: Not Given Metoprolol Tartrate (Lopressor) 25 mg PO DAILY [facility] Last Admin: 05/26/18 08:31 Dose: 25 mg Sevelamer Carbonate (Renvela) 800 mg PO TIDWM [facility] Last Admin: 05/26/18 16:27 Dose: 800 mg - Labs Labs: 05/26/18 05:33 05/26/18 05:33 PT 13.5 Seconds (9.8-13.1) H 05/17/18 05:05 INR 1.2 05/17/18 05:05 APTT 30.8 Seconds (25.6-37.1) 05/17/18 05:05 Assessment and Plan - Assessment and Plan (Free Text) Assessment: Patient was personally seen and examined by me in rounds with residents. Available labs and diagnostic data reviewed. Case, Patient's condition and management plan discussed with residents in rounds. Agree with resident's progress note. Plan: As ordered.
--- NOTE | 2018-05-18 11:49 | CP.PCM.PN ---
Subjective - Date & Time of Evaluation Date of Evaluation: 05/18/18 Time of Evaluation: 11:49 - Subjective Subjective: ID Note- Pt. seen and examined today in ICU. pt. is s/p emergent HD for past 2 days for acute renal failure treatment . he is also s/p emergent right second toe amputation 2 days ago. He states he feels much better ever since the toe resection and has been without any fever since then. he states he is still urinating well on his own. Objective - Vital Signs/Intake and Output Vital Signs (last 24 hours): Temp Pulse Resp BP Pulse Ox 98.7 F 92 H 19 160/70 H 95 05/18/18 08:00 05/18/18 09:15 05/18/18 08:00 05/18/18 09:15 05/18/18 08:00 Intake and Output: 05/18/18 05/18/18 06:59 18:59 Intake Total 820 290 Balance 820 290 - Medications Medications: Current Medications Acetaminophen (Tylenol 325mg Tab) 650 mg PO PRN PRN PRN Reason: Fever >100.4 F Last Admin: 05/15/18 20:41 Dose: 650 mg Aspirin (Ecotrin) 81 mg PO DAILY [facility] Last Admin: 05/15/18 09:58 Dose: Not Given Clopidogrel Bisulfate (Plavix) 75 mg PO DAILY [facility] Last Admin: 05/18/18 09:15 Dose: 75 mg Glipizide (Glucotrol) 5 mg PO BIDAC [facility] Last Admin: 05/16/18 08:17 Dose: 5 mg Heparin Sodium (Porcine) (Heparin) 5,000 units SC Q12 [facility]; Protocol Last Admin: 05/18/18 09:14 Dose: 5,000 units Daptomycin 350 mg/ Sodium (Chloride) 100 mls @ 100 mls/hr IV Q48H [facility]; Protocol Stop: 05/20/18 18:01 Last Admin: 05/17/18 17:35 Dose: 100 mls/hr Cefepime HCl 0.25 gm/ Sodium (Chloride) 50 mls @ 50 mls/hr IVPB Q12 [facility]; Protocol Last Admin: 05/18/18 09:13 Dose: 50 mls/hr Clindamycin Phosphate (Cleocin 600mg/50ml D5w) 600 mg in 50 mls @ 50 mls/hr IVPB Q12 [facility]; Protocol Last Admin: 05/18/18 09:30 Dose: 50 mls/hr Insulin Human Lispro (Humalog) 0 units SC ACCU-CHECK [facility]; Protocol Last Admin: 05/18/18 06:13 Dose: 2 units Metoprolol Tartrate (Lopressor) 25 mg PO DAILY [facility] Last Admin: 05/18/18 09:15 Dose: 25 mg Oxycodone/Acetaminophen (Percocet 5/325 Mg Tab) 1 tab PO Q4 PRN PRN Reason: Pain, moderate (4-7) Stop: 05/19/18 18:41 Last Admin: 05/16/18 20:22 Dose: 1 tab - Labs Labs: - Constitutional Appears: No Acute Distress - Head Exam Head Exam: ATRAUMATIC - Eye Exam Eye Exam: EOMI, PERRL - ENT Exam ENT Exam: Normal Oropharynx - Respiratory Exam Respiratory Exam: Clear to Ausculation Bilateral, NORMAL BREATHING PATTERN - Cardiovascular Exam Cardiovascular Exam: RRR, +S1, +S2 - GI/Abdominal Exam GI & Abdominal Exam: Soft, Normal Bowel Sounds Additional comments: NT, ND - Extremities Exam Additional comments: Right foot wrapped in post-surgical gauze - Neurological Exam Neurological Exam: Alert, Awake, Oriented x3 - Additional Findings Additional findings: Laboratory Results - last 72 hr 05/13/18 05/15/18 05/15/18 16:44 15:09 15:09 WBC RBC Hgb Hct MCV MCH MCHC RDW Plt Count MPV Neut % (Auto) Lymph % (Auto) [place] % (Auto) Eos % (Auto) Baso % (Auto) Neut # (Auto) Lymph # (Auto) [place] # (Auto) Eos # (Auto) Baso # (Auto) Neutrophils % (Manual) Lymphocytes % (Manual) Monocytes % (Manual) Eosinophils % (Manual) Platelet Estimate Hypochromasia (manual) PT INR APTT Sodium Potassium Chloride Carbon Dioxide Anion Gap BUN Creatinine Est GFR ( Amer) Est GFR (Non-Af Amer) POC Glucose (mg/dL) Random Glucose Hemoglobin A1c 8.4 H Lactic Acid Uric Acid Calcium Phosphorus Magnesium Total Bilirubin AST ALT Alkaline Phosphatase Lactate Dehydrogenase Total Creatine Kinase Total Protein Albumin Globulin Albumin/Globulin Ratio PTH Intact Whole Molec Urine Color Urine Clarity Urine pH Ur Specific [place] Urine Protein Urine Glucose (UA) Urine Ketones Urine Blood Urine Nitrate Urine Bilirubin Urine Urobilinogen Ur Leukocyte Esterase Urine RBC (Auto) Urine Microscopic WBC Ur Squamous Epith Cells Urine Bacteria Urine Eosinophils U Random Total Protein Ur Random Sodium Ur Random Potassium Urine Chloride Complement C3 108.0 Complement C4 28.5 Tot Complement (CH50) >60 H Hepatitis A Ab Total Hep Bs Antigen Hep Bs Antibody Hep B Core IgM Ab Hepatitis C Antibody Anti-Streptolysin O Ab 05/15/18 05/15/18 05/15/18 15:09 16:08 16:37 WBC RBC Hgb Hct MCV MCH MCHC RDW Plt Count MPV Neut % (Auto) Lymph % (Auto) [place] % (Auto) Eos % (Auto) Baso % (Auto) Neut # (Auto) Lymph # (Auto) [place] # (Auto) Eos # (Auto) Baso # (Auto) Neutrophils % (Manual) Lymphocytes % (Manual) Monocytes % (Manual) Eosinophils % (Manual) Platelet Estimate Hypochromasia (manual) PT INR APTT Sodium Potassium Chloride Carbon Dioxide Anion Gap BUN Creatinine Est GFR ( Amer) Est GFR (Non-Af Amer) POC Glucose (mg/dL) 249 H Random Glucose Hemoglobin A1c Lactic Acid Uric Acid Calcium Phosphorus Magnesium Total Bilirubin AST ALT Alkaline Phosphatase Lactate Dehydrogenase Total Creatine Kinase Total Protein Albumin Globulin Albumin/Globulin Ratio PTH Intact Whole [place] Urine Color Urine Clarity Urine pH Ur Specific [place] Urine Protein Urine Glucose (UA) Urine Ketones Urine Blood Urine Nitrate Urine Bilirubin Urine Urobilinogen Ur Leukocyte Esterase Urine RBC (Auto) Urine Microscopic WBC Ur Squamous Epith Cells Urine Bacteria Urine Eosinophils U Random Total Protein Ur Random Sodium 80 Ur Random Potassium 27.9 Urine Chloride Complement C3 Complement C4 Tot Complement (CH50) Hepatitis A Ab Total Hep Bs Antigen Hep Bs Antibody Hep B Core IgM Ab Hepatitis C Antibody Anti-Streptolysin O Ab Negative 05/15/18 05/15/18 05/15/18 16:37 16:37 16:37 WBC RBC Hgb Hct MCV MCH MCHC RDW Plt Count MPV Neut % (Auto) Lymph % (Auto) [place] % (Auto) Eos % (Auto) Baso % (Auto) Neut # (Auto) Lymph # (Auto) [place] # (Auto) Eos # (Auto) Baso # (Auto) Neutrophils % (Manual) Lymphocytes % (Manual) Monocytes % (Manual) Eosinophils % (Manual) Platelet Estimate Hypochromasia (manual) PT INR APTT Sodium Potassium Chloride Carbon Dioxide Anion Gap BUN Creatinine Est GFR ( Amer) Est GFR (Non-Af Amer) POC Glucose (mg/dL) Random Glucose Hemoglobin A1c Lactic Acid Uric Acid Calcium Phosphorus Magnesium Total Bilirubin AST ALT Alkaline Phosphatase Lactate Dehydrogenase Total Creatine Kinase Total Protein Albumin Globulin Albumin/Globulin Ratio PTH Intact Whole [place] Urine Color Yellow Urine Clarity Slighty-cloudy Urine pH 6.0 Ur Specific [place] 1.012 Urine Protein 100 Urine Glucose (UA) 50 Urine Ketones Negative Urine Blood Small Urine Nitrate Negative Urine Bilirubin Negative Urine Urobilinogen 0.2-1.0 Ur Leukocyte Esterase Mod Urine RBC (Auto) 6 H Urine Microscopic WBC 21 H Ur Squamous Epith Cells 2 Urine Bacteria Rare Urine Eosinophils Negative U Random Total Protein 85 Ur Random Sodium Ur Random Potassium Urine Chloride Complement C3 Complement C4 Tot Complement (CH50) Hepatitis A Ab Total Hep Bs Antigen Hep Bs Antibody Hep B Core IgM Ab Hepatitis C Antibody Anti-Streptolysin O Ab 05/15/18 05/15/18 05/16/18 17:58 21:10 04:50 WBC 18.9 H RBC 3.75 L Hgb 10.7 L Hct 32.0 L MCV 85.3 MCH 28.4 MCHC 33.4 RDW 13.3 Plt Count 400 MPV Neut % (Auto) Lymph % (Auto) [place] % (Auto) Eos % (Auto) Baso % (Auto) Neut # (Auto) Lymph # (Auto) [place] # (Auto) Eos # (Auto) Baso # (Auto) Neutrophils % (Manual) Lymphocytes % (Manual) Monocytes % (Manual) Eosinophils % (Manual) Platelet Estimate Hypochromasia (manual) PT INR APTT Sodium Potassium Chloride Carbon Dioxide Anion Gap BUN Creatinine Est GFR ( Amer) Est GFR (Non-Af Amer) POC Glucose (mg/dL) 156 H Random Glucose Hemoglobin A1c Lactic Acid Uric Acid Calcium Phosphorus Magnesium Total Bilirubin AST ALT Alkaline Phosphatase Lactate Dehydrogenase Total Creatine Kinase Total Protein Albumin Globulin Albumin/Globulin Ratio PTH Intact Whole [place] Urine Color Urine Clarity Urine pH Ur Specific [place] Urine Protein Urine Glucose (UA) Urine Ketones Urine Blood Urine Nitrate Urine Bilirubin Urine Urobilinogen Ur Leukocyte Esterase Urine RBC (Auto) Urine Microscopic WBC Ur Squamous Epith Cells Urine Bacteria Urine Eosinophils U Random Total Protein Ur Random Sodium Ur Random Potassium Urine Chloride 80 Complement C3 Complement C4 Tot Complement (CH50) Hepatitis A Ab Total Hep Bs Antigen Hep Bs Antibody Hep B Core IgM Ab Hepatitis C Antibody Anti-Streptolysin O Ab 05/16/18 05/16/18 05/16/18 04:50 05:23 08:50 WBC RBC Hgb Hct MCV MCH MCHC RDW Plt Count MPV Neut % (Auto) Lymph % (Auto) [place] % (Auto) Eos % (Auto) Baso % (Auto) Neut # (Auto) Lymph # (Auto) [place] # (Auto) Eos # (Auto) Baso # (Auto) Neutrophils % (Manual) Lymphocytes % (Manual) Monocytes % (Manual) Eosinophils % (Manual) Platelet Estimate Hypochromasia (manual) PT INR APTT Sodium 140 Potassium 4.8 Chloride 109 H Carbon Dioxide 18 L Anion Gap 18 BUN 64 H Creatinine 7.1 H Est GFR ( Amer) 9 Est GFR (Non-Af Amer) 8 POC Glucose (mg/dL) 132 H Random Glucose 129 H Hemoglobin A1c Lactic Acid Uric Acid 7.6 Calcium 8.7 Phosphorus 4.5 Magnesium 1.8 Total Bilirubin 0.4 AST 33 ALT 25 Alkaline Phosphatase 107 Lactate Dehydrogenase 365 Total Creatine Kinase 26 L Total Protein 6.9 Albumin 2.9 L Globulin 4.0 H Albumin/Globulin Ratio 0.7 L PTH Intact Whole [place] Urine Color Urine Clarity Urine pH Ur Specific [place] Urine Protein Urine Glucose (UA) Urine Ketones Urine Blood Urine Nitrate Urine Bilirubin Urine Urobilinogen Ur Leukocyte Esterase Urine RBC (Auto) Urine Microscopic WBC Ur Squamous Epith Cells Urine Bacteria Urine Eosinophils U Random Total Protein Ur Random Sodium Ur Random Potassium Urine Chloride Complement C3 Complement C4 Tot Complement (CH50) Hepatitis A Ab Total Hep Bs Antigen Hep Bs Antibody Hep B Core IgM Ab Hepatitis C Antibody Anti-Streptolysin O Ab 05/16/18 05/16/18 05/16/18 08:50 10:41 14:00 WBC RBC Hgb Hct MCV MCH MCHC RDW Plt Count MPV Neut % (Auto) Lymph % (Auto) [place] % (Auto) Eos % (Auto) Baso % (Auto) Neut # (Auto) Lymph # (Auto) [place] # (Auto) Eos # (Auto) Baso # (Auto) Neutrophils % (Manual) Lymphocytes % (Manual) Monocytes % (Manual) Eosinophils % (Manual) Platelet Estimate Hypochromasia (manual) PT INR APTT Sodium 137 Potassium 4.8 Chloride 105 Carbon Dioxide 13 L Anion Gap 24 H BUN 67 H Creatinine 7.3 H Est GFR ( Amer) 9 Est GFR (Non-Af Amer) 7 POC Glucose (mg/dL) 221 H Random Glucose 188 H Hemoglobin A1c Lactic Acid 0.7 Uric Acid Calcium 8.4 Phosphorus Magnesium Total Bilirubin AST ALT Alkaline Phosphatase Lactate Dehydrogenase Total Creatine Kinase Total Protein Albumin Globulin Albumin/Globulin Ratio PTH Intact Whole [place] Urine Color Urine Clarity Urine pH Ur Specific [place] Urine Protein Urine Glucose (UA) Urine Ketones Urine Blood Urine Nitrate Urine Bilirubin Urine Urobilinogen Ur Leukocyte Esterase Urine RBC (Auto) Urine Microscopic WBC Ur Squamous Epith Cells Urine Bacteria Urine Eosinophils U Random Total Protein Ur Random Sodium Ur Random Potassium Urine Chloride Complement C3 Complement C4 Tot Complement (CH50) Hepatitis A Ab Total Hep Bs Antigen Hep Bs Antibody Hep B Core IgM Ab Hepatitis C Antibody Anti-Streptolysin O Ab 05/16/18 05/16/18 05/16/18 15:49 21:06 21:15 WBC 15.5 H RBC 3.69 L Hgb 10.5 L Hct 31.4 L MCV 85.1 MCH 28.6 MCHC 33.6 RDW 13.3 Plt Count 378 MPV Neut % (Auto) Lymph % (Auto) [place] % (Auto) Eos % (Auto) Baso % (Auto) Neut # (Auto) Lymph # (Auto) [place] # (Auto) Eos # (Auto) Baso # (Auto) Neutrophils % (Manual) Lymphocytes % (Manual) Monocytes % (Manual) Eosinophils % (Manual) Platelet Estimate Hypochromasia (manual) PT INR APTT Sodium Potassium Chloride Carbon Dioxide Anion Gap BUN Creatinine Est GFR ( Amer) Est GFR (Non-Af Amer) POC Glucose (mg/dL) 179 H 108 Random Glucose Hemoglobin A1c Lactic Acid Uric Acid Calcium Phosphorus Magnesium Total Bilirubin AST ALT Alkaline Phosphatase Lactate Dehydrogenase Total Creatine Kinase Total Protein Albumin Globulin Albumin/Globulin Ratio PTH Intact Whole [place] Urine Color Urine Clarity Urine pH Ur Specific [place] Urine Protein Urine Glucose (UA) Urine Ketones Urine Blood Urine Nitrate Urine Bilirubin Urine Urobilinogen Ur Leukocyte Esterase Urine RBC (Auto) Urine Microscopic WBC Ur Squamous Epith Cells Urine Bacteria Urine Eosinophils U Random Total Protein Ur Random Sodium Ur Random Potassium Urine Chloride Complement C3 Complement C4 Tot Complement (CH50) Hepatitis A Ab Total Hep Bs Antigen Hep Bs Antibody Hep B Core IgM Ab Hepatitis C Antibody Anti-Streptolysin O Ab 05/17/18 05/17/18 05/17/18 05:05 05:05 05:05 WBC 12.0 H RBC 3.50 L Hgb 10.1 L Hct 30.1 L MCV 85.9 MCH 28.8 MCHC 33.6 RDW 13.1 Plt Count 376 MPV Neut % (Auto) Lymph % (Auto) [place] % (Auto) Eos % (Auto) Baso % (Auto) Neut # (Auto) Lymph # (Auto) [place] # (Auto) Eos # (Auto) Baso # (Auto) Neutrophils % (Manual) Lymphocytes % (Manual) Monocytes % (Manual) Eosinophils % (Manual) Platelet Estimate Hypochromasia (manual) PT 13.5 H INR 1.2 APTT 30.8 Sodium 138 Potassium 4.3 Chloride 104 Carbon Dioxide 14 L Anion Gap 24 H BUN 67 H Creatinine 8.3 H* Est GFR ( Amer) 8 Est GFR (Non-Af Amer) 6 POC Glucose (mg/dL) Random Glucose 113 H Hemoglobin A1c Lactic Acid Uric Acid Calcium 8.7 Phosphorus Magnesium Total Bilirubin AST ALT Alkaline Phosphatase Lactate Dehydrogenase Total Creatine Kinase Total Protein Albumin Globulin Albumin/Globulin Ratio PTH Intact Whole [place] Urine Color Urine Clarity Urine pH Ur Specific [place] Urine Protein Urine Glucose (UA) Urine Ketones Urine Blood Urine Nitrate Urine Bilirubin Urine Urobilinogen Ur Leukocyte Esterase Urine RBC (Auto) Urine Microscopic WBC Ur Squamous Epith Cells Urine Bacteria Urine Eosinophils U Random Total Protein Ur Random Sodium Ur Random Potassium Urine Chloride Complement C3 Complement C4 Tot Complement (CH50) Hepatitis A Ab Total Hep Bs Antigen Hep Bs Antibody Hep B Core IgM Ab Hepatitis C Antibody Anti-Streptolysin O Ab 05/17/18 05/17/18 05/17/18 05:25 09:00 13:16 WBC RBC Hgb Hct MCV MCH MCHC RDW Plt Count MPV Neut % (Auto) Lymph % (Auto) [place] % (Auto) Eos % (Auto) Baso % (Auto) Neut # (Auto) Lymph # (Auto) [place] # (Auto) Eos # (Auto) Baso # (Auto) Neutrophils % (Manual) Lymphocytes % (Manual) Monocytes % (Manual) Eosinophils % (Manual) Platelet Estimate Hypochromasia (manual) PT INR APTT Sodium Potassium Chloride Carbon Dioxide Anion Gap BUN Creatinine Est GFR ( Amer) Est GFR (Non-Af Amer) POC Glucose (mg/dL) 118 H 142 H Random Glucose Hemoglobin A1c Lactic Acid Uric Acid Calcium Phosphorus Magnesium Total Bilirubin AST ALT Alkaline Phosphatase Lactate Dehydrogenase Total Creatine Kinase Total Protein Albumin Globulin Albumin/Globulin Ratio PTH Intact Whole [place] Urine Color Urine Clarity Urine pH Ur Specific [place] Urine Protein Urine Glucose (UA) Urine Ketones Urine Blood Urine Nitrate Urine Bilirubin Urine Urobilinogen Ur Leukocyte Esterase Urine RBC (Auto) Urine Microscopic WBC Ur Squamous Epith Cells Urine Bacteria Urine Eosinophils U Random Total Protein Ur Random Sodium Ur Random Potassium Urine Chloride Complement C3 Complement C4 Tot Complement (CH50) Hepatitis A Ab Total Hep Bs Antigen Hep Bs Antibody Negative Hep B Core IgM Ab Hepatitis C Antibody Anti-Streptolysin O Ab 05/17/18 05/17/18 05/17/18 15:04 15:04 15:04 WBC RBC Hgb Hct MCV MCH MCHC RDW Plt Count MPV Neut % (Auto) Lymph % (Auto) [place] % (Auto) Eos % (Auto) Baso % (Auto) Neut # (Auto) Lymph # (Auto) [place] # (Auto) Eos # (Auto) Baso # (Auto) Neutrophils % (Manual) Lymphocytes % (Manual) Monocytes % (Manual) Eosinophils % (Manual) Platelet Estimate Hypochromasia (manual) PT INR APTT Sodium Potassium Chloride Carbon Dioxide Anion Gap BUN Creatinine Est GFR ( Amer) Est GFR (Non-Af Amer) POC Glucose (mg/dL) Random Glucose Hemoglobin A1c Lactic Acid Uric Acid Calcium Phosphorus 5.8 H Magnesium Total Bilirubin AST ALT Alkaline Phosphatase Lactate Dehydrogenase Total Creatine Kinase Total Protein Albumin Globulin Albumin/Globulin Ratio PTH Intact Whole [place] 157 H Urine Color Urine Clarity Urine pH Ur Specific [place] Urine Protein Urine Glucose (UA) Urine Ketones Urine Blood Urine Nitrate Urine Bilirubin Urine Urobilinogen Ur Leukocyte Esterase Urine RBC (Auto) Urine Microscopic WBC Ur Squamous Epith Cells Urine Bacteria Urine Eosinophils U Random Total Protein Ur Random Sodium Ur Random Potassium Urine Chloride Complement C3 Complement C4 Tot Complement (CH50) Hepatitis A Ab Total Antibody pos Hep Bs Antigen Negative Negative Hep Bs Antibody Hep B Core IgM Ab Negative Negative Hepatitis C Antibody Negative Negative Anti-Streptolysin O Ab 05/17/18 05/17/18 05/17/18 16:26 18:06 20:21 WBC RBC Hgb Hct MCV MCH MCHC RDW Plt Count MPV Neut % (Auto) Lymph % (Auto) [place] % (Auto) Eos % (Auto) Baso % (Auto) Neut # (Auto) Lymph # (Auto) [place] # (Auto) Eos # (Auto) Baso # (Auto) Neutrophils % (Manual) Lymphocytes % (Manual) Monocytes % (Manual) Eosinophils % (Manual) Platelet Estimate Hypochromasia (manual) PT INR APTT Sodium 135 Potassium 3.7 Chloride 105 Carbon Dioxide 17 L Anion Gap 17 BUN 45 H Creatinine 5.1 H Est GFR ( Amer) 14 Est GFR (Non-Af Amer) 11 POC Glucose (mg/dL) 135 H 197 H Random Glucose 122 H Hemoglobin A1c Lactic Acid Uric Acid Calcium 8.6 Phosphorus Magnesium Total Bilirubin AST ALT Alkaline Phosphatase Lactate Dehydrogenase Total Creatine Kinase Total Protein Albumin Globulin Albumin/Globulin Ratio PTH Intact Whole [place] Urine Color Urine Clarity Urine pH Ur Specific [place] Urine Protein Urine Glucose (UA) Urine Ketones Urine Blood Urine Nitrate Urine Bilirubin Urine Urobilinogen Ur Leukocyte Esterase Urine RBC (Auto) Urine Microscopic WBC Ur Squamous Epith Cells Urine Bacteria Urine Eosinophils U Random Total Protein Ur Random Sodium Ur Random Potassium Urine Chloride Complement C3 Complement C4 Tot Complement (CH50) Hepatitis A Ab Total Hep Bs Antigen Hep Bs Antibody Hep B Core IgM Ab Hepatitis C Antibody Anti-Streptolysin O Ab 05/18/18 05/18/18 05/18/18 04:28 05:00 05:00 WBC 10.2 RBC 3.54 L Hgb 10.1 L Hct 30.2 L MCV 85.4 MCH 28.5 MCHC 33.4 RDW 12.9 Plt Count 376 MPV 7.1 L Neut % (Auto) 77.1 H Lymph % (Auto) 8.4 L [place] % (Auto) 10.0 Eos % (Auto) 3.6 Baso % (Auto) 0.9 Neut # (Auto) 7.9 H Lymph # (Auto) 0.9 L [place] # (Auto) 1.0 H Eos # (Auto) 0.4 Baso # (Auto) 0.1 Neutrophils % (Manual) 79 H Lymphocytes % (Manual) 9 L Monocytes % (Manual) 10 Eosinophils % (Manual) 2 Platelet Estimate Normal Hypochromasia (manual) Slight PT INR APTT Sodium 138 Potassium 4.4 Chloride 105 Carbon Dioxide 17 L Anion Gap 20 BUN 54 H Creatinine 6.0 H Est GFR ( Amer) 11 Est GFR (Non-Af Amer) 9 POC Glucose (mg/dL) 171 H Random Glucose 163 H Hemoglobin A1c Lactic Acid Uric Acid Calcium 7.8 L Phosphorus 5.8 H Magnesium 1.8 Total Bilirubin AST ALT Alkaline Phosphatase Lactate Dehydrogenase Total Creatine Kinase Total Protein Albumin Globulin Albumin/Globulin Ratio PTH Intact Whole [place] Urine Color Urine Clarity Urine pH Ur Specific [place] Urine Protein Urine Glucose (UA) Urine Ketones Urine Blood Urine Nitrate Urine Bilirubin Urine Urobilinogen Ur Leukocyte Esterase Urine RBC (Auto) Urine Microscopic WBC Ur Squamous Epith Cells Urine Bacteria Urine Eosinophils U Random Total Protein Ur Random Sodium Ur Random Potassium Urine Chloride Complement C3 Complement C4 Tot Complement (CH50) Hepatitis A Ab Total Hep Bs Antigen Hep Bs Antibody Hep B Core IgM Ab Hepatitis C Antibody Anti-Streptolysin O Ab 05/18/18 11:16 WBC RBC Hgb Hct MCV MCH MCHC RDW Plt Count MPV Neut % (Auto) Lymph % (Auto) [place] % (Auto) Eos % (Auto) Baso % (Auto) Neut # (Auto) Lymph # (Auto) [place] # (Auto) Eos # (Auto) Baso # (Auto) Neutrophils % (Manual) Lymphocytes % (Manual) Monocytes % (Manual) Eosinophils % (Manual) Platelet Estimate Hypochromasia (manual) PT INR APTT Sodium Potassium Chloride Carbon Dioxide Anion Gap BUN Creatinine Est GFR ( Amer) Est GFR (Non-Af Amer) POC Glucose (mg/dL) 246 H Random Glucose Hemoglobin A1c Lactic Acid Uric Acid Calcium Phosphorus Magnesium Total Bilirubin AST ALT Alkaline Phosphatase Lactate Dehydrogenase Total Creatine Kinase Total Protein Albumin Globulin Albumin/Globulin Ratio PTH Intact Whole [place] Urine Color Urine Clarity Urine pH Ur Specific [place] Urine Protein Urine Glucose (UA) Urine Ketones Urine Blood Urine Nitrate Urine Bilirubin Urine Urobilinogen Ur Leukocyte Esterase Urine RBC (Auto) Urine Microscopic WBC Ur Squamous Epith Cells Urine Bacteria Urine Eosinophils U Random Total Protein Ur Random Sodium Ur Random Potassium Urine Chloride Complement C3 Complement C4 Tot Complement (CH50) Hepatitis A Ab Total Hep Bs Antigen Hep Bs Antibody Hep B Core IgM Ab Hepatitis C Antibody Anti-Streptolysin O Ab Microbiology 05/13/18 12:30 Blood-Venous Blood Culture - Final NO GROWTH AFTER 5 DAYS 05/13/18 12:30 Blood-Venous Gram Stain - Final TEST NOT PERFORMED 05/16/18 22:30 Naris MRSA Culture (Admit) - Final MRSA NOT DETECTED 05/16/18 13:00 Foot - Right Gram Stain - Final 05/16/18 13:00 Foot - Right Wound Culture - Final No growth. 05/15/18 18:28 Blood-Venous Blood Culture - Preliminary NO GROWTH AFTER 48 HOURS 05/15/18 18:18 Blood-Venous Blood Culture - Preliminary NO GROWTH AFTER 48 HOURS 05/16/18 13:00 Urine,Clean Catch Urine Culture - Final No Growth (<1,000 CFU/ML) 05/13/18 15:00 Foot - Right Gram Stain - Final 05/13/18 15:00 Foot - Right Wound Culture - Final Escherichia Coli Beta Hemolytic Strep Group B 05/13/18 17:00 Foot - Right Gram Stain - Final 05/13/18 17:00 Foot - Right Wound Culture - Final Escherichia Coli Beta Hemolytic Strep Group B Assessment and Plan (1) DM2 (diabetes mellitus, type 2) Status: Chronic (2) Cellulitis Status: Acute (3) Acute renal insufficiency Status: Acute (4) PVD (peripheral vascular disease) Status: Acute (5) Osteomyelitis of right foot Status: Acute (6) Necrosis of toe Status: Acute - Assessment and Plan (Free Text) Assessment: Assessment and plan Patient is a 72-year-old male with multiple medical conditions including diabetes type 2, hypertension, peripheral vascular disease status post revascularization, osteomyelitis of the right hallux status post amputation October 2017, who now presents with necrosis of the right distal toe. s/p right second toe amp POD #2 s/p emergent HD clinially betetr has remained afebril since the toe resection Wound culture preliminaryE.coli and Beta hemolytic group strep B x 2 blood cx- neg x 3 acute renal insufficinecy today creatinine of 6 on HD past 2 days Plan continue with cefepime day #3 continue with IV daptomycin every other day, day #2 continue with IV clindamycin day #2. await left foot TMA as per podiatry. await OR bone culture result. all labs and imaging and chart notes reviewed. All above d/w patient and his and they verbalize full understanding of all above. Critical care time spent 45 min.
[2018-05-19 06:11] LABS: ALB/GLOB RATIO 0.8 (1.0-2.1); ALBUMIN 3.3 g/dL (3.5-5.0); CALCIUM 8.3 mg/dL (8.4-10.2)
[2018-05-19] MEDS: Insulin Lispro (humaLOG) 100 Units/ml Inj SC SCH ×4 (06:16→23:17)
[2018-05-19 06:25] LABS: HEMOGLOBIN 10.6 g/dL (12.0-18.0); MEAN CELL VOLUME 83.8 fl (80.0-94.0); MEAN CORPUSCULAR HEMOGLOBIN 28.5 pg (27.0-31.0); RBC 3.72 Mil/uL (4.40-5.90); RED CELL DISTRIBUTION WIDTH 13.2 % (11.5-14.5); WHITE BLOOD COUNT 9.8 K/uL (4.8-10.8)
--- NOTE | 2018-05-19 06:36 | CP.PCM.PN ---
Subjective - Date & Time of Evaluation Date of Evaluation: 05/19/18 Time of Evaluation: 06:36 - Subjective Subjective: Podiatry Progress Note: Dr. Ang Patient seen this AM for R foot infection, POD#3 R 2nd digit amputation. Patient resting comfortably, no acute distress. Patient aware of plan for TMA once medically optimized and stable. Denies nausea/vomiting/fever/shortness of breath. Objective - Vital Signs/Intake and Output Vital Signs (last 24 hours): Temp Pulse Resp BP Pulse Ox 98.6 F 93 H 14 129/48 L 98 05/19/18 06:00 05/19/18 06:00 05/19/18 06:00 05/19/18 04:00 05/19/18 06:00 Intake and Output: 05/18/18 05/19/18 18:59 06:59 Intake Total 596 240 Output Total 600 Balance 596 -360 - Medications Medications: Current Medications Acetaminophen (Tylenol 325mg Tab) 650 mg PO PRN PRN PRN Reason: Fever >100.4 F Last Admin: 05/15/18 20:41 Dose: 650 mg Aspirin (Ecotrin) 81 mg PO DAILY [facility] Last Admin: 05/15/18 09:58 Dose: Not Given Clopidogrel Bisulfate (Plavix) 75 mg PO DAILY [facility] Last Admin: 05/18/18 09:15 Dose: 75 mg Glipizide (Glucotrol) 5 mg PO BIDAC [facility] Last Admin: 05/16/18 08:17 Dose: 5 mg Heparin Sodium (Porcine) (Heparin) 5,000 units SC Q12 [facility]; Protocol Last Admin: 05/18/18 20:17 Dose: 5,000 units Daptomycin 350 mg/ Sodium (Chloride) 100 mls @ 100 mls/hr IV Q48H [facility]; Protocol Stop: 05/20/18 18:01 Last Admin: 05/17/18 17:35 Dose: 100 mls/hr Cefepime HCl 0.25 gm/ Sodium (Chloride) 50 mls @ 50 mls/hr IVPB Q12 [facility]; Protocol Last Admin: 05/18/18 20:15 Dose: 50 mls/hr Clindamycin Phosphate (Cleocin 600mg/50ml D5w) 600 mg in 50 mls @ 50 mls/hr IVPB Q12 [facility]; Protocol Last Admin: 03/21/19 20:17 Dose: 50 mls/hr Insulin Human Lispro (Humalog) 0 units SC ACCU-CHECK [facility]; Protocol Last Admin: 05/19/18 06:16 Dose: 2 units Metoprolol Tartrate (Lopressor) 25 mg PO DAILY [facility] Last Admin: 05/18/18 09:15 Dose: 25 mg Oxycodone/Acetaminophen (Percocet 5/325 Mg Tab) 1 tab PO Q4 PRN PRN Reason: Pain, moderate (4-7) Stop: 05/19/18 18:41 Last Admin: 05/16/18 20:22 Dose: 1 tab Sevelamer HCl (Renagel) 800 mg PO TIDWM [facility] - Labs Labs: 05/18/18 05:00 05/19/18 05:20 PT 13.5 Seconds (9.8-13.1) H 05/17/18 05:05 INR 1.2 05/17/18 05:05 APTT 30.8 Seconds (25.6-37.1) 05/17/18 05:05 - Constitutional Appears: Non-toxic, No Acute Distress - Head Exam Head Exam: ATRAUMATIC, NORMOCEPHALIC - Extremities Exam Additional comments: RLE Exam: Vasc: DP and PT 1/4 faintly palpable, CFT less than 3 seconds X 3, CFT absent at the tip of the right 2nd digit, significant edema noted at the right 2nd digit, and the distal aspect of the foot, increased warmth to the dorsum of the foot and the 2nd digit Ortho: right hallux amputation, no pain appreciated at this time, ankle joint range of motion within normal limits Neuro: Gross and protective sensation diminished Derm: Ulceration secondary to 2nd digit amputation with fibrotic base, <1 cc of purulence expressed today, + probe to bone, + tunneling, + tracking, mild malodor. Plantar ulceration, secondary to I&D, appreciated with exposed plantar fascia, no purulence expressed today, no tunneling, no tracking. Erythema with areas of ecchymosis appreciated to the forefoot. Two linear incisions over 2nd and 3rd interspace appreciated secondary to I&D - Neurological Exam Neurological Exam: Alert, Awake, Oriented x3 - Psychiatric Exam Psychiatric exam: Normal Affect, Normal Mood Assessment and Plan - Assessment and Plan (Free Text) Assessment: 72M patient with R foot infection, POD#3 R 2nd digit amputation. Plan: Patient seen and evaluated at bedside Discussed with Dr. Ang Afebrile, WBC 9.8, ESR 94, CRP 219.10 Right Foot X-ray- diffuse increased soft tissue swelling when compared to prior, infectious or other inflammatory process, soft tissue emphysema not appreciated New R foot x-ray (05/14): mild decrease in soft tissue swelling. No new soft tissue emphysema identified Wound Cultures- Ecoli, beta hemolytic strep B New wound cultures; no growth Wound packed with 1/4 iodoform packing, betadine soaked DSD Ordered vascular consult- recommendations appreciated Ordered infectious disease consult- recommendations appreciated Plan for TMA pending vascular recommendations Plan for OR for TMA once medically optimized and medial/cardiac clearance obtained Plan for TMA Tuesday pending cardio/medical clearance
--- NOTE | 2018-05-19 07:44 | CP.PCM.PN ---
<Kp Dale - Last Filed: 05/19/18 07:41> Subjective - Date & Time of Evaluation Date of Evaluation: 05/19/18 Time of Evaluation: 08:00 - Subjective Subjective: Pt seen and examined this am with Dr. Calabrese. at bedside. Denies pain. States he feels fine today. Objective - Vital Signs/Intake and Output Vital Signs (last 24 hours): Temp Pulse Resp BP Pulse Ox 98.6 F 93 H 14 129/48 L 98 05/19/18 06:00 05/19/18 06:00 05/19/18 06:00 05/19/18 04:00 05/19/18 06:00 Intake and Output: 05/19/18 05/19/18 06:59 18:59 Intake Total 240 Output Total 600 Balance -360 - Medications Medications: Current Medications Acetaminophen (Tylenol 325mg Tab) 650 mg PO PRN PRN PRN Reason: Fever >100.4 F Last Admin: 05/15/18 20:41 Dose: 650 mg Aspirin (Ecotrin) 81 mg PO DAILY [facility] Last Admin: 05/15/18 09:58 Dose: Not Given Clopidogrel Bisulfate (Plavix) 75 mg PO DAILY [facility] Last Admin: 05/18/18 09:15 Dose: 75 mg Glipizide (Glucotrol) 5 mg PO BIDAC [facility] Last Admin: 05/16/18 08:17 Dose: 5 mg Heparin Sodium (Porcine) (Heparin) 5,000 units SC Q12 [facility]; Protocol Last Admin: 05/18/18 20:17 Dose: 5,000 units Daptomycin 350 mg/ Sodium (Chloride) 100 mls @ 100 mls/hr IV Q48H [facility]; Protocol Stop: 05/20/18 18:01 Last Admin: 05/17/18 17:35 Dose: 100 mls/hr Cefepime HCl 0.25 gm/ Sodium (Chloride) 50 mls @ 50 mls/hr IVPB Q12 [facility]; Protocol Last Admin: 05/18/18 20:15 Dose: 50 mls/hr Clindamycin Phosphate (Cleocin 600mg/50ml D5w) 600 mg in 50 mls @ 50 mls/hr IVPB Q12 [facility]; Protocol Last Admin: 05/18/18 20:17 Dose: 50 mls/hr Insulin Human Lispro (Humalog) 0 units SC ACCU-CHECK [facility]; Protocol Last Admin: 05/19/18 06:16 Dose: 2 units Metoprolol Tartrate (Lopressor) 25 mg PO DAILY [facility] Last Admin: 05/18/18 09:15 Dose: 25 mg Oxycodone/Acetaminophen (Percocet 5/325 Mg Tab) 1 tab PO Q4 PRN PRN Reason: Pain, moderate (4-7) Stop: 05/19/18 18:41 Last Admin: 05/16/18 20:22 Dose: 1 tab Sevelamer HCl (Renagel) 800 mg PO TIDWM [facility] - Labs Labs: 05/19/18 05:20 05/19/18 05:20 PT 13.5 Seconds (9.8-13.1) H 05/17/18 05:05 INR 1.2 05/17/18 05:05 APTT 30.8 Seconds (25.6-37.1) 05/17/18 05:05 - Constitutional Appears: No Acute Distress - Head Exam Head Exam: NORMAL INSPECTION - Eye Exam Eye Exam: Normal appearance - ENT Exam ENT Exam: Mucous Membranes Moist - Respiratory Exam Respiratory Exam: Clear to Ausculation Bilateral - Cardiovascular Exam Cardiovascular Exam: REGULAR RHYTHM - Extremities Exam Extremities Exam: Normal Capillary Refill Additional comments: R. LE wrapped in gauze (clean, dry, in-tact) per podiatry, mild swelling of LE noted, same as yesterday - Neurological Exam Neurological Exam: Alert, Awake, Oriented x3 Assessment and Plan - Assessment and Plan (Free Text) Assessment: 72 y/o male with PMHx of HTN and Type II DM was seen and evaluated at bedside for right 2nd digit necrosis and acute renal failure that developed during admission. #Sepsis, resolved #2nd Digit Necrosis of R. Foot #Acute Renal Failure #PAD Consultations on board: Nephrology, Podiatry, Vascular, ID - Acute Renal Failure, slowly improving, BUN 33, Crea 4.9 today, receiving HD as per Nephrology. - Monitor I/O, electrolytes, acid-base, and fluid status daily. Renal Diet - Pt had 2nd digit amputation, I&D and debridement in OR 05/16 by Podiatry team. Leukocytosis resolved. Plan for R. TMA of foot once medically stabilized - Wcx E.Coli and GBS, pansensitive. Bcx no growth in 48 - C/W Daptomycin, Cefepime, and Clindamycin - Myocardial Stress normal. Echo EF 55-60% - Management of chronic medical conditions as ordered - Heparin for DVT ppx - F/u CBC, BMP, Bcx Discussed case with Dr. Guanakito Dale, PGY2 <Silverio Calabrese - Last Filed: 05/22/18 10:18> Objective - Vital Signs/Intake and Output Vital Signs (last 24 hours): Temp Pulse Resp BP Pulse Ox 98 F 88 18 144/77 93 L 05/22/18 08:20 05/22/18 08:27 05/22/18 08:20 05/22/18 08:27 05/22/18 08:20 Intake and Output: 05/21/18 05/22/18 23:59 11:59 Intake Total 1200 Balance 1200 - Medications Medications: Current Medications Acetaminophen (Tylenol 325mg Tab) 650 mg PO PRN PRN PRN Reason: Fever >100.4 F Last Admin: 05/15/18 20:41 Dose: 650 mg Aspirin (Ecotrin) 81 mg PO DAILY [facility] Last Admin: 05/15/18 09:58 Dose: Not Given Clopidogrel Bisulfate (Plavix) 75 mg PO DAILY [facility] Last Admin: 05/22/18 08:29 Dose: 75 mg Glipizide (Glucotrol) 5 mg PO BIDAC [facility] Last Admin: 05/16/18 08:17 Dose: 5 mg Clindamycin Phosphate (Cleocin 600mg/50ml D5w) 600 mg in 50 mls @ 100 mls/hr IVPB Q12 [facility]; Protocol Last Admin: 05/22/18 08:26 Dose: 100 mls/hr Daptomycin 350 mg/ Sodium (Chloride) 100 mls @ 100 mls/hr IV Q48H [facility]; Protocol Stop: 05/26/18 19:16 Last Admin: 05/21/18 22:06 Dose: 100 mls/hr Cefepime HCl 0.25 gm/ Sodium (Chloride) 50 mls @ 50 mls/hr IVPB Q12 [facility]; Protocol Last Admin: 05/22/18 08:32 Dose: 50 mls/hr Insulin Human Lispro (Humalog) 0 units SC ACCU-CHECK [facility]; Protocol Last Admin: 05/22/18 08:28 Dose: Not Given Metoprolol Tartrate (Lopressor) 25 mg PO DAILY [facility] Last Admin: 05/22/18 08:27 Dose: 25 mg Sevelamer Carbonate (Renvela) 800 mg PO TIDWM [facility] Last Admin: 05/22/18 08:29 Dose: 800 mg - Labs Labs: 05/22/18 04:45 05/22/18 04:45 PT 13.5 Seconds (9.8-13.1) H 05/17/18 05:05 INR 1.2 05/17/18 05:05 APTT 30.8 Seconds (25.6-37.1) 05/17/18 05:05 Assessment and Plan - Assessment and Plan (Free Text) Assessment: Patient was personally seen and examined by me in rounds with residents. Available labs and diagnostic data reviewed. Case, Patient's condition and management plan discussed with residents in rounds. Agree with resident's progress note.
[2018-05-19 08:19] LABS: IRON 46 ug/dL (49-181)
[2018-05-19] MEDS: Clindamycin 600mg/50ml D5W 600 MG/50 ML VIAL IVPB SCH ×2 (08:26→21:20)
[2018-05-19] MEDS: Cefepime 0.25 GM in Sodium Chloride 0.9% 50 ML IVPB SCH ×2 (08:27→21:22)
[2018-05-19 08:30] LABS: % IRON SATURATION 23 % (20-55); TOTAL IRON BINDING CAPACITY 200 ug/dL (250-450)
--- NOTE | 2018-05-19 12:28 | CP.PCM.PN ---
Subjective - Date & Time of Evaluation Date of Evaluation: 05/19/18 Time of Evaluation: 12:25 - Subjective Subjective: Yuniel Fuentes, PGY-1, Cardiology Progress Note for Dr. Tabares Patient was seen and evaluated at bedside. Patient had no acute overnight events. Patient reports much improved pain in right foot. Sensation is intact. Objective - Vital Signs/Intake and Output Vital Signs (last 24 hours): Temp Pulse Resp BP Pulse Ox 99.1 F 81 17 129/48 L 94 L 05/19/18 08:00 05/19/18 10:00 05/19/18 10:00 05/19/18 04:00 05/19/18 10:00 Intake and Output: 05/19/18 05/19/18 06:59 18:59 Intake Total 240 390 Output Total 600 Balance -360 390 - Medications Medications: Current Medications Acetaminophen (Tylenol 325mg Tab) 650 mg PO PRN PRN PRN Reason: Fever >100.4 F Last Admin: 05/15/18 20:41 Dose: 650 mg Aspirin (Ecotrin) 81 mg PO DAILY [facility] Last Admin: 05/15/18 09:58 Dose: Not Given Clopidogrel Bisulfate (Plavix) 75 mg PO DAILY [facility] Last Admin: 05/19/18 08:28 Dose: 75 mg Glipizide (Glucotrol) 5 mg PO BIDAC [facility] Last Admin: 05/16/18 08:17 Dose: 5 mg Heparin Sodium (Porcine) (Heparin) 5,000 units SC Q12 [facility]; Protocol Last Admin: 05/19/18 08:26 Dose: 5,000 units Daptomycin 350 mg/ Sodium (Chloride) 100 mls @ 100 mls/hr IV Q48H [facility]; Protocol Stop: 05/20/18 18:01 Last Admin: 05/17/18 17:35 Dose: 100 mls/hr Cefepime HCl 0.25 gm/ Sodium (Chloride) 50 mls @ 50 mls/hr IVPB Q12 [facility]; Protocol Last Admin: 05/19/18 08:27 Dose: 50 mls/hr Clindamycin Phosphate (Cleocin 600mg/50ml D5w) 600 mg in 50 mls @ 50 mls/hr IVPB Q12 [facility]; Protocol Last Admin: 05/19/18 08:26 Dose: 50 mls/hr Insulin Human Lispro (Humalog) 0 units SC ACCU-CHECK [facility]; Protocol Last Admin: 05/19/18 11:24 Dose: 4 units Metoprolol Tartrate (Lopressor) 25 mg PO DAILY [facility] Last Admin: 05/19/18 08:27 Dose: 25 mg Oxycodone/Acetaminophen (Percocet 5/325 Mg Tab) 1 tab PO Q4 PRN PRN Reason: Pain, moderate (4-7) Stop: 05/19/18 18:41 Last Admin: 05/16/18 20:22 Dose: 1 tab Sevelamer HCl (Renagel) 800 mg PO TIDWM [facility] Last Admin: 05/19/18 11:23 Dose: 800 mg - Labs Labs: 05/19/18 05:20 05/19/18 05:20 PT 13.5 Seconds (9.8-13.1) H 05/17/18 05:05 INR 1.2 05/17/18 05:05 APTT 30.8 Seconds (25.6-37.1) 05/17/18 05:05 - Constitutional Appears: Well, Non-toxic, No Acute Distress - Head Exam Head Exam: ATRAUMATIC, NORMAL INSPECTION, NORMOCEPHALIC - Eye Exam Eye Exam: EOMI, PERRL - ENT Exam ENT Exam: Mucous Membranes Moist - Respiratory Exam Respiratory Exam: Clear to Ausculation Bilateral, NORMAL BREATHING PATTERN - Cardiovascular Exam Cardiovascular Exam: REGULAR RHYTHM, RRR, +S1, +S2 - GI/Abdominal Exam GI & Abdominal Exam: Soft, Normal Bowel Sounds. absent: Tenderness - Extremities Exam Extremities Exam: Full ROM - Neurological Exam Neurological Exam: Alert, Awake, CN II-XII Intact, Oriented x3 - Skin Skin Exam: Dry, Intact Additional comments: darkened 2nd right toe, now debrided Assessment and Plan - Assessment and Plan (Free Text) Assessment: Peripheral vascular disease likely causing ischemia of right 2nd toe Hypertension Diabetes Mellitus type II Plan: Peripheral vascular disease likely causing ischemia of right 2nd toe complicated with infection Hypertension Diabetes Mellitus type II EKG: NS with HR: 80 Echo 05/16: LVEF of 55-60%, left atrium borderline dilated, mild MR Nuclear stress test 05/17: normal stress test BUN/Cr: improved to 33/4.9 today from creatinine of 6.0 yesterday. HgbA1c: 8.4 Plan for angiogram in the future when renal function improves Plan for TMA michael. From cardiac standpoint, patient is moderate risk for surgery. Medications: aspirin 81 mg daily held plavix 75 mg daily daptomycin 350 mg Q48 cefepime 1 gm Q12 clindamycin 600 mg Q12 glipizide 5 mg BIDAC held due to renal function lopressor 25 mg daily
--- NOTE | 2018-05-19 14:32 | CP.PCM.PN ---
Subjective - Date & Time of Evaluation Date of Evaluation: 05/19/18 Time of Evaluation: 02:00 - Subjective Subjective: Appears comfortable Feels better. Objective - Vital Signs/Intake and Output Vital Signs (last 24 hours): Temp Pulse Resp BP Pulse Ox 98.3 F 85 20 163/75 H 93 L 05/19/18 12:00 05/19/18 14:00 05/19/18 14:00 05/19/18 14:00 05/19/18 14:00 Intake and Output: 05/19/18 05/19/18 06:59 18:59 Intake Total 240 750 Output Total 600 600 Balance -360 150 - Medications Medications: Current Medications Acetaminophen (Tylenol 325mg Tab) 650 mg PO PRN PRN PRN Reason: Fever >100.4 F Last Admin: 05/15/18 20:41 Dose: 650 mg Aspirin (Ecotrin) 81 mg PO DAILY [facility] Last Admin: 05/15/18 09:58 Dose: Not Given Clopidogrel Bisulfate (Plavix) 75 mg PO DAILY [facility] Last Admin: 05/19/18 08:28 Dose: 75 mg Glipizide (Glucotrol) 5 mg PO BIDAC [facility] Last Admin: 05/16/18 08:17 Dose: 5 mg Heparin Sodium (Porcine) (Heparin) 5,000 units SC Q12 [facility]; Protocol Last Admin: 05/19/18 08:26 Dose: 5,000 units Daptomycin 350 mg/ Sodium (Chloride) 100 mls @ 100 mls/hr IV Q48H [facility]; Protocol Stop: 05/20/18 18:01 Last Admin: 05/17/18 17:35 Dose: 100 mls/hr Cefepime HCl 0.25 gm/ Sodium (Chloride) 50 mls @ 50 mls/hr IVPB Q12 [facility]; Protocol Last Admin: 05/19/18 08:27 Dose: 50 mls/hr Clindamycin Phosphate (Cleocin 600mg/50ml D5w) 600 mg in 50 mls @ 50 mls/hr IVPB Q12 [facility]; Protocol Last Admin: 05/19/18 08:26 Dose: 50 mls/hr Insulin Human Lispro (Humalog) 0 units SC ACCU-CHECK [facility]; Protocol Last Admin: 05/19/18 11:24 Dose: 4 units Metoprolol Tartrate (Lopressor) 25 mg PO DAILY [facility] Last Admin: 05/19/18 08:27 Dose: 25 mg Oxycodone/Acetaminophen (Percocet 5/325 Mg Tab) 1 tab PO Q4 PRN PRN Reason: Pain, moderate (4-7) Stop: 05/19/18 18:41 Last Admin: 05/16/18 20:22 Dose: 1 tab Sevelamer HCl (Renagel) 800 mg PO TIDWM [facility] Last Admin: 05/19/18 11:23 Dose: 800 mg - Labs Labs: 05/19/18 05:20 05/19/18 05:20 PT 13.5 Seconds (9.8-13.1) H 05/17/18 05:05 INR 1.2 05/17/18 05:05 APTT 30.8 Seconds (25.6-37.1) 05/17/18 05:05 - Constitutional Appears: No Acute Distress - Head Exam Head Exam: ATRAUMATIC, NORMOCEPHALIC - Eye Exam Eye Exam: Normal appearance - ENT Exam ENT Exam: Mucous Membranes Moist - Neck Exam Additional comments: No jugular venous distension - Respiratory Exam Respiratory Exam: NORMAL BREATHING PATTERN Additional comments: Lungs clear - Cardiovascular Exam Cardiovascular Exam: REGULAR RHYTHM - GI/Abdominal Exam GI & Abdominal Exam: Soft Additional comments: No tenderness - Extremities Exam Additional comments: No edema Color is good. Rt foot dressed. Assessment and Plan - Assessment and Plan (Free Text) Assessment: Acute renal failure requiring dialysis support. Pt had 2 dialysis treatments which were tolerated well. Labs are stable Rt foot infected wound S/p debridement Leukocytosis resolving Repeat vanco level pending Plan: Dialysis for tomorrow Labs in am.
[2018-05-20] MEDS: Insulin Lispro (humaLOG) 100 Units/ml Inj SC SCH ×4 (06:16→22:46)
[2018-05-20 06:18] LABS: BASO # 0.1 K/uL (0.0-0.2); BASO % 1.1 % (0.0-2.0); EOS # 0.3 K/uL (0.0-0.7); EOS % 2.5 % (0.0-4.0); HEMOGLOBIN 10.3 g/dL (12.0-18.0); LYMPH # 1.3 K/uL (1.0-4.3); LYMPH % 11.8 % (20.0-40.0); MEAN CELL VOLUME 84.2 fl (80.0-94.0); MEAN CORPUSCULAR HEMOGLOBIN 28.9 pg (27.0-31.0); MEAN CORPUSCULAR HGB CONC 34.3 g/dL (33.0-37.0); MEAN PLATELET VOLUME 7.1 fl (7.2-11.7); MONO # 0.6 K/uL (0.0-0.8); MONO % 5.7 % (0.0-10.0); NEUT # 8.4 K/uL (1.8-7.0); NEUT % 78.9 % (50.0-75.0); NRBC % 0.1 % (0.0-0.0); RBC 3.58 Mil/uL (4.40-5.90); RED CELL DISTRIBUTION WIDTH 12.9 % (11.5-14.5); WHITE BLOOD COUNT 10.7 K/uL (4.8-10.8)
[2018-05-20 06:38] LABS: ALB/GLOB RATIO 0.8 (1.0-2.1); ALBUMIN 3.4 g/dL (3.5-5.0); CALCIUM 8.3 mg/dL (8.4-10.2)
[2018-05-20] MEDS: Clindamycin 600mg/50ml D5W 600 MG/50 ML VIAL IVPB SCH ×2 (08:12→20:24)
[2018-05-20] MEDS: Cefepime 0.25 GM in Sodium Chloride 0.9% 50 ML IVPB SCH ×2 (08:25→22:49)
--- NOTE | 2018-05-20 11:01 | PN ---
DATE: 05/20/2018 SUBJECTIVE: The patient is seen and examined. Interim events noted. Consults noted and appreciated. The patient remains in intensive care unit. Awake, responsive, feels much better. Denies any specific complaint. Pain is much improved. PHYSICAL EXAMINATION: GENERAL: The patient is in no acute distress. VITAL SIGNS: Stable. HEART: S1 and S2, normal and regular. LUNGS: Good bilateral air exchange. ABDOMEN: Soft, nontender. EXTREMITIES: The patient has chronic peripheral vascular disease and cellulitis status post amputation. The patient is awaiting transmetatarsal amputation. CENTRAL NERVOUS SYSTEM: Exam is essentially unchanged. DIAGNOSTIC DATA: Available diagnostic data reviewed. Telemetry monitoring does not show any significant arrhythmias. Creatinine remains elevated. ASSESSMENT AND PLAN: Plan as ordered. Silverio Calabrese MD
--- NOTE | 2018-05-20 11:30 | CP.PCM.PN ---
Subjective - Date & Time of Evaluation Date of Evaluation: 05/20/18 Time of Evaluation: 11:00 - Subjective Subjective: Pt feels better today. Objective - Vital Signs/Intake and Output Vital Signs (last 24 hours): Temp Pulse Resp BP Pulse Ox 98.7 F 75 20 152/75 H 96 05/20/18 08:00 05/20/18 10:00 05/20/18 10:00 05/20/18 10:00 05/20/18 10:00 Intake and Output: 05/20/18 05/20/18 06:59 18:59 Intake Total 150 480 Output Total 800 Balance -650 480 - Medications Medications: Current Medications Acetaminophen (Tylenol 325mg Tab) 650 mg PO PRN PRN PRN Reason: Fever >100.4 F Last Admin: 05/15/18 20:41 Dose: 650 mg Aspirin (Ecotrin) 81 mg PO DAILY [facility] Last Admin: 05/15/18 09:58 Dose: Not Given Clopidogrel Bisulfate (Plavix) 75 mg PO DAILY [facility] Last Admin: 05/20/18 08:10 Dose: 75 mg Glipizide (Glucotrol) 5 mg PO BIDAC [facility] Last Admin: 05/16/18 08:17 Dose: 5 mg Heparin Sodium (Porcine) (Heparin) 5,000 units SC Q12 [facility]; Protocol Last Admin: 05/20/18 08:11 Dose: 5,000 units Daptomycin 350 mg/ Sodium (Chloride) 100 mls @ 100 mls/hr IV Q48H [facility]; Protocol Stop: 05/20/18 18:01 Last Admin: 05/19/18 17:22 Dose: 100 mls/hr Cefepime HCl 0.25 gm/ Sodium (Chloride) 50 mls @ 50 mls/hr IVPB Q12 [facility]; Protocol Last Admin: 05/20/18 08:25 Dose: 50 mls/hr Clindamycin Phosphate (Cleocin 600mg/50ml D5w) 600 mg in 50 mls @ 50 mls/hr IVPB Q12 [facility]; Protocol Last Admin: 05/20/18 08:12 Dose: 50 mls/hr Insulin Human Lispro (Humalog) 0 units SC ACCU-CHECK [facility]; Protocol Last Admin: 05/20/18 11:24 Dose: 4 units Metoprolol Tartrate (Lopressor) 25 mg PO DAILY [facility] Last Admin: 05/20/18 08:10 Dose: 25 mg Sevelamer HCl (Renagel) 800 mg PO TIDWM [facility] Last Admin: 05/20/18 08:23 Dose: 800 mg - Labs Labs: 05/20/18 04:30 05/20/18 04:30 PT 13.5 Seconds (9.8-13.1) H 05/17/18 05:05 INR 1.2 05/17/18 05:05 APTT 30.8 Seconds (25.6-37.1) 05/17/18 05:05 - Constitutional Appears: No Acute Distress - Head Exam Head Exam: ATRAUMATIC, NORMOCEPHALIC - Eye Exam Additional comments: Conjunctiva pink - ENT Exam ENT Exam: Mucous Membranes Moist - Neck Exam Additional comments: No jugular venous distension - Respiratory Exam Respiratory Exam: NORMAL BREATHING PATTERN Additional comments: Lungs clear - Cardiovascular Exam Cardiovascular Exam: REGULAR RHYTHM - GI/Abdominal Exam Additional comments: Abdomen is soft & nontender - Extremities Exam Additional comments: No edema or cyanosis. Rt foot dressed Assessment and Plan - Assessment and Plan (Free Text) Assessment: CHARIS requirind dialysis support. Dialysis was tolerated well. There is an increase in serum creatinine toda Dialysis is scheduled for today. Rt foot infected ulcer, S/P debridement PVD HTN,HLD Plan: For dialysis today. Continue to monitor renal function closely. Add Letty
--- NOTE | 2018-05-20 14:34 | CP.PCM.PN ---
Subjective - Date & Time of Evaluation Date of Evaluation: 05/20/18 Time of Evaluation: 14:32 - Subjective Subjective: Podiatry Progress Note: Dr. Ang Patient seen this AM for R foot infection, POD#4 R 2nd digit amputation. Patient resting comfortably, no acute distress. Patient aware of plan for TMA once medically optimized and stable. Currently undergoing HD treatment. Denies nausea/vomiting/fever/shortness of breath. Objective - Vital Signs/Intake and Output Vital Signs (last 24 hours): Temp Pulse Resp BP Pulse Ox 98.6 F 75 16 157/77 H 97 05/20/18 12:00 05/20/18 12:00 05/20/18 12:00 05/20/18 12:00 05/20/18 12:00 Intake and Output: 05/20/18 05/20/18 06:59 18:59 Intake Total 150 720 Output Total 800 Balance -650 720 - Medications Medications: Current Medications Acetaminophen (Tylenol 325mg Tab) 650 mg PO PRN PRN PRN Reason: Fever >100.4 F Last Admin: 05/15/18 20:41 Dose: 650 mg Aspirin (Ecotrin) 81 mg PO DAILY [facility] Last Admin: 05/15/18 09:58 Dose: Not Given Clopidogrel Bisulfate (Plavix) 75 mg PO DAILY [facility] Last Admin: 05/20/18 08:10 Dose: 75 mg Glipizide (Glucotrol) 5 mg PO BIDAC [facility] Last Admin: 05/16/18 08:17 Dose: 5 mg Heparin Sodium (Porcine) (Heparin) 5,000 units SC Q12 [facility]; Protocol Last Admin: 05/20/18 08:11 Dose: 5,000 units Daptomycin 350 mg/ Sodium (Chloride) 100 mls @ 100 mls/hr IV Q48H [facility]; Protocol Stop: 05/20/18 18:01 Last Admin: 05/19/18 17:22 Dose: 100 mls/hr Cefepime HCl 0.25 gm/ Sodium (Chloride) 50 mls @ 50 mls/hr IVPB Q12 [facility]; Protocol Last Admin: 05/20/18 08:25 Dose: 50 mls/hr Clindamycin Phosphate (Cleocin 600mg/50ml D5w) 600 mg in 50 mls @ 50 mls/hr IVPB Q12 [facility]; Protocol Last Admin: 05/20/18 08:12 Dose: 50 mls/hr Insulin Human Lispro (Humalog) 0 units SC ACCU-CHECK [facility]; Protocol Last Admin: 05/20/18 11:24 Dose: 4 units Metoprolol Tartrate (Lopressor) 25 mg PO DAILY [facility] Last Admin: 05/20/18 08:10 Dose: 25 mg Sevelamer HCl (Renagel) 800 mg PO TIDWM [facility] Last Admin: 05/20/18 08:23 Dose: 800 mg - Labs Labs: 05/20/18 04:30 05/20/18 04:30 PT 13.5 Seconds (9.8-13.1) H 05/17/18 05:05 INR 1.2 05/17/18 05:05 APTT 30.8 Seconds (25.6-37.1) 05/17/18 05:05 - Constitutional Appears: Non-toxic, No Acute Distress - Head Exam Head Exam: ATRAUMATIC, NORMOCEPHALIC - Extremities Exam Additional comments: RLE Exam: Vasc: DP and PT 1/4 faintly palpable, CFT less than 3 seconds X 3, CFT absent at the tip of the right 2nd digit, significant edema noted at the right 2nd digit, and the distal aspect of the foot, increased warmth to the dorsum of the foot and the 2nd digit Ortho: right hallux amputation, no pain appreciated at this time, ankle joint range of motion within normal limits Neuro: Gross and protective sensation diminished Derm: Ulceration secondary to 2nd digit amputation with fibrotic base, <1 cc of purulence expressed today, + probe to bone, + tunneling, + tracking, mild malodor. Plantar ulceration, secondary to I&D, appreciated with exposed plantar fascia, no purulence expressed today, no tunneling, no tracking. Erythema with areas of ecchymosis appreciated to the forefoot. Two linear incisions over 2nd and 3rd interspace appreciated secondary to I&D - Neurological Exam Neurological Exam: Alert, Awake, Oriented x3 - Psychiatric Exam Psychiatric exam: Normal Affect, Normal Mood Assessment and Plan - Assessment and Plan (Free Text) Assessment: 72M patient with R foot infection, POD#4 R 2nd digit amputation. Plan: Patient seen and evaluated at bedside Discussed with Dr. Ang Afebrile, WBC 10.7, Cr5.7, ESR 94, CRP 219.10 Right Foot X-ray- diffuse increased soft tissue swelling when compared to prior, infectious or other inflammatory process, soft tissue emphysema not appreciated New R foot x-ray (05/14): mild decrease in soft tissue swelling. No new soft tissue emphysema identified Wound Cultures- Ecoli, beta hemolytic strep B New wound cultures; no growth Wound packed with 1/4 iodoform packing, betadine soaked DSD Ordered vascular consult- recommendations appreciated Ordered infectious disease consult- recommendations appreciated Plan for TMA pending vascular recommendations Plan for OR for TMA once medically optimized and medial/cardiac clearance obtained Plan for TMA Tuesday pending cardio/medical clearance
[2018-05-21 06:07] LABS: HEMOGLOBIN 10.8 g/dL (12.0-18.0); MEAN CELL VOLUME 84.8 fl (80.0-94.0); MEAN CORPUSCULAR HEMOGLOBIN 29.4 pg (27.0-31.0); MEAN CORPUSCULAR HGB CONC 34.6 g/dL (33.0-37.0); RBC 3.66 Mil/uL (4.40-5.90); RED CELL DISTRIBUTION WIDTH 13.1 % (11.5-14.5); WHITE BLOOD COUNT 10.9 K/uL (4.8-10.8)
[2018-05-21 06:31] LABS: ALB/GLOB RATIO 0.8 (1.0-2.1); ALBUMIN 3.5 g/dL (3.5-5.0); CALCIUM 8.1 mg/dL (8.4-10.2)
[2018-05-21] MEDS: Clindamycin 600mg/50ml D5W 600 MG/50 ML VIAL IVPB SCH ×2 (08:18→21:54)
[2018-05-21] MEDS: Insulin Lispro (humaLOG) 100 Units/ml Inj SC SCH ×4 (08:20→21:59)
[2018-05-21] MEDS: Cefepime 0.25 GM in Sodium Chloride 0.9% 50 ML IVPB SCH ×2 (08:22→22:06)
--- NOTE | 2018-05-21 08:30 | PN ---
DATE: 05/21/2018 SUBJECTIVE: The patient is seen and examined. Interim events noted. Consults noted and appreciated. Nephrology followup and interventions noted and appreciated. The patient remains in intensive care unit. Awake, responsive. Feels feels okay. Denies any specific complaints. Pain is adequately controlled. No new complaints of chest pain or shortness of breath. Tolerated dialysis very well. PHYSICAL EXAMINATION: GENERAL: The patient is in no acute distress. VITAL SIGNS: Stable. HEART: S1 and S2, normal and regular. LUNGS: Good bilateral air exchange. ABDOMEN: Soft and nontender. EXTREMITIES: No edema. No calf swelling. No tenderness. The patient has peripheral vascular disease and osteomyelitis from possible transmetatarsal amputation. 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 DIAGNOSTIC DATA: Available diagnostic data reviewed. Telemetry monitoring does not show significant arrhythmias. ASSESSMENT AND PLAN: Overall, the patient's general medical condition is stable. Plan as ordered. Case and plan discussed with the patient and patient's at bedside. Silverio Calabrese MD
--- NOTE | 2018-05-21 11:42 | CP.PCM.PN ---
Subjective - Date & Time of Evaluation Date of Evaluation: 05/21/18 Time of Evaluation: 10:30 - Subjective Subjective: Pt feels better. Appears comfortable in bed, Objective - Vital Signs/Intake and Output Vital Signs (last 24 hours): Temp Pulse Resp BP Pulse Ox 98.4 F 86 18 145/73 94 L 05/21/18 08:00 05/21/18 08:21 05/21/18 08:00 05/21/18 08:21 05/21/18 08:00 Intake and Output: 05/21/18 05/21/18 06:59 18:59 Intake Total 380 100 Output Total 700 Balance -320 100 - Medications Medications: Current Medications Acetaminophen (Tylenol 325mg Tab) 650 mg PO PRN PRN PRN Reason: Fever >100.4 F Last Admin: 05/15/18 20:41 Dose: 650 mg Aspirin (Ecotrin) 81 mg PO DAILY [facility] Last Admin: 05/15/18 09:58 Dose: Not Given Clopidogrel Bisulfate (Plavix) 75 mg PO DAILY [facility] Last Admin: 05/21/18 08:22 Dose: 75 mg Glipizide (Glucotrol) 5 mg PO BIDAC [facility] Last Admin: 05/16/18 08:17 Dose: 5 mg Insulin Human Lispro (Humalog) 0 units SC ACCU-CHECK [facility]; Protocol Last Admin: 05/21/18 08:20 Dose: 3 units Metoprolol Tartrate (Lopressor) 25 mg PO DAILY [facility] Last Admin: 05/21/18 08:21 Dose: 25 mg Sevelamer Carbonate (Renvela) 800 mg PO TIDWM [facility] - Labs Labs: 05/21/18 04:25 05/21/18 04:25 PT 13.5 Seconds (9.8-13.1) H 05/17/18 05:05 INR 1.2 05/17/18 05:05 APTT 30.8 Seconds (25.6-37.1) 05/17/18 05:05 - Constitutional Appears: No Acute Distress - Head Exam Head Exam: ATRAUMATIC, NORMOCEPHALIC - Eye Exam Additional comments: Conjunctiva pink - ENT Exam ENT Exam: Mucous Membranes Moist - Neck Exam Additional comments: No jugular venous distension - Respiratory Exam Respiratory Exam: NORMAL BREATHING PATTERN Additional comments: Lungs clear - Cardiovascular Exam Cardiovascular Exam: REGULAR RHYTHM - GI/Abdominal Exam GI & Abdominal Exam: Soft Additional comments: No tenderness - Extremities Exam Additional comments: No edema . Rt foot dressed Assessment and Plan - Assessment and Plan (Free Text) Assessment: Acute kidney injury requiring dialysis Dialysis was tolerated well yesterday Rt foot infected second toe PVD,HTM, DM 11 Plan: For OR tomorrow Will supplement K+ Labs are stable Monitor renal function. Pt has good UO Will schedule dialsis on TTS schedule.
[2018-05-21] MEDS ORDERED: Potassium Chloride 20 mEq/15 ml LIQ UD PO ONE (11:48)
--- NOTE | 2018-05-21 13:53 | CP.PCM.PN ---
Subjective - Date & Time of Evaluation Date of Evaluation: 05/21/18 Time of Evaluation: 13:53 - Subjective Subjective: Podiatry Progress Note: Dr. Ang Patient seen this AM for R foot infection, POD#5 R 2nd digit amputation. Patient resting comfortably, no acute distress. Patient aware of plan for TMA possibly tomorrow, once medically optimized and stable. Denies nausea/vomiting/fever/shortness of breath. Objective - Vital Signs/Intake and Output Vital Signs (last 24 hours): Temp Pulse Resp BP Pulse Ox 99 F 84 19 164/84 H 96 05/21/18 12:00 05/21/18 12:00 05/21/18 12:00 05/21/18 12:00 05/21/18 12:00 Intake and Output: 05/21/18 05/21/18 06:59 18:59 Intake Total 380 100 Output Total 700 Balance -320 100 - Medications Medications: Current Medications Acetaminophen (Tylenol 325mg Tab) 650 mg PO PRN PRN PRN Reason: Fever >100.4 F Last Admin: 05/15/18 20:41 Dose: 650 mg Aspirin (Ecotrin) 81 mg PO DAILY [facility] Last Admin: 05/15/18 09:58 Dose: Not Given Clopidogrel Bisulfate (Plavix) 75 mg PO DAILY [facility] Last Admin: 05/21/18 08:22 Dose: 75 mg Glipizide (Glucotrol) 5 mg PO BIDAC [facility] Last Admin: 05/16/18 08:17 Dose: 5 mg Insulin Human Lispro (Humalog) 0 units SC ACCU-CHECK [facility]; Protocol Last Admin: 05/21/18 12:14 Dose: 4 units Metoprolol Tartrate (Lopressor) 25 mg PO DAILY [facility] Last Admin: 05/21/18 08:21 Dose: 25 mg Sevelamer Carbonate (Renvela) 800 mg PO TIDWM [facility] Last Admin: 05/21/18 12:15 Dose: 800 mg - Labs Labs: 05/21/18 04:25 05/21/18 04:25 PT 13.5 Seconds (9.8-13.1) H 05/17/18 05:05 INR 1.2 05/17/18 05:05 APTT 30.8 Seconds (25.6-37.1) 05/17/18 05:05 - Constitutional Appears: Non-toxic, No Acute Distress - Head Exam Head Exam: ATRAUMATIC, NORMOCEPHALIC - Extremities Exam Additional comments: RLE Exam: Vasc: DP and PT 1/4 faintly palpable, CFT less than 3 seconds X 3, CFT absent at the tip of the right 2nd digit, significant edema noted at the right 2nd digit, and the distal aspect of the foot, increased warmth to the dorsum of the foot and the 2nd digit Ortho: right hallux amputation, no pain appreciated at this time, ankle joint range of motion within normal limits Neuro: Gross and protective sensation diminished Derm: Ulceration secondary to 2nd digit amputation with fibrotic base, <1 cc of purulence expressed today, + probe to bone, + tunneling, + tracking, mild malodor. Plantar ulceration, secondary to I&D, appreciated with exposed plantar fascia, no purulence expressed today, no tunneling, no tracking. Erythema with areas of ecchymosis appreciated to the forefoot. Two linear incisions over 2nd and 3rd interspace appreciated secondary to I&D - Neurological Exam Neurological Exam: Alert, Awake, Oriented x3 - Psychiatric Exam Psychiatric exam: Normal Affect, Normal Mood Assessment and Plan - Assessment and Plan (Free Text) Assessment: 72M patient with R foot infection, POD#5 R 2nd digit amputation. Plan: Patient seen and evaluated at bedside Discussed with Dr. Ang Afebrile, WBC 10.9, Cr4.1, ESR 94, CRP 219.10 Right Foot X-ray- diffuse increased soft tissue swelling when compared to prior, infectious or other inflammatory process, soft tissue emphysema not appreciated New R foot x-ray (05/14): mild decrease in soft tissue swelling. No new soft tissue emphysema identified Wound Cultures- Ecoli, beta hemolytic strep B New wound cultures; no growth Wound packed with 1/4 iodoform packing, betadine soaked DSD Ordered vascular consult- recommendations appreciated Ordered infectious disease consult- recommendations appreciated Plan for TMA pending vascular recommendations Please medically optimize and provide medial/cardiac clearance Plan for TMA Tuesday pending cardio/medical clearance
[2018-05-21] MEDS ORDERED: Cefepime (Maxipime) 1 g Inj IVPB SCH (21:00)
[2018-05-22 05:49] LABS: HEMOGLOBIN 10.4 g/dL (12.0-18.0); MEAN CELL VOLUME 84.1 fl (80.0-94.0); MEAN CORPUSCULAR HEMOGLOBIN 28.4 pg (27.0-31.0); MEAN CORPUSCULAR HGB CONC 33.8 g/dL (33.0-37.0); RBC 3.65 Mil/uL (4.40-5.90); RED CELL DISTRIBUTION WIDTH 13.1 % (11.5-14.5); WHITE BLOOD COUNT 11.1 K/uL (4.8-10.8)
[2018-05-22 06:02] LABS: ALB/GLOB RATIO 0.8 (1.0-2.1); ALBUMIN 3.4 g/dL (3.5-5.0)
[2018-05-22] MEDS: Clindamycin 600mg/50ml D5W 600 MG/50 ML VIAL IVPB SCH ×2 (08:26→21:36)
[2018-05-22] MEDS: Insulin Lispro (humaLOG) 100 Units/ml Inj SC SCH ×5 (08:28→23:58)
[2018-05-22] MEDS: Cefepime 0.25 GM in Sodium Chloride 0.9% 50 ML IVPB SCH ×2 (08:32→21:36)
--- NOTE | 2018-05-22 08:45 | CP.PCM.PN ---
Subjective - Date & Time of Evaluation Date of Evaluation: 05/22/18 Time of Evaluation: 08:43 - Subjective Subjective: Podiatry Progress Note: Dr. Ang Patient seen this AM for R foot infection, POD#6 R 2nd digit amputation. Patient resting comfortably, no acute distress. Patient plan for OR tonight for transmetatarsal amputation. Denies nausea/vomiting/fever/shortness of breath. Objective - Vital Signs/Intake and Output Vital Signs (last 24 hours): Temp Pulse Resp BP Pulse Ox 98 F 88 18 144/77 93 L 05/22/18 08:20 05/22/18 08:27 05/22/18 08:20 05/22/18 08:27 05/22/18 08:20 - Medications Medications: Current Medications Acetaminophen (Tylenol 325mg Tab) 650 mg PO PRN PRN PRN Reason: Fever >100.4 F Last Admin: 05/15/18 20:41 Dose: 650 mg Aspirin (Ecotrin) 81 mg PO DAILY [facility] Last Admin: 05/15/18 09:58 Dose: Not Given Clopidogrel Bisulfate (Plavix) 75 mg PO DAILY [facility] Last Admin: 05/22/18 08:29 Dose: 75 mg Glipizide (Glucotrol) 5 mg PO BIDAC [facility] Last Admin: 05/16/18 08:17 Dose: 5 mg Clindamycin Phosphate (Cleocin 600mg/50ml D5w) 600 mg in 50 mls @ 100 mls/hr IVPB Q12 [facility]; Protocol Last Admin: 05/22/18 08:26 Dose: 100 mls/hr Daptomycin 350 mg/ Sodium (Chloride) 100 mls @ 100 mls/hr IV Q48H [facility]; Protocol Stop: 05/26/18 19:16 Last Admin: 05/21/18 22:06 Dose: 100 mls/hr Cefepime HCl 0.25 gm/ Sodium (Chloride) 50 mls @ 50 mls/hr IVPB Q12 [facility]; Protocol Last Admin: 05/22/18 08:32 Dose: 50 mls/hr Insulin Human Lispro (Humalog) 0 units SC ACCU-CHECK [facility]; Protocol Last Admin: 05/22/18 08:28 Dose: Not Given Metoprolol Tartrate (Lopressor) 25 mg PO DAILY [facility] Last Admin: 05/22/18 08:27 Dose: 25 mg Sevelamer Carbonate (Renvela) 800 mg PO TIDWM [facility] Last Admin: 05/22/18 08:29 Dose: 800 mg - Labs Labs: 05/22/18 04:45 05/22/18 04:45 PT 13.5 Seconds (9.8-13.1) H 05/17/18 05:05 INR 1.2 05/17/18 05:05 APTT 30.8 Seconds (25.6-37.1) 05/17/18 05:05 - Constitutional Appears: Non-toxic, No Acute Distress - Head Exam Head Exam: ATRAUMATIC, NORMOCEPHALIC - Extremities Exam Additional comments: Dressing left clean/dry/intact Decreased sensation to digits, gross sensation intact - Neurological Exam Neurological Exam: Alert, Awake, Oriented x3 - Psychiatric Exam Psychiatric exam: Normal Affect, Normal Mood Assessment and Plan - Assessment and Plan (Free Text) Assessment: 72M patient with R foot infection, POD#6 R 2nd digit amputation, plan for TMA tonight Plan: Patient seen and evaluated at bedside Discussed with Dr. Ang Afebrile, WBC 11.1, Cr4.1, ESR 94, CRP 219.10 Right Foot X-ray- diffuse increased soft tissue swelling when compared to prior, infectious or other inflammatory process, soft tissue emphysema not appreciated New R foot x-ray (05/14): mild decrease in soft tissue swelling. No new soft tissue emphysema identified Wound Cultures- Ecoli, beta hemolytic strep B New wound cultures; no growth Vascular consult- recommendations appreciated Infectious disease consult- recommendations appreciated NPO diet Plan for TMA tonight with Dr. Ang
--- NOTE | 2018-05-22 11:46 | PN ---
DATE: 05/22/2018 SUBJECTIVE: The patient is seen and examined. Interim events noted. Consults noted and appreciated. The patient is now in intensive care unit . Denies any excessive complaint, leg pain, . PHYSICAL EXAMINATION: GENERAL: The patient is in no acute distress. VITAL SIGNS: Stable. HEART: S1 and S2, normal and regular. LUNGS: Good bilateral air exchange. ABDOMEN: Soft and nontender. No organomegaly. No fluid. Bowel sounds are grossly normal. EXTREMITIES: No edema. No calf swelling. No tenderness. No acute ischemia. 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 DIAGNOSTIC DATA: Available diagnostic data reviewed. Telemetry monitoring does not show any significant arrhythmias. ASSESSMENT AND PLAN: The patient is tentatively scheduled for surgery. The patient is medically stable and in optimal condition for the proposed surgery. There is no medical contraindication. The patient is at moderate surgical risk. Overall, the patient is medically stable. Plan as ordered. Silverio Calabrese MD
--- NOTE | 2018-05-22 14:25 | CP.PCM.PN ---
Subjective - Date & Time of Evaluation Date of Evaluation: 05/22/18 Time of Evaluation: 14:23 - Subjective Subjective: no complaints stress test reviewed Objective - Vital Signs/Intake and Output Vital Signs (last 24 hours): Temp Pulse Resp BP Pulse Ox 98.5 F 80 18 149/72 94 L 05/22/18 12:00 05/22/18 12:00 05/22/18 12:00 05/22/18 12:00 05/22/18 12:00 - Medications Medications: Current Medications Acetaminophen (Tylenol 325mg Tab) 650 mg PO PRN PRN PRN Reason: Fever >100.4 F Last Admin: 05/15/18 20:41 Dose: 650 mg Aspirin (Ecotrin) 81 mg PO DAILY [facility] Last Admin: 05/15/18 09:58 Dose: Not Given Clopidogrel Bisulfate (Plavix) 75 mg PO DAILY [facility] Last Admin: 05/22/18 08:29 Dose: 75 mg Glipizide (Glucotrol) 5 mg PO BIDAC [facility] Last Admin: 05/16/18 08:17 Dose: 5 mg Clindamycin Phosphate (Cleocin 600mg/50ml D5w) 600 mg in 50 mls @ 100 mls/hr IVPB Q12 [facility]; Protocol Last Admin: 05/22/18 08:26 Dose: 100 mls/hr Daptomycin 350 mg/ Sodium (Chloride) 100 mls @ 100 mls/hr IV Q48H [facility]; Protocol Stop: 05/26/18 19:16 Last Admin: 05/21/18 22:06 Dose: 100 mls/hr Cefepime HCl 0.25 gm/ Sodium (Chloride) 50 mls @ 50 mls/hr IVPB Q12 [facility]; Protocol Last Admin: 05/22/18 08:32 Dose: 50 mls/hr Dextrose/Sodium Chloride (Dextrose 5%-0.45% Ns 500 Ml) 500 mls @ 42 mls/hr IV .[id number] [facility] Stop: 05/23/18 13:27 Insulin Human Lispro (Humalog) 0 units SC ACCU-CHECK [facility]; Protocol Last Admin: 05/22/18 13:18 Dose: 6 units Metoprolol Tartrate (Lopressor) 25 mg PO DAILY [facility] Last Admin: 05/22/18 08:27 Dose: 25 mg Sevelamer Carbonate (Renvela) 800 mg PO TIDWM [facility] Last Admin: 05/22/18 13:18 Dose: Not Given - Labs Labs: 05/22/18 04:45 05/22/18 04:45 PT 13.5 Seconds (9.8-13.1) H 05/17/18 05:05 INR 1.2 05/17/18 05:05 APTT 30.8 Seconds (25.6-37.1) 05/17/18 05:05 - Constitutional Appears: Well - Head Exam Head Exam: ATRAUMATIC, NORMAL INSPECTION, NORMOCEPHALIC - Eye Exam Eye Exam: EOMI, Normal appearance, PERRL Pupil Exam: NORMAL ACCOMODATION, PERRL - ENT Exam ENT Exam: Mucous Membranes Moist, Normal Exam - Neck Exam Neck Exam: Full ROM, Normal Inspection. absent: Lymphadenopathy - Respiratory Exam Respiratory Exam: Clear to Ausculation Bilateral, NORMAL BREATHING PATTERN - Cardiovascular Exam Cardiovascular Exam: REGULAR RHYTHM, +S1, +S2. absent: Murmur - GI/Abdominal Exam GI & Abdominal Exam: Soft, Normal Bowel Sounds. absent: Tenderness - Extremities Exam Extremities Exam: Full ROM, Normal Capillary Refill, Normal Inspection. absent: Joint Swelling, Pedal Edema - Back Exam Back Exam: NORMAL INSPECTION - Neurological Exam Neurological Exam: Alert, Awake, CN II-XII Intact, Normal Gait, Oriented x3 - Psychiatric Exam Psychiatric exam: Normal Affect, Normal Mood - Skin Skin Exam: Dry, Intact, Normal Color, Warm Assessment and Plan (1) Preop cardiovascular exam Assessment & Plan: as per acc/aha guidelines he can proceed with planned TMA with low risk for brijesh operative cardiac event Status: Acute (2) Cellulitis Status: Acute (3) Necrosis of toe Status: Acute (4) Acute renal insufficiency Status: Acute (5) Osteomyelitis of right foot Status: Acute (6) PVD (peripheral vascular disease) Status: Acute (7) HTN (hypertension) Status: Chronic
--- NOTE | 2018-05-22 14:33 | CP.PCM.PN ---
Subjective - Date & Time of Evaluation Date of Evaluation: 05/22/18 Time of Evaluation: 02:00 - Subjective Subjective: Sitting up in chair.Appears comfortable Objective - Vital Signs/Intake and Output Vital Signs (last 24 hours): Temp Pulse Resp BP Pulse Ox 98.5 F 80 18 149/72 94 L 05/22/18 12:00 05/22/18 12:00 05/22/18 12:00 05/22/18 12:00 05/22/18 12:00 - Medications Medications: Current Medications Acetaminophen (Tylenol 325mg Tab) 650 mg PO PRN PRN PRN Reason: Fever >100.4 F Last Admin: 05/15/18 20:41 Dose: 650 mg Aspirin (Ecotrin) 81 mg PO DAILY [facility] Last Admin: 05/15/18 09:58 Dose: Not Given Clopidogrel Bisulfate (Plavix) 75 mg PO DAILY [facility] Last Admin: 05/22/18 08:29 Dose: 75 mg Glipizide (Glucotrol) 5 mg PO BIDAC [facility] Last Admin: 05/16/18 08:17 Dose: 5 mg Clindamycin Phosphate (Cleocin 600mg/50ml D5w) 600 mg in 50 mls @ 100 mls/hr IVPB Q12 [facility]; Protocol Last Admin: 05/22/18 08:26 Dose: 100 mls/hr Daptomycin 350 mg/ Sodium (Chloride) 100 mls @ 100 mls/hr IV Q48H [facility]; Protocol Stop: 05/26/18 19:16 Last Admin: 05/21/18 22:06 Dose: 100 mls/hr Cefepime HCl 0.25 gm/ Sodium (Chloride) 50 mls @ 50 mls/hr IVPB Q12 [facility]; Protocol Last Admin: 05/22/18 08:32 Dose: 50 mls/hr Dextrose/Sodium Chloride (Dextrose 5%-0.45% Ns 500 Ml) 500 mls @ 42 mls/hr IV .[id number] [facility] Stop: 05/23/18 13:27 Insulin Human Lispro (Humalog) 0 units SC ACCU-CHECK [facility]; Protocol Last Admin: 05/22/18 13:18 Dose: 6 units Metoprolol Tartrate (Lopressor) 25 mg PO DAILY [facility] Last Admin: 05/22/18 08:27 Dose: 25 mg Sevelamer Carbonate (Renvela) 800 mg PO TIDWM [facility] Last Admin: 05/22/18 13:18 Dose: Not Given - Labs Labs: 05/22/18 04:45 05/22/18 04:45 PT 13.5 Seconds (9.8-13.1) H 05/17/18 05:05 INR 1.2 05/17/18 05:05 APTT 30.8 Seconds (25.6-37.1) 05/17/18 05:05 - Constitutional Appears: No Acute Distress - Head Exam Head Exam: ATRAUMATIC, NORMOCEPHALIC - Eye Exam Additional comments: Conjunctiva pink - ENT Exam ENT Exam: Mucous Membranes Moist - Neck Exam Additional comments: No jugular venous distension - Respiratory Exam Respiratory Exam: NORMAL BREATHING PATTERN Additional comments: Lungs clear - Cardiovascular Exam Cardiovascular Exam: REGULAR RHYTHM - GI/Abdominal Exam GI & Abdominal Exam: Soft - Extremities Exam Additional comments: No edema. or cyanosis. Assessment and Plan - Assessment and Plan (Free Text) Assessment: CHARIS On hemodialysis. Has been tolerating dialysis well. Rt foot infection s/p Rt second toe amputation HTN, DM11, PVD. Plan: Pt is clinically stable . Labs are satisfactory. no signs of volume overload. Pt is cleared from renal point of view for scheduled Rt TMA this evening. Pt is scheduled for dialysis tomorrow.
[2018-05-22] MEDS ORDERED: Etomidate 20 mg/10ml Inj IV ONE (17:34)
[2018-05-22] MEDS ORDERED: Succinylcholine Chloride 20 mg/ml Syr (5 ml) IV ONE (17:34)
[2018-05-22] MEDS ORDERED: Rocuronium 10 mg/ml (5 ml) ONE (17:34)
[2018-05-22] MEDS ORDERED: Dexamethasone 4 mg/1 ml ONE (17:37)
[2018-05-22] MEDS ORDERED: Lidocaine 1% Inj (20ml) ONE (17:39)
[2018-05-22] MEDS ORDERED: Bacitracin Ointment 30 GM TUBE ONE (17:48)
[2018-05-22] MEDS ORDERED: Sodium Chloride 0.9% 500 ML IV ONE (18:14)
[2018-05-22] MEDS ORDERED: Sodium Chloride 0.9% 1,000 ML IV ONE (18:14)
[2018-05-22] MEDS: Bupivacaine 0.5% Inj(30mL) ONE ×2 (18:20→20:21)
[2018-05-22] MEDS ORDERED: Propofol 10 mg/ml Inj (20 ML) ONE (18:24)
[2018-05-22] MEDS ORDERED: Neostigmine 1:1000 (1 mg/ml) Inj ONE (20:05)
--- NOTE | 2018-05-22 20:42 | PCM.SURG1 ---
Surgeon's Initial Post Op Note - Surgeon's Notes Surgeon: Dr. Ang DPM Regional Branch Manager: Dr. Lr, Dr. Red, Dr. Balderas. Dr. Landry Type of Anesthesia: IV Sedation, Local Anesthesia Administered By: Dr. 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 I: 20cc 0.5%marcaine plain, 1% lidocaine plain, intra-op 10cc 0.5% marcaine plain. M: 0 Vicryl, 2-0 nylon Post-Operative Diagnosis: Same Operation Performed: Right transmetataral amputation Specimen/Specimens Removed: Bone from R foot Estimated Blood Loss: EBL {In ML}: 550 Post-Op Condition: Good Date of Surgery/Procedure: 05/22/18 Time of Surgery/Procedure: 20:42
[2018-05-22] MEDS ORDERED: Oxycodone/Acetaminophen 5/325 mg Tab PO PRN ×2 (20:43)
[2018-05-22] MEDS ORDERED: HYDROmorphone 0.5 mg/0.5 ml ISec IVP PRN (20:47)
[2018-05-23 05:39] LABS: HEMOGLOBIN 10.6 g/dL (12.0-18.0); MEAN CELL VOLUME 83.8 fl (80.0-94.0); MEAN CORPUSCULAR HEMOGLOBIN 28.3 pg (27.0-31.0); MEAN CORPUSCULAR HGB CONC 33.8 g/dL (33.0-37.0); RBC 3.75 Mil/uL (4.40-5.90); RED CELL DISTRIBUTION WIDTH 13.6 % (11.5-14.5); WHITE BLOOD COUNT 12.8 K/uL (4.8-10.8)
[2018-05-23 06:10] LABS: CALCIUM 8.2 mg/dL (8.4-10.2)
[2018-05-23] MEDS: Insulin Lispro (humaLOG) 100 Units/ml Inj SC SCH ×4 (06:39→22:20)
--- NOTE | 2018-05-23 08:52 | CP.PCM.PN ---
Subjective - Date & Time of Evaluation Date of Evaluation: 05/23/18 Time of Evaluation: 08:52 - Subjective Subjective: Podiatry Progress Note: Dr. Ang Patient seen this AM for R foot infection, POD#1 R TMA. Patient resting comfortably, no acute distress. Reports itchiness to his R foot, no pain. present bedside. Denies nausea/vomiting/fever/shortness of breath. Objective - Vital Signs/Intake and Output Vital Signs (last 24 hours): Temp Pulse Resp BP Pulse Ox 98.3 F 87 18 148/76 96 05/23/18 07:58 05/23/18 07:58 05/23/18 07:58 05/23/18 07:58 05/23/18 07:58 Intake and Output: 05/23/18 05/23/18 06:59 18:59 Intake Total 325 Balance 325 - Medications Medications: Current Medications Acetaminophen (Tylenol 325mg Tab) 650 mg PO PRN PRN PRN Reason: Fever >100.4 F Last Admin: 05/15/18 20:41 Dose: 650 mg Acetaminophen (Tylenol 325mg Tab) 650 mg PO Q4 PRN PRN Reason: Pain, Mild (1-3) Last Admin: 05/23/18 04:12 Dose: 650 mg Aspirin (Ecotrin) 81 mg PO DAILY [facility] Last Admin: 05/15/18 09:58 Dose: Not Given Clopidogrel Bisulfate (Plavix) 75 mg PO DAILY [facility] Last Admin: 05/22/18 08:29 Dose: 75 mg Glipizide (Glucotrol) 5 mg PO BIDAC [facility] Last Admin: 05/16/18 08:17 Dose: 5 mg Heparin Sodium (Porcine) (Heparin) 5,000 units SC Q12 [facility]; Protocol Clindamycin Phosphate (Cleocin 600mg/50ml D5w) 600 mg in 50 mls @ 100 mls/hr IVPB Q12 [facility]; Protocol Last Admin: 05/22/18 21:36 Dose: Not Given Daptomycin 350 mg/ Sodium (Chloride) 100 mls @ 100 mls/hr IV Q48H [facility]; Protocol Stop: 05/26/18 19:16 Last Admin: 05/21/18 22:06 Dose: 100 mls/hr Cefepime HCl 0.25 gm/ Sodium (Chloride) 50 mls @ 50 mls/hr IVPB Q12 [facility]; Protocol Last Admin: 05/22/18 21:36 Dose: Not Given Insulin Human Lispro (Humalog) 0 units SC ACCU-CHECK [facility]; Protocol Last Admin: 05/23/18 06:39 Dose: 4 units Metoprolol Tartrate (Lopressor) 25 mg PO DAILY [facility] Last Admin: 05/22/18 08:27 Dose: 25 mg Oxycodone/Acetaminophen (Percocet 5/325 Mg Tab) 1 tab PO Q4 PRN PRN Reason: Pain, moderate (4-7) Stop: 05/25/18 20:44 Oxycodone/Acetaminophen (Percocet 5/325 Mg Tab) 2 tab PO Q4 PRN PRN Reason: Pain, severe (8-10) Stop: 05/25/18 20:44 Sevelamer Carbonate (Renvela) 800 mg PO TIDWM COUNT [facility]CLUD[facility] Last Admin: 05/22/18 17:42 Dose: Not Given - Labs Labs: 05/23/18 05:20 05/23/18 05:20 PT 13.5 Seconds (9.8-13.1) H 05/17/18 05:05 INR 1.2 05/17/18 05:05 APTT 30.8 Seconds (25.6-37.1) 05/17/18 05:05 - Constitutional Appears: Non-toxic, No Acute Distress - Head Exam Head Exam: ATRAUMATIC, NORMOCEPHALIC - Extremities Exam Additional comments: RLE Exam: Vasc: DP and PT 1/4 faintly palpable, CFT to plantar flap sluggish, mild edema appreciated to dorsal aspect of foot Ortho: TMA appreciated, no pain appreciated at this time, ankle joint range of motion within normal limits Neuro: Gross and protective sensation diminished Derm: TMA site skin edges well coapted, with all sutures intact at this time. No signs of dehiscence, no erythema, no purulence, no clinical signs of infection. Assessment and Plan - Assessment and Plan (Free Text) Plan: Patient seen and evaluated at bedside Discussed with Dr. Ang Afebrile, WBC 11.1, Cr4.1, ESR 94, CRP 219.10 Right Foot X-ray- diffuse increased soft tissue swelling when compared to prior, infectious or other inflammatory process, soft tissue emphysema not appreciated New R foot x-ray (05/14): mild decrease in soft tissue swelling. No new soft tissue emphysema identified Wound Cultures- Ecoli, beta hemolytic strep B New wound cultures; no growth Vascular consult- recommendations appreciated Infectious disease consult- recommendations appreciated Non-weightbearing to R lower extremity Posterior splint to be left c/d/i
[2018-05-23] MEDS: Clindamycin 600mg/50ml D5W 600 MG/50 ML VIAL IVPB SCH ×2 (09:19→21:17)
--- NOTE | 2018-05-23 09:49 | CP.PCM.PN ---
Subjective - Date & Time of Evaluation Date of Evaluation: 05/23/18 Time of Evaluation: 09:47 - Subjective Subjective: Yuniel Fuentes, PGY-1, Cardiology Progress Note for Dr. Tabares Patient was seen and evaluated at bedside. Patient had no acute overnight events. Patient reports much improved pain in right foot. Sensation is intact. Objective - Vital Signs/Intake and Output Vital Signs (last 24 hours): Temp Pulse Resp BP Pulse Ox 98.3 F 87 18 148/76 96 05/23/18 07:58 05/23/18 07:58 05/23/18 07:58 05/23/18 07:58 05/23/18 07:58 Intake and Output: 05/23/18 05/23/18 06:59 18:59 Intake Total 325 Balance 325 - Medications Medications: Current Medications Acetaminophen (Tylenol 325mg Tab) 650 mg PO PRN PRN PRN Reason: Fever >100.4 F Last Admin: 05/15/18 20:41 Dose: 650 mg Acetaminophen (Tylenol 325mg Tab) 650 mg PO Q4 PRN PRN Reason: Pain, Mild (1-3) Last Admin: 05/23/18 04:12 Dose: 650 mg Aspirin (Ecotrin) 81 mg PO DAILY [facility] Last Admin: 05/15/18 09:58 Dose: Not Given Clopidogrel Bisulfate (Plavix) 75 mg PO DAILY [facility] Last Admin: 05/23/18 09:20 Dose: 75 mg Glipizide (Glucotrol) 5 mg PO BIDAC [facility] Last Admin: 05/16/18 08:17 Dose: 5 mg Heparin Sodium (Porcine) (Heparin) 5,000 units SC Q12 [facility]; Protocol Last Admin: 05/23/18 09:20 Dose: 5,000 units Clindamycin Phosphate (Cleocin 600mg/50ml D5w) 600 mg in 50 mls @ 100 mls/hr IVPB Q12 [facility]; Protocol Last Admin: 05/23/18 09:19 Dose: 100 mls/hr Daptomycin 350 mg/ Sodium (Chloride) 100 mls @ 100 mls/hr IV Q48H [facility]; Protocol Stop: 05/26/18 19:16 Last Admin: 05/21/18 22:06 Dose: 100 mls/hr Cefepime HCl 0.25 gm/ Sodium (Chloride) 50 mls @ 50 mls/hr IVPB Q12 [facility]; Protocol Last Admin: 05/22/18 21:36 Dose: Not Given Insulin Human Lispro (Humalog) 0 units SC ACCU-CHECK [facility]; Protocol Last Admin: 05/23/18 06:39 Dose: 4 units Metoprolol Tartrate (Lopressor) 25 mg PO DAILY [facility] Last Admin: 05/23/18 09:27 Dose: Not Given Oxycodone/Acetaminophen (Percocet 5/325 Mg Tab) 1 tab PO Q4 PRN PRN Reason: Pain, moderate (4-7) Stop: 05/25/18 20:44 Oxycodone/Acetaminophen (Percocet 5/325 Mg Tab) 2 tab PO Q4 PRN PRN Reason: Pain, severe (8-10) Stop: 05/25/18 20:44 Sevelamer Carbonate (Renvela) 800 mg PO TIDWM [facility] Last Admin: 05/23/18 09:19 Dose: 800 mg - Labs Labs: 05/23/18 05:20 05/23/18 05:20 PT 13.5 Seconds (9.8-13.1) H 05/17/18 05:05 INR 1.2 05/17/18 05:05 APTT 30.8 Seconds (25.6-37.1) 05/17/18 05:05 - Constitutional Appears: Well, Non-toxic, No Acute Distress - Head Exam Head Exam: ATRAUMATIC, NORMAL INSPECTION, NORMOCEPHALIC - Eye Exam Eye Exam: EOMI, PERRL - ENT Exam ENT Exam: Mucous Membranes Moist - Respiratory Exam Respiratory Exam: Clear to Ausculation Bilateral, NORMAL BREATHING PATTERN - Cardiovascular Exam Cardiovascular Exam: REGULAR RHYTHM, RRR, +S1, +S2 - GI/Abdominal Exam GI & Abdominal Exam: Soft, Normal Bowel Sounds. absent: Tenderness - Extremities Exam Extremities Exam: Full ROM - Neurological Exam Neurological Exam: Alert, Awake, CN II-XII Intact, Oriented x3 - Skin Skin Exam: Dry, Intact Additional comments: darkened 2nd right toe, now debrided Assessment and Plan - Assessment and Plan (Free Text) Assessment: Peripheral vascular disease likely causing ischemia of right 2nd toe Hypertension Diabetes Mellitus type II Plan: Peripheral vascular disease likely causing ischemia of right 2nd toe complicated with infection Hypertension Diabetes Mellitus type II EKG: NS with HR: 80 Echo 05/16: LVEF of 55-60%, left atrium borderline dilated, mild MR Nuclear stress test 05/17: normal stress test BUN/Cr: improved to 33/4.9 today from creatinine of 6.0 yesterday. HgbA1c: 8.4 CTA of bilateral lower extremities to evaluate vasculature of bilateral lower extremities for peripheral vascular disease. Medications: aspirin 81 mg daily held plavix 75 mg daily daptomycin 350 mg Q48 cefepime 1 gm Q12 clindamycin 600 mg Q12 glipizide 5 mg BIDAC held due to renal function lopressor 25 mg daily
--- NOTE | 2018-05-23 09:52 | RAD ---
Date of service: 05/22/2018 PROCEDURE: Right Foot Radiographs. HISTORY: s/p R TMA COMPARISON: None. TECHNIQUE: 3 views obtained. FINDINGS: BONES: Status post transmetatarsal amputation. No acute fracture. Plantar calcaneal spur. JOINTS: Likely old healed distal fibular fracture noted. SOFT TISSUES: Postoperative changes noted in distal soft tissues of the foot at the site of amputation. OTHER FINDINGS: None. IMPRESSION: Status post transmetatarsal amputation
--- NOTE | 2018-05-23 10:33 | CP.PCM.PN ---
Subjective - Date & Time of Evaluation Date of Evaluation: 05/23/18 Time of Evaluation: 08:00 - Subjective Subjective: Pt seen and evaluated this am with Dr. Calabrese. at bedside. Seen eating breakfast. Denies any complaints. S/P TMA yesterday. Plan for HD today. Objective - Vital Signs/Intake and Output Vital Signs (last 24 hours): Temp Pulse Resp BP Pulse Ox 98.3 F 87 18 148/76 96 05/23/18 07:58 05/23/18 07:58 05/23/18 07:58 05/23/18 07:58 05/23/18 07:58 Intake and Output: 05/23/18 05/23/18 06:59 18:59 Intake Total 325 Balance 325 - Medications Medications: Current Medications Acetaminophen (Tylenol 325mg Tab) 650 mg PO PRN PRN PRN Reason: Fever >100.4 F Last Admin: 05/15/18 20:41 Dose: 650 mg Acetaminophen (Tylenol 325mg Tab) 650 mg PO Q4 PRN PRN Reason: Pain, Mild (1-3) Last Admin: 05/23/18 04:12 Dose: 650 mg Aspirin (Ecotrin) 81 mg PO DAILY [facility] Last Admin: 05/15/18 09:58 Dose: Not Given Clopidogrel Bisulfate (Plavix) 75 mg PO DAILY [facility] Last Admin: 05/23/18 09:20 Dose: 75 mg Glipizide (Glucotrol) 5 mg PO BIDAC [facility] Last Admin: 05/16/18 08:17 Dose: 5 mg Heparin Sodium (Porcine) (Heparin) 5,000 units SC Q12 [facility]; Protocol Last Admin: 05/23/18 09:20 Dose: 5,000 units Clindamycin Phosphate (Cleocin 600mg/50ml D5w) 600 mg in 50 mls @ 100 mls/hr IVPB Q12 [facility]; Protocol Last Admin: 05/23/18 09:19 Dose: 100 mls/hr Daptomycin 350 mg/ Sodium (Chloride) 100 mls @ 100 mls/hr IV Q48H [facility]; Protocol Stop: 05/26/18 19:16 Last Admin: 05/21/18 22:06 Dose: 100 mls/hr Cefepime HCl 0.25 gm/ Sodium (Chloride) 50 mls @ 50 mls/hr IVPB Q12 [facility]; Protocol Last Admin: 05/22/18 21:36 Dose: Not Given Insulin Human Lispro (Humalog) 0 units SC ACCU-CHECK [facility]; Protocol Last Admin: 05/23/18 06:39 Dose: 4 units Metoprolol Tartrate (Lopressor) 25 mg PO DAILY [facility] Last Admin: 05/23/18 09:27 Dose: Not Given Oxycodone/Acetaminophen (Percocet 5/325 Mg Tab) 1 tab PO Q4 PRN PRN Reason: Pain, moderate (4-7) Stop: 05/25/18 20:44 Oxycodone/Acetaminophen (Percocet 5/325 Mg Tab) 2 tab PO Q4 PRN PRN Reason: Pain, severe (8-10) Stop: 05/25/18 20:44 Sevelamer Carbonate (Renvela) 800 mg PO TIDWM [facility] Last Admin: 05/23/18 09:19 Dose: 800 mg - Labs Labs: 05/23/18 05:20 05/23/18 05:20 PT 13.5 Seconds (9.8-13.1) H 05/17/18 05:05 INR 1.2 05/17/18 05:05 APTT 30.8 Seconds (25.6-37.1) 05/17/18 05:05 - Constitutional Appears: No Acute Distress - Head Exam Head Exam: NORMAL INSPECTION - Eye Exam Eye Exam: Normal appearance - ENT Exam ENT Exam: Mucous Membranes Moist - Respiratory Exam Respiratory Exam: Clear to Ausculation Bilateral. absent: Rales, Wheezes - Cardiovascular Exam Cardiovascular Exam: REGULAR RHYTHM - GI/Abdominal Exam GI & Abdominal Exam: Soft. absent: Tenderness - Extremities Exam Extremities Exam: absent: Calf Tenderness, Pedal Edema Additional comments: R foot wrapped in dressing as per podiatry- clean, dry and in tact - Neurological Exam Neurological Exam: Alert, Awake, Oriented x3 - Psychiatric Exam Psychiatric exam: Normal Affect - Skin Skin Exam: Normal Color Assessment and Plan - Assessment and Plan (Free Text) Assessment: 72 y/o male with PMHx of HTN and Type II DM admitted for right 2nd digit necrosis and acute renal failure receiving HD as per nephrology. S/P TMA on 05/22 by Podiatry team. Plan for HD today. #2nd Digit Necrosis of R. Foot, s/p TMA #Acute Renal Failure #PAD Consultations on board: Nephrology, Podiatry, Vascular, ID - Acute Renal Failure, overall small improvement but no significant change, BUN 35, Crea 5.3 today, receiving HD as per Nephrology. May need first assistant manager HD. - Renal workup in progress - Monitor I/O, electrolytes, acid-base, and fluid status daily. Renal Diet. Sevelamer - Podiatry on board- s/p R. TMA. Afebrile overnight, slight increase in WBC 12.8 this am, will continue to monitor - Wcx E.Coli and GBS, pansensitive. Bcx no growth since 05/15 - C/W Daptomycin, Cefepime, and Clindamycin - Myocardial Stress normal. Echo EF 55-60% - Vascular following - PT ordered, NWB to RLE as per Podiatry - Management of chronic medical conditions as ordered - Heparin for DVT ppx - F/u CBC, BMP, mag, phos Discussed case with Dr. Guanakito Dale, PGY2
[2018-05-23] MEDS: Cefepime 0.25 GM in Sodium Chloride 0.9% 50 ML IVPB SCH ×2 (10:36→21:57)
--- NOTE | 2018-05-23 14:46 | CP.PCM.PN ---
Subjective - Date & Time of Evaluation Date of Evaluation: 05/23/18 Time of Evaluation: 02:00 - Subjective Subjective: Appears comfortable in bed Objective - Vital Signs/Intake and Output Vital Signs (last 24 hours): Temp Pulse Resp BP Pulse Ox 97.6 F 113 H 20 170/83 H 97 05/23/18 11:43 05/23/18 11:43 05/23/18 11:43 05/23/18 11:43 05/23/18 11:43 Intake and Output: 05/23/18 05/23/18 06:59 18:59 Intake Total 325 Balance 325 - Medications Medications: Current Medications Acetaminophen (Tylenol 325mg Tab) 650 mg PO PRN PRN PRN Reason: Fever >100.4 F Last Admin: 05/15/18 20:41 Dose: 650 mg Acetaminophen (Tylenol 325mg Tab) 650 mg PO Q4 PRN PRN Reason: Pain, Mild (1-3) Last Admin: 05/23/18 04:12 Dose: 650 mg Aspirin (Ecotrin) 81 mg PO DAILY [facility] Last Admin: 05/15/18 09:58 Dose: Not Given Clopidogrel Bisulfate (Plavix) 75 mg PO DAILY [facility] Last Admin: 05/23/18 09:20 Dose: 75 mg Glipizide (Glucotrol) 5 mg PO BIDAC [facility] Last Admin: 05/16/18 08:17 Dose: 5 mg Heparin Sodium (Porcine) (Heparin) 5,000 units SC Q12 [facility]; Protocol Last Admin: 05/23/18 09:20 Dose: 5,000 units Clindamycin Phosphate (Cleocin 600mg/50ml D5w) 600 mg in 50 mls @ 100 mls/hr IVPB Q12 [facility]; Protocol Last Admin: 05/23/18 09:19 Dose: 100 mls/hr Daptomycin 350 mg/ Sodium (Chloride) 100 mls @ 100 mls/hr IV Q48H [facility]; Protocol Stop: 05/26/18 19:16 Last Admin: 05/21/18 22:06 Dose: 100 mls/hr Cefepime HCl 0.25 gm/ Sodium (Chloride) 50 mls @ 50 mls/hr IVPB Q12 [facility]; Protocol Last Admin: 05/23/18 10:36 Dose: 50 mls/hr Insulin Human Lispro (Humalog) 0 units SC ACCU-CHECK [facility]; Protocol Last Admin: 05/23/18 12:38 Dose: 6 units Metoprolol Tartrate (Lopressor) 25 mg PO DAILY [facility] Last Admin: 05/23/18 09:27 Dose: Not Given Oxycodone/Acetaminophen (Percocet 5/325 Mg Tab) 1 tab PO Q4 PRN PRN Reason: Pain, moderate (4-7) Stop: 05/25/18 20:44 Oxycodone/Acetaminophen (Percocet 5/325 Mg Tab) 2 tab PO Q4 PRN PRN Reason: Pain, severe (8-10) Stop: 05/25/18 20:44 Sevelamer Carbonate (Renvela) 800 mg PO TIDWM [facility] Last Admin: 05/23/18 12:38 Dose: 800 mg - Labs Labs: 05/23/18 05:20 05/23/18 05:20 PT 13.5 Seconds (9.8-13.1) H 05/17/18 05:05 INR 1.2 05/17/18 05:05 APTT 30.8 Seconds (25.6-37.1) 05/17/18 05:05 - Constitutional Appears: No Acute Distress - Head Exam Head Exam: ATRAUMATIC, NORMOCEPHALIC - Eye Exam Eye Exam: Normal appearance - ENT Exam ENT Exam: Mucous Membranes Moist - Neck Exam Additional comments: JVD negative - GI/Abdominal Exam GI & Abdominal Exam: Soft - Extremities Exam Additional comments: Rt foot dressed Lt leg no edema Assessment and Plan - Assessment and Plan (Free Text) Assessment: CHARIS requiring dialysis support. For dialysis today S/P Rt TMA PVD HTN,DM Plan: Pts labs are stable. A short dialysis Tx is scheduled for today. Will monitor renal function.
[2018-05-24 06:01] LABS: BASO # 0.1 K/uL (0.0-0.2); BASO % 1.1 % (0.0-2.0); EOS # 0.1 K/uL (0.0-0.7); EOS % 0.7 % (0.0-4.0); HEMOGLOBIN 10.6 g/dL (12.0-18.0); LYMPH # 1.5 K/uL (1.0-4.3); LYMPH % 12.9 % (20.0-40.0); MEAN CELL VOLUME 84.2 fl (80.0-94.0); MEAN CORPUSCULAR HEMOGLOBIN 28.2 pg (27.0-31.0); MEAN CORPUSCULAR HGB CONC 33.5 g/dL (33.0-37.0); MEAN PLATELET VOLUME 7.1 fl (7.2-11.7); MONO # 0.8 K/uL (0.0-0.8); NEUT # 9.2 K/uL (1.8-7.0); NEUT % 78.3 % (50.0-75.0); RBC 3.74 Mil/uL (4.40-5.90); RED CELL DISTRIBUTION WIDTH 13.6 % (11.5-14.5); WHITE BLOOD COUNT 11.8 K/uL (4.8-10.8)
[2018-05-24 06:14] LABS: CALCIUM 8.5 mg/dL (8.4-10.2)
[2018-05-24] MEDS: Insulin Lispro (humaLOG) 100 Units/ml Inj SC SCH ×4 (06:37→22:00)
--- NOTE | 2018-05-24 07:41 | CP.PCM.PN ---
<Yuniel Fuentes - Last Filed: 05/24/18 14:35> Subjective - Date & Time of Evaluation Date of Evaluation: 05/24/18 Time of Evaluation: 07:38 - Subjective Subjective: Yuniel Fuentes, PGY-1, Cardiology Progress Note for Dr. Tabares Patient was seen and evaluated at bedside. Patient had no acute overnight events. Patient reports much improved pain in right foot. Sensation is intact. Objective - Vital Signs/Intake and Output Vital Signs (last 24 hours): Temp Pulse Resp BP Pulse Ox 98.0 F 106 H 18 157/83 H 94 L 05/24/18 04:29 05/24/18 04:29 05/24/18 04:29 05/24/18 04:29 05/24/18 04:29 - Medications Medications: Current Medications Acetaminophen (Tylenol 325mg Tab) 650 mg PO PRN PRN PRN Reason: Fever >100.4 F Last Admin: 05/15/18 20:41 Dose: 650 mg Acetaminophen (Tylenol 325mg Tab) 650 mg PO Q4 PRN PRN Reason: Pain, Mild (1-3) Last Admin: 05/23/18 04:12 Dose: 650 mg Aspirin (Ecotrin) 81 mg PO DAILY [facility] Last Admin: 05/15/18 09:58 Dose: Not Given Clopidogrel Bisulfate (Plavix) 75 mg PO DAILY [facility] Last Admin: 05/23/18 09:20 Dose: 75 mg Glipizide (Glucotrol) 5 mg PO BIDAC [facility] Last Admin: 05/16/18 08:17 Dose: 5 mg Heparin Sodium (Porcine) (Heparin) 5,000 units SC Q12 [facility]; Protocol Last Admin: 05/23/18 21:22 Dose: 5,000 units Clindamycin Phosphate (Cleocin 600mg/50ml D5w) 600 mg in 50 mls @ 100 mls/hr IVPB Q12 [facility]; Protocol Last Admin: 05/23/18 21:17 Dose: 100 mls/hr Daptomycin 350 mg/ Sodium (Chloride) 100 mls @ 100 mls/hr IV Q48H [facility]; Protocol Stop: 05/26/18 19:16 Last Admin: 05/23/18 20:17 Dose: 100 mls/hr Cefepime HCl 0.25 gm/ Sodium (Chloride) 50 mls @ 50 mls/hr IVPB Q12 [facility]; Protocol Last Admin: 05/23/18 21:57 Dose: 50 mls/hr Insulin Human Lispro (Humalog) 0 units SC ACCU-CHECK [facility]; Protocol Last Admin: 05/24/18 06:37 Dose: 3 units Metoprolol Tartrate (Lopressor) 25 mg PO DAILY [facility] Last Admin: 05/23/18 09:27 Dose: Not Given Oxycodone/Acetaminophen (Percocet 5/325 Mg Tab) 1 tab PO Q4 PRN PRN Reason: Pain, moderate (4-7) Stop: 05/25/18 20:44 Oxycodone/Acetaminophen (Percocet 5/325 Mg Tab) 2 tab PO Q4 PRN PRN Reason: Pain, severe (8-10) Stop: 05/25/18 20:44 Sevelamer Carbonate (Renvela) 800 mg PO TIDWM [facility] Last Admin: 05/23/18 18:29 Dose: 800 mg - Labs Labs: 05/24/18 04:20 05/24/18 04:20 PT 13.5 Seconds (9.8-13.1) H 05/17/18 05:05 INR 1.2 05/17/18 05:05 APTT 30.8 Seconds (25.6-37.1) 05/17/18 05:05 - Constitutional Appears: Well, Non-toxic, No Acute Distress - Head Exam Head Exam: ATRAUMATIC, NORMAL INSPECTION, NORMOCEPHALIC - Eye Exam Eye Exam: EOMI, PERRL - ENT Exam ENT Exam: Mucous Membranes Moist - Respiratory Exam Respiratory Exam: Clear to Ausculation Bilateral, NORMAL BREATHING PATTERN - Cardiovascular Exam Cardiovascular Exam: REGULAR RHYTHM, RRR, +S1, +S2 - GI/Abdominal Exam GI & Abdominal Exam: Soft, Normal Bowel Sounds. absent: Tenderness - Extremities Exam Extremities Exam: Full ROM - Neurological Exam Neurological Exam: Alert, Awake, CN II-XII Intact, Oriented x3 - Skin Skin Exam: Dry, Intact Additional comments: darkened 2nd right toe, now debrided Assessment and Plan - Assessment and Plan (Free Text) Assessment: Peripheral vascular disease likely causing ischemia of right 2nd toe Hypertension Diabetes Mellitus type II Plan: Peripheral vascular disease likely causing ischemia of right 2nd toe complicated with infection Hypertension Diabetes Mellitus type II EKG: NS with HR: 80 Echo 05/16: LVEF of 55-60%, left atrium borderline dilated, mild MR Nuclear stress test 05/17: normal stress test BUN/Cr: improved to 30/5.2 HgbA1c: 8.4 Status post TMA CTA of bilateral lower extremities ordered to evaluate vasculature of bilateral lower extremities for peripheral vascular disease. Medications: aspirin 81 mg daily held plavix 75 mg daily daptomycin 350 mg Q48 cefepime 1 gm Q12 clindamycin 600 mg Q12 lopressor 25 mg daily <Rai Tabares - Last Filed: 05/24/18 23:24> Objective - Vital Signs/Intake and Output Vital Signs (last 24 hours): Temp Pulse Resp BP Pulse Ox 98.5 F 95 H 18 153/79 H 98 05/24/18 19:50 05/24/18 19:50 05/24/18 19:50 05/24/18 19:50 05/24/18 19:50 - Medications Medications: Current Medications Acetaminophen (Tylenol 325mg Tab) 650 mg PO PRN PRN PRN Reason: Fever >100.4 F Last Admin: 05/15/18 20:41 Dose: 650 mg Acetaminophen (Tylenol 325mg Tab) 650 mg PO Q4 PRN PRN Reason: Pain, Mild (1-3) Last Admin: 05/23/18 04:12 Dose: 650 mg Aspirin (Ecotrin) 81 mg PO DAILY [facility] Last Admin: 05/15/18 09:58 Dose: Not Given Clopidogrel Bisulfate (Plavix) 75 mg PO DAILY [facility] Last Admin: 05/24/18 09:25 Dose: 75 mg Glipizide (Glucotrol) 5 mg PO BIDAC [facility] Last Admin: 05/16/18 08:17 Dose: 5 mg Heparin Sodium (Porcine) (Heparin) 5,000 units SC Q12 [facility]; Protocol Last Admin: 05/24/18 20:42 Dose: 5,000 units Clindamycin Phosphate (Cleocin 600mg/50ml D5w) 600 mg in 50 mls @ 100 mls/hr IVPB Q12 [facility]; Protocol Last Admin: 05/24/18 20:37 Dose: 100 mls/hr Daptomycin 350 mg/ Sodium (Chloride) 100 mls @ 100 mls/hr IV Q48H [facility]; Protocol Stop: 05/26/18 19:16 Last Admin: 03/26/19 20:17 Dose: 100 mls/hr Cefepime HCl 0.25 gm/ Sodium (Chloride) 50 mls @ 50 mls/hr IVPB Q12 [facility]; Protocol Last Admin: 05/24/18 21:38 Dose: 50 mls/hr Insulin Human Lispro (Humalog) 0 units SC ACCU-CHECK [facility]; Protocol Last Admin: 05/24/18 17:57 Dose: 2 units Metoprolol Tartrate (Lopressor) 25 mg PO DAILY [facility] Last Admin: 05/24/18 09:25 Dose: 25 mg Oxycodone/Acetaminophen (Percocet 5/325 Mg Tab) 1 tab PO Q4 PRN PRN Reason: Pain, moderate (4-7) Stop: 05/25/18 20:44 Oxycodone/Acetaminophen (Percocet 5/325 Mg Tab) 2 tab PO Q4 PRN PRN Reason: Pain, severe (8-10) Stop: 05/25/18 20:44 Sevelamer Carbonate (Renvela) 800 mg PO TIDWM [facility] Last Admin: 05/24/18 17:56 Dose: 800 mg - Labs Labs: 05/24/18 04:20 05/24/18 04:20 PT 13.5 Seconds (9.8-13.1) H 05/17/18 05:05 INR 1.2 05/17/18 05:05 APTT 30.8 Seconds (25.6-37.1) 05/17/18 05:05 Assessment and Plan (1) Preop cardiovascular exam Status: Acute (2) Cellulitis Status: Acute (3) Necrosis of toe Status: Acute (4) Acute renal insufficiency Status: Acute (5) Osteomyelitis of right foot Status: Acute (6) PVD (peripheral vascular disease) Status: Acute (7) HTN (hypertension) Status: Chronic Attending/Attestation - Attestation I have personally seen and examined this patient.: Yes I have fully participated in the care of the patient.: Yes I have reviewed all pertinent clinical information, including history, physical exam and plan: Yes Notes (Text): 05/24/18 23:24 CTA of LE to evaluate for infragenicular disease cont dapt
[2018-05-24] MEDS: Clindamycin 600mg/50ml D5W 600 MG/50 ML VIAL IVPB SCH ×2 (08:15→20:37)
--- NOTE | 2018-05-24 09:14 | CP.PCM.PN ---
Subjective - Date & Time of Evaluation Date of Evaluation: 05/24/18 Time of Evaluation: 07:00 - Subjective Subjective: Pt seen and examined at the bedside this am with Dr. Calabrese. Denies complaints of pain. Eating, urinating, stooling normally. Participated in PT yesterday. Did not receive HD yesterday due to clogged line. Will likely received today. Objective - Vital Signs/Intake and Output Vital Signs (last 24 hours): Temp Pulse Resp BP Pulse Ox 98.7 F 93 H 18 154/78 H 95 05/24/18 08:16 05/24/18 08:16 05/24/18 08:16 05/24/18 08:16 05/24/18 08:16 - Medications Medications: Current Medications Acetaminophen (Tylenol 325mg Tab) 650 mg PO PRN PRN PRN Reason: Fever >100.4 F Last Admin: 05/15/18 20:41 Dose: 650 mg Acetaminophen (Tylenol 325mg Tab) 650 mg PO Q4 PRN PRN Reason: Pain, Mild (1-3) Last Admin: 05/23/18 04:12 Dose: 650 mg Aspirin (Ecotrin) 81 mg PO DAILY [facility] Last Admin: 05/15/18 09:58 Dose: Not Given Clopidogrel Bisulfate (Plavix) 75 mg PO DAILY [facility] Last Admin: 05/23/18 09:20 Dose: 75 mg Glipizide (Glucotrol) 5 mg PO BIDAC [facility] Last Admin: 05/16/18 08:17 Dose: 5 mg Heparin Sodium (Porcine) (Heparin) 5,000 units SC Q12 [facility]; Protocol Last Admin: 05/23/18 21:22 Dose: 5,000 units Clindamycin Phosphate (Cleocin 600mg/50ml D5w) 600 mg in 50 mls @ 100 mls/hr IVPB Q12 [facility]; Protocol Last Admin: 05/23/18 21:17 Dose: 100 mls/hr Daptomycin 350 mg/ Sodium (Chloride) 100 mls @ 100 mls/hr IV Q48H [facility]; Protocol Stop: 05/26/18 19:16 Last Admin: 05/23/18 20:17 Dose: 100 mls/hr Cefepime HCl 0.25 gm/ Sodium (Chloride) 50 mls @ 50 mls/hr IVPB Q12 [facility]; Protocol Last Admin: 05/23/18 21:57 Dose: 50 mls/hr Insulin Human Lispro (Humalog) 0 units SC ACCU-CHECK [facility]; Protocol Last Admin: 05/24/18 06:37 Dose: 3 units Metoprolol Tartrate (Lopressor) 25 mg PO DAILY [facility] Last Admin: 05/23/18 09:27 Dose: Not Given Oxycodone/Acetaminophen (Percocet 5/325 Mg Tab) 1 tab PO Q4 PRN PRN Reason: Pain, moderate (4-7) Stop: 05/25/18 20:44 Oxycodone/Acetaminophen (Percocet 5/325 Mg Tab) 2 tab PO Q4 PRN PRN Reason: Pain, severe (8-10) Stop: 05/25/18 20:44 Sevelamer Carbonate (Renvela) 800 mg PO TIDWM [facility] Last Admin: 05/23/18 18:29 Dose: 800 mg - Labs Labs: 05/24/18 04:20 05/24/18 04:20 PT 13.5 Seconds (9.8-13.1) H 05/17/18 05:05 INR 1.2 05/17/18 05:05 APTT 30.8 Seconds (25.6-37.1) 05/17/18 05:05 - Constitutional Appears: No Acute Distress - Head Exam Head Exam: NORMAL INSPECTION - Eye Exam Eye Exam: Normal appearance - ENT Exam ENT Exam: Mucous Membranes Moist - Respiratory Exam Respiratory Exam: Clear to Ausculation Bilateral - Cardiovascular Exam Cardiovascular Exam: REGULAR RHYTHM - GI/Abdominal Exam GI & Abdominal Exam: Normal Bowel Sounds - Extremities Exam Additional comments: S/P right TMA, wrapped in dressing which is clean, dry and intact. - Neurological Exam Neurological Exam: Alert - Psychiatric Exam Psychiatric exam: Normal Affect Assessment and Plan - Assessment and Plan (Free Text) Assessment: 72 y/o male with PMHx of HTN and Type II DM admitted for right 2nd digit necrosis and acute renal failure receiving HD as per nephrology. S/P TMA on 04/29 by Podiatry team. Plan for HD today. #2nd Digit Necrosis of R. Foot, s/p TMA #Acute Renal Failure #PAD Consultations on board: Nephrology, Podiatry, Vascular, ID - Acute Renal Failure, overall small improvement but no significant change, BUN 35, Crea 5.3 today, receiving HD as per Nephrology. May need terminal carman HD. - Monitor I/O, electrolytes, acid-base, and fluid status daily. Renal Diet. Sevelamer - Podiatry on board- s/p R. TMA. Afebrile overnight, leukocytosis 11.8 today mild, will continue to monitor - Wcx E.Coli and GBS, pansensitive. Bcx no growth since 05/15 - C/W Daptomycin, Cefepime, and Clindamycin - Myocardial Stress normal. Echo EF 55-60% - Vascular following - PT ordered, NWB to RLE as per Podiatry - Management of chronic medical conditions as ordered - Heparin for DVT ppx - F/u CBC, BMP, mag, phos Discussed case with Dr. Guanakito Dale, PGY2
[2018-05-24] MEDS: Cefepime 0.25 GM in Sodium Chloride 0.9% 50 ML IVPB SCH ×2 (09:25→21:38)
--- NOTE | 2018-05-24 14:14 | CP.PCM.PN ---
Subjective - Date & Time of Evaluation Date of Evaluation: 05/24/18 Time of Evaluation: 02:00 - Subjective Subjective: Pt feels better Appears comfortable sitting up in bed. Objective - Vital Signs/Intake and Output Vital Signs (last 24 hours): Temp Pulse Resp BP Pulse Ox 99.3 F 80 18 151/76 H 94 L 05/24/18 12:02 05/24/18 12:02 05/24/18 12:02 05/24/18 12:02 05/24/18 12:02 - Medications Medications: Current Medications Acetaminophen (Tylenol 325mg Tab) 650 mg PO PRN PRN PRN Reason: Fever >100.4 F Last Admin: 05/15/18 20:41 Dose: 650 mg Acetaminophen (Tylenol 325mg Tab) 650 mg PO Q4 PRN PRN Reason: Pain, Mild (1-3) Last Admin: 05/23/18 04:12 Dose: 650 mg Aspirin (Ecotrin) 81 mg PO DAILY [facility] Last Admin: 05/15/18 09:58 Dose: Not Given Clopidogrel Bisulfate (Plavix) 75 mg PO DAILY [facility] Last Admin: 05/24/18 09:25 Dose: 75 mg Glipizide (Glucotrol) 5 mg PO BIDAC [facility] Last Admin: 05/16/18 08:17 Dose: 5 mg Heparin Sodium (Porcine) (Heparin) 5,000 units SC Q12 [facility]; Protocol Last Admin: 05/24/18 09:25 Dose: 5,000 units Clindamycin Phosphate (Cleocin 600mg/50ml D5w) 600 mg in 50 mls @ 100 mls/hr IV PB Q12 [facility]; Protocol Last Admin: 05/24/18 08:15 Dose: 100 mls/hr Daptomycin 350 mg/ Sodium (Chloride) 100 mls @ 100 mls/hr IV Q48H [facility]; Protocol Stop: 05/26/18 19:16 Last Admin: 05/23/18 20:17 Dose: 100 mls/hr Cefepime HCl 0.25 gm/ Sodium (Chloride) 50 mls @ 50 mls/hr IVPB Q12 [facility]; Protocol Last Admin: 05/24/18 09:25 Dose: 50 mls/hr Insulin Human Lispro (Humalog) 0 units SC ACCU-CHECK [facility]; Protocol Last Admin: 05/24/18 12:30 Dose: 4 units Metoprolol Tartrate (Lopressor) 25 mg PO DAILY [facility] Last Admin: 05/24/18 09:25 Dose: 25 mg Oxycodone/Acetaminophen (Percocet 5/325 Mg Tab) 1 tab PO Q4 PRN PRN Reason: Pain, moderate (4-7) Stop: 05/25/18 20:44 Oxycodone/Acetaminophen (Percocet 5/325 Mg Tab) 2 tab PO Q4 PRN PRN Reason: Pain, severe (8-10) Stop: 05/25/18 20:44 Sevelamer Carbonate (Renvela) 800 mg PO TIDWM [facility] Last Admin: 05/24/18 12:30 Dose: 800 mg - Labs Labs: 05/24/18 04:20 05/24/18 04:20 PT 13.5 Seconds (9.8-13.1) H 05/17/18 05:05 INR 1.2 05/17/18 05:05 APTT 30.8 Seconds (25.6-37.1) 05/17/18 05:05 - Constitutional Appears: No Acute Distress - Head Exam Head Exam: ATRAUMATIC, NORMOCEPHALIC - Eye Exam Additional comments: Comj. pink - ENT Exam ENT Exam: Mucous Membranes Moist - Neck Exam Additional comments: No jugular venous distension. - Respiratory Exam Respiratory Exam: NORMAL BREATHING PATTERN Additional comments: Lungs clear - Cardiovascular Exam Cardiovascular Exam: REGULAR RHYTHM - GI/Abdominal Exam GI & Abdominal Exam: Soft - Extremities Exam Additional comments: Rt foot & leg dressed.Lt leg No edema. Assessment and Plan - Assessment and Plan (Free Text) Assessment: CHARIS pt required dialysis support. Dialysis could not be performed yesterday because of catheter malfunction. Pts creat has remained stabe between 5.0-5.2. K+ is normal & there is no acidosis. Dialysis is on hold. 24 hr urine for creat clearance is ordered. Plan: Monitor renal function
[2018-05-25 05:40] LABS: BASO # 0.1 K/uL (0.0-0.2); BASO % 0.8 % (0.0-2.0); EOS # 0.1 K/uL (0.0-0.7); EOS % 1.2 % (0.0-4.0); LYMPH # 1.5 K/uL (1.0-4.3); LYMPH % 12.7 % (20.0-40.0); MEAN CELL VOLUME 83.6 fl (80.0-94.0); MEAN CORPUSCULAR HEMOGLOBIN 28.3 pg (27.0-31.0); MEAN CORPUSCULAR HGB CONC 33.9 g/dL (33.0-37.0); MONO # 0.9 K/uL (0.0-0.8); MONO % 7.6 % (0.0-10.0); NEUT # 8.9 K/uL (1.8-7.0); NEUT % 77.7 % (50.0-75.0); RBC 3.88 Mil/uL (4.40-5.90); RED CELL DISTRIBUTION WIDTH 13.6 % (11.5-14.5); WHITE BLOOD COUNT 11.4 K/uL (4.8-10.8)
[2018-05-25 05:48] LABS: CALCIUM 8.7 mg/dL (8.4-10.2); MEAN PLATELET VOLUME 7.1 fl (7.2-11.7)
[2018-05-25] MEDS: Insulin Lispro (humaLOG) 100 Units/ml Inj SC SCH ×4 (06:52→22:04)
--- NOTE | 2018-05-25 08:52 | CP.PCM.PN ---
Subjective - Date & Time of Evaluation Date of Evaluation: 05/25/18 Time of Evaluation: 08:50 - Subjective Subjective: Yuniel Fuentes, PGY-1, Cardiology Progress Note for Dr. Tabares Patient was seen and evaluated at bedside. Patient had no acute overnight events. Patient reports much improved pain in right foot. Sensation is intact. Objective - Vital Signs/Intake and Output Vital Signs (last 24 hours): Temp Pulse Resp BP Pulse Ox 99 F 89 18 167/80 H 95 05/25/18 08:04 05/25/18 08:04 05/25/18 08:04 05/25/18 08:04 05/25/18 08:04 - Medications Medications: Current Medications Acetaminophen (Tylenol 325mg Tab) 650 mg PO PRN PRN PRN Reason: Fever >100.4 F Last Admin: 05/15/18 20:41 Dose: 650 mg Acetaminophen (Tylenol 325mg Tab) 650 mg PO Q4 PRN PRN Reason: Pain, Mild (1-3) Last Admin: 05/23/18 04:12 Dose: 650 mg Aspirin (Ecotrin) 81 mg PO DAILY [facility] Last Admin: 05/15/18 09:58 Dose: Not Given Clopidogrel Bisulfate (Plavix) 75 mg PO DAILY [facility] Last Admin: 05/24/18 09:25 Dose: 75 mg Glipizide (Glucotrol) 5 mg PO BIDAC [facility] Last Admin: 05/16/18 08:17 Dose: 5 mg Heparin Sodium (Porcine) (Heparin) 5,000 units SC Q12 [facility]; Protocol Last Admin: 05/24/18 20:42 Dose: 5,000 units Clindamycin Phosphate (Cleocin 600mg/50ml D5w) 600 mg in 50 mls @ 100 mls/hr IVPB Q12 [facility]; Protocol Last Admin: 05/24/18 20:37 Dose: 100 mls/hr Daptomycin 350 mg/ Sodium (Chloride) 100 mls @ 100 mls/hr IV Q48H [facility]; Protocol Stop: 05/26/18 19:16 Last Admin: 05/23/18 20:17 Dose: 100 mls/hr Cefepime HCl 0.25 gm/ Sodium (Chloride) 50 mls @ 50 mls/hr IVPB Q12 [facility]; Protocol Last Admin: 05/24/18 21:38 Dose: 50 mls/hr Insulin Human Lispro (Humalog) 0 units SC ACCU-CHECK [facility]; Protocol Last Admin: 05/25/18 06:52 Dose: 3 units Metoprolol Tartrate (Lopressor) 25 mg PO DAILY [facility] Last Admin: 05/24/18 09:25 Dose: 25 mg Oxycodone/Acetaminophen (Percocet 5/325 Mg Tab) 1 tab PO Q4 PRN PRN Reason: Pain, moderate (4-7) Stop: 05/25/18 20:44 Oxycodone/Acetaminophen (Percocet 5/325 Mg Tab) 2 tab PO Q4 PRN PRN Reason: Pain, severe (8-10) Stop: 05/25/18 20:44 Sevelamer Carbonate (Renvela) 800 mg PO TIDWM [facility] Last Admin: 05/24/18 17:56 Dose: 800 mg - Labs Labs: 05/25/18 05:00 05/25/18 05:00 PT 13.5 Seconds (9.8-13.1) H 05/17/18 05:05 INR 1.2 05/17/18 05:05 APTT 30.8 Seconds (25.6-37.1) 05/17/18 05:05 - Constitutional Appears: Well, Non-toxic, No Acute Distress - Head Exam Head Exam: ATRAUMATIC, NORMAL INSPECTION, NORMOCEPHALIC - Eye Exam Eye Exam: EOMI, PERRL - ENT Exam ENT Exam: Mucous Membranes Moist - Respiratory Exam Respiratory Exam: Clear to Ausculation Bilateral, NORMAL BREATHING PATTERN - Cardiovascular Exam Cardiovascular Exam: REGULAR RHYTHM, RRR, +S1, +S2 - GI/Abdominal Exam GI & Abdominal Exam: Soft, Normal Bowel Sounds. absent: Tenderness - Extremities Exam Extremities Exam: Full ROM - Neurological Exam Neurological Exam: Alert, Awake, CN II-XII Intact, Oriented x3 - Skin Skin Exam: Dry, Intact Additional comments: darkened 2nd right toe, now debrided Assessment and Plan (1) DM2 (diabetes mellitus, type 2) Assessment & Plan: Glucose has ranged from 195-270 in last 24 hours Continue with glipizide, and sliding scale insulin. Status: Chronic (2) PVD (peripheral vascular disease) Assessment & Plan: Plan is for CTA of bilateral lower extremities to evaluate vasculature for further intervention Status: Acute (3) HTN (hypertension) Assessment & Plan: Systolic blood pressure has ranged from 150s to 160s Continue with lopressor Status: Chronic (4) Cellulitis Assessment & Plan: Continue with antibiotics Status: Acute (5) Acute renal insufficiency Assessment & Plan: Continue with hemodialysis sessions Status: Acute
--- NOTE | 2018-05-25 09:27 | CP.PCM.PN ---
Subjective - Date & Time of Evaluation Date of Evaluation: 05/25/18 Time of Evaluation: : - Subjective Subjective: Podiatry Progress Note: Dr. Ang 72 year old male patient seen and evaluated for R foot infection, POD#3 R TMA. Patient resting comfortably, no acute distress. He denies any pain to his R foot at this time. present bedside. Denies nausea/vomiting/fever/shortness of breath. Objective - Vital Signs/Intake and Output Vital Signs (last 24 hours): Temp Pulse Resp BP Pulse Ox 99 F 89 18 167/80 H 95 05/25/18 08:04 05/25/18 08:04 05/25/18 08:04 05/25/18 08:04 05/25/18 08:04 - Medications Medications: Current Medications Acetaminophen (Tylenol 325mg Tab) 650 mg PO PRN PRN PRN Reason: Fever >100.4 F Last Admin: 05/15/18 20:41 Dose: 650 mg Acetaminophen (Tylenol 325mg Tab) 650 mg PO Q4 PRN PRN Reason: Pain, Mild (1-3) Last Admin: 05/23/18 04:12 Dose: 650 mg Aspirin (Ecotrin) 81 mg PO DAILY [facility] Last Admin: 05/15/18 09:58 Dose: Not Given Clopidogrel Bisulfate (Plavix) 75 mg PO DAILY [facility] Last Admin: 05/24/18 09:25 Dose: 75 mg Glipizide (Glucotrol) 5 mg PO BIDAC [facility] Last Admin: 05/16/18 08:17 Dose: 5 mg Heparin Sodium (Porcine) (Heparin) 5,000 units SC Q12 [facility]; Protocol Last Admin: 05/24/18 20:42 Dose: 5,000 units Clindamycin Phosphate (Cleocin 600mg/50ml D5w) 600 mg in 50 mls @ 100 mls/hr IVPB Q12 [facility]; Protocol Last Admin: 05/24/18 20:37 Dose: 100 mls/hr Daptomycin 350 mg/ Sodium (Chloride) 100 mls @ 100 mls/hr IV Q48H [facility]; Protocol Stop: 05/26/18 19:16 Last Admin: 05/23/18 20:17 Dose: 100 mls/hr Cefepime HCl 0.25 gm/ Sodium (Chloride) 50 mls @ 50 mls/hr IVPB Q12 [facility]; Protocol Last Admin: 05/24/18 21:38 Dose: 50 mls/hr Insulin Human Lispro (Humalog) 0 units SC ACCU-CHECK [facility]; Protocol Last Admin: 05/25/18 06:52 Dose: 3 units Metoprolol Tartrate (Lopressor) 25 mg PO DAILY [facility] Last Admin: 05/24/18 09:25 Dose: 25 mg Oxycodone/Acetaminophen (Percocet 5/325 Mg Tab) 1 tab PO Q4 PRN PRN Reason: Pain, moderate (4-7) Stop: 05/25/18 20:44 Oxycodone/Acetaminophen (Percocet 5/325 Mg Tab) 2 tab PO Q4 PRN PRN Reason: Pain, severe (8-10) Stop: 05/25/18 20:44 Sevelamer Carbonate (Renvela) 800 mg PO TIDWM [facility] Last Admin: 05/24/18 17:56 Dose: 800 mg - Labs Labs: 05/25/18 05:00 05/25/18 05:00 PT 13.5 Seconds (9.8-13.1) H 05/17/18 05:05 INR 1.2 05/17/18 05:05 APTT 30.8 Seconds (25.6-37.1) 05/17/18 05:05 - Constitutional Appears: Non-toxic, No Acute Distress - Head Exam Head Exam: ATRAUMATIC, NORMOCEPHALIC - Extremities Exam Additional comments: RLE Exam: Vasc: DP and PT 1/4 faintly palpable, CFT to plantar flap <3 seconds, mild edema appreciated to dorsal aspect of foot Ortho: TMA appreciated, no pain appreciated at this time, ankle joint range of motion within normal limits Neuro: Gross and protective sensation diminished Derm: TMA site skin edges well coapted, with all sutures intact at this time. No signs of dehiscence, no erythema, no purulence, no sign of fluctuance, no clinical signs of infection. - Neurological Exam Neurological Exam: Alert, Awake, Oriented x3 - Psychiatric Exam Psychiatric exam: Normal Affect, Normal Mood Assessment and Plan - Assessment and Plan (Free Text) Assessment: 72 year old male patient seen and evaluated for R foot infection, POD#3 R TMA. Plan: Patient seen and evaluated at bedside Discussed with Dr. Ang Afebrile, WBC 11.4, Cr4.6, ESR 94, CRP 219.10 Right Foot X-ray- diffuse increased soft tissue swelling when compared to prior, infectious or other inflammatory process, soft tissue emphysema not appreciated New R foot x-ray (05/14): mild decrease in soft tissue swelling. No new soft tissue emphysema identified Wound Cultures (05/13)- Ecoli, beta hemolytic strep B New wound cultures (05/16); no growth Vascular consult- Plan for CTA of b/l LE per Dr. Tabares Infectious disease consult- recommendations appreciated Non-weightbearing to R lower extremity
[2018-05-25] MEDS: Cefepime 0.25 GM in Sodium Chloride 0.9% 50 ML IVPB SCH ×2 (09:44→22:03)
[2018-05-25] MEDS: Clindamycin 600mg/50ml D5W 600 MG/50 ML VIAL IVPB SCH ×2 (09:44→20:59)
--- NOTE | 2018-05-25 10:21 | CP.PCM.PN ---
<Kp Dale - Last Filed: 05/25/18 10:12> Subjective - Date & Time of Evaluation Date of Evaluation: 05/25/18 Time of Evaluation: 08:00 - Subjective Subjective: Pt seen and examined at the bedside this am with Dr. Calabrese. Denies complaints of pain. Eating, urinating, stooling normally. Participated in PT yesterday. Objective - Vital Signs/Intake and Output Vital Signs (last 24 hours): Temp Pulse Resp BP Pulse Ox 99 F 89 18 167/80 H 95 05/25/18 08:04 05/25/18 08:04 05/25/18 08:04 05/25/18 08:04 05/25/18 08:04 - Medications Medications: Current Medications Acetaminophen (Tylenol 325mg Tab) 650 mg PO PRN PRN PRN Reason: Fever >100.4 F Last Admin: 05/15/18 20:41 Dose: 650 mg Acetaminophen (Tylenol 325mg Tab) 650 mg PO Q4 PRN PRN Reason: Pain, Mild (1-3) Last Admin: 05/23/18 04:12 Dose: 650 mg Aspirin (Ecotrin) 81 mg PO DAILY [facility] Last Admin: 05/15/18 09:58 Dose: Not Given Clopidogrel Bisulfate (Plavix) 75 mg PO DAILY [facility] Last Admin: 05/25/18 09:43 Dose: 75 mg Glipizide (Glucotrol) 5 mg PO BIDAC [facility] Last Admin: 05/16/18 08:17 Dose: 5 mg Heparin Sodium (Porcine) (Heparin) 5,000 units SC Q12 [facility]; Protocol Last Admin: 05/25/18 09:43 Dose: 5,000 units Clindamycin Phosphate (Cleocin 600mg/50ml D5w) 600 mg in 50 mls @ 100 mls/hr IVPB Q12 [facility]; Protocol Last Admin: 05/25/18 09:44 Dose: 100 mls/hr Daptomycin 350 mg/ Sodium (Chloride) 100 mls @ 100 mls/hr IV Q48H [facility]; Protocol Stop: 05/26/18 19:16 Last Admin: 05/23/18 20:17 Dose: 100 mls/hr Cefepime HCl 0.25 gm/ Sodium (Chloride) 50 mls @ 50 mls/hr IVPB Q12 [facility]; Protocol Last Admin: 05/25/18 09:44 Dose: 50 mls/hr Insulin Human Lispro (Humalog) 0 units SC ACCU-CHECK [facility]; Protocol Last Admin: 05/25/18 06:52 Dose: 3 units Metoprolol Tartrate (Lopressor) 25 mg PO DAILY [facility] Last Admin: 05/25/18 09:43 Dose: 25 mg Oxycodone/Acetaminophen (Percocet 5/325 Mg Tab) 1 tab PO Q4 PRN PRN Reason: Pain, moderate (4-7) Stop: 05/25/18 20:44 Oxycodone/Acetaminophen (Percocet 5/325 Mg Tab) 2 tab PO Q4 PRN PRN Reason: Pain, severe (8-10) Stop: 05/25/18 20:44 Sevelamer Carbonate (Renvela) 800 mg PO TIDWM [facility] Last Admin: 05/25/18 09:43 Dose: 800 mg - Labs Labs: 05/25/18 05:00 05/25/18 05:00 PT 13.5 Seconds (9.8-13.1) H 05/17/18 05:05 INR 1.2 05/17/18 05:05 APTT 30.8 Seconds (25.6-37.1) 05/17/18 05:05 - Constitutional Appears: No Acute Distress - Head Exam Head Exam: NORMAL INSPECTION - Eye Exam Eye Exam: Normal appearance - ENT Exam ENT Exam: Mucous Membranes Moist - Respiratory Exam Respiratory Exam: Clear to Ausculation Bilateral. absent: Rales, Wheezes - Cardiovascular Exam Cardiovascular Exam: +S1, +S2 - GI/Abdominal Exam GI & Abdominal Exam: Soft, Normal Bowel Sounds - Extremities Exam Additional comments: S/P right TMA, wrapped in dressing which is clean, dry and intact. - Neurological Exam Neurological Exam: Alert, Awake Assessment and Plan - Assessment and Plan (Free Text) Assessment: 72 y/o male with PMHx of HTN and Type II DM admitted for right 2nd digit necrosis and acute renal failure receiving HD as per nephrology. S/P TMA on 05/22 by Podiatry team. #2nd Digit Necrosis of R. Foot, s/p TMA #Acute Renal Failure #PAD Consultations on board: Nephrology, Podiatry, Vascular, ID - Acute Renal Failure, slowly improving, BUN 31, Crea 4.6 today. Management as per [employer] Ha[employer] - Monitor I/O, electrolytes, acid-base, and fluid status daily. Renal Diet. Sevelamer - Podiatry on board- s/p R. TMA. Afebrile overnight, persistent leukocytosis 11.4 today mild, will continue to monitor - Wcx E.Coli and GBS, pansensitive. Bcx no growth since 05/15 - C/W Daptomycin, Cefepime, and Clindamycin - Myocardial Stress normal. Echo EF 55-60% - Vascular following, Angio Aorta/Abd ordered to assess vasculature - PT ordered, NWB to RLE as per Podiatry - Management of chronic medical conditions as ordered - Heparin for DVT ppx - F/u CBC, BMP, mag, phos Discussed case with Dr. Guanakito Dale, PGY2 <Silverio Calabrese - Last Filed: 05/26/18 23:31> Objective - Vital Signs/Intake and Output Vital Signs (last 24 hours): Temp Pulse Resp BP Pulse Ox 98.3 F 81 18 163/75 H 99 05/26/18 20:05 05/26/18 20:05 05/26/18 20:05 05/26/18 20:05 05/26/18 20:05 Intake and Output: 05/26/18 05/26/18 11:59 23:59 Intake Total 980 Balance 980 - Medications Medications: Current Medications Acetaminophen (Tylenol 325mg Tab) 650 mg PO PRN PRN PRN Reason: Fever >100.4 F Last Admin: 05/15/18 20:41 Dose: 650 mg Acetaminophen (Tylenol 325mg Tab) 650 mg PO Q4 PRN PRN Reason: Pain, Mild (1-3) Last Admin: 05/23/18 04:12 Dose: 650 mg Aspirin (Ecotrin) 81 mg PO DAILY [facility] Last Admin: 05/26/18 08:31 Dose: 81 mg Clopidogrel Bisulfate (Plavix) 75 mg PO DAILY [facility] Last Admin: 05/26/18 08:31 Dose: 75 mg Glipizide (Glucotrol) 5 mg PO BIDAC [facility] Last Admin: 05/26/18 15:47 Dose: 5 mg Heparin Sodium (Porcine) (Heparin) 5,000 units SC Q12 [facility]; Protocol Last Admin: 05/26/18 22:16 Dose: 5,000 units Ceftriaxone Sodium 2 gm/ (Sodium Chloride) 100 mls @ 100 mls/hr IVPB DAILY [facility]; Protocol Last Admin: 05/26/18 14:47 Dose: 100 mls/hr Insulin Human Lispro (Humalog) 0 units SC ACCU-CHECK [facility]; Protocol Last Admin: 05/26/18 22:18 Dose: Not Given Metoprolol Tartrate (Lopressor) 25 mg PO DAILY [facility] Last Admin: 05/26/18 08:31 Dose: 25 mg Sevelamer Carbonate (Renvela) 800 mg PO TIDWM [facility] Last Admin: 05/26/18 16:27 Dose: 800 mg - Labs Labs: 05/26/18 05:33 05/26/18 05:33 PT 13.5 Seconds (9.8-13.1) H 05/17/18 05:05 INR 1.2 05/17/18 05:05 APTT 30.8 Seconds (25.6-37.1) 05/17/18 05:05 Assessment and Plan - Assessment and Plan (Free Text) Assessment: Patient was personally seen and examined by me in rounds with residents. Available labs and diagnostic data reviewed. Case, Patient's condition and management plan discussed with residents in rounds. Agree with resident's progress note. Plan: As ordered.
--- NOTE | 2018-05-25 12:35 | CP.PCM.PN ---
Subjective - Date & Time of Evaluation Date of Evaluation: 05/25/18 Time of Evaluation: 12:00 - Subjective Subjective: Feels better Eating better. Objective - Vital Signs/Intake and Output Vital Signs (last 24 hours): Temp Pulse Resp BP Pulse Ox 98.8 F 80 18 161/77 H 98 05/25/18 12:06 05/25/18 12:06 05/25/18 12:06 05/25/18 12:06 05/25/18 12:06 - Medications Medications: Current Medications Acetaminophen (Tylenol 325mg Tab) 650 mg PO PRN PRN PRN Reason: Fever >100.4 F Last Admin: 05/15/18 20:41 Dose: 650 mg Acetaminophen (Tylenol 325mg Tab) 650 mg PO Q4 PRN PRN Reason: Pain, Mild (1-3) Last Admin: 05/23/18 04:12 Dose: 650 mg Aspirin (Ecotrin) 81 mg PO DAILY [facility] Last Admin: 05/15/18 09:58 Dose: Not Given Clopidogrel Bisulfate (Plavix) 75 mg PO DAILY [facility] Last Admin: 05/25/18 09:43 Dose: 75 mg Glipizide (Glucotrol) 5 mg PO BIDAC [facility] Last Admin: 05/16/18 08:17 Dose: 5 mg Heparin Sodium (Porcine) (Heparin) 5,000 units SC Q12 [facility]; Protocol Last Admin: 05/25/18 09:43 Dose: 5,000 units Clindamycin Phosphate (Cleocin 600mg/50ml D5w) 600 mg in 50 mls @ 100 mls/hr IVPB Q12 [facility]; Protocol Last Admin: 05/25/18 09:44 Dose: 100 mls/hr Daptomycin 350 mg/ Sodium (Chloride) 100 mls @ 100 mls/hr IV Q48H [facility]; Protocol Stop: 05/26/18 19:16 Last Admin: 05/23/18 20:17 Dose: 100 mls/hr Cefepime HCl 0.25 gm/ Sodium (Chloride) 50 mls @ 50 mls/hr IVPB Q12 [facility]; Protocol Last Admin: 05/25/18 09:44 Dose: 50 mls/hr Insulin Human Lispro (Humalog) 0 units SC ACCU-CHECK [facility]; Protocol Last Admin: 05/25/18 06:52 Dose: 3 units Metoprolol Tartrate (Lopressor) 25 mg PO DAILY [facility] Last Admin: 05/25/18 09:43 Dose: 25 mg Oxycodone/Acetaminophen (Percocet 5/325 Mg Tab) 1 tab PO Q4 PRN PRN Reason: Pain, moderate (4-7) Stop: 05/25/18 20:44 Oxycodone/Acetaminophen (Percocet 5/325 Mg Tab) 2 tab PO Q4 PRN PRN Reason: Pain, severe (8-10) Stop: 05/25/18 20:44 Sevelamer Carbonate (Renvela) 800 mg PO TIDWM [facility] Last Admin: 05/25/18 09:43 Dose: 800 mg - Labs Labs: 05/25/18 05:00 05/25/18 05:00 PT 13.5 Seconds (9.8-13.1) H 05/17/18 05:05 INR 1.2 05/17/18 05:05 APTT 30.8 Seconds (25.6-37.1) 05/17/18 05:05 - Constitutional Appears: No Acute Distress - Eye Exam Additional comments: Conjunctiva pink - ENT Exam ENT Exam: Mucous Membranes Moist - Neck Exam Additional comments: JVD - - Respiratory Exam Respiratory Exam: NORMAL BREATHING PATTERN Additional comments: Lungs clear - Cardiovascular Exam Cardiovascular Exam: REGULAR RHYTHM - GI/Abdominal Exam GI & Abdominal Exam: Soft - Extremities Exam Additional comments: Rt foot & leg dressed Lt leg no edema Assessment and Plan - Assessment and Plan (Free Text) Assessment: CHARIS. Renal function is improving . Dialysis has been on hold Cause of CHARIS multifactorial. toxic ,sepsis, ATN S/P Rt TMA HTN,DM,PVD Plan: Continue to monitor renal function. If further improvement is observed tomorrow, dialysis catheter can be removed.
[2018-05-26 05:57] LABS: BASO # 0.1 K/uL (0.0-0.2); EOS # 0.1 K/uL (0.0-0.7); EOS % 1.5 % (0.0-4.0); HEMOGLOBIN 10.7 g/dL (12.0-18.0); LYMPH # 1.6 K/uL (1.0-4.3); LYMPH % 16.3 % (20.0-40.0); MEAN CELL VOLUME 84.3 fl (80.0-94.0); MEAN CORPUSCULAR HEMOGLOBIN 28.8 pg (27.0-31.0); MEAN CORPUSCULAR HGB CONC 34.1 g/dL (33.0-37.0); MONO # 0.7 K/uL (0.0-0.8); MONO % 7.8 % (0.0-10.0); NEUT % 73.4 % (50.0-75.0); NRBC % 0.1 % (0.0-0.0); RBC 3.71 Mil/uL (4.40-5.90); RED CELL DISTRIBUTION WIDTH 13.3 % (11.5-14.5); WHITE BLOOD COUNT 9.5 K/uL (4.8-10.8)
[2018-05-26 06:14] LABS: CALCIUM 8.4 mg/dL (8.4-10.2)
[2018-05-26] MEDS ORDERED: Magnesium Sulfate 1 gm in D5W 1 GM/100 ML BAG IVPB ONE (08:42)
[2018-05-26] MEDS: Insulin Lispro (humaLOG) 100 Units/ml Inj SC SCH ×4 (08:42→22:18)
[2018-05-26] MEDS ORDERED: Potassium Chloride 20 mEq ER Tab PO ONE (08:42)
[2018-05-26] MEDS: Clindamycin 600mg/50ml D5W 600 MG/50 ML VIAL IVPB SCH (08:44)
--- NOTE | 2018-05-26 09:52 | OP ---
PROCEDURE DATE: 05/22/2018 SURGEON: Hillary Ang DPM. SKI MAKER: Ryan Lr, PGY-1; Dr. Landry, PGY-1; Dr. Red, PGY-1; Dr. Balderas, PGY-1. ANESTHESIA: IV sedation with local. PREOPERATIVE DIAGNOSIS: Right nonhealing ulceration secondary to dry gangrene of second digit. POSTOPERATIVE DIAGNOSIS: Right nonhealing ulceration secondary to dry gangrene of second digit. NAME OF PROCEDURE: Right foot transmetatarsal amputation. INDICATIONS: The patient is a 72-year-old male with the above diagnosis. The patient has exhausted all conservative treatment at this time and now requires surgical intervention. The patient signed the consent after careful explanation of risks, benefits, complications, and alternatives for surgical procedure. No guarantees were given nor implied. NPO status was confirmed prior to taking the patient to the operating room. PREPARATION: The patient was brought to the operating room and placed on the operating room table in the supine position. Time-out was performed for correct identification of the patient and procedure. After induction of IV sedation, a total of 20 mL of 0.5% Marcaine plain and 1% lidocaine plain was injected in a local block fashion to the right foot. The lower extremity was then prepped and draped in the normal sterile manner and the procedure began. No tourniquet was used during this procedure. DESCRIPTION OF PROCEDURE: Attention was directed to the distal aspect of the right foot in which the use of #15 blade was used to create a fishmouth incision circumferentially around the midfoot with a plantar incision made distally to create a long plantar flap. The incision was extended down into the medial aspect of the first metatarsal as well as extending to the lateral aspect of the fifth metatarsal. At this time, all the soft tissue was freed from the distal aspect of the head and neck of the metatarsals 1 through 5 and periosteum was freed using a periosteal elevator. Next, a sagittal saw was used to resect the first metatarsal at the level of the neck and the blade was angled from the dorsal distal to proximal plantar. All devitalized bone was then passed off the field and sent to pathology. This step was then repeated for metatarsals 2 through 5. All devitalized bone and soft tissue was passed off the field and sent to pathology. The remaining sharp edges of bone were then debrided down to smooth using a bone rasp. The site was then irrigated with copious amounts of normal sterile saline with bacitracin with a pulse lavage. The plantar tissue was then brought up dorsally to cover the distal aspect of the metatarsal head. The subcutaneous tissue was then re-approximated using 0 Vicryl. The skin was closed with 2-0 nylon. Next, at this time, attention was directed to the plantar aspect of the foot where an elliptical incision was made to debride all nonviable soft tissue from the plantar ulceration and was passed off the operating field. The area was then copiously irrigated with normal sterile saline and sutured using 2-0 nylon. The right foot was then dressed with Xeroform, ABD, Webril, and placed in a posterior splint. POSTOPERATIVE CONDITION: The patient tolerated the anesthesia and procedure well and was escorted to the recovery room with all vital signs stable and neurovascular status intact to the right lower extremity. The patient is to remain nonweightbearing to the right lower extremity with crutches. Podiatry will continue to follow the patient while in-house. The patient will follow up with Dr. Ang in clinic upon discharge. RYAN TUCKER Hillary Ang DPM JANN
--- NOTE | 2018-05-26 10:22 | CP.PCM.PN ---
Subjective - Date & Time of Evaluation Date of Evaluation: 05/26/18 Time of Evaluation: 10:22 - Subjective Subjective: Id Note- Patient seen and examined today. Pt. states he feels much better. He is afebrile Objective - Vital Signs/Intake and Output Vital Signs (last 24 hours): Temp Pulse Resp BP Pulse Ox 98.5 F 93 H 18 151/80 H 97 05/26/18 08:02 05/26/18 08:31 05/26/18 08:02 05/26/18 08:31 05/26/18 08:02 - Medications Medications: Current Medications Acetaminophen (Tylenol 325mg Tab) 650 mg PO PRN PRN PRN Reason: Fever >100.4 F Last Admin: 05/15/18 20:41 Dose: 650 mg Acetaminophen (Tylenol 325mg Tab) 650 mg PO Q4 PRN PRN Reason: Pain, Mild (1-3) Last Admin: 05/23/18 04:12 Dose: 650 mg Aspirin (Ecotrin) 81 mg PO DAILY [facility] Last Admin: 05/26/18 08:31 Dose: 81 mg Clopidogrel Bisulfate (Plavix) 75 mg PO DAILY [facility] Last Admin: 05/26/18 08:31 Dose: 75 mg Glipizide (Glucotrol) 5 mg PO BIDAC [facility] Last Admin: 05/26/18 08:32 Dose: 5 mg Heparin Sodium (Porcine) (Heparin) 5,000 units SC Q12 [facility]; Protocol Last Admin: 05/26/18 08:32 Dose: 5,000 units Clindamycin Phosphate (Cleocin 600mg/50ml D5w) 600 mg in 50 mls @ 100 mls/hr IVPB Q12 [facility]; Protocol Last Admin: 05/26/18 08:44 Dose: 100 mls/hr Daptomycin 350 mg/ Sodium (Chloride) 100 mls @ 100 mls/hr IV Q48H [facility]; Protocol Stop: 05/26/18 19:16 Last Admin: 05/25/18 22:03 Dose: 100 mls/hr Cefepime HCl 0.25 gm/ Sodium (Chloride) 50 mls @ 50 mls/hr IVPB Q12 [facility]; Protocol Last Admin: 05/25/18 22:03 Dose: 50 mls/hr Insulin Human Lispro (Humalog) 0 units SC ACCU-CHECK [facility]; Protocol Last Admin: 05/26/18 08:42 Dose: 2 units Metoprolol Tartrate (Lopressor) 25 mg PO DAILY [facility] Last Admin: 05/26/18 08:31 Dose: 25 mg Sevelamer Carbonate (Renvela) 800 mg PO TIDWM [facility] Last Admin: 05/26/18 08:31 Dose: 800 mg - Labs Labs: - Additional Findings Additional findings: - Constitutional Appears: No Acute Distress - Head Exam Head Exam: ATRAUMATIC - Eye Exam Eye Exam: EOMI, PERRL - ENT Exam ENT Exam: Normal Oropharynx - Respiratory Exam Respiratory Exam: Clear to Ausculation Bilateral, NORMAL BREATHING PATTERN - Cardiovascular Exam Cardiovascular Exam: RRR, +S1, +S2 - GI/Abdominal Exam GI & Abdominal Exam: Soft, Normal Bowel Sounds Additional comments: NT, ND - Extremities Exam Additional comments: Right foot s/p TMA surgical site sutures in place, looks clean, no discharge, no erythema, minimal edema - Neurological Exam Neurological Exam: Alert, Awake, Oriented x 3 Laboratory Results - last 72 hr 05/21/18 05/22/18 05/23/18 13:00 16:44 16:22 WBC RBC Hgb Hct MCV MCH MCHC RDW Plt Count MPV Neut % (Auto) Lymph % (Auto) [place] % (Auto) Eos % (Auto) Baso % (Auto) Neut # (Auto) Lymph # (Auto) [place] # (Auto) Eos # (Auto) Baso # (Auto) Sodium Potassium Chloride Carbon Dioxide Anion Gap BUN Creatinine Est GFR ( Amer) Est GFR (Non-Af Amer) POC Glucose (mg/dL) 266 H Random Glucose Calcium Phosphorus Magnesium PTH Intact Whole Molec 159 H Serum Immunofixation Detected H 05/23/18 05/24/18 05/24/18 21:33 04:20 04:20 WBC 11.8 H RBC 3.74 L Hgb 10.6 L Hct 31.5 L MCV 84.2 MCH 28.2 MCHC 33.5 RDW 13.6 Plt Count 485 H MPV 7.1 L Neut % (Auto) 78.3 H Lymph % (Auto) 12.9 L [place] % (Auto) 7.0 Eos % (Auto) 0.7 Baso % (Auto) 1.1 Neut # (Auto) 9.2 H Lymph # (Auto) 1.5 [place] # (Auto) 0.8 Eos # (Auto) 0.1 Baso # (Auto) 0.1 Sodium 137 Potassium 3.6 Chloride 102 Carbon Dioxide 22 Anion Gap 17 BUN 30 H Creatinine 5.2 H Est GFR ( Amer) 13 Est GFR (Non-Af Amer) 11 POC Glucose (mg/dL) 179 H Random Glucose 222 H Calcium 8.5 Phosphorus 5.1 H Magnesium 1.3 L PTH Intact Whole Molec Serum Immunofixation 05/24/18 05/24/18 05/24/18 06:21 10:53 15:44 WBC RBC Hgb Hct MCV MCH MCHC RDW Plt Count MPV Neut % (Auto) Lymph % (Auto) [place] % (Auto) Eos % (Auto) Baso % (Auto) Neut # (Auto) Lymph # (Auto) [place] # (Auto) Eos # (Auto) Baso # (Auto) Sodium Potassium Chloride Carbon Dioxide Anion Gap BUN Creatinine Est GFR ( Amer) Est GFR (Non-Af Amer) POC Glucose (mg/dL) 220 H 270 H 195 H Random Glucose Calcium Phosphorus Magnesium PTH Intact Whole Molec Serum Immunofixation 05/24/18 05/25/18 05/25/18 21:44 05:00 05:00 WBC 11.4 H RBC 3.88 L Hgb 11.0 L Hct 32.5 L MCV 83.6 MCH 28.3 MCHC 33.9 RDW 13.6 Plt Count 508 H MPV 7.1 L Neut % (Auto) 77.7 H Lymph % (Auto) 12.7 L [place] % (Auto) 7.6 Eos % (Auto) 1.2 Baso % (Auto) 0.8 Neut # (Auto) 8.9 H Lymph # (Auto) 1.5 [place] # (Auto) 0.9 H Eos # (Auto) 0.1 Baso # (Auto) 0.1 Sodium 138 Potassium 3.8 Chloride 101 Carbon Dioxide 24 Anion Gap 17 BUN 31 H Creatinine 4.6 H Est GFR ( Amer) 15 Est GFR (Non-Af Amer) 13 POC Glucose (mg/dL) 276 H Random Glucose 257 H Calcium 8.7 Phosphorus 4.9 H Magnesium 1.6 PTH Intact Whole Molec Serum Immunofixation 05/25/18 05/25/18 05/25/18 05:06 10:57 15:52 WBC RBC Hgb Hct MCV MCH MCHC RDW Plt Count MPV Neut % (Auto) Lymph % (Auto) [place] % (Auto) Eos % (Auto) Baso % (Auto) Neut # (Auto) Lymph # (Auto) [place] # (Auto) Eos # (Auto) Baso # (Auto) Sodium Potassium Chloride Carbon Dioxide Anion Gap BUN Creatinine Est GFR ( Amer) Est GFR (Non-Af Amer) POC Glucose (mg/dL) 247 H 277 H 297 H Random Glucose Calcium Phosphorus Magnesium PTH Intact Whole Molec Serum Immunofixation 05/25/18 05/26/18 05/26/18 21:32 05:28 05:33 WBC 9.5 RBC 3.71 L Hgb 10.7 L Hct 31.3 L MCV 84.3 MCH 28.8 MCHC 34.1 RDW 13.3 Plt Count 484 H MPV 7.0 L Neut % (Auto) 73.4 Lymph % (Auto) 16.3 L [place] % (Auto) 7.8 Eos % (Auto) 1.5 Baso % (Auto) 1.0 Neut # (Auto) 7.0 Lymph # (Auto) 1.6 [place] # (Auto) 0.7 Eos # (Auto) 0.1 Baso # (Auto) 0.1 Sodium Potassium Chloride Carbon Dioxide Anion Gap BUN Creatinine Est GFR ( Amer) Est GFR (Non-Af Amer) POC Glucose (mg/dL) 143 H 196 H Random Glucose Calcium Phosphorus Magnesium PTH Intact Whole Molec Serum Immunofixation 05/26/18 05:33 WBC RBC Hgb Hct MCV MCH MCHC RDW Plt Count MPV Neut % (Auto) Lymph % (Auto) [place] % (Auto) Eos % (Auto) Baso % (Auto) Neut # (Auto) Lymph # (Auto) [place] # (Auto) Eos # (Auto) Baso # (Auto) Sodium 138 Potassium 3.2 L Chloride 103 Carbon Dioxide 21 L Anion Gap 17 BUN 30 H Creatinine 4.1 H Est GFR ( Amer) 17 Est GFR (Non-Af Amer) 14 POC Glucose (mg/dL) Random Glucose 195 H Calcium 8.4 Phosphorus 4.6 H Magnesium 1.5 L PTH Intact Whole Molec Serum Immunofixation Microbiology 05/22/18 17:38 Nose MRSA Culture (Admit) - Final MRSA NOT DETECTED 05/15/18 18:28 Blood-Venous Blood Culture - Final NO GROWTH AFTER 5 DAYS 05/15/18 18:28 Blood-Venous Gram Stain - Final TEST NOT PERFORMED 05/15/18 18:18 Blood-Venous Blood Culture - Final NO GROWTH AFTER 5 DAYS 05/15/18 18:18 Blood-Venous Gram Stain - Final TEST NOT PERFORMED 05/13/18 12:30 Blood-Venous Blood Culture - Final NO GROWTH AFTER 5 DAYS 05/13/18 12:30 Blood-Venous Gram Stain - Final TEST NOT PERFORMED 05/16/18 22:30 Naris MRSA Culture (Admit) - Final MRSA NOT DETECTED 05/16/18 13:00 Foot - Right Gram Stain - Final 05/16/18 13:00 Foot - Right Wound Culture - Final No growth. 05/16/18 13:00 Urine,Clean Catch Urine Culture - Final No Growth (<1,000 CFU/ML) 05/13/18 15:00 Foot - Right Gram Stain - Final 05/13/18 15:00 Foot - Right Wound Culture - Final Escherichia Coli Beta Hemolytic Strep Group B 05/13/18 17:00 Foot - Right Gram Stain - Final 05/13/18 17:00 Foot - Right Wound Culture - Final Escherichia Coli Beta Hemolytic Strep Group B Accession No. : [id number] Patient Name / ID : ION RIVERA / [id number] Exam Date : 05/22/2018 20:49:55 ( Approved ) Study Comment : Sex / Age : M / 72Y Creator : Mayco Diaz MD Dictator : Mayco Diaz MD Sub Prior : Self Contained Behavior Unit Teacher : Mayco Diaz MD Approver2 : Report Date : 05/23/2018 09:46:23 My Comment : Date of service: 05/22/2018 PROCEDURE: Right Foot Radiographs. HISTORY: s/p R TMA COMPARISON: None. TECHNIQUE: 3 views obtained. FINDINGS: BONES: Status post transmetatarsal amputation. No acute fracture. Plantar calcaneal spur. JOINTS: Likely old healed distal fibular fracture noted. SOFT TISSUES: Postoperative changes noted in distal soft tissues of the foot at the site of amputation. OTHER FINDINGS: None. IMPRESSION: Status post transmetatarsal amputation Assessment and Plan (1) DM2 (diabetes mellitus, type 2) Status: Chronic (2) Cellulitis Status: Acute (3) Acute renal insufficiency Status: Acute (4) PVD (peripheral vascular disease) Status: Acute (5) Osteomyelitis of right foot Status: Acute (6) Necrosis of toe Status: Deleted - Assessment and Plan (Free Text) Assessment: Assessment and plan Patient is a 72-year-old male with multiple medical conditions including diabetes type 2, hypertension, peripheral vascular disease status post revascularization, osteomyelitis of the right hallux status post amputation October 2017, who now presents with necrosis of the right distal toe. s/p right second toe amp POD #10 s/p right foot TMA few days ago s/p emergent HD clinially much improved. has remained afebrile leukocytosis has resolved. Initial Wound culture E.coli and Beta hemolytic group strep B x 2 blood cx- neg x 3 acute renal insufficinecy improving and apparently no longer needs HD. Plan has completed so far 11 days of IV cefepime ad clinda and 7 daysb of IV daptomycin. pt. will need at least 4-6 weeks of IV abx as he had extensive infection of the foot and most likely OM. the e.coli is sens to ceftriaxone and the strep group B should be sens to ceftriaxone as well ( no sens done by lab on the group B strep). Hence would advise to give high dose ceftriaxone 2 gram IV daily to treat both organisms for 4 weeks. ceftriaxone is also not renally excreted and hence will be good option for this patietn. He should f/u closely with podiatry clinic and his PCP as well. all labs and imaging and chart notes reviewed. All above d/w patient and his and they verbalize full understanding of all above.
[2018-05-26] MEDS: Cefepime 0.25 GM in Sodium Chloride 0.9% 50 ML IVPB SCH (11:09)
--- NOTE | 2018-05-26 12:02 | CP.PCM.PN ---
Subjective - Date & Time of Evaluation Date of Evaluation: 05/26/18 Time of Evaluation: 12:00 - Subjective Subjective: Yuniel Fuentes, PGY-1, Cardiology Progress Note for Dr. Tabares Patient was seen and evaluated at bedside. Patient had no acute overnight events. Patient has no acute symptoms at this time. Objective - Vital Signs/Intake and Output Vital Signs (last 24 hours): Temp Pulse Resp BP Pulse Ox 98.5 F 93 H 18 151/80 H 97 05/26/18 08:02 05/26/18 08:31 05/26/18 08:02 05/26/18 08:31 05/26/18 08:02 - Medications Medications: Current Medications Acetaminophen (Tylenol 325mg Tab) 650 mg PO PRN PRN PRN Reason: Fever >100.4 F Last Admin: 05/15/18 20:41 Dose: 650 mg Acetaminophen (Tylenol 325mg Tab) 650 mg PO Q4 PRN PRN Reason: Pain, Mild (1-3) Last Admin: 05/23/18 04:12 Dose: 650 mg Aspirin (Ecotrin) 81 mg PO DAILY [facility] Last Admin: 05/26/18 08:31 Dose: 81 mg Clopidogrel Bisulfate (Plavix) 75 mg PO DAILY [facility] Last Admin: 05/26/18 08:31 Dose: 75 mg Glipizide (Glucotrol) 5 mg PO BIDAC [facility] Last Admin: 05/26/18 08:32 Dose: 5 mg Heparin Sodium (Porcine) (Heparin) 5,000 units SC Q12 [facility]; Protocol Last Admin: 05/26/18 08:32 Dose: 5,000 units Clindamycin Phosphate (Cleocin 600mg/50ml D5w) 600 mg in 50 mls @ 100 mls/hr IVPB Q12 [facility]; Protocol Last Admin: 05/26/18 08:44 Dose: 100 mls/hr Daptomycin 350 mg/ Sodium (Chloride) 100 mls @ 100 mls/hr IV Q48H [facility]; Protocol Stop: 05/26/18 19:16 Last Admin: 05/25/18 22:03 Dose: 100 mls/hr Cefepime HCl 0.25 gm/ Sodium (Chloride) 50 mls @ 50 mls/hr IVPB Q12 [facility]; Protocol Last Admin: 05/25/18 22:03 Dose: 50 mls/hr Insulin Human Lispro (Humalog) 0 units SC ACCU-CHECK [facility]; Protocol Last Admin: 05/26/18 08:42 Dose: 2 units Metoprolol Tartrate (Lopressor) 25 mg PO DAILY [facility] Last Admin: 05/26/18 08:31 Dose: 25 mg Sevelamer Carbonate (Renvela) 800 mg PO TIDWM [facility] Last Admin: 05/26/18 08:31 Dose: 800 mg - Labs Labs: 05/26/18 05:33 05/26/18 05:33 PT 13.5 Seconds (9.8-13.1) H 05/17/18 05:05 INR 1.2 05/17/18 05:05 APTT 30.8 Seconds (25.6-37.1) 05/17/18 05:05 - Constitutional Appears: Well, Non-toxic, No Acute Distress - Head Exam Head Exam: ATRAUMATIC, NORMAL INSPECTION, NORMOCEPHALIC - Eye Exam Eye Exam: EOMI, PERRL - ENT Exam ENT Exam: Mucous Membranes Moist - Respiratory Exam Respiratory Exam: Clear to Ausculation Bilateral, NORMAL BREATHING PATTERN - Cardiovascular Exam Cardiovascular Exam: REGULAR RHYTHM, RRR, +S1, +S2 - GI/Abdominal Exam GI & Abdominal Exam: Soft, Normal Bowel Sounds. absent: Tenderness - Extremities Exam Extremities Exam: Full ROM - Neurological Exam Neurological Exam: Alert, Awake, CN II-XII Intact, Oriented x3 - Skin Skin Exam: Dry, Intact Additional comments: darkened 2nd right toe, now debrided Assessment and Plan (1) DM2 (diabetes mellitus, type 2) Assessment & Plan: HgbA1c: 8.4 Continue with glipizide, and sliding scale insulin. Status: Chronic (2) PVD (peripheral vascular disease) Assessment & Plan: Plan is for CTA of bilateral lower extremities to evaluate vasculature for further intervention Status: Acute (3) HTN (hypertension) Assessment & Plan: Continue with lopressor Status: Chronic (4) Cellulitis Assessment & Plan: Continue with antibiotics Status: Acute (5) Acute renal insufficiency Assessment & Plan: Continue with hemodialysis sessions Status: Acute
--- NOTE | 2018-05-26 12:33 | PN ---
DATE: 05/26/2018 SUBJECTIVE: The patient seen and examined. Interim events noted. Consults noted and appreciated. Nephrology followup and intervention noted and appreciated. The patient remains in progressive care unit on telemetry monitoring. Feels much better. Denies any specific complaints of chest pain or shortness of breath. PHYSICAL EXAMINATION: GENERAL: The patient is in no acute distress. VITAL SIGNS: Stable. HEART: S1 and S2 normal and regular. LUNGS: Good bilateral air exchange. ABDOMEN: Soft, nontender, no organomegaly. No fluid. Bowel sounds are grossly normal. EXTREMITIES: The patient is status post amputation. No edema, no calf swelling, no tenderness. No acute ischemia. CENTRAL NERVOUS SYSTEM: Essentially unchanged. DIAGNOSTIC DATA: Available diagnostic data reviewed. Telemetry monitoring does not show any significant arrhythmias. Creatinine has improved to 0.1, BUN is 30. ASSESSMENT AND PLAN: Overall, the patient is clinically improved. Renal function is clinically improved without dialysis. The patient is recovering from degenerative disease. The patient is medically stable. I explained about possible discharge and followup. The patient will follow up in the clinic and with the primary care physician. Plan as ordered. Silverio Calabrese MD
--- NOTE | 2018-05-26 13:09 | CP.PCM.PN ---
Subjective - Date & Time of Evaluation Date of Evaluation: 05/26/18 Time of Evaluation: 12:45 - Subjective Subjective: Pt feels better. No complaints reported Wants togo home. Objective - Vital Signs/Intake and Output Vital Signs (last 24 hours): Temp Pulse Resp BP Pulse Ox 98.1 F 91 H 18 145/71 98 05/26/18 12:08 05/26/18 12:08 05/26/18 12:08 05/26/18 12:08 05/26/18 12:08 - Medications Medications: Current Medications Acetaminophen (Tylenol 325mg Tab) 650 mg PO PRN PRN PRN Reason: Fever >100.4 F Last Admin: 05/15/18 20:41 Dose: 650 mg Acetaminophen (Tylenol 325mg Tab) 650 mg PO Q4 PRN PRN Reason: Pain, Mild (1-3) Last Admin: 05/23/18 04:12 Dose: 650 mg Aspirin (Ecotrin) 81 mg PO DAILY [facility] Last Admin: 05/26/18 08:31 Dose: 81 mg Clopidogrel Bisulfate (Plavix) 75 mg PO DAILY [facility] Last Admin: 05/26/18 08:31 Dose: 75 mg Glipizide (Glucotrol) 5 mg PO BIDAC [facility] Last Admin: 05/26/18 08:32 Dose: 5 mg Heparin Sodium (Porcine) (Heparin) 5,000 units SC Q12 [facility]; Protocol Last Admin: 05/26/18 08:32 Dose: 5,000 units Clindamycin Phosphate (Cleocin 600mg/50ml D5w) 600 mg in 50 mls @ 100 mls/hr IVPB Q12 [facility]; Protocol Last Admin: 05/26/18 08:44 Dose: 100 mls/hr Daptomycin 350 mg/ Sodium (Chloride) 100 mls @ 100 mls/hr IV Q48H [facility]; Protocol Stop: 05/26/18 19:16 Last Admin: 05/25/18 22:03 Dose: 100 mls/hr Cefepime HCl 0.25 gm/ Sodium (Chloride) 50 mls @ 50 mls/hr IVPB Q12 [facility]; Protocol Last Admin: 05/26/18 11:09 Dose: 50 mls/hr Insulin Human Lispro (Humalog) 0 units SC ACCU-CHECK [facility]; Protocol Last Admin: 05/26/18 12:37 Dose: 3 units Metoprolol Tartrate (Lopressor) 25 mg PO DAILY [facility] Last Admin: 05/26/18 08:31 Dose: 25 mg Sevelamer Carbonate (Renvela) 800 mg PO TIDWM [facility] Last Admin: 05/26/18 12:37 Dose: 800 mg - Labs Labs: 05/26/18 05:33 05/26/18 05:33 PT 13.5 Seconds (9.8-13.1) H 05/17/18 05:05 INR 1.2 05/17/18 05:05 APTT 30.8 Seconds (25.6-37.1) 05/17/18 05:05 - Constitutional Appears: No Acute Distress - Eye Exam Eye Exam: Normal appearance - ENT Exam ENT Exam: Mucous Membranes Moist - Neck Exam Additional comments: No jugular venous didtension. - Respiratory Exam Respiratory Exam: NORMAL BREATHING PATTERN Additional comments: Lungs cleat - Cardiovascular Exam Cardiovascular Exam: REGULAR RHYTHM - Extremities Exam Additional comments: No Lt leg edema. Assessment and Plan - Assessment and Plan (Free Text) Assessment: AResolving AI Creatinine continues to decrease No need for dialysis support Labs reviewed BP is improving Plan: consul with IR for dialysis catheter removal Avoid any potentially nephrotoxic meds. Pt has nephrotic proteinuria most likely due to diabetic nephropathy. However will need kidney Bx to r/o any other glomerular dis. This can be done when infectin is resolved.
--- NOTE | 2018-05-26 13:32 | CP.PCM.PCO ---
Assessment/Plan Progress Note - Assessment/Plan Assessment (Free Text): pt. doing well this morning Renal fx improving CR 4.1 pt. to have HD temp cath removal by sx resident (spoke w/ . as per , no plan for angiogram at this this pending dr. Carter recommendation for iv abx 1:40 pm- provided recommendations for Rocephin 2 gm iv daily x 4 weeks pt. will need picc line/ pending auth for iv abx - Problems Patient Problems: Problem List (Active/Current) Problem Status Onset Code Cellulitis Acute L03.90 DM2 (diabetes mellitus, type 2) Chronic E11.9
[2018-05-26] MEDS: cefTRIAXone 2 GM in Sodium Chloride 0.9% 100 ML IVPB SCH (14:47)
--- NOTE | 2018-05-26 14:55 | CP.PCM.PN ---
Subjective - Date & Time of Evaluation Date of Evaluation: 05/26/18 Time of Evaluation: 14:54 - Subjective Subjective: Podiatry Progress Note: Dr. Ang 72 year old male patient seen and evaluated for R foot infection, POD#4 R TMA. Patient resting comfortably, no acute distress. Patient states that he wants to leave the hospital. present bedside. Denies nausea/vomiting/fever/shortness of breath. Objective - Vital Signs/Intake and Output Vital Signs (last 24 hours): Temp Pulse Resp BP Pulse Ox 98.1 F 91 H 18 145/71 98 05/26/18 12:08 05/26/18 12:08 05/26/18 12:08 05/26/18 12:08 05/26/18 12:08 - Medications Medications: Current Medications Acetaminophen (Tylenol 325mg Tab) 650 mg PO PRN PRN PRN Reason: Fever >100.4 F Last Admin: 05/15/18 20:41 Dose: 650 mg Acetaminophen (Tylenol 325mg Tab) 650 mg PO Q4 PRN PRN Reason: Pain, Mild (1-3) Last Admin: 05/23/18 04:12 Dose: 650 mg Aspirin (Ecotrin) 81 mg PO DAILY [facility] Last Admin: 05/26/18 08:31 Dose: 81 mg Clopidogrel Bisulfate (Plavix) 75 mg PO DAILY [facility] Last Admin: 05/26/18 08:31 Dose: 75 mg Glipizide (Glucotrol) 5 mg PO BIDAC [facility] Last Admin: 05/26/18 08:32 Dose: 5 mg Heparin Sodium (Porcine) (Heparin) 5,000 units SC Q12 [facility]; Protocol Last Admin: 05/26/18 08:32 Dose: 5,000 units Ceftriaxone Sodium 2 gm/ (Sodium Chloride) 100 mls @ 100 mls/hr IVPB DAILY [facility]; Protocol Last Admin: 05/26/18 14:47 Dose: 100 mls/hr Insulin Human Lispro (Humalog) 0 units SC ACCU-CHECK [facility]; Protocol Last Admin: 05/26/18 12:37 Dose: 3 units Metoprolol Tartrate (Lopressor) 25 mg PO DAILY [facility] Last Admin: 05/26/18 08:31 Dose: 25 mg Sevelamer Carbonate (Renvela) 800 mg PO TIDWM [facility] Last Admin: 05/26/18 12:37 Dose: 800 mg - Labs Labs: 05/26/18 05:33 05/26/18 05:33 PT 13.5 Seconds (9.8-13.1) H 05/17/18 05:05 INR 1.2 05/17/18 05:05 APTT 30.8 Seconds (25.6-37.1) 05/17/18 05:05 - Constitutional Appears: Non-toxic, No Acute Distress - Head Exam Head Exam: ATRAUMATIC, NORMOCEPHALIC - Extremities Exam Additional comments: RLE Exam: Vasc: DP and PT 1/4 faintly palpable, CFT to plantar flap <3 seconds, mild edema appreciated to dorsal aspect of foot Ortho: TMA appreciated, no pain appreciated at this time, ankle joint range of motion within normal limits Neuro: Gross and protective sensation diminished Derm: TMA site skin edges well coapted, with all sutures intact at this time. No signs of dehiscence, no erythema, no purulence, no sign of fluctuance, no clinical signs of infection. - Neurological Exam Neurological Exam: Alert, Awake, Oriented x3 - Psychiatric Exam Psychiatric exam: Normal Affect, Normal Mood Assessment and Plan - Assessment and Plan (Free Text) Assessment: 72 year old male patient seen and evaluated for R foot infection, POD#4 R TMA. Plan: Patient seen and evaluated at bedside Discussed with Dr. Ang Afebrile, WBC 9.5, Cr4.1, ESR 94, CRP 219.10 Right Foot X-ray- diffuse increased soft tissue swelling when compared to prior, infectious or other inflammatory process, soft tissue emphysema not appreciated New R foot x-ray (05/14): mild decrease in soft tissue swelling. No new soft tissue emphysema identified Wound Cultures (05/13)- Ecoli, beta hemolytic strep B New wound cultures (05/16); no growth Vascular consult- Plan for CTA of b/l LE per Dr. Tabares Infectious disease consult- provided recommendations for Rocephin 2 gm iv daily x 4 weeks; pt. will need picc line/ pending auth for iv abx Non-weightbearing to R lower extremity Upon d/c patient to follow up in Podiatry Clinic on Tuesday
[2018-05-27] MEDS: cefTRIAXone 2 GM in Sodium Chloride 0.9% 100 ML IVPB SCH (08:43)
[2018-05-27] MEDS: Insulin Lispro (humaLOG) 100 Units/ml Inj SC SCH ×4 (08:44→22:08)
--- NOTE | 2018-05-27 09:47 | PN ---
DATE: 05/27/2018 SUBJECTIVE: The patient is seen and examined. Interim events noted. Consults noted and appreciated. The patient feels much better. No chest pain. No shortness of breath. PHYSICAL EXAMINATION: GENERAL: The patient is in no acute distress. VITAL SIGNS: Stable. Physical exam is essentially unchanged. DIAGNOSTIC DATA: Available diagnostic data reviewed. Telemetry monitoring does not show any significant arrhythmias. ASSESSMENT AND PLAN: Overall, the patient is medically stable. . Plan as ordered. Silverio Calabrese MD
--- NOTE | 2018-05-27 10:21 | CP.PCM.PN ---
Subjective - Date & Time of Evaluation Date of Evaluation: 05/27/18 Time of Evaluation: 10:19 - Subjective Subjective: Podiatry Progress Note: Dr. Ang 72 year old male patient seen and evaluated for R foot infection, POD#5 R TMA. AAOx3 in NAD. Patient states that he would liek to be discharged as soon as possible. present at bedside. Denies nausea/vomiting/fever/shortness of breath. Possible d/c to home per patient on Tuesday Objective - Vital Signs/Intake and Output Vital Signs (last 24 hours): Temp Pulse Resp BP Pulse Ox 98.2 F 84 20 167/81 H 99 05/27/18 08:28 05/27/18 08:45 05/27/18 08:28 05/27/18 08:45 05/27/18 08:28 - Medications Medications: Current Medications Acetaminophen (Tylenol 325mg Tab) 650 mg PO PRN PRN PRN Reason: Fever >100.4 F Last Admin: 05/15/18 20:41 Dose: 650 mg Acetaminophen (Tylenol 325mg Tab) 650 mg PO Q4 PRN PRN Reason: Pain, Mild (1-3) Last Admin: 05/23/18 04:12 Dose: 650 mg Aspirin (Ecotrin) 81 mg PO DAILY [facility] Last Admin: 05/27/18 08:44 Dose: 81 mg Clopidogrel Bisulfate (Plavix) 75 mg PO DAILY [facility] Last Admin: 05/27/18 08:44 Dose: 75 mg Glipizide (Glucotrol) 5 mg PO BIDAC [facility] Last Admin: 05/27/18 08:44 Dose: 5 mg Heparin Sodium (Porcine) (Heparin) 5,000 units SC Q12 [facility]; Protocol Last Admin: 05/27/18 08:44 Dose: 5,000 units Ceftriaxone Sodium 2 gm/ (Sodium Chloride) 100 mls @ 100 mls/hr IVPB DAILY [facility]; Protocol Last Admin: 05/27/18 08:43 Dose: 100 mls/hr Insulin Human Lispro (Humalog) 0 units SC ACCU-CHECK [facility]; Protocol Last Admin: 05/27/18 08:44 Dose: 2 units Metoprolol Tartrate (Lopressor) 25 mg PO DAILY [facility] Last Admin: 05/27/18 08:45 Dose: 25 mg Sevelamer Carbonate (Renvela) 800 mg PO TIDWM [facility] Last Admin: 05/27/18 08:45 Dose: 800 mg - Labs Labs: 05/26/18 05:33 05/26/18 05:33 PT 13.5 Seconds (9.8-13.1) H 05/17/18 05:05 INR 1.2 05/17/18 05:05 APTT 30.8 Seconds (25.6-37.1) 05/17/18 05:05 - Constitutional Appears: Well, Non-toxic, No Acute Distress - Head Exam Head Exam: ATRAUMATIC, NORMOCEPHALIC - Eye Exam Eye Exam: Normal appearance Pupil Exam: NORMAL ACCOMODATION - ENT Exam ENT Exam: Mucous Membranes Moist - Respiratory Exam Respiratory Exam: NORMAL BREATHING PATTERN - Cardiovascular Exam Cardiovascular Exam: REGULAR RHYTHM, +S1, +S2 - GI/Abdominal Exam GI & Abdominal Exam: Normal Bowel Sounds - Extremities Exam Additional comments: Dressing c/d/i From previous note; RLE Exam: Vasc: DP and PT 1/4 faintly palpable, CFT to plantar flap <3 seconds, mild edema appreciated to dorsal aspect of foot Ortho: TMA appreciated, no pain appreciated at this time, ankle joint range of motion within normal limits Neuro: Gross and protective sensation diminished Derm: TMA site skin edges well coapted, with all sutures intact at this time. No signs of dehiscence, no erythema, no purulence, no sign of fluctuance, no clinical signs of infection. - Neurological Exam Neurological Exam: Alert, Awake, Oriented x3 - Psychiatric Exam Psychiatric exam: Normal Affect Assessment and Plan - Assessment and Plan (Free Text) Assessment: 72 year old male patient seen and evaluated for R foot infection, POD#5 R TMA. Plan: Patient seen and evaluated at bedside Discussed with Dr. Ang Afebrile, WBC 9.5, Cr4.1, ESR 94, CRP 219.10 Right Foot X-ray- diffuse increased soft tissue swelling when compared to prior, infectious or other inflammatory process, soft tissue emphysema not appreciated New R foot x-ray (05/14): mild decrease in soft tissue swelling. No new soft tissue emphysema identified Wound Cultures (05/13)- Ecoli, beta hemolytic strep B New wound cultures (05/16); no growth Vascular consult- Plan for CTA of b/l LE per Dr. Tabares Infectious disease consult- provided recommendations for Rocephin 2 gm iv daily x 4 weeks; pt. will need picc line/ pending auth for iv abx- recommends 4 more weeks due to severity of infection Non-weightbearing to R lower extremity Upon d/c patient to follow up in Podiatry Clinic on Tuesday ; keep dressing d/c/i
[2018-05-27 11:25] LABS: CALCIUM 8.4 mg/dL (8.4-10.2)
--- NOTE | 2018-05-27 14:03 | CP.PCM.PN ---
Subjective - Date & Time of Evaluation Date of Evaluation: 05/27/18 Time of Evaluation: 01:45 - Subjective Subjective: Feels better. Comfortable in bed. Objective - Vital Signs/Intake and Output Vital Signs (last 24 hours): Temp Pulse Resp BP Pulse Ox 98.5 F 79 20 166/86 H 95 05/27/18 12:22 05/27/18 12:22 05/27/18 12:22 05/27/18 12:22 05/27/18 12:22 - Medications Medications: Current Medications Acetaminophen (Tylenol 325mg Tab) 650 mg PO PRN PRN PRN Reason: Fever >100.4 F Last Admin: 05/15/18 20:41 Dose: 650 mg Acetaminophen (Tylenol 325mg Tab) 650 mg PO Q4 PRN PRN Reason: Pain, Mild (1-3) Last Admin: 05/23/18 04:12 Dose: 650 mg Aspirin (Ecotrin) 81 mg PO DAILY [facility] Last Admin: 05/27/18 08:44 Dose: 81 mg Clopidogrel Bisulfate (Plavix) 75 mg PO DAILY [facility] Last Admin: 05/27/18 08:44 Dose: 75 mg Glipizide (Glucotrol) 5 mg PO BIDAC [facility] Last Admin: 05/27/18 08:44 Dose: 5 mg Heparin Sodium (Porcine) (Heparin) 5,000 units SC Q12 [facility]; Protocol Last Admin: 05/27/18 08:44 Dose: 5,000 units Ceftriaxone Sodium 2 gm/ (Sodium Chloride) 100 mls @ 100 mls/hr IVPB DAILY [facility]; Protocol Last Admin: 05/27/18 08:43 Dose: 100 mls/hr Insulin Human Lispro (Humalog) 0 units SC ACCU-CHECK [facility]; Protocol Last Admin: 05/27/18 10:59 Dose: 2 units Metoprolol Tartrate (Lopressor) 25 mg PO DAILY [facility] Last Admin: 05/27/18 08:45 Dose: 25 mg - Labs Labs: 05/26/18 05:33 05/27/18 10:05 PT 13.5 Seconds (9.8-13.1) H 05/17/18 05:05 INR 1.2 05/17/18 05:05 APTT 30.8 Seconds (25.6-37.1) 05/17/18 05:05 - Constitutional Appears: No Acute Distress - Head Exam Head Exam: ATRAUMATIC, NORMOCEPHALIC - Eye Exam Additional comments: Conjunctiva pink - ENT Exam ENT Exam: Mucous Membranes Moist - Respiratory Exam Respiratory Exam: NORMAL BREATHING PATTERN Additional comments: Lungs clear. God air entry B/L - Cardiovascular Exam Cardiovascular Exam: REGULAR RHYTHM - GI/Abdominal Exam GI & Abdominal Exam: Soft - Extremities Exam Additional comments: Rt leg dressed Lt leg no edema. Assessment and Plan - Assessment and Plan (Free Text) Assessment: Resolving CHARIS. Creat is decreased to 3.1 today. Diabetic nephropathy HTN Can resume Lisinopril PVD, DM Plan: Continue to monitor renal function. Avoid NSAIDS 60 gram protein diet because Pt has nephrotic proteinuria.
[2018-05-28 06:47] LABS: HEMOGLOBIN 10.3 g/dL (12.0-18.0); MEAN CELL VOLUME 84.3 fl (80.0-94.0); MEAN CORPUSCULAR HEMOGLOBIN 28.8 pg (27.0-31.0); MEAN CORPUSCULAR HGB CONC 34.2 g/dL (33.0-37.0); RBC 3.6 Mil/uL (4.40-5.90); RED CELL DISTRIBUTION WIDTH 13.6 % (11.5-14.5); WHITE BLOOD COUNT 7.7 K/uL (4.8-10.8)
[2018-05-28 07:34] LABS: ALB/GLOB RATIO 0.8 (1.0-2.1); ALBUMIN 3.4 g/dL (3.5-5.0); CALCIUM 8.5 mg/dL (8.4-10.2)
[2018-05-28] MEDS: cefTRIAXone 2 GM in Sodium Chloride 0.9% 100 ML IVPB SCH (09:29)
[2018-05-28] MEDS: Insulin Lispro (humaLOG) 100 Units/ml Inj SC SCH ×4 (09:33→22:05)
--- NOTE | 2018-05-28 10:33 | CP.PCM.PN ---
Subjective - Date & Time of Evaluation Date of Evaluation: 05/28/18 Time of Evaluation: 10:30 - Subjective Subjective: Podiatry Progress Note: Dr. Ang 72 year old male patient seen and evaluated for R foot infection, POD#6 R TMA. AAOx3 in NAD. at bedside. Denies nausea/vomiting/fever/shortness of breath. Possible d/c to home per patient on Tuesday Objective - Vital Signs/Intake and Output Vital Signs (last 24 hours): Temp Pulse Resp BP Pulse Ox 98.1 F 91 H 20 164/84 H 96 05/28/18 07:59 05/28/18 09:31 05/28/18 07:59 05/28/18 09:31 05/28/18 07:59 - Medications Medications: Current Medications Acetaminophen (Tylenol 325mg Tab) 650 mg PO PRN PRN PRN Reason: Fever >100.4 F Last Admin: 05/15/18 20:41 Dose: 650 mg Acetaminophen (Tylenol 325mg Tab) 650 mg PO Q4 PRN PRN Reason: Pain, Mild (1-3) Last Admin: 05/23/18 04:12 Dose: 650 mg Aspirin (Ecotrin) 81 mg PO DAILY [facility] Last Admin: 05/28/18 09:34 Dose: 81 mg Clopidogrel Bisulfate (Plavix) 75 mg PO DAILY [facility] Last Admin: 05/28/18 09:31 Dose: 75 mg Glipizide (Glucotrol) 5 mg PO BIDAC [facility] Last Admin: 05/28/18 09:33 Dose: 5 mg Ceftriaxone Sodium 2 gm/ (Sodium Chloride) 100 mls @ 100 mls/hr IVPB DAILY [facility]; Protocol Last Admin: 05/28/18 09:29 Dose: 100 mls/hr Insulin Human Lispro (Humalog) 0 units SC ACCU-CHECK [facility]; Protocol Last Admin: 05/28/18 09:33 Dose: Not Given Metoprolol Tartrate (Lopressor) 25 mg PO DAILY [facility] Last Admin: 05/28/18 09:31 Dose: 25 mg - Labs Labs: 05/28/18 05:37 05/28/18 04:00 PT 13.5 Seconds (9.8-13.1) H 05/17/18 05:05 INR 1.2 05/17/18 05:05 APTT 30.8 Seconds (25.6-37.1) 05/17/18 05:05 - Constitutional Appears: Well, Non-toxic, No Acute Distress - Head Exam Head Exam: ATRAUMATIC, NORMOCEPHALIC - Eye Exam Eye Exam: Normal appearance - ENT Exam ENT Exam: Mucous Membranes Moist - Cardiovascular Exam Cardiovascular Exam: REGULAR RHYTHM, +S1, +S2 - Extremities Exam Additional comments: RLE Exam: Vasc: DP and PT 1/4 faintly palpable, CFT to plantar flap <3 seconds, mild edema appreciated to dorsal aspect of foot Ortho: TMA appreciated, no pain appreciated at this time, ankle joint range of motion within normal limits Neuro: Gross and protective sensation diminished Derm: TMA site skin edges well coapted, with all sutures intact at this time. No signs of dehiscence, no erythema, no purulence, no sign of fluctuance, no clinical signs of infection. - Neurological Exam Neurological Exam: Alert, Awake, Oriented x3 Assessment and Plan - Assessment and Plan (Free Text) Assessment: 72 year old male patient seen and evaluated for R foot infection, POD#6 R TMA. Plan: Patient seen and evaluated at bedside Discussed with Dr. Ang Afebrile, WBC 9.5, Cr4.1, ESR 94, CRP 219.10 Right Foot X-ray- diffuse increased soft tissue swelling when compared to prior, infectious or other inflammatory process, soft tissue emphysema not appreciated New R foot x-ray (05/14): mild decrease in soft tissue swelling. No new soft tissue emphysema identified Wound Cultures (05/13)- Ecoli, beta hemolytic strep B New wound cultures (05/16); no growth Vascular consult- Plan for CTA of b/l LE per Dr. Tabares Infectious disease consult- provided recommendations for Rocephin 2 gm iv daily x 4 weeks; pt. will need picc line/ pending auth for iv abx- recommends 4 more weeks due to severity of infection Non-weightbearing to R lower extremity pathology: no signs of acute osteomyelitis stable for discharge. continue NWB to RLE Upon d/c patient to follow up in Podiatry Clinic on Tuesday ; keep dressing d/c/i
--- NOTE | 2018-05-28 12:03 | PN ---
DATE: 05/28/2018 SUBJECTIVE: The patient is seen and examined. Interim events noted. Consults noted and appreciated. The patient remains in regular medical floor. The patient feels okay, denies any specific complaint. No chest pain. No shortness of breath. PHYSICAL EXAMINATION: GENERAL: The patient is in no acute distress. VITAL SIGNS: Stable. HEART: S1, S2 normal, regular. LUNGS: Good bilateral air exchange. ABDOMEN: Soft, nontender. EXTREMITIES: No calf swelling. No tenderness. No acute ischemia. No edema. 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 The patient is status post amputation. DIAGNOSTIC DATA: Available diagnostic data reviewed. Telemetry monitoring does not show any significant arrhythmias. Creatinine is improving, now 3.5. ASSESSMENT AND PLAN: Overall, the patient is improving and recovering from ____. Plan as ordered. Silverio Calabrese MD
[2018-05-29] MEDS: cefTRIAXone 2 GM in Sodium Chloride 0.9% 100 ML IVPB SCH (08:22)
[2018-05-29] MEDS: Insulin Lispro (humaLOG) 100 Units/ml Inj SC SCH ×2 (08:23→14:39)
--- NOTE | 2018-05-29 10:09 | PN ---
DATE: 05/29/2018 SUBJECTIVE: The patient was seen and examined. Interim events noted. The patient remains in progressive care unit. The patient feels okay. Denies any specific complaint. No chest pain. No shortness of breath. PHYSICAL EXAMINATION GENERAL: The patient is in no acute distress. VITAL SIGNS: Stable. HEART: S1 and S2, normal and regular. LUNGS: Good bilateral air exchange. ABDOMEN: Soft and nontender. EXTREMITIES: The patient is status post amputation. No edema. No calf swelling. No tenderness. No acute ischemia. SONG LYRICIST: Exam is essentially unchanged. DIAGNOSTIC DATA: Available diagnostic data reviewed. ASSESSMENT AND PLAN: Overall, the patient's general medical condition is stable. Plan as ordered. Silverio Calabrese MD
[2018-05-29 12:26] VITALS: BP 176/87; PULSE 76; RESP 18; TEMP 98.4; O2SAT 98
--- NOTE | 2018-05-29 12:30 | CP.PCM.PN ---
Subjective - Date & Time of Evaluation Date of Evaluation: 05/29/18 Time of Evaluation: 12:28 - Subjective Subjective: Yuniel Fuentes, PGY-1, Cardiology Progress Note for Dr. Tabares Patient was seen and evaluated at bedside. Patient had no acute overnight events. Patient has no acute symptoms at this time. Objective - Vital Signs/Intake and Output Vital Signs (last 24 hours): Temp Pulse Resp BP Pulse Ox 98.4 F 76 18 176/87 H 98 05/29/18 12:25 05/29/18 12:25 05/29/18 12:25 05/29/18 12:25 05/29/18 12:25 - Medications Medications: Current Medications Acetaminophen (Tylenol 325mg Tab) 650 mg PO Q4 PRN PRN Reason: Pain, Mild (1-3) Last Admin: 05/23/18 04:12 Dose: 650 mg Aspirin (Ecotrin) 81 mg PO DAILY [facility] Last Admin: 05/29/18 08:23 Dose: 81 mg Clopidogrel Bisulfate (Plavix) 75 mg PO DAILY [facility] Last Admin: 05/29/18 08:23 Dose: 75 mg Glipizide (Glucotrol) 5 mg PO BIDAC [facility] Last Admin: 05/29/18 08:23 Dose: 5 mg Ceftriaxone Sodium 2 gm/ (Sodium Chloride) 100 mls @ 100 mls/hr IVPB DAILY [facility]; Protocol Last Admin: 05/29/18 08:22 Dose: 100 mls/hr Insulin Human Lispro (Humalog) 0 units SC ACCU-CHECK [facility]; Protocol Last Admin: 05/29/18 08:23 Dose: 2 units - Labs Labs: 05/28/18 05:37 05/28/18 04:00 PT 13.5 Seconds (9.8-13.1) H 05/17/18 05:05 INR 1.2 05/17/18 05:05 APTT 30.8 Seconds (25.6-37.1) 05/17/18 05:05 - Constitutional Appears: Well, Non-toxic, No Acute Distress - Head Exam Head Exam: ATRAUMATIC, NORMAL INSPECTION, NORMOCEPHALIC - Eye Exam Eye Exam: EOMI, PERRL - ENT Exam ENT Exam: Mucous Membranes Moist - Respiratory Exam Respiratory Exam: Clear to Ausculation Bilateral, NORMAL BREATHING PATTERN - Cardiovascular Exam Cardiovascular Exam: REGULAR RHYTHM, RRR, +S1, +S2 - GI/Abdominal Exam GI & Abdominal Exam: Soft, Normal Bowel Sounds. absent: Tenderness - Extremities Exam Extremities Exam: Full ROM - Neurological Exam Neurological Exam: Alert, Awake, CN II-XII Intact, Oriented x3 - Skin Skin Exam: Dry, Intact Additional comments: darkened 2nd right toe, now debrided Assessment and Plan (1) PVD (peripheral vascular disease) Assessment & Plan: Plan is for arterial duplex of bilateral lower extremities to evaluate vasculature for further intervention Continue aspirin 81 mg daily Status: Acute (2) DM2 (diabetes mellitus, type 2) Assessment & Plan: HgbA1c: 8.4 Continue with glipizide, and sliding scale insulin. Status: Chronic (3) HTN (hypertension) Assessment & Plan: Continue with toprol Status: Chronic (4) Cellulitis Assessment & Plan: Continue with antibiotics Status: Acute (5) Acute renal insufficiency Assessment & Plan: Creatinine trending down at 3.5. Hemodialysis sessions have stopped. Status: Acute
--- NOTE | 2018-05-29 12:32 | PCM.SURG1 ---
Surgeon's Initial Post Op Note - Surgeon's Notes Surgeon: Brayden Acevedo MD Time Study Clerk: NONE Type of Anesthesia: Local Pre-Operative Diagnosis: Poor venous access, infection Operative Findings: US showed a patent right basilic vein Post-Operative Diagnosis: Poor venous access, infection Operation Performed: single lumen picc placement right arm, 37 cm. Tip is in the SVC. Specimen/Specimens Removed: NONE Estimated Blood Loss: EBL {In ML}: 2 Blood Products Given: N/A Drains Used: No Drains Post-Op Condition: Fair Date of Surgery/Procedure: 05/29/18 Time of Surgery/Procedure: 12:20
--- NOTE | 2018-05-29 12:44 | VASCULAR ---
PROCEDURE: Date of procedure: 05/29/2018 Procedure: 1. Placement of a right arm PICC with ultrasound and fluoroscopic guidance, CPT 91163 2. PICC tip confirmation with spot radiograph and is in the superior vena cava Medications: 3cc 1 percent lidocaine Total Fluoro time: 4.5 Seconds Radiation: 0.75 MGy EBL: 2 cc HISTORY: Infection requiring long-term IV antibiotics TECHNIQUE: Following informed consent and procedure time-out, the patient was placed supine on the interventional table and the right arm prepped and draped in the usual sterile fashion. Ultrasound showed a patent and compressible right basilic vein. After the skin was anesthetized with lidocaine, the basilic vein was accessed with micro micropuncture technique using ultrasound guidance. A guidewire was then advanced under fluoroscopic guidance into the superior vena cava. An image documenting ultrasound guidance for vascular access was permanently saved. The length of the single-lumen 4 [place] PICC was trimmed to 37 centimeters and advanced through a peel-away sheath. The PICC was position with tip of PICC confirm a spot radiograph the superior vena cava. The PICC was secured to the patient's skin. The PICC was flushed. A biopatch and sterile dressing was applied. IMPRESSION: Placement of a single-lumen 4 [place] PICC trimmed to 37 centimeters via right basilic vein. The tip of the PICC is confirmed with spot radiograph and is in the superior vena cava.
[2018-05-29] MEDS ORDERED: Metoprolol Succinate 25 mg XL Tab PO SCH (12:45)
== END 2018-05-29 13:47 | disposition home health service (06) | DRG 305 ==
LOC: H.ER 11:12 → H.ERHOLD 12:07 → H.TEL 15:20 → H.ICU/CCU 05-16 19:40 → H.TEL 05-21 13:19
PROVIDERS: ADMIT Internal Medicine; ATTEND Internal Medicine
PROC: 0H9MXZZ Drainage of Right Foot Skin, External Approach (ICD-10-PCS; 2018-05-13)
PROC: 5A1D70Z Performance of Urinary Filtration, Intermittent, Less than 6 Hours Per Day (ICD-10-PCS; 2018-05-17)
PROC: 5A1D70Z Performance of Urinary Filtration, Intermittent, Less than 6 Hours Per Day (ICD-10-PCS; 2018-05-18)
PROC: 5A1D70Z Performance of Urinary Filtration, Intermittent, Less than 6 Hours Per Day (ICD-10-PCS; 2018-05-20)
PROC: 5A1D70Z Performance of Urinary Filtration, Intermittent, Less than 6 Hours Per Day (ICD-10-PCS; 2018-05-21)
PROC: 0Y6M0Z0 Detachment at Right Foot, Complete, Open Approach (ICD-10-PCS; principal; 2018-05-22 17:30)
PROC: 02HV33Z Insertion of Infusion Device into Superior Vena Cava, Percutaneous Approach (ICD-10-PCS; 2018-05-29)
PROC: B518ZZA Fluoroscopy of Superior Vena Cava, Guidance (ICD-10-PCS; 2018-05-29)
PROC: B548ZZA Ultrasonography of Superior Vena Cava, Guidance (ICD-10-PCS; 2018-05-29)
DX: E11.52 Type 2 diabetes mellitus with diabetic peripheral angiopathy with gangrene (principal); N17.0 Acute kidney failure with tubular necrosis; A41.9 Sepsis, unspecified organism; E87.2 Acidosis; M86.171 Other acute osteomyelitis, right ankle and foot; L03.115 Cellulitis of right lower limb; E11.621 Type 2 diabetes mellitus with foot ulcer; E11.65 Type 2 diabetes mellitus with hyperglycemia; E11.69 Type 2 diabetes mellitus with other specified complication; E11.22 Type 2 diabetes mellitus with diabetic chronic kidney disease; N18.9 Chronic kidney disease, unspecified; N39.0 Urinary tract infection, site not specified; Z79.02 Long term (current) use of antithrombotics/antiplatelets; Z79.82 Long term (current) use of aspirin; Z87.891 Personal history of nicotine dependence; Z89.431 Acquired absence of right foot; Z79.84 Long term (current) use of oral hypoglycemic drugs; Z79.899 Other long term (current) drug therapy; E11.21 Type 2 diabetes mellitus with diabetic nephropathy; E78.5 Hyperlipidemia, unspecified; I12.9 Hypertensive chronic kidney disease with stage 1 through stage 4 chronic kidney disease, or unspecified chronic kidney disease; L97.519 Non-pressure chronic ulcer of other part of right foot with unspecified severity; I96 Gangrene, not elsewhere classified